=== PATIENT | female | born 1940 | race Caucasian/White ===

== ENCOUNTER 2020-12-05 13:23 | Emergency (ER) | payer MEDICARE, BC, SELFPAY ==
--- NOTE | ~2020-12-05 | XR_ITS ---
EXAMINATION: XR chest 1V portable EXAM DATE: 12/05/2020 14:33 INDICATION: covid +, cough, dyspnea on exertion. TECHNIQUE: Portable AP frontal chest x-ray was obtained. Comparison is made to prior examination from 08/12/2019. FINDINGS: The lungs are clear. There are no pleural effusions. The cardiomediastinal silhouette is within normal limits. There is no pneumothorax suspected. The bones and soft tissues are unremarkab le. There is small to moderate sliding gastroesophageal hiatal hernia. IMPRESSION: No acute cardiopulmonary findings. Reviewed, dictated and finalized at location A. CH TRIMMER
[2020-12-05 13:25] VITALS: BP 125/98; PULSE 88; RESP 18; TEMP 35.7; O2SAT 97
--- NOTE | 2020-12-05 14:15 | ED.URI ---
HPI - URI/Sore Throat General Chief Complaint: Upper Respiratory Infection Stated Complaint: covid positive, sob Time Seen by Provider: 12/05/20 13:33 Source: patient Mode of arrival: ambulatory Limitations: no limitations History of Present Illness HPI Narrative: This is a 80-year-old female that presents to the emergency department for abnormal pulse oximeter. Reports she was diagnosed with Covid 4 days ago. Reports she has been monitoring her oxygen saturation at home. Reports today that her meter was reading in the high 80s, she was told by her primary to come in to be seen. She does report some headaches and cough since her Covid diagnosis. Otherwise has no complaints currently. Denies fever, chest pain, or shortness of breath. Related Data Home Medications Medication Instructions Recorded Confirmed azithromycin 12/05/20 12/05/20 ezetimibe mg 12/05/20 losartan-hydrochlorothiazide tablet 12/05/20 primidone 12/05/20 Allergies Allergy/AdvReac Type Severity Reaction Status Date / Time Sulfa (Sulfonamide Allergy Unknown Unknown Verified 12/05/20 13:36 Antibiotics) Review of Systems Review of Systems: Narrative: CONSTITUTIONAL: Denies fever ENT: Denies rhinorrhea, congestion, sore throat CARDIOVASCULAR: Denies chest pain RESPIRATORY: Reports cough. Denies dyspnea. All systems reviewed & are unremarkable except as noted in HPI and below PMFSH Past Medical History Medical History (Updated 12/05/20 @ 15:04 by Carolyn Pham PA-C) History of hypertension Family History Family History (Updated 07/06/16 @ 08:39 by DOCTOR UNKNOWN) Father Diabetes mellitus Sibling Patient's sister is in good health Patient's brother is in good health Mother Family history of malignant neoplasm Social History Social History Smoking status: Former smoker Smoking end date: 10/16/14 Alcohol intake: never Exam Narrative: Exam Narrative: GENERAL: Elderly, well-nourished, and in no acute distress. HEAD: Normocephalic, atraumatic. EYES: EOMI. ENT: Nares clear, no rhinorrhea or epistaxis. Mucous membranes moist. Oropharynx without tonsillar hypertrophy exudate or other lesions. Bilateral TMs pearly lópez non-bulging NECK: Supple. No adenopathy or masses. CHEST: Clear to auscultation. No respiratory distress. No wheezes rales or rhonchi HEART: Regular rate and rhythm. No murmur heard. Normal peripheral pulses. EXTREMITIES: Normal range of motion. No edema. SKIN: Warm, dry, no rash. NEURO: No focal deficits. Alert and oriented x3. PSYCH: Normal mood and affect Course Vital Signs Vital signs: Vital Signs Temperature 96.3 F L 12/05/20 13:25 Pulse Rate 88 12/05/20 13:25 Respiratory Rate 18 12/05/20 13:25 Blood Pressure 125/98 H 12/05/20 13:25 Pulse Oximetry 97 12/05/20 13:25 Temperature 96.3 F L 12/05/20 13:25 Pulse Rate 88 12/05/20 13:25 Respiratory Rate 18 12/05/20 13:25 Blood Pressure 125/98 H 12/05/20 13:25 Pulse Oximetry 97 12/05/20 13:25 MDM - URI/Sore Throat MDM Narrative Medical decision making narrative: Patient presents the emergency department for a reading of the mid to upper 80s on a home pulse oximeter. Recently diagnosed with Covid. In the ED oxygen saturation has been 93 to 97% on room air. She denies any current shortness of breath or any other complaints. Does report a mild cough and headache. Chest x-ray today is clear. She is currently on a Z-Tuan prescribed by her primary doctor. She was instructed to continue her antibiotic as prescribed and follow-up with her primary doctor. Instructed to buy a new home pulse oximeter to continue to monitor her oxygen saturation. She was instructed to return for any worsening or concerning symptoms. Imaging Data Radiologist's impression: ITS Impressions Chest X-Ray 12/05/20 14:43 IMPRESSION: No acute cardiopulmonary findings. Critical Care Time Critical
[2020-12-05 15:11] VITALS: BP 142/88; PULSE 78; RESP 16; O2SAT 96
== END 2020-12-05 15:11 | disposition home or self-care (01) ==
PROVIDERS: Emergency Provider Emergency Medicine; PCP Internal Medicine
DX: U07.1 COVID-19 (principal); I10 Essential (primary) hypertension
CPT/HCPCS: 71045; 99283

== ENCOUNTER 2021-09-04 21:40 | Observation (INO) | payer MEDICARE, BC, SELFPAY ==
[2021-09-04] VITALS (15 sets, daily range): BP systolic 112–160; BP diastolic 62–85; PULSE 72–100; RESP 14–26; TEMP 36.2; O2SAT 88–100
--- NOTE | ~2021-09-04 | XR_ITS ---
EXAMINATION: XR chest 2V EXAM DATE: 09/04/2021 22:34 INDICATION: Shortness of breath, cough X 2 days. TECHNIQUE: Frontal and lateral projections of the chest obtained and reviewed. Comparison is made to prior examination from 12/05/2020. FINDINGS: There is small to moderate sliding gastroesophageal hiatal hernia. The lungs are hyperinfla tessa which can be seen with chronic obstructive pulmonary disease (a clinical diagnosis of functional impairment), but is not diagnostic of it. The lungs are clear. There are no pleural effusions. The cardiomediastinal silhouette is within normal limits. There is no pneumothorax suspected. The bones and soft tissues are unremarkable. IMPRESSION: 1. No acute cardiopulmonary findings. 2. Small to moderate hiatal hernia. 3. Hyperinflation. Reviewed, dictated and finalized at location A. ER LICENSE REVIEWING OFFICER
--- NOTE | 2021-09-04 21:43 | ECG_ITS ---
Measurements Intervals [place] Rate: 96 P: 76 TX: 206 QRS: 40 QRSD: 88 T: 59 QT: 308 QTc: 390 Interpretive Statements SINUS RHYTHM POSSIBLE LEFT ATRIAL ENLARGEMENT INCOMPLETE RIGHT BUNDLE BRANCH BLOCK BORDERLINE ST-T WAVE ABNORMALITY- ANT/INF LEADS BASELINE ARTIFACT- I, II, AVR, AVL, V1-V3 BORDERLINE ECG Electronically Signed On 09-05-2021 7:18:57 CLOTH SHEARER by Gordon Scott D.O.
--- NOTE | 2021-09-04 22:14 | PC.NURSE ---
Pt here from home in personal vehicle. reports increasing shortness of breath x 2-3 days. denies sick contacts. a/o x 4. shortness of breath worse with exertion. Denies hx of COPD but had been dx with exacerbation of same in past. 88% on RA. placed on 2L O2 per NC.
[2021-09-04 22:25] LABS: Basophils Absolute Auto 0.1 K/mm3 (0.0-0.1); Basophils Percent Auto 0.6 % (0.2-1.2); Eosinophils Absolute Auto 0.3 K/mm3 (0-0.3); Eosinophils Percent Auto 3.7 % (0-4.4); Hematocrit 45.2 % (37.0-47.0); Hemoglobin 15.6 g/dL (12.0-15.0); Immature Granulocyte Absolute 0.03 K/mm3 (0.00-0.031); Immature Granulocyte Percent A 0.4 % (0-0.5); Lymphocytes Percent Auto 25.6 % (18.3-44.2); Mean Corpuscular HGB Conc 34.5 g/dl (32-36); Mean Corpuscular Hemoglobin 34.6 pg (26-34); Mean Corpuscular Volume 100.2 fl (80-100); Mean Platelet Volume 9.9 fl (7.4-10.4); Monocytes Absolute Auto 0.9 K/mm3 (0.1-0.6); Monocytes Percent Auto 11.2 % (2.6-8.5); Neutrophils Absolute Auto 4.8 K/mm3 (1.3-6.7); Neutrophils Percent Auto 58.5 % (45.5-73.1); Platelet Count Result 176 k/mm3 (150-375); Red Blood Count 4.51 M/mm3 (4.2-5.4); Red Cell Distribution Width 12.1 % (11.5-14.5); White Blood Count 8.2 K/mm3 (4.5-10.0)
[2021-09-04 22:33] LABS: Lactic Acid Reflex 0.9 mmol/L (0.7-2.1)
[2021-09-04 22:33] LABS: Alanine Aminotransferase 16 U/L (4-35); Albumin Level 4.9 g/dL (3.5-5.1); Alkaline Phosphatase 162 U/L (38-126); Anion Gap 8 mmol/L (8-16); Aspartate Amino Transferase 28 U/L (14-36); Bilirubin,Total 0.3 mg/dL (0.2-1.3); Blood Urea Nitrogen 15 mg/dL (7-17); Calcium 9.7 mg/dL (8.4-10.2); Carbon Dioxide 32 mmol/L (22-30); Chloride 97 mmol/L (98-107); Estimated CRCL calculation 42 ml/min; Estimated Glomerular Filt Rate > 60; Glucose 134 mg/dL (65-110); Potassium 3.1 mmol/L (3.4-5.0); Sodium 137 mmol/L (137-145)
[2021-09-04] MEDS: methylPREDNISolone SOD SUCC 125 MG VIAL IV PUSH (23:03)
[2021-09-04] MEDS: ALBUTEROL SULFATE NEB 2.5 MG/0.5 ML INH 20 MG INHALATION (23:09)
[2021-09-04] MEDS: IPRATROPIUM BR 0.02% INH SOLN 0.5 MG/2.5 ML VIAL 1.5 MG INHALATION (23:09)
[2021-09-04 23:29] LABS: Base Excess ABG 4.6 mEq/l (+/-2.0); Device NASAL CANNULA; Fractional Inspired Oxygen 28 %; Modified Allen's Test Pass; Oxygen Content ABG 19.4 %vol (16.0-22.0); Oxygen Saturation ABG 96.3 % (95.0-100.0); Oxyhemoglobin 94.4 % THb (90.0-100.0); PCO2 ABG 53.3 mmHg (35.0-45.0); PO2 ABG 86.7 mmHg (80.0-100.0); Site Drawn RIGHT RADIAL; Total Hemoglobin 14.6 g/dL (12.0-18.0); pH ABG 7.383 (7.350-7.450)
[2021-09-05] VITALS (45 sets, daily range): BP systolic 103–155; BP diastolic 39–78; PULSE 60–93; RESP 9–24; TEMP 36.1–36.9; O2SAT 9–100; BMI 23.8
--- NOTE | 2021-09-05 01:10 | PC.NURSE ---
pt currently talking to family on her cell phone. On 2L 02 per NC.
--- NOTE | 2021-09-05 02:13 | ED.SOB ---
HPI - SOB/Dyspnea General Chief Complaint: Shortness of Breath/Dyspnea Stated Complaint: sob, cough Time Seen by Provider: 09/04/21 22:43 Source: patient History of Present Illness HPI Narrative: Patient presents with shortness of breath. She denies any prior lung disease. She reports she has felt short of breath for the past few days and been trying to treat it with rest however today she was short of breath just sitting there given worsening symptoms she came to the ER for evaluation. She reporting association with cough and congestion. She denies fevers or known exposures she reports she had Covid back in November and did get her booster series. Related Data Home Medications Medication Instructions Recorded Confirmed ezetimibe mg 12/05/20 losartan-hydrochlorothiazide tablet 12/05/20 Allergies Allergy/AdvReac Type Severity Reaction Status Date / Time Sulfa (Sulfonamide Allergy Unknown Unknown Verified 09/04/21 21:49 Antibiotics) Review of Systems Review of Systems: CONSTITUTIONAL: Denies fever, chills, or sweats. EYES: Denies visual changes, redness, or discharge. ENT: Reports congestion CARDIOVASCULAR: Denies chest pain, palpitations, or edema. RESPIRATORY: Shortness of breath and cough GASTROINTESTINAL: Denies abdominal pain, nausea, vomiting, or diarrhea. GENITOURINARY: Denies dysuria or hematuria. SKIN: Denies rash or itching. MUSCULOSKELETAL: Denies back pain, joint pain, or myalgia. NEUROLOGIC: Denies headache, numbness, dizziness, or weakness. PSYCHIATRIC: Denies anxiety or depression. All systems reviewed & are unremarkable except as noted in HPI and below PMFSH Past Medical History Medical History History of hypertension Family History Family History Father Diabetes mellitus Sibling Patient's sister is in good health Patient's brother is in good health Mother Family history of malignant neoplasm Social History Social History Smoking status: Former smoker Smoking end date: 10/16/14 Alcohol intake: never Exam Narrative: GENERAL: Well-appearing, well-nourished, and in no acute distress. HEAD: Normocephalic, atraumatic. EYES: PERRLA and EOMI. ENT: Nares clear, no rhinorrhea or epistaxis. Mucous membranes moist. NECK: Supple. No masses. No JVD CHEST: Diminished aeration all lung lee diffuse rhonchi EXTREMITIES: Normal range of motion. No edema. SKIN: Warm, dry, no rash. NEURO: No focal deficits. Alert and oriented x3. PSYCH: Normal mood and affect. Course Reevaluation(s) Reevaluation #1: Patient reports feeling improved but continues to have oxygen requirement D satting to 88% on room air given persistent hypoxia and new O2 requirement patient will be admitted for further management patient is comfortable inpatient plan Date: 09/05/21 Time: 02:16 Vital Signs Vital signs: Vital Signs Temperature 36.2 C L 09/04/21 21:45 Pulse Rate 100 09/04/21 21:45 Respiratory Rate 22 H 09/04/21 21:45 Blood Pressure 155/72 H 09/04/21 21:45 Pulse Oximetry 91 09/04/21 21:45 Temperature 36.2 C L 09/05/21 03:18 Pulse Rate 81 09/05/21 04:32 Respiratory Rate 22 H 09/05/21 04:32 Blood Pressure 112/56 L 09/05/21 04:31 Pulse Oximetry 99 09/05/21 05:12 MDM - SOB/Dyspnea MDM Narrative Medical decision making narrative: Patient with significant smoking history presents with progressively worsening shortness of breath and cough over the past few days. Vital signs notable for hypoxia on room air patient has no home O2 requirement. Exam with diffuse rhonchi. Labs and imaging obtained. Imaging is concerning for emphysematous changes. Patient was treated with DuoNeb therapies and steroids on reevaluation she reported improvement in symptoms however continue to be hypoxic. Due to
[2021-09-05] MEDS: POTASSIUM CHLORIDE 20 MEQ PACKET (FOR LIQUID) 40 MEQ PO (02:39)
--- NOTE | 2021-09-05 05:22 | PC.NURSE ---
Report to [facility] for room 306.
--- NOTE | 2021-09-05 05:45 | ADMGEN ---
This patient, Antonieta Hawkins, was admitted to [facility] Surg Room 306-01. Patient/family oriented to hospital policies and general routines including ID bracelet, bed and alarms, visiting hours, pain management, procedures, bathroom and other care routines, personal items, smoking policy, room service/diet, and visiting hours. Information on how to activate the Rapid Response Team has been discussed. Patient/Family are encouraged to report perceived risks to care and to ask questions if they do not understand what they are told or what they should do.
[2021-09-05] MEDS: SODIUM CHLORIDE 0.9% IV 1,000 ML 125 ML IV CONT (07:11)
[2021-09-05] MEDS: methylPREDNISolone SOD SUCC 125 MG VIAL 60 MG IV PUSH ×3 (07:26→19:57)
[2021-09-05] MEDS: ALBUTEROL SULFATE NEB 2.5 MG/0.5 ML INH 5 MG INHALATION ×3 (08:25→20:26)
[2021-09-05] MEDS: IPRATROPIUM BR 0.02% INH SOLN 0.5 MG/2.5 ML VIAL INHALATION ×3 (08:26→20:27)
[2021-09-05] MEDS: POTASSIUM CHLORIDE 20 MEQ TABLET 40 MEQ PO (09:39)
--- NOTE | 2021-09-05 15:42 | PM.IMHP ---
H&P: HPI History of Present Illness Date/Time: Date of Service 09/05/21 15:42 81F with a past medical history of essential tremor, hypertension, hyperlipidemia, COPD who presents with shortness of breath. Patient was last in her usual state of health approximately a month ago. Patient has been feeling more short of breath but has been using an old inhaler she had to help feel better. Last night she was home sitting having a coughing fit and felt extremely short of breath with an associated chest tightness. She denies fever, chills, sore throat, diarrhea, congestion. Endorses having rhinorrhea, which has resolved since coming to the hospital. She denies any recent travel and has had a 3rd dose of the COVID 19 vaccine. She lost her to COVID 19 early this year. Patient quit smoking 3 years ago and previously smoked 1/2 PPD since she was 19 until 3 years ago. In ED, given albuterol-atrovent back to back but was persistently saturating at 88% on room air, so she required admission. Methylprednisolone ordered but not given in ED as IV access was difficult. Chief Complaint: shortness of breath Review of Systems Constitutional: Constitutional: Denies fever(s), Denies malaise, Denies poor appetite and Denies weight loss Eyes: Eyes: Denies irritation and Denies itchy eyes ENT: Denies nasal congestion and Reports nasal discharge Cardiovascular: Cardiovascular: Denies chest pain, Denies chest pain with activity, Reports dyspnea and Reports dyspnea on exertion Respiratory: Respiratory: Denies chest congestion, Reports dyspnea, Reports dyspnea on exertion and Reports wheezing Gastrointestinal: Gastrointestinal: Denies abdominal pain, Denies diarrhea and Denies loose stools Musculoskeletal: Musculoskeletal: Denies arthralgias and Denies joint swelling Neurologic: Denies focal weakness Psychiatric: Psychiatric: Denies behavioral changes Endocrine: Endocrine: Denies fatigue Hematologic/Lymphatic: Hematologic/Lymphatic: Denies easy bleeding and Denies easy bruising Allergic/Immunologic: Allergic/Immunologic: Denies itchy eyes PMFSH Past Medical History Medical History (Updated 09/05/21 @ 19:47 by Raina Fuentes MD) Essential hypertension History of hypertension Hyperlipidemia Hypertension Surgical History Surgical History (Updated 09/05/21 @ 18:22 by Raina Fuentes MD) Hx of appendectomy Family History Family History (Updated 09/05/21 @ 18:24 by Raina Fuentes MD) Father Diabetes mellitus Heart disease Family history of malignant neoplasm Sibling Patient's sister is in good health, Onset Age: 92 Mother Family history of malignant neoplasm Sibling Hypertension Social History Social History (Updated 09/05/21 @ 19:39 by Raina Fuentes MD) Social History: - of COVID 19 Smoking packs per day: 0.5 Smoking cigarettes per day: 10.0 Smoking status: Former smoker Tobacco type: cigarettes Second hand tobacco smoke exposure: No Smoking end date: 09/02/18 Alcohol intake: former Substance use: never Living arrangements: alone Additional living arrangements comments: Has multiple family members on the same street. 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 Gender identity (if verbalized by the patient): Female Sexual Orientation (if Verbalized by the Patient): Straight or Heterosexual Spiritual care concerns: No Meds Home Medications and Allergies Home Medications Medication Instructions Recorded Confirmed Type ezetimibe 10 mg PO DAILY 12/05/20 09/05/21 History losartan-hydrochlorothiazide 1 tablet PO DAILY 12/05/20 09/05/21 History primidone 200 mg PO TID 09/05/21 09/05/21 History propranolol 20 mg PO TID 09/05/21 09/05/21 History Allergies Allergy/AdvReac Type Severity Reaction Status Date / Time Sulfa (Sulfonamide Allergy Unknown Unknown Verified
[2021-09-05] MEDS: PRIMIDONE 50 MG TABLET 200 MG PO (17:09)
[2021-09-05] MEDS: PROPRANOLOL HCL 20 MG TABLET PO (17:10)
[2021-09-05 20:49] LABS: Basophils Percent Auto 0.4 % (0.2-1.2); Eosinophils Absolute Auto 0.1 K/mm3 (0-0.3); Eosinophils Percent Auto 0.6 % (0-4.4); Hematocrit 36.5 % (37.0-47.0); Hemoglobin 12.2 g/dL (12.0-15.0); Immature Granulocyte Absolute 0.02 K/mm3 (0.00-0.031); Immature Granulocyte Percent A 0.2 % (0-0.5); Lymphocytes Percent Auto 20.8 % (18.3-44.2); Mean Corpuscular HGB Conc 33.4 g/dl (32-36); Mean Corpuscular Hemoglobin 34.5 pg (26-34); Mean Corpuscular Volume 103.1 fl (80-100); Mean Platelet Volume 10.2 fl (7.4-10.4); Monocytes Absolute Auto 0.9 K/mm3 (0.1-0.6); Monocytes Percent Auto 10.6 % (2.6-8.5); Neutrophils Absolute Auto 5.5 K/mm3 (1.3-6.7); Neutrophils Percent Auto 67.4 % (45.5-73.1); Platelet Count Result 173 k/mm3 (150-375); Red Blood Count 3.54 M/mm3 (4.2-5.4); Red Cell Distribution Width 12.2 % (11.5-14.5); White Blood Count 8.2 K/mm3 (4.5-10.0)
[2021-09-05 21:01] LABS: Anion Gap 4 mmol/L (8-16); Blood Urea Nitrogen 15 mg/dL (7-17); Calcium 8.7 mg/dL (8.4-10.2); Carbon Dioxide 28 mmol/L (22-30); Chloride 103 mmol/L (98-107); Estimated CRCL calculation 49 ml/min; Estimated Glomerular Filt Rate > 60; Glucose 117 mg/dL (65-110); Potassium 4.1 mmol/L (3.4-5.0); Sodium 135 mmol/L (137-145)
[2021-09-06] VITALS (7 sets, daily range): BP systolic 101–134; BP diastolic 69–81; PULSE 67–78; RESP 18–20; TEMP 35.8–36.4; O2SAT 95–99
[2021-09-06] MEDS: methylPREDNISolone SOD SUCC 125 MG VIAL 60 MG IV PUSH (01:05)
[2021-09-06] MEDS: IPRATROPIUM BR 0.02% INH SOLN 0.5 MG/2.5 ML VIAL INHALATION ×2 (02:10→09:56)
[2021-09-06] MEDS: ALBUTEROL SULFATE NEB 2.5 MG/0.5 ML INH 5 MG INHALATION ×2 (02:10→09:56)
[2021-09-06 06:08] LABS: Basophils Percent Auto 0.3 % (0.2-1.2); Eosinophils Percent Auto 0.1 % (0-4.4); Hematocrit 38.6 % (37.0-47.0); Hemoglobin 13.2 g/dL (12.0-15.0); Immature Granulocyte Absolute 0.04 K/mm3 (0.00-0.031); Immature Granulocyte Percent A 0.5 % (0-0.5); Lymphocytes Percent Auto 15.9 % (18.3-44.2); Mean Corpuscular HGB Conc 34.2 g/dl (32-36); Mean Corpuscular Hemoglobin 34.3 pg (26-34); Mean Corpuscular Volume 100.3 fl (80-100); Mean Platelet Volume 9.9 fl (7.4-10.4); Monocytes Absolute Auto 0.2 K/mm3 (0.1-0.6); Monocytes Percent Auto 2.8 % (2.6-8.5); Neutrophils Absolute Auto 6.1 K/mm3 (1.3-6.7); Neutrophils Percent Auto 80.4 % (45.5-73.1); Platelet Count Result 165 k/mm3 (150-375); Red Blood Count 3.85 M/mm3 (4.2-5.4); Red Cell Distribution Width 11.9 % (11.5-14.5); White Blood Count 7.6 K/mm3 (4.5-10.0)
[2021-09-06 06:20] LABS: Anion Gap -1 mmol/L (8-16); Blood Urea Nitrogen 13 mg/dL (7-17); Calcium 8.8 mg/dL (8.4-10.2); Carbon Dioxide 32 mmol/L (22-30); Chloride 102 mmol/L (98-107); Estimated CRCL calculation 49 ml/min; Estimated Glomerular Filt Rate > 60; Glucose 138 mg/dL (65-110); Potassium 4.9 mmol/L (3.4-5.0); Sodium 133 mmol/L (137-145)
[2021-09-06] MEDS: predniSONE 20 MG TABLET 40 MG PO (09:26)
[2021-09-06] MEDS: PRIMIDONE 50 MG TABLET 200 MG PO (09:27)
[2021-09-06] MEDS: LOSARTAN POTASSIUM 100 MG TABLET PO (09:27)
[2021-09-06] MEDS: PROPRANOLOL HCL 20 MG TABLET PO (09:27)
[2021-09-06] MEDS: hydroCHLOROthiazide 25 MG TABLET PO (09:27)
[2021-09-06] MEDS: EZETIMIBE 10 MG TABLET PO (09:27)
--- NOTE | 2021-09-06 10:57 | PM.DS ---
DS: Admitting Diagnosis Discharge Date 09/06/21 Admitting Diagnosis Shortness of breath DS: Discharge Diagnosis Discharge Diagnosis (1) Acute hypoxemic respiratory failure: Code(s): J96.01 - Acute respiratory failure with hypoxia Status: Acute Assessment and Plan: Due to COPD exacerbation. Patient was given albuterol-ipratropium back to back in ED with oxygen saturation persistently at 88% on room air but improved with 2L NC. She was improving and endorsed feeling much better. Treated with methylprednisolone x3 doses and then changed to Prednisone 40 mg daily. We continue albuterol-ipratropium q6h nebs. Able to wean off O2. She has been up walking to the bathroom without BRAVO. She feels back to baseline and feels ready for discharge. (2) COPD exacerbation: Code(s): J44.1 - Chronic obstructive pulmonary disease with (acute) exacerbation Status: Acute Assessment and Plan: No pneumonia on CXR. Blood cultures NGTD. COVID 19 PCR pending but felt less likely. Likely related to seasonal allergies. Has previous hospitalization for COPD in the past. She has Albuterol neb and inhaler at home that she was using regularly over the past week since becoming ill. Treatment as above. Add Incruse Ellipta at discharge. (3) Macrocytosis: Code(s): D75.89 - Other specified diseases of blood and blood-forming organs Status: Acute Assessment and Plan: MCV 100.3 without anemia. Has been noted in the past. Also patient notes poor nutrition as she stopped cooking as much as she did prior to her dying in October 2020. B12 level normal. (4) Hypertension: Code(s): I10 - Essential (primary) hypertension Status: Acute Assessment and Plan: BP elevated on admission but otherwise remained well controlled with resuming her home medications. (5) Hyperlipidemia: Code(s): E78.5 - Hyperlipidemia, unspecified Status: Acute Assessment and Plan: Stable. Patient takes ezetimibe 10 mg po at home which was resumed. (6) Benign familial tremor: Code(s): G25.0 - Essential tremor Status: Acute Assessment and Plan: Familial tremor controlled with primidone 4 tabs BID and propranolol 20 mg 2 tabs BID. We continue home propranolol and primidone. DS: Summary Hospital Course Reason for hospitalization: 81yo female with COPD here for shortness of breath. Please see H&P for details Hospital Course: Please see above for details of hospital course. Status at Discharge Cognitive/behavioral status at discharge: Stable Time Spent with Patient Time attestation: Total time spent providing and/or coordinating discharge services: 32 minutes Time spent: Greater than 30 minutes Exam Narrative: AF 97.5 134/81 72 18 95% ra Gen - NARD Chest - distant but clear breath sounds. No wheezing CV - RRR with distant S1/S2 Abd - Soft, NT/ND, Positive BS Ext - No pedal edema Psych - Nml mood and affect Skin - Warm and dry DS: Data Data Completed and Pending Labs on day of discharge: Labs from last 24 hours 09/06/21 09/06/21 09/06/21 05:59 05:59 05:59 WBC 7.6 RBC 3.85 L Hgb 13.2 Hct 38.6 MCV 100.3 H MCH 34.3 H MCHC 34.2 RDW 11.9 Plt Count 165 MPV 9.9 Immature Gran % (Auto) 0.5 Neut % (Auto) 80.4 H Lymph % (Auto) 15.9 L [place] % (Auto) 2.8 Eos % (Auto) 0.1 Baso % (Auto) 0.3 Lymph # (Auto) 1.20 [place] # (Auto) 0.2 Eos # (Auto) 0.0 Baso # (Auto) 0.0 Abs Immat Gran (auto) 0.04 H Absolute Neuts (auto) 6.1 Absolute Nucleated RBC 0.0 Nucleated RBC % 0.0 Sodium 133 L Potassium 4.9 Chloride 102 Carbon Dioxide 32 H Anion Gap -1 L BUN 13 Creatinine 0.60 L Estim Creat Clear Calc 49 Estimated GFR > 60 Glucose 138 H Calcium 8.8 Vitamin B12 RBC Folate Pending Hematocrit Pending 09/06/21 09/05/21 11
[2021-09-06 18:36] LABS: SARS-CoV-2 RNA PCR Negative
--- NOTE | 2021-09-07 13:38 | PC.NURSE ---
COVID test is negative. Results called to patient. Dr. Elyse stevenson.
[2021-09-08 11:58] LABS: Red Blood Cell Folate 865 ng/mL RBC (>280)
--- NOTE | 2021-09-15 13:03 | PC.NURSE ---
Blood cx are negative. [place] is WNL at 865. Dr[address] Elyse stevenson.
== END 2021-09-06 12:25 | disposition home or self-care (01) ==
LOC: ANHED 09-05 02:46 → ANH3MEDSUR 09-06 11:11
PROVIDERS: Family Medicine; Admitting Provider Internal Medicine; Emergency Provider Emergency Medicine; PCP Internal Medicine; Visit Provider Internal Medicine
DX: J96.01 Acute respiratory failure with hypoxia (principal); J44.1 Chronic obstructive pulmonary disease with (acute) exacerbation; D75.89 Other specified diseases of blood and blood-forming organs; I10 Essential (primary) hypertension; E78.5 Hyperlipidemia, unspecified; G25.0 Essential tremor; Z86.16 Personal history of COVID-19; Z87.891 Personal history of nicotine dependence; Z20.822 Contact with and (suspected) exposure to COVID-19
CPT/HCPCS: 36415; 36600; 71046; 80048; 80053; 82607; 82747; 82805; 83605; 85025; 87040; 93005; 94640; 96374; 96376; 99285; A9270; C9803; G0378; J2930; J7030; J7512; U0003; U0005

== ENCOUNTER 2022-02-04 12:58 | Inpatient (IN) | payer MEDICARE, BC, SELFPAY ==
[2022-02-04] VITALS (12 sets, daily range): BP systolic 118–141; BP diastolic 61–67; PULSE 61–93; RESP 14–24; TEMP 36.6–38.1; O2SAT 90–95; BMI 23.9
--- NOTE | ~2022-02-04 | XR_ITS ---
EXAMINATION: XR chest 2V DATE: 02/04/2022 14:04 INDICATION: Shortness of breath TECHNIQUE: PA and lateral views of the chest are obtained. COMPARISON: 09/04/2021 FINDINGS: The lungs are free of acute opacities. There is no pleural effusion or pneumothorax. The ca rdiomediastinal silhouette is normal. There is mild thoracic spondylosis. IMPRESSION: 1. No acute cardiopulmonary abnormality. Reviewed, dictated and finalized at location F.
--- NOTE | 2022-02-04 13:17 | ECG_ITS ---
Measurements Intervals [place] Rate: 89 P: 53 PA: 179 QRS: 47 QRSD: 82 T: 64 QT: 336 QTc: 409 Interpretive Statements SINUS RHYTHM POOR R-WAVE PROGRESSION COMPARED TO ECG 09/04/2021 21:52:49 NO SIGNIFICANT CHANGES Electronically Signed On 02-05-2022 11:20:06 CDT by Vivek Pereyra M.D.
[2022-02-04] MEDS: IPRATROPIUM BR 0.02% INH SOLN 0.5 MG/2.5 ML VIAL INHALATION ×3 (13:40→20:58)
[2022-02-04] MEDS: ALBUTEROL SULFATE NEB 2.5 MG/0.5 ML INH 5 MG INHALATION ×3 (13:40→20:58)
[2022-02-04 13:44] LABS: Basophils Absolute Auto 0.1 K/mm3 (0.0-0.1); Basophils Percent Auto 0.3 % (0.2-1.2); Eosinophils Absolute Auto 0.1 K/mm3 (0-0.3); Eosinophils Percent Auto 0.7 % (0-4.4); Hemoglobin 12.4 g/dL (12.0-15.0); Immature Granulocyte Absolute 0.05 K/mm3 (0.00-0.031); Immature Granulocyte Percent A 0.3 % (0-0.5); Lymphocytes Absolute Auto 1.14 K/mm3 (0.9-3.2); Lymphocytes Percent Auto 7.8 % (18.3-44.2); Mean Corpuscular HGB Conc 32.6 g/dl (32-36); Mean Corpuscular Hemoglobin 30.7 pg (26-34); Mean Corpuscular Volume 94.1 fl (80-100); Mean Platelet Volume 9.8 fl (7.4-10.4); Monocytes Absolute Auto 1.1 K/mm3 (0.1-0.6); Monocytes Percent Auto 7.7 % (2.6-8.5); Neutrophils Absolute Auto 12.1 K/mm3 (1.3-6.7); Neutrophils Percent Auto 83.2 % (45.5-73.1); Platelet Count Result 195 k/mm3 (150-375); Red Blood Count 4.04 M/mm3 (4.2-5.4); Red Cell Distribution Width 12.6 % (11.5-14.5); White Blood Count 14.6 K/mm3 (4.5-10.0)
--- NOTE | 2022-02-04 13:47 | ED.SOB ---
HPI - SOB/Dyspnea General Chief Complaint: Shortness of Breath/Dyspnea Stated Complaint: SOB, COPD Time Seen by Provider: 02/04/22 13:15 History of Present Illness HPI Narrative: Patient is an 81-year-old female who presents ER with shortness of breath. Worsening over the last week. Worsened to the point today where she cannot walk at all without being extremely weak. She reports has been having cough. Denies fevers or chills or sweats. No chest pain or chest pressure. Patient quit smoking 2 years ago and still chews gum. No known sick contacts. Patient reports worsens when she tries to walk upstairs she comes incredibly short of breath. Upon arrival here patient has an O2 sat of 90% on room air. Related Data Home Medications Medication Instructions Recorded Confirmed ezetimibe 10 mg PO DAILY 12/05/20 09/05/21 losartan-hydrochlorothiazide 1 tablet PO DAILY 12/05/20 09/05/21 primidone 200 mg PO TID 09/05/21 09/05/21 Allergies Allergy/AdvReac Type Severity Reaction Status Date / Time Sulfa (Sulfonamide Allergy Unknown Unknown Verified 02/04/22 13:25 Antibiotics) Review of Systems Review of Systems: All systems reviewed & are unremarkable except as noted in HPI and below Constitutional: Constitutional: Denies chills, Reports fatigue, Denies fever(s) and Reports weakness ENT: Denies nasal congestion and Denies sore throat Cardiovascular: Cardiovascular: Denies chest pain, Denies rapid heart rate and Denies radiating jaw, neck or arm pain Respiratory: Respiratory: Reports cough, Reports dyspnea and Reports wheezing Gastrointestinal: Gastrointestinal: Denies abdominal pain, Denies nausea and Denies vomiting Musculoskeletal: Musculoskeletal: Denies back pain and Denies muscle cramps [facility] Past Medical History Medical History (Updated 02/04/22 @ 16:47 by Chivo Yee MD) Essential hypertension History of hypertension Hyperlipidemia Hypertension Surgical History Surgical History (Updated 09/05/21 @ 18:22 by Raina Fuentes MD) Hx of appendectomy Family History Family History (Updated 09/05/21 @ 18:24 by Raina Fuentes MD) Father Diabetes mellitus Heart disease Family history of malignant neoplasm Sibling Patient's sister is in good health, Onset Age: 92 Mother Family history of malignant neoplasm Sibling Hypertension Social History Social History (Updated 09/05/21 @ 19:39 by Raina Fuentes MD) Social History: - of COVID 19 Smoking packs per day: 0.5 Smoking cigarettes per day: 10.0 Smoking status: Former smoker Tobacco type: cigarettes Second hand tobacco smoke exposure: Yes Additional smoking assessment comments: chews nicotine gum Alcohol intake: never Substance use: never Additional living arrangements comments: Has multiple family members on the same street. 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 HEAD: Normocephalic, atraumatic. NECK: Supple. CHEST: Coarse Rales and rhonchi bilaterally. No respiratory distress. HEART: Regular rate and rhythm. Normal peripheral pulses. ABDOMEN: Soft, nontender, nondistended. EXTREMITIES: Normal range of motion. No edema. SKIN: Warm, dry, no rash. NEURO: Alert and oriented x3. PSYCH: Normal mood and affect. Course Course Emergency Course: Patient has had 2 rounds of nebulizer treatments. When oxygen is turned off she immediately desats to 90% while sitting. Patient given IV Solu-Medrol. Will admit for scheduled steroids and nebulizer treatments. COVID and flu negative. Vital Signs Vital signs: Vital Signs Temperature 98.7 F 02/04/22 13:01 Pulse Rate 93 02/04/22 13:01 Res
[2022-02-04 13:53] LABS: Anion Gap 6 mmol/L (8-16); Blood Urea Nitrogen 13 mg/dL (7-17); Carbon Dioxide 31 mmol/L (22-30); Chloride 100 mmol/L (98-107); Estimated CRCL calculation 44 ml/min; Estimated Glomerular Filt Rate > 60; Glucose 140 mg/dL (65-110); Potassium 3.8 mmol/L (3.4-5.0); Sodium 137 mmol/L (137-145)
[2022-02-04 14:02] LABS: NT Pro B Type Natriuretic Pept 218 pg/mL (5-100)
[2022-02-04] MEDS: methylPREDNISolone SOD SUCC 125 MG VIAL IV PUSH (15:03)
[2022-02-04 16:32] LABS: Influenza A QL RT-PCR Negative (Negative); Influenza B QL RT-PCR Negative (Negative); SARS-CoV-2 RNA PCR Negative
--- NOTE | 2022-02-04 17:45 | PM.IMHP ---
H&P: HPI History of Present Illness Date/Time: 02/04/22 17:45 Chief Complaint: Shortness of breath. Narrative: This is a very pleasant 81-year-old female with COPD and hypertension who presented to the emergency department from home for evaluation of shortness of breath. She gets allergies this time of year and reports mild rhinorrhea and occasional wheezing. The past 2 weeks she has developed progressive dyspnea on lesser and lesser exertion and despite using nebulizers 2 times a day for the last several days, her shortness of breath and wheezing have gotten worse. Additionally she reports a cough productive of clear sputum which has been getting worse the past 2 days. Last evening she had chills and did not sleep well due to her wheezing and coughing and on arrival to the ER today she had a low-grade temperature. Chest x-ray showed no acute cardiopulmonary abnormalities. Due to her continued and significant wheezing despite nebs and Solu-Medrol, she is being admitted for further care. She has no current complaints and denies syncope, near syncope, chest pain, pleuritic pain, sore throat, sick contacts, nausea, vomiting, and diarrhea. Review of Systems Review of Systems: Twelve systems were reviewed and are negative except for as per HPI. [facility] Past Medical History Medical History (Updated 02/04/22 @ 23:09 by Mayi Montilla PA-C) Benign familial tremor Chronic obstructive pulmonary disease COVID-19 (2020) Essential hypertension Hyperlipidemia Hypertension Surgical History Surgical History (Updated 02/04/22 @ 23:06 by Mayi Montilla PA-C) History of appendectomy Family History Family History Father Diabetes mellitus Heart disease Family history of malignant neoplasm Sibling Patient's sister is in good health, Onset Age: 92 Mother Family history of malignant neoplasm Sibling Hypertension Social History Social History (Updated 02/04/22 @ 23:07 by Mayi Montilla PA-C) Social History: Surrogate decision maker: Delilah Arango, daughter. Code status: Full code. Smoking packs per day: 0.5 Smoking cigarettes per day: 10.0 Smoking status: Former smoker Tobacco type: cigarettes Second hand tobacco smoke exposure: Yes Additional smoking assessment comments: Continues to chew nicotine gum. Alcohol intake: never Substance use: never Additional living arrangements comments: . Lives in [place]. Multiple family members live nearby. 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 Spiritual care concerns: No Meds Home Medications and Allergies Home Medications Medication Instructions Recorded Confirmed Type ezetimibe 10 mg PO DAILY 12/05/20 09/05/21 History losartan-hydrochlorothiazide 1 tablet PO DAILY 12/05/20 09/05/21 History primidone 200 mg PO TID 09/05/21 09/05/21 History umeclidinium [Incruse Ellipta] 1 inh INHALATION DAILYRT #30 ea 09/06/21 Rx propranolol 20 mg tablet 40 mg PO TID #120 tablet 12/13/21 Rx Allergies Allergy/AdvReac Type Severity Reaction Status Date / Time Sulfa (Sulfonamide Allergy Unknown Unknown Verified 02/04/22 13:25 Antibiotics) Vital Signs Vital Signs - 24 hr 02/04/22 13:01 02/04/22 13:24 02/04/22 13:25 Temperature 98.7 F Pulse Rate 93 88 Respiratory Rate 18 Blood Pressure 141/65 H Pulse Oximetry 90 94 02/04/22 13:40 02/04/22 13:49 02/04/22 15:03 Temperature 100.6 F H Pulse Rate 87 86 88 Respiratory Rate 24 H 14 16 Blood Pressure 121/66 Pulse Oximetry 95 02/04/22 16:24 02/04/22 16:32 02/04/22 18:12 Temperature 97.8 F Pulse Rate 85 89 88 Respiratory Rate 23 H 14 23 H Blood Pressure 118/67 Pulse Oximetry 93 02/04/22 20:00 02/04/22 20:58 02/04/22 21:07 Temperature 97.9 F Pulse Rate 61 88 78 Respiratory Rate 16 16 16 Blood Pressure 123/61 Pulse Oximetry 95 93 Ex
--- NOTE | 2022-02-04 21:35 | PC.NURSE ---
This patient, Antonieta Hawkins, was admitted to [facility] Surg Room 307-01. Patient/family oriented to hospital policies and general routines including ID bracelet, bed and alarms, visiting hours, pain management, procedures, bathroom and other care routines, personal items, smoking policy, room service/diet, and visiting hours. Information on how to activate the Rapid Response Team has been discussed. Patient/Family are encouraged to report perceived risks to care and to ask questions if they do not understand what they are told or what they should do.
[2022-02-05] VITALS (20 sets, daily range): BP systolic 93–111; BP diastolic 53–56; PULSE 80–97; RESP 16–18; TEMP 36.1–37; O2SAT 86–97
[2022-02-05] MEDS: methylPREDNISolone SOD SUCC 125 MG VIAL 60 MG IV PUSH ×4 (02:09→17:28)
[2022-02-05] MEDS: IPRATROPIUM BR 0.02% INH SOLN 0.5 MG/2.5 ML VIAL INHALATION ×4 (02:35→20:15)
[2022-02-05] MEDS: ALBUTEROL SULFATE NEB 2.5 MG/0.5 ML INH 5 MG INHALATION ×4 (02:35→20:15)
[2022-02-05 06:43] LABS: Hematocrit 34.2 % (37.0-47.0); Hemoglobin 11.3 g/dL (12.0-15.0); Mean Corpuscular Hemoglobin 30.6 pg (26-34); Mean Corpuscular Volume 92.7 fl (80-100); Mean Platelet Volume 10.1 fl (7.4-10.4); Platelet Count Result 181 k/mm3 (150-375); Red Blood Count 3.69 M/mm3 (4.2-5.4); Red Cell Distribution Width 12.5 % (11.5-14.5); White Blood Count 13.1 K/mm3 (4.5-10.0)
[2022-02-05 07:05] LABS: Alanine Aminotransferase 10 U/L (4-35); Albumin Level 4.1 g/dL (3.5-5.1); Alkaline Phosphatase 112 U/L (38-126); Anion Gap 7 mmol/L (8-16); Aspartate Amino Transferase 20 U/L (14-36); Bilirubin,Total 0.4 mg/dL (0.2-1.3); Blood Urea Nitrogen 15 mg/dL (7-17); Calcium 8.6 mg/dL (8.4-10.2); Carbon Dioxide 29 mmol/L (22-30); Chloride 99 mmol/L (98-107); Estimated CRCL calculation 39 ml/min; Estimated Glomerular Filt Rate > 60; Glucose 140 mg/dL (65-110); Magnesium 1.7 mg/dL (1.6-2.3); Potassium 3.4 mmol/L (3.4-5.0); Sodium 135 mmol/L (137-145)
[2022-02-05 07:13] LABS: CRP 20.1 mg/dL (<1.0)
--- NOTE | 2022-02-05 11:09 | PM.IMPN ---
Progress Note: A&P Assessment and Plan (1) COPD with acute exacerbation: Code(s): J44.1 - Chronic obstructive pulmonary disease with (acute) exacerbation Status: Acute Assessment and Plan: Pt admitted for cOpd excerbation. Continue scheduled steroids and bronchodilators. Hopeful dc tomorrow . (2) Hypertension: Code(s): I10 - Essential (primary) hypertension Status: Acute Assessment and Plan: Bp is 111/53 chronic and stable (3) Hyperlipidemia: Code(s): E78.5 - Hyperlipidemia, unspecified Status: Acute Assessment and Plan: Continue ezetimibe. (4) Benign familial tremor: Code(s): G25.0 - Essential tremor Status: Acute Assessment and Plan: Continue primidone and propranolol. Subjective Date/time seen: 02/05/22 11:09 Interval history: 81-year-old female with COPD and hypertension who presented to the emergency department from home for evaluation of shortness of breath. Pt here with Copd exacerbation feels better since admission Review of Systems Review of Systems: All systems reviewed & are unremarkable except as noted in HPI and below Exam Const: General: cooperative and healthy appearing; No in distress Nutritional Appearance: overweight Orientation/consciousness: oriented to person HENMT: Head: normal to inspection Resp: Effort & Inspection: respiratory distress Auscultation: no rhonchi and wheezes Cardio: Rate: regular rate Rhythm: regular rhythm GI: Inspection: normal to inspection GI Palp: No abdominal tenderness, No Guarding due to palpation present (GI) and No Hepatomegaly present Auscultation: normal bowel sounds Neuro: General: oriented to person Objective Data Vital Signs Vital Signs: Vital Signs - 24 hr 02/04/22 13:01 02/04/22 13:24 02/04/22 13:25 Temperature 37.1 C Pulse Rate 93 88 Respiratory Rate 18 Blood Pressure 141/65 H Pulse Oximetry 90 94 02/04/22 13:40 02/04/22 13:49 02/04/22 15:03 Temperature 38.1 C H Pulse Rate 87 86 88 Respiratory Rate 24 H 14 16 Blood Pressure 121/66 Pulse Oximetry 95 02/04/22 16:24 02/04/22 16:32 02/04/22 18:12 Temperature 36.6 C Pulse Rate 85 89 88 Respiratory Rate 23 H 14 23 H Blood Pressure 118/67 Pulse Oximetry 93 02/04/22 20:00 02/04/22 20:58 02/04/22 21:07 Temperature 36.6 C Pulse Rate 61 88 78 Respiratory Rate 16 16 16 Blood Pressure 123/61 Pulse Oximetry 95 93 02/05/22 00:00 02/05/22 01:41 02/05/22 02:35 Temperature 36.3 C L Pulse Rate 96 88 Respiratory Rate 16 18 Blood Pressure 100/55 L Pulse Oximetry 95 95 86 L 02/05/22 02:42 02/05/22 02:59 02/05/22 04:00 Temperature 36.5 C Pulse Rate 90 92 Respiratory Rate 16 16 Blood Pressure 111/53 L Pulse Oximetry 92 92 02/05/22 08:00 02/05/22 08:30 02/05/22 08:34 Temperature Pulse Rate 95 97 Respiratory Rate 18 18 Blood Pressure Pulse Oximetry 94 94 02/05/22 08:40 Temperature Pulse Rate 95 Respiratory Rate 18 Blood Pressure Pulse Oximetry Intake/Output Intake/Output: Intake & Output 02/02/22 02/03/22 02/04/22 02/05/22 23:59 23:59 23:59 23:59 Intake Total 50 990 Balance 50 990 Meds/Results Medications: Active Medications Generic Name Dose Route Start Last Admin Trade Name Freq PRN Reason Stop Dose Admin Acetaminophen 650 mg 02/04/22 16:55 Acetaminophen 325 Mg Tablet PO Q4H PRN Mild Pain (1-3) or Fever Albuterol 5 mg 02/04/22 20:00 02/05/22 08:30 Albuterol Sulfate Neb 2.5 Mg/0.5 Ml Inh INHALATION 5 mg Q6HRT [facility] Administration Enoxaparin Sodium 40 mg 02/05/22 09:00 02/05/22 10:06 Enoxaparin 40 Mg/0.4 Ml Syringe SUB-Q Not Given DAILY [facility] Ceftriaxone Sodium/Dextrose 1 gm in 50 mls @ 100 mls/hr 02/05/22 18:00 Rocephin 1 Gm/D5w 50 Ml IVPB Q24H [facility] Azithromycin 500 mg in 250 mls @ 250 mls/hr 02/05/22 18:00 Zithromax IVPB Q24H [facility]
[2022-02-06] VITALS (10 sets, daily range): BP systolic 107–111; BP diastolic 51–58; PULSE 70–78; RESP 16; TEMP 36.1–36.4; O2SAT 87–94
[2022-02-06] MEDS: methylPREDNISolone SOD SUCC 125 MG VIAL 60 MG IV PUSH ×2 (00:47→05:14)
[2022-02-06] MEDS: ALBUTEROL SULFATE NEB 2.5 MG/0.5 ML INH 5 MG INHALATION ×2 (02:18→07:36)
[2022-02-06] MEDS: IPRATROPIUM BR 0.02% INH SOLN 0.5 MG/2.5 ML VIAL INHALATION ×2 (02:19→07:36)
[2022-02-06 09:07] LABS: Hematocrit 37.6 % (37.0-47.0); Hemoglobin 12.5 g/dL (12.0-15.0); Mean Corpuscular HGB Conc 33.2 g/dl (32-36); Mean Corpuscular Hemoglobin 31.3 pg (26-34); Mean Platelet Volume 10.3 fl (7.4-10.4); Platelet Count Result 271 k/mm3 (150-375); Red Cell Distribution Width 12.5 % (11.5-14.5); White Blood Count 16.5 K/mm3 (4.5-10.0)
[2022-02-06 09:24] LABS: Anion Gap 12 mmol/L (8-16); Blood Urea Nitrogen 27 mg/dL (7-17); Calcium 8.9 mg/dL (8.4-10.2); Carbon Dioxide 27 mmol/L (22-30); Chloride 96 mmol/L (98-107); Estimated CRCL calculation 29 ml/min; Estimated Glomerular Filt Rate 48; Glucose 200 mg/dL (65-110); Potassium 3.5 mmol/L (3.4-5.0); Sodium 135 mmol/L (137-145)
--- NOTE | 2022-02-06 09:51 | PM.DS ---
DS: Admitting Diagnosis Discharge Date February 06, 2022 Admitting Diagnosis COPD exacerbation, hypoxic respiratory failure present on admission DS: Discharge Diagnosis Discharge Diagnosis (1) COPD with acute exacerbation: Code(s): J44.1 - Chronic obstructive pulmonary disease with (acute) exacerbation Status: Acute Assessment and Plan: Pt admitted for cOpd excerbation. Did well on antibiotics and steroids. Will discharge on antibiotics and steroids as well. Follow up with primary care physician (2) Hypertension: Code(s): I10 - Essential (primary) hypertension Status: Acute Assessment and Plan: Bp is 111/53 chronic and stable (3) Hyperlipidemia: Code(s): E78.5 - Hyperlipidemia, unspecified Status: Acute Assessment and Plan: Continue ezetimibe. (4) Benign familial tremor: Code(s): G25.0 - Essential tremor Status: Acute Assessment and Plan: Continue primidone and propranolol. DS: Summary Hospital Course Hospital Course: C plan and diagnoses Time Spent with Patient Time attestation: Total time spent providing and/or coordinating discharge services: Exam Narrative: General: Well-developed elderly female sitting up in bed in no acute distress. Weight: 61.3 kg. BMI: 23.9. HEENT: Wearing glasses. PERRL, EOMI. Sclerae anicteric. Oral mucosa moist. Neck: Supple. No lymphadenopathy or JVD. Respiratory: Respirations are nonlabored and she is speaking in full sentences. Lung sounds are significantly diminished throughout with increased expiratory phase and diffuse wheezing. Cardiovascular: Regular rate and rhythm with S1-S2. Gastrointestinal: Abdomen is soft, nontender, and nondistended with positive bowel sounds. Skin: Warm and dry. No rash or lesions on limited exam. Extremities: No cyanosis, clubbing, or edema. Radial and pedal pulses intact. Neurological: Alert. Cranial nerves 2-12 are grossly intact. No gross focal deficits to casual conversation. Psychiatric: Pleasant and cooperative with normal mood and affect. Judgment and insight intact. DS: Data Data Completed and Pending Labs on day of discharge: Labs from last 24 hours 02/06/22 02/06/22 08:44 08:44 WBC 16.5 H RBC 4.00 L Hgb 12.5 Hct 37.6 MCV 94.0 MCH 31.3 MCHC 33.2 RDW 12.5 Plt Count 271 MPV 10.3 Sodium 135 L Potassium 3.5 Chloride 96 L Carbon Dioxide 27 Anion Gap 12 BUN 27 H D Creatinine 1.10 H Estim Creat Clear Calc 29 Estimated GFR 48 L Glucose 200 H Calcium 8.9 Discharge Plan Discharge Attending physician on discharge: Vivek Vega Discharging Clinician: Vivek Vega Patient Disposition: Home, Self-Care Activity: no preference Diet: as tolerated Patient Instructions: Antibiotic Form Stand Alone Forms: General Discharge Information Follow-up/Referrals: Chano,Magnus Bear MD [Primary Care Provider] - Discharge Medications: New cefdinir 300 mg capsule 300 mg PO Q12H Qty: 10 RF: 0 prednisone 10 mg tablets,dose pack 10 mg PO DAILY Qty: 21 RF: 0 Continued losartan-hydrochlorothiazide 100-25 mg tablet 1 tablet PO DAILY RF: 0 ezetimibe 10 mg tablet 10 mg PO DAILY RF: 0 primidone 50 mg tablet 200 mg PO TID RF: 0 Incruse Ellipta 62.5 mcg/actuation Blister With Device 1 inh inhalation DAILYRT Qty: 30 RF: 1 propranolol 20 mg tablet 40 mg PO TID Qty: 120 RF: 3 Date of admission: 02/05/22 15:09 Primary Care Provider: ChanoMagnus Admitting Provider: Gilbert Jon Attending physician on admission: Gilbert Jon Condition: Stable Quality VTE Prophylaxis VTE prophylaxis: pharmacologic ordered
== END 2022-02-06 11:20 | disposition home or self-care (01) | DRG 190 ==
LOC: ANHED 16:47 → ANH3MEDSUR 18:06
PROVIDERS: Family Medicine; Physician Assistant; Admitting Provider Internal Medicine; Emergency Provider Emergency Medicine; PCP Internal Medicine; Visit Provider Chiropractor
DX: J44.1 Chronic obstructive pulmonary disease with (acute) exacerbation (principal); J96.01 Acute respiratory failure with hypoxia; I10 Essential (primary) hypertension; E78.5 Hyperlipidemia, unspecified; G25.0 Essential tremor; Z20.822 Contact with and (suspected) exposure to COVID-19; Z79.899 Other long term (current) drug therapy; Z87.891 Personal history of nicotine dependence; Z79.51 Long term (current) use of inhaled steroids
CPT/HCPCS: 36415; 71046; 80048; 80053; 83735; 83880; 85025; 85027; 86140; 87502; 93005; 94618; 94640; 96365; 96375; 96376; 99285; C9803; G0378; J0456; J0696; J2930; U0003; U0005

== ENCOUNTER 2022-08-09 11:21 | Observation (INO) | payer MEDICARE, BC, SELFPAY ==
[2022-08-09] VITALS (38 sets, daily range): BP systolic 110–168; BP diastolic 64–91; PULSE 69–98; RESP 14–29; TEMP 35.7–37.1; O2SAT 82–100; BMI 23.8
--- NOTE | ~2022-08-09 | XR_ITS ---
EXAMINATION: XR chest 1V portable 08/09/2022 11:39 INDICATION: Shortness of breath. Hypertension. PROCEDURE: AP portable chest COMPARISON: Comparison to multiple prior studies sequentially, with oldest reviewed study dated 07/17. FINDINGS: The lungs are clear. The cardiomediastinal silhouette is within normal limits. There are no pleural effusions. There is no pneumothorax suspected. IMPRESSION: 1: NO ACUTE CARDIOPULMONARY DISEASE. Reviewed, dictated and finalized at location B.
--- NOTE | 2022-08-09 11:26 | ECG_ITS ---
Measurements Intervals [place] Rate: 73 P: 73 MO: 201 QRS: 38 QRSD: 89 T: 51 QT: 387 QTc: 429 Interpretive Statements SINUS RHYTHM COMPARED TO ECG 02/04/2022 13:17:03 NO SIGNIFICANT CHANGES Electronically Signed On 08-09-2022 16:21:11 CDT by Kira Upton M.D.
[2022-08-09 11:43] LABS: Basophils Percent Auto 0.4 % (0.2-1.2); Eosinophils Absolute Auto 0.1 K/mm3 (0-0.3); Eosinophils Percent Auto 1.4 % (0-4.4); Hemoglobin 12.3 g/dL (12.0-15.0); Immature Granulocyte Absolute 0.03 K/mm3 (0.00-0.031); Immature Granulocyte Percent A 0.4 % (0-0.5); Lymphocytes Absolute Auto 1.03 K/mm3 (0.9-3.2); Lymphocytes Percent Auto 12.4 % (18.3-44.2); Mean Corpuscular HGB Conc 32.4 g/dl (32-36); Mean Corpuscular Hemoglobin 30.9 pg (26-34); Mean Corpuscular Volume 95.5 fl (80-100); Mean Platelet Volume 9.6 fl (7.4-10.4); Monocytes Absolute Auto 0.9 K/mm3 (0.1-0.6); Monocytes Percent Auto 10.8 % (2.6-8.5); Neutrophils Absolute Auto 6.2 K/mm3 (1.3-6.7); Neutrophils Percent Auto 74.6 % (45.5-73.1); Platelet Count Result 236 k/mm3 (150-375); Red Blood Count 3.98 M/mm3 (4.2-5.4); Red Cell Distribution Width 14.5 % (11.5-14.5); White Blood Count 8.3 K/mm3 (4.5-10.0)
[2022-08-09 11:54] LABS: Alanine Aminotransferase 21 U/L (6-35); Albumin Level 4.5 g/dL (3.5-5.1); Alkaline Phosphatase 135 U/L (38-126); Anion Gap 13 mmol/L (8-16); Aspartate Amino Transferase 30 U/L (14-36); Bilirubin,Total 0.5 mg/dL (0.2-1.3); Blood Urea Nitrogen 20 mg/dL (7-17); Calcium 9.1 mg/dL (8.4-10.2); Carbon Dioxide 27 mmol/L (22-30); Chloride 98 mmol/L (98-107); Estimated CRCL calculation 35 ml/min; Estimated Glomerular Filt Rate 60; Glucose 147 mg/dL (65-110); Potassium 3.8 mmol/L (3.4-5.0); Sodium 138 mmol/L (137-145)
--- NOTE | 2022-08-09 12:04 | ED.GENADULT ---
HPI - General Adult General Chief complaint: Shortness of Breath/Dyspnea Stated complaint: SOB Time Seen by Provider: 08/09/22 11:26 History of Present Illness HPI narrative: 81-year-old female presenting the emergency department for evaluation of worsening shortness of breath. Patient states she had her flu shot last week and had her COVID shot just a few days ago. Patient states since getting her repeat COVID booster she had onset of worsening shortness of breath. Patient does have a history of COPD due to longtime smoking. Patient states she does have a rescue inhaler at home that she has been using without significant improvement. Patient is wheezing upon arrival to the emergency department. Related Data Home Medications Medication Instructions Recorded Confirmed ezetimibe 10 mg tablet 10 mg PO DAILY 12/05/20 08/09/22 losartan 100 1 tablet PO DAILY 12/05/20 08/09/22 mg-hydrochlorothiazide 25 mg tablet primidone 50 mg tablet 200 mg PO BID 08/09/22 08/09/22 Allergies Allergy/AdvReac Type Severity Reaction Status Date / Time Sulfa (Sulfonamide Allergy Unknown Unknown Verified 08/09/22 17:50 Antibiotics) Review of Systems Review of Systems: CONSTITUTIONAL: Denies fever, chills, or sweats. EYES: Denies visual changes, redness, or discharge. ENT: Denies rhinorrhea, congestion, sore throat, or otalgia. CARDIOVASCULAR: Denies chest pain, palpitations, or edema. RESPIRATORY: See HPI GASTROINTESTINAL: Denies abdominal pain, nausea, vomiting, or diarrhea. GENITOURINARY: Denies dysuria or hematuria. SKIN: Denies rash or itching. MUSCULOSKELETAL: Denies back pain, joint pain, or myalgia. NEUROLOGIC: Denies headache, numbness, or weakness. [facility] Past Medical History Medical History Benign familial tremor Chronic obstructive pulmonary disease COVID-19 (2020) Essential hypertension Hyperlipidemia Hypertension Surgical History Surgical History History of appendectomy Family History Family History Father Diabetes mellitus Heart disease Family history of malignant neoplasm Sibling Patient's sister is in good health, Onset Age: 92 Mother Family history of malignant neoplasm Sibling Hypertension Social History Social History Social History: Surrogate decision maker: Delilah Arango, daughter. Code status: Full code. Smoking packs per day: 0.5 Smoking cigarettes per day: 10.0 Smoking status: Former smoker Tobacco type: cigarettes Second hand tobacco smoke exposure: Yes Additional smoking assessment comments: Continues to chew nicotine gum. Alcohol intake: never Substance use: never Additional living arrangements comments: . Lives in [place]. Multiple family members live nearby. 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 Spiritual care concerns: No Has the Lack of Transportation Kept You From Medical Appointments or From Getting Medications?: No Within the Past 12 Months, Were You Worried Whether Your Food Would Run Out Before You Got Money to Buy More?: Never True What is Your Housing Situation Today?: I Have Housing Are You Worried That in the Next 2 Months, You May Not Have Your Own Housing to Live In?: No Do You Have Trouble Paying Your Heating Or Electricity Bill?: No Do You Have Trouble Paying For Medicines?: No Are You Currently Unemployed and Looking for Work?: No Highest Level of Education Completed: Master's Degree or Higher Do You Have Trouble With Childcare or the Care of a Family Member?: No Exam Narrative: APPEARANCE: Well appearing, no pain, no distress, well-nourished. HEAD: normocephalic, atraumatic. EYES: PERRLA/EOMI, conjunctivae clear. NOSE: Normal no drainage THROAT: Pharynx clear, no exudat
[2022-08-09] MEDS: ALBUTEROL SULFATE NEB 2.5 MG/3 ML INH 5 MG INHALATION (12:17)
[2022-08-09] MEDS: IPRATROPIUM BR 0.02% INH SOLN 0.5 MG/2.5 ML VIAL 1 MG INHALATION (12:18)
[2022-08-09 12:58] LABS: Influenza A QL RT-PCR Positive (Negative); Influenza B QL RT-PCR Negative (Negative); SARS-CoV-2 RNA PCR Negative
[2022-08-09] MEDS: methylPREDNISolone SOD SUCC 125 MG VIAL IV PUSH (14:20)
--- NOTE | 2022-08-09 18:14 | ADMGEN ---
This patient, Antonieta Hawkins, was admitted to [facility] Surg Room 326-01. Patient/family oriented to hospital policies and general routines including ID bracelet, bed and alarms, visiting hours, pain management, procedures, bathroom and other care routines, personal items, smoking policy, room service/diet, and visiting hours. Information on how to activate the Rapid Response Team has been discussed. Patient/Family are encouraged to report perceived risks to care and to ask questions if they do not understand what they are told or what they should do.
--- NOTE | 2022-08-09 18:15 | PM.IMHP ---
H&P: HPI History of Present Illness Date/Time: 08/09/22 18:15 Chief Complaint: Shortness of breath. Narrative: This is a very pleasant 81-year-old female with COPD and hypertension who presented to the emergency department from home for evaluation of shortness of breath. Last she had her 6 month wellness checkup and she is happy to report that she received a good bill of health. That afternoon she received her flu shot and on Monday afternoon she received her COVID booster. On Monday evening she was more fatigued than usual and developed sweats which she initially thought was a side effect of the COVID booster. On Monday however she went on to develop a headache, sinus congestion, sinus drainage, nonproductive cough, and decreased appetite. She has also felt increasingly short of breath on lesser and lesser exertion and she came in today for evaluation. She tested positive for influenza A and initial plans were for discharge home however her SpO2 drops below 90% with ambulation and she is being admitted in this setting. At the time my evaluation she is feeling better after receiving IV Solu-Medrol and a nebulizer. She has no current complaints since the specifically denies documented fever, neck ache, sore throat, chest pain, vomiting, diarrhea, and sick contacts. Review of Systems Review of Systems: Twelve systems were reviewed and are negative except for as per HPI. [facility] Past Medical History Medical History (Updated 08/09/22 @ 23:12 by Mayi Montilla PA-C) Benign familial tremor Chronic obstructive pulmonary disease COVID-19 (2020) Essential hypertension Hyperlipidemia Hypertension Surgical History Surgical History History of appendectomy Family History Family History Father Diabetes mellitus Heart disease Family history of malignant neoplasm Sibling Patient's sister is in good health, Onset Age: 92 Mother Family history of malignant neoplasm Sibling Hypertension Social History Social History Social History: Surrogate decision maker: Delilah Arango, daughter. Code status: Full code. Smoking packs per day: 0.5 Smoking cigarettes per day: 10.0 Years smoked: 65 Smoking pack-years: 32.50 Smoking status: Former smoker Tobacco type: cigarettes Second hand tobacco smoke exposure: Yes Additional smoking assessment comments: Continues to chew nicotine gum. Alcohol intake: never Substance use: never Additional living arrangements comments: . Lives in [place]. Multiple family members live nearby. 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 Spiritual care concerns: No ([facility]) Has the Lack of Transportation Kept You From Medical Appointments or From Getting Medications?: No Within the Past 12 Months, Were You Worried Whether Your Food Would Run Out Before You Got Money to Buy More?: Never True What is Your Housing Situation Today?: I Have Housing Are You Worried That in the Next 2 Months, You May Not Have Your Own Housing to Live In?: No Do You Have Trouble Paying Your Heating Or Electricity Bill?: No Do You Have Trouble Paying For Medicines?: No Are You Currently Unemployed and Looking for Work?: No Highest Level of Education Completed: High School Diploma/GED Do You Have Trouble With Childcare or the Care of a Family Member?: No Meds Home Medications and Allergies Home Medications Medication Instructions Recorded Confirmed Type ezetimibe 10 mg tablet 10 mg PO DAILY 12/05/20 08/09/22 History losartan 100 1 tablet PO DAILY 12/05/20 08/09/22 History mg-hydrochlorothiazide 25 mg tablet umeclidinium 62.5 mcg/actuation 1 inh inhalation DAILYRT #30 ea 09/06/21 08/09/22 Rx blister powder for inhalation (Incruse Ellip
[2022-08-09] MEDS: IPRATROPIUM BR 0.02% INH SOLN 0.5 MG/2.5 ML VIAL INHALATION (20:06)
[2022-08-09] MEDS: ALBUTEROL SULFATE NEB 2.5 MG/3 ML INH INHALATION (20:06)
[2022-08-09] MEDS: OSELTAMIVIR PHOSPHATE 30 MG CAPSULE PO (23:51)
[2022-08-10] VITALS (8 sets, daily range): BP systolic 118; BP diastolic 58; PULSE 82–88; RESP 18–20; TEMP 36.4; O2SAT 92–96
[2022-08-10] MEDS: IPRATROPIUM BR 0.02% INH SOLN 0.5 MG/2.5 ML VIAL INHALATION ×2 (02:02→11:27)
[2022-08-10] MEDS: ALBUTEROL SULFATE NEB 2.5 MG/3 ML INH INHALATION ×2 (02:02→11:27)
[2022-08-10 07:07] LABS: Hematocrit 34.4 % (37.0-47.0); Hemoglobin 11.2 g/dL (12.0-15.0); Mean Corpuscular HGB Conc 32.6 g/dl (32-36); Mean Corpuscular Hemoglobin 30.1 pg (26-34); Mean Corpuscular Volume 92.5 fl (80-100); Mean Platelet Volume 9.8 fl (7.4-10.4); Platelet Count Result 195 k/mm3 (150-375); Red Blood Count 3.72 M/mm3 (4.2-5.4); Red Cell Distribution Width 14.4 % (11.5-14.5)
[2022-08-10 07:11] LABS: Anion Gap 12 mmol/L (8-16); Blood Urea Nitrogen 23 mg/dL (7-17); Calcium 8.6 mg/dL (8.4-10.2); Carbon Dioxide 28 mmol/L (22-30); Chloride 97 mmol/L (98-107); Estimated CRCL calculation 32 ml/min; Estimated Glomerular Filt Rate 53; Glucose 124 mg/dL (65-110); Magnesium 1.8 mg/dL (1.6-2.3); Potassium 3.3 mmol/L (3.4-5.0); Sodium 137 mmol/L (137-145)
[2022-08-10] MEDS: PRIMIDONE 50 MG TABLET 200 MG PO (09:35)
[2022-08-10] MEDS: ENOXAPARIN 40 MG/0.4 ML SYRINGE SUB-Q (09:35)
[2022-08-10] MEDS: PROPRANOLOL HCL 20 MG TABLET 40 MG PO (09:35)
[2022-08-10] MEDS: POTASSIUM CHLORIDE 20 MEQ TABLET PO (09:35)
[2022-08-10] MEDS: EZETIMIBE 10 MG TABLET PO (09:35)
[2022-08-10] MEDS: hydroCHLOROthiazide 25 MG TABLET PO (09:36)
[2022-08-10] MEDS: LOSARTAN POTASSIUM 100 MG TABLET PO (09:36)
[2022-08-10] MEDS: OSELTAMIVIR PHOSPHATE 30 MG CAPSULE PO (09:36)
[2022-08-10] MEDS: predniSONE 20 MG TABLET 40 MG PO (09:36)
[2022-08-10] MEDS: UMECLIDINIUM BROMIDE 62.5 MCG ELLIPTA 1 PUFF INHALATION (11:27)
--- NOTE | 2022-08-10 11:53 | PC.NURSE ---
This nurse walked pt in room to determine O2 sats while ambulating on RA. When pt first stood up, the pulse ox read 89%. Pt was instructed to breathe through her nose and she maintained 96% on RA during ambulation throughout the room. The provider was called with these findings.
--- NOTE | 2022-08-10 11:59 | PM.DS ---
DS: Admitting Diagnosis Discharge Date 08/10/2022 Admitting Diagnosis influenza DS: Discharge Diagnosis Discharge Diagnosis (1) Influenza A: Code(s): J10.1 - Influenza due to other identified influenza virus with other respiratory manifestations Status: Acute Assessment and Plan: The patient started having symptoms approximately 72 hours prior to admission. Positive influenza A test on 08/09/22. She was started on tamiflu which she will continue to complete 5 days. Supportive care provided. (2) Hypoxia: Code(s): R09.02 - Hypoxemia Status: Resolved Assessment and Plan: Noted to be hypoxic with ambulation in the emergency department with O2 sats in 80s. She was placed on supplemental oxygen which was able to be promptly weaned to room air. Ambulatory oxygen evaluation completed prior to discharge inpatient was no longer hypoxic. (3) COPD with acute exacerbation: Code(s): J44.1 - Chronic obstructive pulmonary disease with (acute) exacerbation Status: Acute Assessment and Plan: Probably due to influenza. She received IV Solu-Medrol in the emergency department and was continued on oral prednisone 40 mg which she will continue for a total of 5 days. Breathing treatments provided with symptomatic improvement. There was no indication for antibiotics. (4) Benign familial tremor: Code(s): G25.0 - Essential tremor Status: Acute Assessment and Plan: Continue primidone. (5) Essential hypertension: Code(s): I10 - Essential (primary) hypertension Status: Acute Assessment and Plan: Blood pressures were reviewed and remained stable. Continue home losartan-hydrochlorothiazide (6) Hypokalemia: Code(s): E87.6 - Hypokalemia Status: Acute Assessment and Plan: Potassium was 3.3 and was supplemented. Encouraged adequate p.o. intake. DS: Summary Hospital Course Hospital Course: date of admission: 08/09/2022 date of discharge: 08/10/2022 Antonieta Hawkins is an 81-year-old female with a history benign familial tremor, COPD, hypertension, hyperlipidemia who presented to the emergency department on 08/09/2022 with complaints of increased shortness of breath. On presentation to the ED, she was found to be hypoxic at 84% and she tested positive for influenza A, laboratory workup was unremarkable and CXR showed no acute cardiopulmonary disease. She was admitted to the hospitalist service for further evaluation and management. Please see above for further details. She was treated with Tamiflu and supportive care. She briefly required supplemental oxygen given hypoxia with ambulation in the ED but was able to be promptly weaned to room air. Ambulatory oxygen evaluation completed on day of discharge and patient's O2 sats remained in the 90s. she received 1 dose of IV Solu-Medrol for exacerbation of COPD, likely secondary to influenza. She was then transition to p.o. prednisone which she will continue for total of 5 days of treatment. She will continue her inhalers and will follow-up with her PCP in 1 week for further monitoring. Patient was feeling well and requested discharge home. She does live independently but states that her daughter is next door and can provide any assistance that she might need. She felt comfortable with discharge plans. Discussed with the patient worrisome signs and symptoms for which to return and she was educated on her medications. She was discharged in hemodynamically stable condition on 08/10/2022. Status at Discharge Functional status at discharge: independent ambulation Overall status at discharge: patient is progressing back to baseline Time Spent with Patient Time attestation: Total time spent providing and/or coordinating discharge services: 37 minutes Time spent: Greater than 30 minutes Exam Narrative: General: well-nourished, well-appearing 81-year-old fem
== END 2022-08-10 12:50 | disposition home or self-care (01) ==
LOC: ANHED 11:39 → ANH3MEDSUR 18:09
PROVIDERS: Physician Assistant; Admitting Provider Chiropractor; Emergency Provider Emergency Medicine; PCP Internal Medicine; Visit Provider Physician Assistant
DX: J10.1 Influenza due to other identified influenza virus with other respiratory manifestations (principal); R09.02 Hypoxemia; J44.1 Chronic obstructive pulmonary disease with (acute) exacerbation; G25.0 Essential tremor; I10 Essential (primary) hypertension; E87.6 Hypokalemia; Z86.16 Personal history of COVID-19; E78.5 Hyperlipidemia, unspecified; Z20.822 Contact with and (suspected) exposure to COVID-19; Z87.891 Personal history of nicotine dependence; Z79.899 Other long term (current) drug therapy; Z82.49 Family history of ischemic heart disease and other diseases of the circulatory system
CPT/HCPCS: 36415; 71045; 80048; 80053; 83735; 85025; 85027; 87502; 93005; 94640; 96372; 96374; 99285; A9270; G0378; J1650; J2930; J7512; U0003; U0005

== ENCOUNTER 2023-01-15 14:37 | Emergency (ER) | payer MEDICARE, BC, SELFPAY ==
[2023-01-15] VITALS (7 sets, daily range): BP systolic 134–142; BP diastolic 76–79; PULSE 72–92; RESP 16–22; TEMP 36.5; O2SAT 92–100
--- NOTE | ~2023-01-15 | XR_ITS ---
EXAMINATION: XR chest 2V Exam Date/Time: 01/15/2023 15:40 CDT HISTORY: SOB, WHEEZING, COUGH, DIZZINESS FOR 1 WEEK. Comparison: 08/09/2022. RESULT: Lines, tubes, and devices: None. Lungs and pleura: Emphysematous and senescent change. Cardiomediastinal silhouette: Stable. Small hiatal hernia. Other: No acute osseous or upper abdominal finding. IMPRESSION: No acute cardiopulmonary process. Reviewed, dictated and finalized at location K.
--- NOTE | 2023-01-15 15:07 | ECG_ITS ---
Measurements Intervals [place] Rate: 79 P: 69 VA: 213 QRS: 38 QRSD: 85 T: 54 QT: 359 QTc: 412 Interpretive Statements SINUS RHYTHM WITH FIRST DEGREE AV BLOCK POSSIBLE RIGHT VENTRICULAR CONDUCTION DELAY [RSR (QR) IN V1/V2] COMPARED TO ECG 08/09/2022 11:30:27 FIRST DEGREE AV BLOCK NOW PRESENT Electronically Signed On 01-16-2023 11:51:38 CDT by Kira Upton M.D.
[2023-01-15 15:26] LABS: Basophils Absolute Auto 0.1 K/mm3 (0.0-0.1); Basophils Percent Auto 0.8 % (0.2-1.2); Eosinophils Absolute Auto 0.2 K/mm3 (0-0.3); Eosinophils Percent Auto 2.4 % (0-4.4); Hematocrit 35.1 % (37.0-47.0); Hemoglobin 10.7 g/dL (12.0-15.0); Immature Granulocyte Absolute 0.02 K/mm3 (0.00-0.031); Immature Granulocyte Percent A 0.3 % (0-0.5); Lymphocytes Absolute Auto 1.68 K/mm3 (0.9-3.2); Lymphocytes Percent Auto 23.6 % (18.3-44.2); Mean Corpuscular HGB Conc 30.5 g/dl (32-36); Mean Corpuscular Hemoglobin 26.9 pg (26-34); Mean Corpuscular Volume 88.2 fl (80-100); Mean Platelet Volume 9.4 fl (7.4-10.4); Monocytes Absolute Auto 0.7 K/mm3 (0.1-0.6); Monocytes Percent Auto 9.8 % (2.6-8.5); Neutrophils Absolute Auto 4.5 K/mm3 (1.3-6.7); Neutrophils Percent Auto 63.1 % (45.5-73.1); Platelet Count Result 247 k/mm3 (150-375); Red Blood Count 3.98 M/mm3 (4.2-5.4); Red Cell Distribution Width 15.2 % (11.5-14.5); White Blood Count 7.1 K/mm3 (4.5-10.0)
[2023-01-15 15:37] LABS: Alanine Aminotransferase 16 U/L (6-35); Albumin Level 4.4 g/dL (3.5-5.1); Alkaline Phosphatase 125 U/L (38-126); Anion Gap 4 mmol/L (8-16); Aspartate Amino Transferase 22 U/L (14-36); Bilirubin,Total 0.4 mg/dL (0.2-1.3); Blood Urea Nitrogen 18 mg/dL (7-17); Calcium 9.1 mg/dL (8.4-10.2); Carbon Dioxide 31 mmol/L (22-30); Chloride 103 mmol/L (98-107); Estimated CRCL calculation 43 ml/min; Estimated Glomerular Filt Rate > 60; Glucose 104 mg/dL (65-110); Sodium 138 mmol/L (137-145)
--- NOTE | 2023-01-15 18:18 | ED.SOB ---
HPI - SOB/Dyspnea General Chief Complaint: Shortness of Breath/Dyspnea Stated Complaint: SOB x 2-3 weeks Time Seen by Provider: 01/15/23 17:57 History of Present Illness HPI Narrative: Patient is an 82-year-old female with a history of smoking here for evaluation of acute on chronic shortness of breath for the past 2 weeks. States she hasn't bounced back from when she had the flu last July. Patient states that over the past several weeks she has felt short of breath with exertion but when she is at rest she becomes more comfortable. She has been using her nebulizer treatments with transient improvements. She has never been diagnosed with COPD but is a former smoker. She has had a productive cough of clear sputum. Denies any fevers or chills, chest pain, leg swelling. Related Data Home Medications Medication Instructions Recorded Confirmed ezetimibe 10 mg tablet 10 mg PO DAILY 12/05/20 08/09/22 losartan 100 1 tablet PO DAILY 12/05/20 08/09/22 mg-hydrochlorothiazide 25 mg tablet Allergies Allergy/AdvReac Type Severity Reaction Status Date / Time Sulfa (Sulfonamide Allergy Unknown Unknown Verified 01/15/23 18:30 Antibiotics) Review of Systems Review of Systems: Gen.: Denies fevers or chills Eyes: Denies eye pain or visual change ENT: Reports congestion Respiratory: Reports shortness of breath and cough CV: Denies chest pain or palpitations GI: Denies abdominal pain nausea, emesis or diarrhea denies burning, urgency, frequency or hematuria Musculoskeletal: Denies back pain or muscle pain Neuro: Denies numbness, tingling, weakness or focal weakness Skin: Denies rash Except as documented, all other systems reviewed and negative [facility] Past Medical History Medical History Benign familial tremor Chronic obstructive pulmonary disease COVID-19 (2020) Essential hypertension Hyperlipidemia Hypertension Surgical History Surgical History History of appendectomy Family History Family History Father Diabetes mellitus Heart disease Family history of malignant neoplasm Sibling Patient's sister is in good health, Onset Age: 92 Mother Family history of malignant neoplasm Sibling Hypertension Social History Social History Social History: Surrogate decision maker: Delilah Arango, daughter. Code status: Full code. Smoking packs per day: 0.5 Smoking cigarettes per day: 10.0 Years smoked: 65 Smoking pack-years: 32.50 Smoking status: Former smoker Tobacco type: cigarettes Second hand tobacco smoke exposure: Yes Additional smoking assessment comments: Continues to chew nicotine gum. Alcohol intake: never Substance use: never Lack of Transportation: No Lack of Food: Never True Current Housing: I Have Housing Concerned About Future Housing: No Difficulty Paying Gas/Electric Bills: No Difficulty Paying for Meds: No Currently Unemployed: No Education: High School Diploma/GED Difficulty w/ Childcare or Family Care: No Living arrangements: alone Additional living arrangements comments: . Lives in [place]. Multiple family members live nearby. 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 Spiritual care concerns: No ([facility]) Exam Narrative: APPEARANCE: Well appearing, no pain in distress, well-nourished. No respiratory distress. Head: Normocephalic and atraumatic. EYES: PERRLA/EOMI, conjunctivae clear NOSE: No nasal drainage EARS: External ear normal in appearance THROAT: Oropharynx is clear. Mucous membranes are moist. NECK: Supple. No adenopathy, no masses. RESPIRATORY: Airway patent, respirations nonlabored. Clear to auscultat
[2023-01-15] MEDS: LEVALBUTEROL NEB 1.25 MG/3 ML INHALATION (18:20)
[2023-01-15] MEDS: IPRATROPIUM BR 0.02% INH SOLN 0.5 MG/2.5 ML VIAL INHALATION (18:20)
[2023-01-15 18:48] LABS: NT Pro B Type Natriuretic Pept 103 pg/mL (19.9-100)
[2023-01-15] MEDS: predniSONE 20 MG TABLET 60 MG PO (18:48)
[2023-01-15 18:56] LABS: Influenza A QL RT-PCR Negative (Negative); Influenza B QL RT-PCR Negative (Negative); SARS-CoV-2 RNA PCR Negative
--- NOTE | 2023-01-15 19:49 | PC.NURSE ---
Ambulated pt around nurse's station. Pt tolerated very well. Oxygen saturation maintained between 91-93%. Pt denies worsening SOB or feeling weak or dizzy. Carolyn MCDONOUGH notified.
== END 2023-01-15 20:32 | disposition home or self-care (01) ==
PROVIDERS: Emergency Medicine; Emergency Provider Physician Assistant; PCP Internal Medicine
DX: J44.1 Chronic obstructive pulmonary disease with (acute) exacerbation (principal); I10 Essential (primary) hypertension; E78.5 Hyperlipidemia, unspecified; Z87.891 Personal history of nicotine dependence; Z20.822 Contact with and (suspected) exposure to COVID-19
CPT/HCPCS: 36415; 71046; 80053; 83880; 85025; 87636; 93005; 94640; 99283; J7512

== ENCOUNTER 2023-07-27 09:42 | Inpatient (IN) | payer MEDICARE, BC, SELFPAY ==
[2023-07-27] VITALS (20 sets, daily range): BP systolic 122–147; BP diastolic 54–70; PULSE 66–82; RESP 16–27; TEMP 36.2–36.8; O2SAT 92–100; BMI 23.8
--- NOTE | ~2023-07-27 | CT_ITS ---
EXAMINATION: CTA chest PE protocol DATE: 07/27/2023 14:09 INDICATION: Shortness of breath. TECHNIQUE: Computed tomography angiography (CTA) of the chest was performed with 100 mL Omnipaque-350 intravenous contrast timed to evaluate the pulmonary arteries. Coronal maximum intensity projection 3D-reconstructions were created by the technologist. Automated exposure control and iterative reconst ruction technique were employed. The dose-length product was 210.16 mGy-cm. COMPARISON: Chest CT 10/27/2018, CT abdomen and pelvis 09/07/2016 FINDINGS: There is mild scarring at the lung apices. There are tree-in-bud opacities in all lobes, wo rst in right upper lobe. Calcified right lung nodules and calcified right hilar and mediastinal lymph nodes are consistent with old granulomatous disease. There is mild bronchiectasis in right middle lo be. There is mild atelectasis bilaterally. No pleural effusion. The heart size is normal. There are c oronary artery calcifications. No pericardial effusion. There is no pulmonary embolus. There is a mod erate-sized sliding hiatal hernia. There is mild thoracic spondylosis. IMPRESSION: 1. No pulmonary embolus. 2. 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 3. Moderate-sized sliding hiatal hernia. Reviewed, dictated and finalized at location A. IMPRESSION: 1. No pulmonary embolus. 2. Mild diffuse lung disease, likely chronic infection such as Mycobacterium av ium intracellulare (MATTHEW). 3. Moderate-sized sliding hiatal hernia.
--- NOTE | ~2023-07-27 | CT_ITS ---
EXAMINATION: CT brain wo con DATE: 07/27/2023 14:09 INDICATION: New headache. TECHNIQUE: Computed tomography (CT) of the head was performed without intravenous contrast. The mA wa s adjusted according to patient size. Iterative reconstruction technique was employed. The dose-lengt h product was 605.33 mGy-cm. COMPARISON: None FINDINGS: There are scattered areas of low attenuation in the cerebral white matter, which is within normal limits for the patient's age. There is no intracranial hemorrhage, acute infarction, or abnorm al intracranial mass lesion. The ventricles are normal in size. There are likely changes of ocular le ns replacement surgeries. There is mild mucosal thickening in the ethmoid sinuses. The mastoid air ce lls are normal. IMPRESSION: 1. Normal aging brain. Reviewed, dictated and finalized at location A. IMPRESSION: 1. Normal aging brain.
--- NOTE | ~2023-07-27 | XR_ITS ---
EXAMINATION: XR chest 2V DATE: 07/27/2023 10:18 INDICATION: Shortness of breath TECHNIQUE: PA and lateral views of the chest are obtained. COMPARISON: 01/15/2023 FINDINGS: The lungs are free of acute opacities. No pleural effusion or pneumothorax. The cardiomedia stinal silhouette is normal. There is moderate thoracic spondylosis. There is a moderate-sized hiatal hernia. IMPRESSION: 1. No acute cardiopulmonary abnormality. Reviewed, dictated and finalized at location L.
--- NOTE | 2023-07-27 10:00 | ECG_ITS ---
Measurements Intervals [place] Rate: 65 P: 71 WA: 225 QRS: 28 QRSD: 93 T: 54 QT: 401 QTc: 419 Interpretive Statements SINUS RHYTHM WITH FIRST DEGREE AV BLOCK WITH OCCASIONAL VENTRICULAR PREMATURE COMPLEXES POSSIBLE RIGHT VENTRICULAR CONDUCTION DELAY [RSR (QR) IN V1/V2] ABNORMAL ECG COMPARED TO ECG 01/15/2023 15:09:02 NO SIGNIFICANT CHANGES Electronically Signed On 07-27-2023 13:32:38 CDT by Fam Bang M.D.
[2023-07-27 10:13] LABS: Basophils Percent Auto 0.5 % (0.2-1.2); Eosinophils Absolute Auto 0.2 K/mm3 (0-0.3); Eosinophils Percent Auto 2.6 % (0-4.4); Hematocrit 30.5 % (37.0-47.0); Immature Granulocyte Absolute 0.03 K/mm3 (0.00-0.031); Immature Granulocyte Percent A 0.4 % (0-0.5); Lymphocytes Absolute Auto 1.16 K/mm3 (0.9-3.2); Lymphocytes Percent Auto 14.6 % (18.3-44.2); Mean Corpuscular HGB Conc 29.5 g/dl (32-36); Mean Corpuscular Hemoglobin 24.6 pg (26-34); Mean Corpuscular Volume 83.3 fl (80-100); Mean Platelet Volume 9.7 fl (7.4-10.4); Monocytes Absolute Auto 0.7 K/mm3 (0.1-0.6); Monocytes Percent Auto 8.3 % (2.6-8.5); Neutrophils Absolute Auto 5.9 K/mm3 (1.3-6.7); Neutrophils Percent Auto 73.6 % (45.5-73.1); Platelet Count Result 260 k/mm3 (150-375); Red Blood Count 3.66 M/mm3 (4.2-5.4); Red Cell Distribution Width 16.4 % (11.5-14.5)
[2023-07-27 10:24] LABS: Alanine Aminotransferase 15 U/L (6-35); Alkaline Phosphatase 125 U/L (38-126); Anion Gap 8 mmol/L (8-16); Aspartate Amino Transferase 22 U/L (14-36); Bilirubin,Total 0.4 mg/dL (0.2-1.3); Blood Urea Nitrogen 21 mg/dL (7-17); Calcium 9.3 mg/dL (8.4-10.2); Carbon Dioxide 27 mmol/L (22-30); Chloride 103 mmol/L (98-107); Estimated CRCL calculation 34 ml/min; Estimated Glomerular Filt Rate 60; Glucose 112 mg/dL (65-110); Potassium 3.6 mmol/L (3.4-5.0); Sodium 138 mmol/L (137-145)
[2023-07-27 10:35] LABS: Platelet Estimate Adequate (Adequate)
[2023-07-27 10:36] LABS: Anisocytosis 1+ (NORMAL); Hypochromasia 1+ (NORMAL); Microcytosis 1+ (NORMAL); Ovalocytes 1+ (NORMAL); Poikilocytosis 1+ (NORMAL); Schistocytes None Seen (NORMAL)
--- NOTE | 2023-07-27 12:05 | PC.NURSE ---
Patient report received from JUANY Amado. All questions answered and care of patient assumed.
[2023-07-27 12:34] LABS: Alveolar/Arterial O2 Gradient 34.9 mmHg; Base Excess ABG -0.7 mEq/l (+/-2.0); Carboxyhemoglobin 0.8 % THb (0-2.0); Fractional Inspired Oxygen 21 %; HCO3 ABG 23.4 mEq/l (22.0-26.0); Methemoglobin ABG 0.3 %THb (0-1.5); Oxygen Content ABG 12.9 %vol (16.0-22.0); Oxygen Saturation ABG 94.9 % (95.0-100.0); Oxyhemoglobin 92.3 % THb (90.0-100.0); PO2 ABG 71.7 mmHg (80.0-100.0); PO2 FiO2 Ratio Arterial Blood 3.41 %; Reduced Hemoglobin 6.6 %THb (0-5.0); Total Hemoglobin 9.9 g/dL (12.0-18.0)
[2023-07-27 12:35] LABS: Device ROOM AIR; Modified Allen's Test Pass; Site Drawn LEFT RADIAL
[2023-07-27] MEDS: SODIUM CHLORIDE 0.9% IV 500 ML 999 ML IV CONT (12:47)
[2023-07-27 12:56] LABS: Prothrombin Time 13.7 Seconds (11.1-14.7)
[2023-07-27 12:57] LABS: Partial Thromboplastin Time 28.7 SECONDS (22.3-36.8)
[2023-07-27 13:07] LABS: Influenza A QL RT-PCR Negative (Negative); Influenza B QL RT-PCR Negative (Negative); SARS-CoV-2 RNA PCR Negative (Negative)
[2023-07-27 13:35] LABS: Lipase 130 U/L (23-300)
[2023-07-27 13:40] LABS: D Dimer 1.31 ug/mL (<0.48)
--- NOTE | 2023-07-27 13:47 | ED.SOB ---
HPI - SOB/Dyspnea General Chief Complaint: Shortness of Breath/Dyspnea Stated Complaint: SOB X WEEKS Time Seen by Provider: 07/27/23 12:05 Source: patient and RN notes reviewed Mode of arrival: ambulatory Limitations: no limitations History of Present Illness HPI Narrative: This is an 82 year old female with history of COPD who presents for evaluation of shortness of breath. Patient states she has been having worsening shortness of breath for 1 month. She reports dyspnea on exertion. She reports mild cough and constant runny nose. She denies fever, chills, leg swelling. She developed left lower rib pain that is intermittent a few days. She also reports new intermittent headache for 1 month. Her head is located frontal. She states she never had headaches in the past. Related Data Home Medications Medication Instructions Recorded Confirmed ezetimibe 10 mg tablet 10 mg PO DAILY 12/05/20 07/27/23 losartan 100 1 tablet PO DAILY 12/05/20 07/27/23 mg-hydrochlorothiazide 25 mg tablet Allergies Allergy/AdvReac Type Severity Reaction Status Date / Time Sulfa (Sulfonamide Allergy Unknown Rash Verified 07/27/23 17:16 Antibiotics) Review of Systems Constitutional: Constitutional: Denies weakness Cardiovascular: Cardiovascular: Reports chest pain, Denies syncope, Denies rapid heart rate, Denies irregular heart rhythm, Denies leg edema and Reports dyspnea Respiratory: Respiratory: Reports chest congestion, Reports cough, Denies hemoptysis, Denies excessive phlegm production and Reports dyspnea Gastrointestinal: Gastrointestinal: Denies abdominal pain, Denies hematochezia, Denies diarrhea and Denies vomiting Genitourinary: Genitourinary: Denies hematuria and Denies dysuria Musculoskeletal: Musculoskeletal: Denies joint swelling, Denies loss of height and Denies muscle weakness Neurologic: Denies syncope, Denies focal weakness and Denies weakness PMFSH Past Medical History Medical History Benign familial tremor Chronic obstructive pulmonary disease COVID-19 (2020) Essential hypertension Hyperlipidemia Hypertension Surgical History Surgical History History of appendectomy Family History Family History Father Family history of malignant neoplasm Heart disease Sibling Patient's sister is in good health, Onset Age: 92 Mother Family history of malignant neoplasm Diabetes mellitus Sibling Hypertension Social History Social History Social History: Currently lives at home alone. . Surrogate decision maker: Delilah Arango, daughter ([phone]) or Echo Becker, granddaughter who is the executor of her living will ([phone]). Code status: DNR. Smoking packs per day: 0.5 Smoking cigarettes per day: 10.0 Years smoked: 65 Smoking pack-years: 32.50 Smoking status: Former smoker Tobacco type: cigarettes Second hand tobacco smoke exposure: Yes Additional smoking assessment comments: Continues to chew nicotine gum. Alcohol intake: never Substance use: never Substance use type: does not use Lack of Transportation: No Lack of Food: Never True Current Housing: I Have Housing Concerned About Future Housing: No Difficulty Paying Gas/Electric Bills: No Difficulty Paying for Meds: No Currently Unemployed: No Education: Don't Know Difficulty w/ Childcare or Family Care: No Living arrangements: alone Additional living arrangements comments: . Lives in [place]. Multiple family members live nearby. 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 Spiritual care concerns: No Exam Const: General: alert Nutritional Appearance: thin Orientati
[2023-07-27 13:48] LABS: NT Pro B Type Natriuretic Pept 261 pg/mL (19.9-100); Troponin I < 0.012 ng/mL (0.000-0.034)
--- NOTE | 2023-07-27 14:03 | PC.NURSE ---
Patient off unit to CT.
--- NOTE | 2023-07-27 14:55 | PC.NURSE ---
Ambulatory pulse ox completed as ordered and patient's O2 decreased to 84% on RA. Patient's oxygen saturation returned to normal quickly upon rest.
--- NOTE | 2023-07-27 15:30 | PM.IMHP ---
H&P: HPI History of Present Illness Date/Time: 07/27/23 15:30 Chief Complaint: SOB w/Exertion Narrative: 82-year-old female presents here with 1 month of shortness of breath with exertion, ache in left chest, frontal headache with past medical history of COPD, benign familial tremor, HTN, and HLD. Patient reports shortness of breath with exertion for the past month. Patient has home pulse ox that monitors her oxygen saturation and heart rate. She has observed her oxygen saturation drop with walking to 83% and heart rate increasing, highest was 120's for past month. Reports that they will normalize if she rests. No catalyst for presenting to the ED today, just reports finally having enough of the shortness of breath with activity. Also experiencing chest discomfort to the left lower sternal border, pain is reproducible with palpation. She reports the pain is constant. She describes it as achy and will intermittently feel more sharp. Patient also reports chronic cough due to her COPD. No changes in the cough or increase in sputum production. Reports using her home inhalers and nebulizers with temporary relief, symptoms come back quickly. No fever, chills, nausea, vomiting, or diarrhea. Does report some rhinorrhea which is common for her in the fall and spring. Also experiencing an intermittent frontal headache for the past month, reports that she typically does not have headaches and that this is unusual for her. No dizziness or visual changes. No focal deficits identified by patient. Review of Systems Review of Systems: All systems reviewed & are unremarkable except as noted in HPI and below PMFSH Past Medical History Medical History Benign familial tremor Chronic obstructive pulmonary disease COVID-19 (2020) Essential hypertension Hyperlipidemia Hypertension Surgical History Surgical History History of appendectomy Family History Family History Father Family history of malignant neoplasm Heart disease Sibling Patient's sister is in good health, Onset Age: 92 Mother Family history of malignant neoplasm Diabetes mellitus Sibling Hypertension Social History Social History Social History: Currently lives at home alone. . Surrogate decision maker: Delilah Arango, daughter ([phone]) or Echo Becker, granddaughter who is the executor of her living will ([phone]). Code status: DNR. Smoking packs per day: 0.5 Smoking cigarettes per day: 10.0 Years smoked: 65 Smoking pack-years: 32.50 Smoking status: Former smoker Tobacco type: cigarettes Second hand tobacco smoke exposure: Yes Additional smoking assessment comments: Continues to chew nicotine gum. Alcohol intake: never Substance use: never Substance use type: does not use Lack of Transportation: No Lack of Food: Never True Current Housing: I Have Housing Concerned About Future Housing: No Difficulty Paying Gas/Electric Bills: No Difficulty Paying for Meds: No Currently Unemployed: No Education: Don't Know Difficulty w/ Childcare or Family Care: No Living arrangements: alone Additional living arrangements comments: . Lives in [place]. Multiple family members live nearby. 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
[2023-07-27] MEDS: AZITHROMYCIN 500 MG/NS 250 ML 500 MG/250 ML BAG 250 MG IVPB (16:00)
--- NOTE | 2023-07-27 17:04 | ADMGEN ---
This patient, Antonieta aHwkins, was admitted to 3 [facility] Surg Room 307-01. Patient/family oriented to hospital policies and general routines including ID bracelet, bed and alarms, visiting hours, pain management, procedures, bathroom and other care routines, personal items, smoking policy, room service/diet, and visiting hours. Information on how to activate the Rapid Response Team has been discussed. Patient/Family are encouraged to report perceived risks to care and to ask questions if they do not understand what they are told or what they should do. [facility]
[2023-07-27] MEDS: ACETAMINOPHEN 325 MG TABLET 650 MG PO (18:38)
[2023-07-28] VITALS (7 sets, daily range): BP systolic 127–140; BP diastolic 52–69; PULSE 66–86; RESP 16–18; TEMP 36.4–36.6; O2SAT 94–97
--- NOTE | 2023-07-28 | ECHO_ITS ---
Patient Info Name: Antonieta Hawkins Age: 82 years : 1940 Gender: Female Ht: 63 in Wt: 134 lbs BSA: 1.65 m2 HR: 78 bpm BP: 127 / 58 mmHg Heart Rhythm: Sinus Rhythm Technical Quality: Fair Exam Date: 07/28/2023 3:01 PM Exam Location: [facility] Pulmonary Exam Room: 307 Patient Status: Inpatient Admit Date: 07/28/2023 Staff Ordering Physician: Hair Pappas MD Cashier Host/Hostess: Cari Vicente RDCS Attending Provider: María Elena Brown MD Exam Type: CA echo doppler w bubble study Study Info Indications - hypoxia chest pain copd nicolas Complete two-dimensional, color flow and Doppler transthoracic echocardiogram is performed. Summary 1. Complete two-dimensional, color flow and Doppler transthoracic echocardiogram is performed. 2. Left ventricular chamber dimension is normal. 3. Left ventricular systolic function is normal, estimated at 55-60%. 4. There is mildly increased left ventricular wall thickness. 5. The left ventricular diastolic function is grade I diastolic dysfunction. 6. Left atrial chamber dimension is mildly enlarged. 7. There is mild mitral valve regurgitation. 8. The mitral valve annulus is mildly calcified. 9. There is mild tricuspid valve regurgitation. 10. Mild pulmonary hypertension, estimated pulmonary arterial systolic pressure is 39 mmHg. 11. Intact interatrial septum visualized by color flow and agitated saline imaging. Left Ventricle Left ventricular chamber dimension is normal. Left ventricular systolic function is normal, estimated at 55-60%. There is mildly increased left ventricular wall thickness. The left ventricular diastolic function is grade I diastolic dysfunction. Right Ventricle Right ventricular chamber dimension is normal. Right ventricular systolic function is normal. Left Atria Left atrial chamber dimension is mildly enlarged. Right Atria Right atrial chamber dimension is normal. Atrial Septum Intact interatrial septum visualized by color flow and agitated saline imaging. Aortic Valve The aortic valve is trileaflet. There is mild aortic valve sclerosis. There is no aortic valve stenosis. There is trace aortic valve regurgitation. Pulmonic Valve The pulmonic valve is normal. There is no pulmonic valve stenosis. There is trace pulmonic regurgitation. Mitral Valve There is no mitral valve stenosis. There is mild mitral valve regurgitation. The mitral valve annulus is mildly calcified. Tricuspid Valve The tricuspid valve leaflets are normal. There is no significant tricuspid valve stenosis. There is mild tricuspid valve regurgitation. Mild pulmonary hypertension, estimated pulmonary arterial systolic pressure is 39 mmHg. Pericardium/Pleural The pericardium appears normal. There is no pericardial effusion. Inferior Vena Cava Dilated inferior vena cava with >50% collapse upon inspiration consistent with elevated right atrial pressure, 10 mmHg. Aorta The aortic root size at the sinus of Valsalva is normal. Left Ventricular Outflow Tract Name Value Normal LVOT 2D LVOT Diameter 2.0 cm LVOT Doppler LVOT Peak Gradient 4 mmHg LVOT Mean Gradient 2 mmHg LVOT VTI
[2023-07-28 01:51] LABS: Iron 23 ug/dL (37-170)
[2023-07-28 02:00] LABS: Percent Iron Saturation 8 % (20-50)
[2023-07-28 02:27] LABS: Ferritin 5.28 ng/mL (11.1-264)
[2023-07-28] MEDS: PROPRANOLOL HCL 20 MG TABLET 40 MG PO ×3 (08:35→16:20)
[2023-07-28] MEDS: LOSARTAN POTASSIUM 100 MG TABLET PO (08:40)
[2023-07-28] MEDS: EZETIMIBE 10 MG TABLET PO (08:40)
[2023-07-28] MEDS: rifAMPin 300 MG CAPSULE PO (08:42)
[2023-07-28] MEDS: PRIMIDONE 50 MG TABLET 200 MG PO ×2 (09:10→16:20)
--- NOTE | 2023-07-28 09:48 | PM.CNPUL ---
Assessment and Plan Assessment and plan (1) SOB (shortness of breath) on exertion: Code(s): R06.02 - Shortness of breath Status: Acute Assessment and Plan: This patient has had shortness of breath on exertion with a oxyhemoglobin desaturation for several weeks. On physical exam she has distant breath sounds related to possible COPD. She never had pulmonary function testing. Regarding the CT abnormality, on my review the CT shows mild tree-in-bud pattern without any bronchiectasis. Patient has no symptoms like cough, sputum production or night sweats to suggest atypical mycobacterial infection. Tree-in-bud pattern could be related to many causes, mostly infections but also related to aspiration. Patient has not been able to cough any sputum to send for AFBs. Plan: At this patient the patient will start treatment with Laba Lama inhaler, like Anoro 1 puff daily, for possible COPD. She will continue with short-acting bronchodilators, albuterol p.r.n. for shortness of breath wheezing and also nebulized albuterol for p.r.n. use. The patient will return to Pulmonary Clinic to have a further assessment for COPD with pulmonary function testing 6 minute walk test. Down the road she will need repeat chest CT regarding the tree-in-bud pattern. I have discontinued rifampin and other antibiotics. Patient will need assessment for home oxygen. Asked the patient to call the Pulmonary clinic to make an appointment. Will sign off please call with any questions. (2) Acute hypoxemic respiratory failure: Code(s): J96.01 - Acute respiratory failure with hypoxia Status: Acute (3) Chronic obstructive pulmonary disease: Code(s): J44.9 - Chronic obstructive pulmonary disease, unspecified Status: Acute History of Present Illness History of Present Illness Consult date: 07/28/23 Chief complaint: Diffuse Lung Disease, Hypoxia Narrative: This 82-year-old female presented with a shortness of breath several weeks duration and mild midsternal chest pain. The patient has been diagnosed with possible COPD and had been on short-acting bronchodilators via nebulizer at home. She has had some shortness of breath especially on exertion with also oxyhemoglobin desaturation measured at home. The patient never had a pulmonary function testing. She used to smoke 1 pack per day for 40 years. Currently she chews tobacco. Patient denies having cough sputum production fever chills hemoptysis or night sweats. Chest CT showed mild COPD changes and mild tree-in-bud pattern changes without any bronchiectasis. Patient was found to have hiatal hernia but upon questioning he denied having had symptoms suggestive of aspiration. Reportedly she had wheezing when seen last night. Past medical history is significant for hypertension hyper lipidemia and hand tremors which are not related to Parkinson disease per patient. She also had some mild midsternal pain which was not associated with diaphoresis. The patient has been started on rifampin and Zithromax for possible non tuberculous mycobacterial infection. Review of Systems Review of Systems: Patient reports no weight changes. She has no history of nasal allergies. She has had intermittent clear nasal discharge. She has no orthopnea. She has had some vertigo in the supine position. She has intermittent acid reflux symptoms for which she was on medications in the past. She has no nausea vomiting diarrhea constipation. She has no urinary complaints. She has no history of joint pain or swelling. She has no history of lower extremity edema. The remainder of the 12 point system review is negative. [facility] Past Medical History Medical History (Updated 07/28/23 @ 09:55 by Leland Dwyer MD) Benign familial tremor Chronic obstructive pulmonary disease COVID-19 (2020) Essential hypertension Hyperlipidemia Hypertension Surgical History Surgical History (Reviewed 07/27/23 @ 21:23 by Viji
--- NOTE | 2023-07-28 11:06 | PM.IMPN ---
Progress Note: A&P Assessment and Plan (1) Diffuse lung disease: Code(s): J98.4 - Other disorders of lung Status: Acute Assessment and Plan: Patient presents with complaints of dyspnea on exertion with hypoxia. ABG essentially normal on room air. Chest x-ray was clear. CTA of the chest showed no PE but did show mild diffuse lung disease likely chronic infection such as mycobacterium. She did have mild bronchiectasis in the right middle lobe. Sputum culture ordered. Pulmonary was consulted. Antibiotics were stopped since the likelihood of infection is low. Will perform a home O2 evaluation. Speech therapy to evaluate. Check echocardiogram. (2) SOB (shortness of breath) on exertion: Code(s): R06.02 - Shortness of breath Status: Acute Assessment and Plan: As above. Patient presents with dyspnea on exertion and hypoxia. No O2 requirement with rest but does have hypoxia with exertion. Most likely will need oxygen at home. Suspect this is related to COPD. Chest CTA is negative for PE. BNP was 261. Viral PCR negative for COVID, flu and RSV. EKG reviewed and showing no significant changes. Or mycobacterium felt to be less likely. Follow-up on sputum culture results. Check echocardiogram. (3) Headache: Code(s): R51.9 - Headache, unspecified Status: Acute Assessment and Plan: Patient with morning headaches recently. Most likely this is related to hypoxia at night given the above history. I did recommend that she check her carbon monoxide detector to make sure it is working properly. She voices understanding of this. (4) Chronic obstructive pulmonary disease: Code(s): J44.9 - Chronic obstructive pulmonary disease, unspecified Status: Acute Assessment and Plan: As above. Patient's medications will be adjusted. (5) Essential hypertension: Code(s): I10 - Essential (primary) hypertension Status: Acute Assessment and Plan: Patient's blood pressure was reviewed on 07/28 Blood pressure remains well controlled. Will continue to monitor (6) Iron deficiency anemia: Code(s): D50.9 - Iron deficiency anemia, unspecified Status: Acute Assessment and Plan: Hemoglobin normal last year. Hemoglobin was 10.7 in January. Hemoglobin 9.0 on admission. Could be contributing to her BRAVO. Iron deficiency noted. Patient states she had a colonoscopy about 3 years ago which was negative. Add Protonix. Trend HH. IV iron. Stool guaiac. Plan GI Prophylaxis: Not currently indicated DVT Prophylaxis: SCDs, enoxaparin 30 Code Status: DNR Subjective Date/time seen: 07/28/23 11:06 Interval history: 82yo female with COPD and HTN here for BRAVO. BRAVO x 5 weeks. She has nebulizer at home but her doctor called in an inhaled steroid recently. Quit tobacco 1 year ago after smoking 1ppd x 40yrs. No melana or hematochezia. Does not get the yearly CT chest for screening. Colonoscopy about 3 years ago was clear. She has gas heat and has a carbon monoxide detector at home. Has been having chest pain that she notices in the morning. lower sternal area that she describes as 'achy' but no radiation, SOB, nausea. Pain improves with activity. Not ever has stres test. No orthopnea or PND. Has morning DAVIS new over the past few weeks. Takes Aleve frequently. Nml diet. Exam Narrative: AF 97.8 127/58 78 16 95% ra Gen - NARD Chest - scattered inspiratory rhonchi, nml RR CV - RRR S1/S2. Palpable chest wall pain lower sternal region. Abd - Soft, NT/ND, Positive BS Ext - No pedal edema. Negative Homans Psych - Nml mood and affect Skin - Warm and dry Objective Data Vital Signs Vital Signs: Vital Signs - 24 hr 07/27/23 12:38 07/27/23 12:28 07/27/23 12:30 Temperature Pulse Rate 80 75 Respiratory Rate 27 H 17 Blood Pressure Pulse Oximetry 99 98 Oxygen Delivery Room Air 07/27/23 12:31 07/27/23 12:32 10
[2023-07-28] MEDS: PANTOPRAZOLE SODIUM IV 40 MG VIAL IV PUSH (12:13)
[2023-07-28] MEDS: IRON SUCROSE COMPLEX 100 MG in SODIUM CHLORIDE 0.9% IV 50 ML 220 MG IVPB (12:16)
[2023-07-28 12:19] LABS: Hematocrit 29.8 % (37.0-47.0); Hemoglobin 8.7 g/dL (12.0-15.0)
[2023-07-28 12:38] LABS: Troponin I < 0.012 ng/mL (0.000-0.034)
--- NOTE | 2023-07-28 12:47 | PCSTNOTE ---
Please refer to the Bedside Swallow Evaluation in the EMR. Please note, silent aspiration cannot be ruled out at bedside.
[2023-07-28 17:51] LABS: Hematocrit 33.1 % (37.0-47.0); Hemoglobin 9.6 g/dL (12.0-15.0)
[2023-07-28] MEDS: ACETAMINOPHEN 325 MG TABLET 650 MG PO (23:50)
[2023-07-29] VITALS (7 sets, daily range): BP systolic 95–140; BP diastolic 52–55; PULSE 66–77; RESP 16; TEMP 36.3–36.5; O2SAT 94–97
[2023-07-29 00:08] LABS: Hematocrit 27.5 % (37.0-47.0); Hemoglobin 8.1 g/dL (12.0-15.0)
[2023-07-29 07:03] LABS: Basophils Percent Auto 0.6 % (0.2-1.2); Eosinophils Absolute Auto 0.2 K/mm3 (0-0.3); Eosinophils Percent Auto 3.5 % (0-4.4); Hematocrit 28.9 % (37.0-47.0); Hemoglobin 8.3 g/dL (12.0-15.0); Immature Granulocyte Absolute 0.03 K/mm3 (0.00-0.031); Immature Granulocyte Percent A 0.6 % (0-0.5); Lymphocytes Absolute Auto 1.39 K/mm3 (0.9-3.2); Lymphocytes Percent Auto 28.4 % (18.3-44.2); Mean Corpuscular HGB Conc 28.7 g/dl (32-36); Mean Corpuscular Hemoglobin 24.7 pg (26-34); Mean Platelet Volume 10.1 fl (7.4-10.4); Monocytes Absolute Auto 0.5 K/mm3 (0.1-0.6); Monocytes Percent Auto 10.4 % (2.6-8.5); Neutrophils Absolute Auto 2.8 K/mm3 (1.3-6.7); Neutrophils Percent Auto 56.5 % (45.5-73.1); Platelet Count Result 253 k/mm3 (150-375); Red Blood Count 3.36 M/mm3 (4.2-5.4); Red Cell Distribution Width 16.2 % (11.5-14.5); White Blood Count 4.9 K/mm3 (4.5-10.0)
[2023-07-29 07:25] LABS: Anion Gap 7 mmol/L (8-16); Blood Urea Nitrogen 12 mg/dL (7-17); Calcium 8.4 mg/dL (8.4-10.2); Carbon Dioxide 27 mmol/L (22-30); Chloride 103 mmol/L (98-107); Estimated CRCL calculation 38 ml/min; Estimated Glomerular Filt Rate > 60; Glucose 94 mg/dL (65-110); Magnesium 1.9 mg/dL (1.6-2.3); Potassium 3.7 mmol/L (3.4-5.0); Sodium 137 mmol/L (137-145)
[2023-07-29 08:21] LABS: Anisocytosis 1+ (NORMAL); Hypochromasia 1+ (NORMAL); Ovalocytes 1+ (NORMAL); Platelet Estimate Adequate (Adequate); Schistocytes None Seen (NORMAL)
[2023-07-29] MEDS: PROPRANOLOL HCL 20 MG TABLET 40 MG PO ×2 (08:40→12:51)
[2023-07-29] MEDS: PANTOPRAZOLE SODIUM IV 40 MG VIAL IV PUSH (08:40)
[2023-07-29] MEDS: PRIMIDONE 50 MG TABLET 200 MG PO (08:41)
[2023-07-29] MEDS: LOSARTAN POTASSIUM 100 MG TABLET PO (08:41)
[2023-07-29] MEDS: hydroCHLOROthiazide 25 MG TABLET PO (08:41)
[2023-07-29] MEDS: EZETIMIBE 10 MG TABLET PO (08:41)
[2023-07-29] MEDS: IRON SUCROSE COMPLEX 100 MG in SODIUM CHLORIDE 0.9% IV 50 ML 220 MG IVPB (08:52)
[2023-07-29] MEDS: UMECLIDINIUM/VILANTEROL 62.5-25 MCG ELLIPTA 1 PUFF INHALATION (09:00)
--- NOTE | 2023-07-29 15:22 | HOMEO2EVAL ---
Evaluation was performed at [facility] Home Oxygen Evaluation RC: Home Oxygen (O2) Evaluation Start: 07/29/23 15:05 Freq: ONCE Status: Active Protocol: RPE Activity Type Activity Date Activity User E-sign Co-sign Detail Recorded Client Recorded Date Recorded By Document 07/29/23 15:15 KAG [email or web address] 07/29/23 15:21 KAG Document 07/29/23 15:16 KAG [email or web address] 07/29/23 15:22 KAG Document 07/29/23 15:20 KAG [email or web address] 07/29/23 15:22 KAG 07/29/23 07/29/23 07/29/23 15:15 15:16 15:20 Home O2 Evaluation [Oxygen] -Test Phase Resting Exercise Resting -Oxygen Delivery Room Air Room Air Room Air [Pulse Oximetry] -Pulse Oximetry (90-100 %) 96 97 96 [Pulse Rate] -Pulse Rate (60-100 beats/min) 66 77 75 [Evaluation] -Activity Tolerance Excellent [Exercise] -Ambulation Distance (feet) 50 -Ambulation Distance (meters) 15.23 [Comments] -Home Oxygen Evaluation Comments Pt tolerated walking very well, SpO2 stayed above 95 %. [Charges] -Treatment Charges O2 Evaluation - Inpatient
--- NOTE | 2023-07-29 15:23 | PCRCNOTE ---
Patient evaluated for home O2 set-up. Patient settings are room air resting and with activity. SpO2 stayed above 95%. RN notified.
--- NOTE | 2023-07-29 15:27 | PM.DS ---
DS: Admitting Diagnosis Discharge Date 07/29/23 Admitting Diagnosis Shortness of breath DS: Discharge Diagnosis Discharge Diagnosis (1) Diffuse lung disease: Code(s): J98.4 - Other disorders of lung Status: Acute (2) SOB (shortness of breath) on exertion: Code(s): R06.02 - Shortness of breath Status: Acute (3) Headache: Code(s): R51.9 - Headache, unspecified Status: Acute Assessment and Plan: Patient with morning headaches recently. Most likely this is related to hypoxia at night given the above history. I did recommend that she check her carbon monoxide detector to make sure it is working properly. She voices understanding of this. (4) Chronic obstructive pulmonary disease: Code(s): J44.9 - Chronic obstructive pulmonary disease, unspecified Status: Acute (5) Essential hypertension: Code(s): I10 - Essential (primary) hypertension Status: Acute (6) Iron deficiency anemia: Code(s): D50.9 - Iron deficiency anemia, unspecified Status: Acute DS: Summary Hospital Course Reason for hospitalization: 82yo female with COPD and HTN here for BRAVO. Please see H&P for details. Hospital Course: Patient presents with complaints of dyspnea on exertion with hypoxia.? ABG essentially normal on room air.? Chest x-ray was clear.? CTA of the chest showed no PE but did show mild diffuse lung disease possibly chronic infection such as mycobacterium.? She did have mild bronchiectasis in the right middle lobe.? Sputum culture ordered.? Pulmonary was consulted.? Antibiotics were started on admission but stopped by Pulmonary since the likelihood of infection was low.? Home O2 evaluation showed she did not need O2 at discharge. Speech therapy evaluated the patient and found no concerns. Echo showing EF 55-60% with mild increased LV wall thickness and Grade I diastolic dysfunction. Septum intact. Suspect her SOB is related to COPD.?Viral PCR negative for COVID, flu and RSV.? EKG reviewed and showing no significant changes.?Patient with morning headaches recently at home.? Most likely this is related to hypoxia at night given the above history.? I did recommend that she check her carbon monoxide detector to make sure it is working properly.? She voices understanding of this. Hemoglobin normal last year.? Hemoglobin was 10.7 in January.? Hemoglobin 9.0 on admission. Could be contributing to her BRAVO. Iron deficiency noted. Patient states she had a colonoscopy about 3 years ago which was negative. We added Protonix. She was given IV iron. Stool guaiac ordered but not collected. Will have her follow up with the GI doctor. She overall did well and was able to be discharged home on 07/29/23. Status at Discharge Cognitive/behavioral status at discharge: stable Time Spent with Patient Time attestation: Total time spent providing and/or coordinating discharge services: 38 minutes Time spent: Greater than 30 minutes Exam Narrative: AF 97.7 95/52 75 16 96% ra Gen - NARD Chest - bibasilar inspiratory rhonchi, nml RR CV - RRR S1/S2 Abd - Soft, NT/ND, Positive BS Ext - No pedal edema Psych - Nml mood and affect Skin - Warm and dry DS: Data Data Completed and Pending Labs on day of discharge: Labs from last 24 hours 07/29/23 07/28/23 07/28/23 06:08 23:45 17:41 WBC 4.9 RBC 3.36 L Hgb 8.3 L 8.1 L 9.6 L Hct 28.9 L 27.5 L 33.1 L MCV 86.0 MCH 24.7 L MCHC 28.7 L RDW 16.2 H Plt Count 253 MPV 10.1 Immature Gran % (Auto) 0.6 H Neut % (Auto) 56.5 Lymph % (Auto) 28.4 [place] % (Auto) 10.4 H Eos % (Auto) 3.5 Baso % (Auto) 0.6 Lymph # (Auto) 1.39 [place] # (Auto) 0.5 Eos # (Auto) 0.2 Baso # (Auto) 0.0 Abs Immat Gran (auto) 0.03 Absolute Neuts (auto) 2.8 Absolute Nucleated RBC 0.0 Nucleated RBC % 0.0 Platelet Estimate Adequate Hypochromasia 1+ Anisocytosis 1+ Ovalocytes
--- NOTE | 2023-08-02 07:09 | PC.NURSE ---
Called Levaquin 750 mg by mouth every other day #4 tabs, into [facility]. Called pt with orders and patient is agreeable. This is for tx of her sputum cultures which grew pseudomonas aeurginosa and luteola. Order was from Dr. Pappas.
--- NOTE | 2023-08-02 09:59 | PC.NURSE ---
Spoke with patient regarding positive sputum cultures and the need for antibiotics per Dr. Pappas order. Called into [facility]. PT repeats instructions correctly. Levaquin 750 mg by mouth every other day, #4 tabs/capsules.
== END 2023-07-29 16:10 | disposition home or self-care (01) | DRG 192 ==
LOC: ANHED 12:25 → ANH3MEDSUR 16:32
PROVIDERS: Emergency Medicine; Student in an Organized Health Care Education/Training Program; Admitting Provider General Practice; Emergency Provider General Practice; PCP Internal Medicine; Visit Provider Internal Medicine
DX: J44.9 Chronic obstructive pulmonary disease, unspecified (principal); R09.02 Hypoxemia; J47.9 Bronchiectasis, uncomplicated; I10 Essential (primary) hypertension; J98.4 Other disorders of lung; Z20.822 Contact with and (suspected) exposure to COVID-19; E78.5 Hyperlipidemia, unspecified; K44.9 Diaphragmatic hernia without obstruction or gangrene; R51.9 Headache, unspecified; G25.0 Essential tremor; D50.9 Iron deficiency anemia, unspecified; F17.220 Nicotine dependence, chewing tobacco, uncomplicated; Z66 Do not resuscitate; Z86.16 Personal history of COVID-19; Z90.49 Acquired absence of other specified parts of digestive tract
CPT/HCPCS: 36415; 36600; 70450; 71046; 71275; 80048; 80053; 82375; 82728; 82805; 83050; 83540; 83550; 83690; 83735; 83880; 84484; 85014; 85018; 85025; 85380; 85610; 85730; 87070; 87077; 87186; 87205; 87636; 92610; 93005; 93306; 94618; 94640; 96361; 96365; 96367; 96375; 99291; A9270; C9113; G0378; J0456; J0696; J1756; J7030; J7040; Q9967

== ENCOUNTER 2023-08-03 09:21 | Outpatient (CLI) | payer MEDICARE, BC, SELFPAY ==
[2023-08-03 10:00] LABS: Hematocrit 32.6 % (37.0-47.0); Hemoglobin 9.5 g/dL (12.0-15.0); Mean Corpuscular HGB Conc 29.1 g/dl (32-36); Mean Corpuscular Hemoglobin 25.7 pg (26-34); Mean Corpuscular Volume 88.1 fl (80-100); Mean Platelet Volume 9.6 fl (7.4-10.4); Platelet Count Result 261 k/mm3 (150-375); Red Cell Distribution Width 18.9 % (11.5-14.5); White Blood Count 6.5 K/mm3 (4.5-10.0)
== END 2023-08-03 09:22 | disposition home or self-care (01) ==
PROVIDERS: PCP Internal Medicine; Visit Provider Internal Medicine
DX: D50.9 Iron deficiency anemia, unspecified (principal)
CPT/HCPCS: 36415; 85027

== ENCOUNTER 2023-08-22 13:35 | Outpatient (CLI) | payer MEDICARE, BC, SELFPAY ==
[2023-08-24 14:18] LABS: NIL 0.02 IU/mL; Quantiferon TB Plus, 1T NEGATIVE (NEGATIVE)
== END 2023-08-22 13:36 | disposition home or self-care (01) ==
PROVIDERS: PCP Internal Medicine; Visit Provider Internal Medicine Pulmonary Disease
DX: J98.4 Other disorders of lung (principal)
CPT/HCPCS: 36415; 86480

== ENCOUNTER 2023-09-14 12:25 | Outpatient (CLI) | payer MEDICARE, BC, SELFPAY ==
--- NOTE | ~2023-09-14 | CT_ITS ---
EXAMINATION: CT chest high resolution wo wi DATE: 09/14/2023 14:01 INDICATION: Diffuse lung disease TECHNIQUE: Computed tomography (CT) of the chest was performed without intravenous contrast. The dose -length product was 192.05 mGy-cm. Automated exposure control and iterative reconstruction technique were employed. COMPARISON: CT dated 07/27/2023 FINDINGS: Heart size normal. Large hiatal hernia. No significant pleural or pericardial effusion. Sma ll calcified mediastinal lymph nodes, likely chronic granulomatous disease. Improved interstitial inf iltrates compared with prior examination with residual reticulonodular densities in the right upper a nd middle lobes, likely resolving pneumonia. There are a few scattered additional nodules measuring 3 mm or less. No endobronchial lesions. No pneumothorax. Moderate thoracic spondylosis. IMPRESSION: 1. Improving scattered interstitial infiltrates compared with 07/27/2023, likely resolving pneumonia. 2: Large hiatal hernia. Reviewed, dictated and finalized at location B. ICER ELEMENT WINDER IMPRESSION: 1. Improving scattered interstitial infiltrates compared with 07/27/2023, likel y resolving pneumonia. 2: Large hiatal hernia.
--- NOTE | 2023-09-14 16:25 | WPDSIXMINUTE ---
Six Minute Walk Procedure Procedure Performed Pulmonary Stress Test (6 min walk) Six Minute Walk Six Minute Walk: This is a 6 minute walk test. The test was performed and interpreted in accordance with the 2014 ERS/ATS task force guidelines. Findings: The patient's resting room air oxygen saturation measured by pulse oximetry was 94% and heart rate was 64 bpm. Patient ambulated for 396 meters and oxygen saturation remained 92 to 97%. Heart rate at the end of the study was 83 bpm. The patient did not qualify for supplemental oxygen at rest or with ambulation. There are no prior studies for comparison.
--- NOTE | 2023-09-14 16:26 | P.PCNPFT_ITS ---
PFT Procedure Performed PFT Procedure Performed Spirometry with Pre/Post Bronchodilator Plethysmography (Lung Vol) Diffusing Cap (DLCO) Flow Vol Loop PFT Interpretation This is a pulmonary function test with pre and post-bronchodilator spirometry, plethysmography and diffusing capacity. The test was performed and results interpreted in accordance with the 2019 and 2005 ATS/ERS Task Force guidelines respectively using the Global Lung Function Initiative-2012 reference equations. Patient demonstrated good effort and cooperation. Reproducibility criteria were met. The quality of the pre bronchodilator spirometry maneuver was Grade A and post bronchodilator spirometry maneuver was Grade A. Findings: Spirometry: There is decreased maximal expiratory airflow at all lung volumes with concave expiratory flow tracing. The contour the inspiratory flow tracing is normal. The pre bronchodilator FVC is 2.38 L, 101% predicted. The pre bronchodilator FEV1 is 1.32 L, 74% predicted. The pre bronchodilator FEV1: FVC ratio is 55%. The post bronchodilator FVC is 2.41 L, representing 1% increase. The post bronchodilator FEV1 is 1.40 L, representing a 6% increase. The post bronchodilator FEV1: FVC ratio is 58%. Plethysmography: The total lung capacity is 4.55 L, 93% predicted. The functional residual capacity is 2.82 L, 99% predicted. The residual volume is 2.13 L, 88% predicted. Diffusing capacity: The diffusing capacity unadjusted for hemoglobin and carboxyhemoglobin is 10.9, 59% predicted. The diffusing capacity adjusted for alveolar volume is 3.70, 90% predicted. Impression: There is a mild obstructive abnormality with a normal FEV1 and without significant improvement after inhaling a single dose of albuterol. The lung volumes are normal. The diffusing capacity unadjusted for hemoglobin and carboxyhemoglobin is moderately decreased and normalizes when adjusted for alve olar volume. There are no prior studies for comparison
== END 2023-09-14 12:26 | disposition home or self-care (01) ==
LOC: ANHPFT 12:26
PROVIDERS: PCP Internal Medicine; Visit Provider Internal Medicine Pulmonary Disease
DX: J98.4 Other disorders of lung (principal); K44.9 Diaphragmatic hernia without obstruction or gangrene; R94.2 Abnormal results of pulmonary function studies
CPT/HCPCS: 71250; 94060; 94618; 94726; 94729

== ENCOUNTER 2024-08-05 08:43 | Emergency (ER) | payer MEDICARE, BC, SELFPAY ==
[2024-08-05] VITALS (9 sets, daily range): BP systolic 120–146; BP diastolic 55–113; PULSE 63–73; RESP 12–21; TEMP 36.6–37.1; O2SAT 96–100
--- NOTE | ~2024-08-05 | XR_ITS ---
XR chest 2V Ordering provider: Deny Milan MD History: 83 years Female with . SOB . Comparison: None. FINDINGS: MEDIASTINUM: The cardiac silhouette is not enlarged. Sliding hiatus hernia. LUNGS: No infiltrates, effusions or pneumothorax. Prominent markings bilaterally. OTHER: No free air under the diaphragm. Degenerative changes of the spine. IMPRESSION: No acute cardiopulmonary pathology. Reviewed, dictated and finalized at location A.
--- NOTE | ~2024-08-05 | CT_ITS ---
Clinical Indication: Increased shortness of breath CT Scan of the Chest with Contrast: Technique: Contiguous sections were acquired throughout the chest after intravenous administration of 75 cc of Omnipaque 350. Dose reduction technique was used on this scan by utilizing automated exposu re control and iterative reconstruction technique. The dose-length product (DLP) was 146.29 mGy-cm. COMPARISON: 09/14/2023 Findings: There is no evidence of any significant mediastinal, hilar or axillary lymphadenopathy. There is no f illing defect in the pulmonary arterial tree to suggest pulmonary embolus. There is no evidence of ao rtic dissection or aneurysm. There is no evidence of pleural or pericardial effusion. Probable minimal tree-in-bud opacities in the right middle lobe and right lower lobe, possibly the li ngula. Images through the upper abdomen reveal small to moderate hiatal hernia. Impression: Probable minimal scattered tree-in-bud opacities, as above, suggestive of small airways infectious pr ocess. Some areas are probably minimally worsened from prior exam. Reviewed, dictated and finalized at location . Impression: Probable minimal scattered tree-in-bud opacities, as above, suggestive of small airways infectious process. Some areas are probably minimally worsened from pr ior exam.
--- NOTE | 2024-08-05 08:47 | ECG_ITS ---
Test Date: 2024-08-05 08:54:47 Measurements Intervals [place] Rate: 65 P: 55 OR: 243 QRS: 19 QRSD: 93 T: 35 QT: 396 QTc: 415 Interpretive Statements SINUS RHYTHM WITH SINUS ARRHYTHMIA WITH FIRST DEGREE AV BLOCK MODERATE T-WAVE ABNORMALITY, CONSIDER ANTERIOR ISCHEMIA [-0.1+ mV T-WAVE IN V3/V4] ABNORMAL ECG No previous ECG available for comparison Electronically Signed On 08-05-2024 10:46:06 CDT by Fam Bang M.D.
[2024-08-05 09:15] LABS: Basophils Percent Auto 0.6 % (0.2-1.2); Eosinophils Absolute Auto 0.2 K/mm3 (0-0.3); Eosinophils Percent Auto 2.6 % (0-4.4); Hematocrit 30.4 % (37.0-47.0); Hemoglobin 9.4 g/dL (12.0-15.0); Immature Granulocyte Absolute 0.02 K/mm3 (0.00-0.031); Immature Granulocyte Percent A 0.3 % (0-0.5); Lymphocytes Absolute Auto 0.98 K/mm3 (0.9-3.2); Lymphocytes Percent Auto 14.7 % (18.3-44.2); Mean Corpuscular HGB Conc 30.9 g/dl (32-36); Mean Corpuscular Hemoglobin 26.9 pg (26-34); Mean Corpuscular Volume 87.1 fl (80-100); Mean Platelet Volume 9.2 fl (7.4-10.4); Monocytes Absolute Auto 0.7 K/mm3 (0.1-0.6); Monocytes Percent Auto 10.5 % (2.6-8.5); Neutrophils Absolute Auto 4.7 K/mm3 (1.3-6.7); Neutrophils Percent Auto 71.3 % (45.5-73.1); Platelet Count Result 237 k/mm3 (150-375); Red Blood Count 3.49 M/mm3 (4.2-5.4); Red Cell Distribution Width 15.1 % (11.5-14.5); White Blood Count 6.7 K/mm3 (4.5-10.0)
[2024-08-05 09:28] LABS: Alanine Aminotransferase 14 U/L (6-35); Albumin Level 4.2 g/dL (3.5-5.1); Alkaline Phosphatase 122 U/L (38-126); Anion Gap 8 mmol/L (4-12); Aspartate Amino Transferase 24 U/L (14-36); Bilirubin,Total 0.3 mg/dL (0.2-1.3); Blood Urea Nitrogen 17 mg/dL (7-17); Calcium 9.5 mg/dL (8.4-10.2); Carbon Dioxide 27 mmol/L (22-30); Chloride 104 mmol/L (98-107); Estimated CRCL calculation 43 ml/min; Estimated Glomerular Filt Rate > 60; Glucose 114 mg/dL (65-110); Potassium 3.4 mmol/L (3.4-5.0); Sodium 139 mmol/L (137-145)
--- NOTE | 2024-08-05 09:57 | ED.SOB ---
HPI - SOB/Dyspnea General Chief Complaint: Shortness of Breath/Dyspnea Stated Complaint: shortness of breath Time Seen by Provider: 08/05/24 09:03 History of Present Illness HPI Narrative: Patient is an 83-year-old female presents to the ER with increased shortness of breath. She reports she has history of COPD and tends to get exacerbations this time of year. patient reports she has been using her nebulizer and inhaler home without much relief. She reports she has decreased energy, headache, increased shortness of over the past 2 weeks. Patient has a history blood pressure, hyperlipidemia, COPD and tremors. Related Data Home Medications Medication Instructions Recorded Confirmed ezetimibe 10 mg tablet 10 mg PO DAILY 12/05/20 08/22/23 losartan 100 1 tablet PO DAILY 12/05/20 08/22/23 mg-hydrochlorothiazide 25 mg tablet Allergies Allergy/AdvReac Type Severity Reaction Status Date / Time Sulfa (Sulfonamide Allergy Unknown Rash Verified 08/05/24 08:44 Antibiotics) Review of Systems Review of Systems: All systems reviewed & are unremarkable except as noted in HPI and below PMFSH Past Medical History Medical History Benign familial tremor Chronic obstructive pulmonary disease COVID-19 (2020) Essential hypertension Hyperlipidemia Hypertension Surgical History Surgical History History of appendectomy Family History Family History Father Family history of malignant neoplasm Heart disease Sibling Patient's sister is in good health, Onset Age: 92 Mother Family history of malignant neoplasm Diabetes mellitus Sibling Hypertension Social History Social History Social History: Currently lives at home alone. . Surrogate decision maker: Delilah Arango, daughter ([phone]) or Echo Becker, granddaughter who is the executor of her living will ([phone]). Code status: DNR. Smoking packs per day: 0.5 Smoking cigarettes per day: 10.0 Years smoked: 65 Smoking pack-years: 32.50 Smoking status: Former smoker Tobacco type: cigarettes Second hand tobacco smoke exposure: Yes Additional smoking assessment comments: Continues to chew nicotine gum. Alcohol intake: never Substance use: never Substance use type: does not use Lack of Transportation: No Lack of Food: Never True Current Housing: I Have Housing Concerned About Future Housing: No Difficulty Paying Gas/Electric Bills: No Difficulty Paying for Meds: No Currently Unemployed: No Education: Don't Know Difficulty w/ Childcare or Family Care: No Living arrangements: alone Additional living arrangements comments: . Lives in [place]. Multiple family members live nearby. 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 Spiritual care concerns: No Exam Narrative: GENERAL: Well appearing, well-nourished, non-toxic, in no acute distress. HEAD: Normocephalic, atraumatic. NECK: Supple. No adenopathy, no masses. RESPIRATORY: Airway patent, respirations nonlabored. Clear to auscultation bilaterally, no rales, rhonchi, wheezing. CARDIOVASCULAR: Regular rate and rhythm without murmurs, rubs, or gallops. Peripheral pulses 2+ and equal bilaterally. ABDOMINAL: Soft, nontender, nondistended, no hepatosplenomegaly. Normoactive BS. MUSCULOSKELETAL: Moves all extremities. Strength/ROM intact without gross deformities. SKIN: Warm, dry, normal color. No rashes. NEURO: A&O X3. Speech clear. Cranial nerves II-XII grossly intact. Steady gait. No ataxic movements. PSYCHIATRIC: Appropriate mood and affect. Normal interaction. Course Vital Signs Vital signs: Vital Signs Tem
[2024-08-05] MEDS: methylPREDNISolone SOD SUCC 125 MG VIAL IV PUSH (10:09)
[2024-08-05 10:36] LABS: INR 1.1
[2024-08-05 10:37] LABS: Partial Thromboplastin Time 22.7 Seconds (22.3-36.8)
[2024-08-05 10:39] LABS: Lactic Acid Reflex 1.6 mmol/L (0.7-2.0)
[2024-08-05 10:49] LABS: D Dimer 0.71 ug/mL (<0.48)
[2024-08-05 10:51] LABS: NT Pro B Type Natriuretic Pept 124 pg/mL (19.9-100); Troponin I < 0.012 ng/mL (0.000-0.034)
[2024-08-05 10:54] LABS: Magnesium 1.6 mg/dL (1.6-2.3)
[2024-08-05] MEDS: AMOXICILLIN/CLAVULANATE K 875-125 MG TAB 1 TABLET PO (12:40)
== END 2024-08-05 12:55 | disposition home or self-care (01) ==
PROVIDERS: Emergency Medicine; Emergency Provider Registered Nurse; PCP Internal Medicine
DX: J18.9 Pneumonia, unspecified organism (principal); J44.9 Chronic obstructive pulmonary disease, unspecified; I10 Essential (primary) hypertension; E78.5 Hyperlipidemia, unspecified; R94.31 Abnormal electrocardiogram [ECG] [EKG]
CPT/HCPCS: 36415; 71046; 71260; 80053; 83605; 83735; 83880; 84484; 85025; 85380; 85610; 85730; 93005; 96374; 99284; A9270; J2919; Q9967

== ENCOUNTER 2024-11-05 16:58 | Inpatient (IN) | payer MEDICARE, BC, SELFPAY ==
[2024-11-05] VITALS (7 sets, daily range): BP systolic 105–150; BP diastolic 45–62; PULSE 82–111; RESP 18–27; TEMP 36.7–38.4; O2SAT 95–97
--- NOTE | ~2024-11-05 | CT_ITS ---
Clinical indication:Shortness of breath, cough and fever COMPARISON:08/05/2024 TECHNIQUE: Multiple contiguous axial images of the chest were performed without the administration of intravenous contrast. DLP: 173 mGy-cm FINDINGS: LUNG:Biapical scarring. The remainder of the lungs are clear, stable in appearance dating back to 08/05/2024. MEDIASTINUM:The main pulmonary artery is enlarged. No morphologically suspicious or pathologically en larged lymph nodes within the mediastinum or anna. Large hiatal hernia, consistent with recent chest x-ray. HEART:The heart is of normal size, without pericardial effusion. SOFT TISSUES OF THE CHEST: Unremarkable BONES OF CHEST: No acute fracture. Degenerative disease, with osteophyte formation and disc space princess rowing. VISUALIZED PORTION OF THE UPPER ABDOMEN: Densely calcified atherosclerotic disease IMPRESSION: Large hiatal hernia. The lungs are clear. Reviewed, dictated and finalized at location A. HANDISE CARRIER
--- NOTE | ~2024-11-05 | XR_ITS ---
Portable chest x-ray Comparison: 11/05/2024 Clinical History: Hypoxia Findings: Lungs are clear, without focal consolidation or pleural effusion. Cardiomediastinal silho uette is stable. Osseous structures intact. Moderate hiatal hernia noted. Impression: Clear lungs. Moderate hiatal hernia. Reviewed, dictated and finalized at location . RGY AND IMMUNOLOGY CHIEF Impression: Clear lungs. Moderate hiatal hernia.
--- NOTE | ~2024-11-05 | XR_ITS ---
CHEST RADIOGRAPH, PA AND LATERAL CLINICAL HISTORY: shortness of breath, FEVER, CHILLS . COMPARISON: 08/19/2024 TECHNIQUE: PA and lateral views of the chest. FINDINGS Large hiatal hernia. The remainder of the cardiomediastinal silhouette is otherwise unremarkable. The lungs are clear. IMPRESSION: No focal infiltrate or effusion. Reviewed, dictated and finalized at location A. OPHONE OPERATOR
--- NOTE | 2024-11-05 17:09 | ECG_ITS ---
Test Date: 2024-11-05 17:15:25 Measurements Intervals [place] Rate: 102 P: 32 SC: 154 QRS: 12 QRSD: 90 T: 50 QT: 316 QTc: 413 Interpretive Statements SINUS TACHYCARDIA LOW QRS VOLTAGE IN PRECORDIAL LEADS [QRS DEFLECTION < 1.0 mV IN CHEST LEADS] POSSIBLE RIGHT VENTRICULAR CONDUCTION DELAY [RSR (QR) IN V1/V2] MINIMAL ST DEPRESSION [0.025+ mV ST DEPRESSION] ABNORMAL RHYTHM ECG Compared to ECG 08/19/2024 11:57:35 Low QRS voltage now present ST (T wave) deviation now present Sinus rhythm no longer present First degree AV block no longer present Incomplete right bundle-branch block no longer present Electronically Signed On 11-07-2024 13:37:14 ARMATURE CONNECTOR by Nava Lopez
[2024-11-05 17:22] LABS: Basophils Absolute Auto 0.1 K/mm3 (0.0-0.1); Basophils Percent Auto 0.4 % (0.2-1.2); Eosinophils Absolute Auto 0.1 K/mm3 (0-0.3); Eosinophils Percent Auto 0.4 % (0-4.4); Hemoglobin 7.5 g/dL (12.0-15.0); Immature Granulocyte Absolute 0.08 K/mm3 (0.00-0.031); Immature Granulocyte Percent A 0.6 % (0-0.5); Lymphocytes Absolute Auto 0.62 K/mm3 (0.9-3.2); Lymphocytes Percent Auto 4.4 % (18.3-44.2); Mean Corpuscular HGB Conc 28.8 g/dl (32-36); Mean Corpuscular Hemoglobin 22.1 pg (26-34); Mean Corpuscular Volume 76.5 fl (80-100); Mean Platelet Volume 9.6 fl (7.4-10.4); Monocytes Absolute Auto 1.3 K/mm3 (0.1-0.6); Monocytes Percent Auto 8.8 % (2.6-8.5); Neutrophils Absolute Auto 12.2 K/mm3 (1.3-6.7); Neutrophils Percent Auto 85.4 % (45.5-73.1); Platelet Count Result 188 k/mm3 (150-375); Red Cell Distribution Width 18.8 % (11.5-14.5); White Blood Count 14.3 K/mm3 (4.5-10.0)
[2024-11-05 17:34] LABS: Alanine Aminotransferase 17 U/L (6-35); Albumin Level 3.6 g/dL (3.5-5.1); Alkaline Phosphatase 139 U/L (38-126); Anion Gap 14 mmol/L (4-12); Aspartate Amino Transferase 23 U/L (14-36); Bilirubin,Total 0.8 mg/dL (0.2-1.3); Blood Urea Nitrogen 23 mg/dL (7-17); Carbon Dioxide 18 mmol/L (22-30); Chloride 103 mmol/L (98-107); Estimated CRCL calculation 29 ml/min; Estimated Glomerular Filt Rate 48; Glucose 155 mg/dL (65-110); Hypochromasia 1+; Ovalocytes 1+; Platelet Estimate Adequate (Adequate); Potassium 3.7 mmol/L (3.4-5.0); Schistocytes None Seen; Sodium 135 mmol/L (137-145)
[2024-11-05] MEDS: IBUPROFEN 600 MG TABLET PO (17:49)
[2024-11-05] MEDS: SODIUM CHLORIDE 0.9% IV 500 ML 999 ML IV CONT ×2 (17:50→20:26)
[2024-11-05 17:52] LABS: INR 1.2; Prothrombin Time 15.7 Seconds (11.1-14.7)
[2024-11-05 17:53] LABS: Partial Thromboplastin Time 31.6 Seconds (22.3-36.8)
[2024-11-05 17:54] LABS: Add Urine Microscopic? YES; Appearance Urine Cloudy (Clear); Bacteria Urine 4+ /hpf; Bilirubin Urine Negative (Negative); Blood Urine 1+ (Negative); Color Urine Yellow (Yellow); Glucose Urine UA Negative (Negative); Ketones Urine Negative (Negative); Leukocyte Esterase Ur 2+ LEU/UL (Negative); Nitrate Urine Positive (Negative); Protein Urine 2+ mg/dL (Negative); RBC Urine 0-2 /hpf (0-2); Specific Grav Ur 1.013 (1.001-1.035); Squamous Epithelial Cell Urine None Seen /hpf (Few); Urobilinogen Urine 0.2 mg/dL (<2.0); WBC Urine >100 /hpf (0-3); pH Urine 5.5 (5.0-9.0)
--- NOTE | 2024-11-05 17:57 | ED_ITS ---
HPI - Fever General Chief Complaint: Fever <Carolyn Pham PA-C - Last Filed: 11/05/24 23:53> Stated Complaint: shortness of breath <JUDY Chu Last Filed: 11/05/24 23:53> Time Seen by Provider: 11/05/24 17:16 <Carolyn Pham PA-C - Last Filed: 11/05/24 23:53> Source: patient <JUDY Chu Last Filed: 11/05/24 23:53> Mode of arrival: ambulatory <JUDY Chu Last Filed: 11/05/24 23:53> Limitations: no limitations <JUDY Chu Last Filed: 11/05/24 23:53> History of Present Illness HPI Narrative: This is an 84-year-old female that presents to the emergency department for fevers. Ongoing over the last 2 days. Reports chills, headache, shortness of breath. Reports her family member recently recovered from pneumonia. Denies cough, congestion, abdominal pain, vomiting, dysuria. <Carolyn Pham PA-C - Last Filed: 11/05/24 23:53> Related Data Home Medications: Home Medications ?Medication ?Instructions ?Recorded ?Confirmed ?Last Taken ?Type ezetimibe 10 mg tablet 10 mg PO DAILY 12/05/20 11/06/24 08/08/22 09:00 History losartan 100 1 tablet PO DAILY 12/05/20 11/06/24 08/09/22 09:00 History mg-hydrochlorothiazide 25 mg tablet albuterol sulfate 90 mcg/actuation 1 puff inhalation Q4H PRN 09/30/24 11/06/24 Unknown History aerosol inhaler shortness of breath or wheezing fluticasone fur. 100 mcg-umeclid 1 inh inhalation Q24H 11/06/24 11/06/24 Unknown History 62.5 mcg-vilant 25 mcg inhalat.powder (Trelegy Ellipta) propranolol 20 mg tablet 20 mg PO DAILY 11/06/24 11/06/24 Unknown History <JUDY Chu Last Filed: 11/05/24 23:53> Allergies/Adverse Reactions: Allergies Allergy/AdvReac Type Severity Reaction Status Date / Time Sulfa (Sulfonamide Allergy Unknown Rash Verified 11/05/24 16:58 Antibiotics) <Carolyn Pham PA-C - Last Filed: 11/05/24 23:53> Review of Systems 2 Review of Systems: CONSTITUTIONAL: Reports fever, chills ENT: Denies rhinorrhea, congestion, sore throat CARDIOVASCULAR: Denies chest pain, or edema. RESPIRATORY: Reports dyspnea. Denies cough GASTROINTESTINAL: Denies abdominal pain, nausea, vomiting GENITOURINARY: Denies dysuria <JUDY Chu Last Filed: 11/05/24 23:53> All systems reviewed & are unremarkable except as noted in HPI and below < Carolyn Pham PA-C - Last Filed: 11/05/24 23:53> [facility] Past Medical History Medical History: Medical History Chronic obstructive pulmonary disease COVID-19 (2020) Essential hypertension Benign familial tremor Hyperlipidemia Hypertension <Carolyn Pham PA-C - Last Filed: 11/05/24 23:53> Surgical History Surgical History: Surgical History History of appendectomy <JUDY Chu Last Filed: 11/05/24 23:53> Family History Family History: Family History Father Family history of malignant neoplasm Heart disease Sibling Patient's sister is in good health, Onset Age: 92 Mother Family history of malignant neoplasm Diabetes mellitus Sibling Hypertension <Carolyn Pham PA-C - Last Filed: 11/05/24 23:53> Social History Social History: Social History Social History: Currently lives at home alone. . Surrogate decision maker: Delilah Arango, daughter ([phone]) or Echo Becker, granddaughter who is the executor of her living will ([phone]). Code status: DNR. Smoking packs per day: 0.5 Smoking cigarettes per day: 10.0 Years smoked: 65 Smoking pack-years: 32.50 Smoking status: Never smoker Tobacco type: cigarettes Second hand tobacco smoke exposure: Yes Additional smoking assessment comments: Continues to chew nicotine gum. Alcohol intake: never Substance use: never Substance use type: does not use Do You Feel Safe in your Home?: Yes Lack of Transportation: No Lack of Food: Never True Current Housing: I Have Housing Concerned About Future Housing: No Difficulty Paying Gas/Electric Bills: No Difficulty Paying for Meds: No Currently Unemployed: No Education: Master's Degree or Higher Difficulty w/ Childcare or Family Care: No Living arrangements: alone Additional living arrangements comments: . Lives in [place]. Multiple family members live nearby. 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 Spiritual care concerns: No <Carolyn Pham PA-C - Last Filed: 11/05/24 23:53> Exam 2 Narrative: GENERAL: Elderly, well-nourished, and in no acute distress. HEAD: Normocephalic, atraumatic. EYES: EOMI. ENT: Nares clear, no rhinorrhea or epistaxis. Mucous membranes moist. Oropharynx without tonsillar hypertrophy exudate or other lesions. Bilateral TMs pearly lópez non-bulging NECK: Supple. No adenopathy or masses. CHEST: Clear to auscultation. No respiratory distress. No wheezes, rales or rhonchi HEART: Regular rate and rhythm. No murmur heard. Normal peripheral pulses. ABDOMEN: Soft, nontender, nondistended, normal active bowel sounds. EXTREMITIES: Normal range of motion. No edema. SKIN: Warm, dry, no rash. NEURO: No focal deficits. Alert and oriented x3. PSYCH: Normal mood and affect <Carolyn Pham PA-C - Last Filed: 11/05/24 23:53> Course MEAT BONER/PA Physician Supervision Patient updated on her workup and recommendation for admission <Carolyn Pham PA-C - Last Filed: 11/05/24 23:53> For this patient encounter, I reviewed the MEAT BONER or PA documentation, treatment plan, and medical decision making and had [id number] time with this patient. I performed all aspects of the MDM as documented. <Renetta Oliva MD - Last Filed: 11/06/24 02:18> Consultations Consultation #1: Spoke with hospitalist about patient and workup who accepts admission < Carolyn Pham PA-C - Last Filed: 11/05/24 23:53> Date: 11/05/24 <Carolyn Pham PA-C - Last Filed: 11/05/24 23:53> Vital Signs Vital signs: Vital Signs Temperature 101.1 F H 11/05/24 17:00 Pulse Rate 111 H 11/05/24 17:00 Respiratory Rate 20 11/05/24 17:00 Blood Pressure 150/54 H 11/05/24 17:00 Pulse Oximetry 95 11/05/24 17:00 Oxygen Delivery Room Air 11/05/24 17:00 Temperature 98.8 F 11/06/24 00:31 Pulse Rate 99 11/06/24 00:31 Respiratory Rate 22 H 11/06/24 00:31 Blood Pressure 120/55 L 11/06/24 00:31 Pulse Oximetry 96 11/06/24 00:31 Oxygen Delivery Room Air 11/05/24 17:00 <Carolyn Pham PA-C - Last Filed: 11/05/24 23:53> Vital Signs Temperature 101.1 F H 11/05/24 17:00 Pulse Rate 111 H 11/05/24 17:00 Respiratory Rate 20 11/05/24 17:00 Blood Pressure 150/54 H 11/05/24 17:00 Pulse Oximetry 95 11/05/24 17:00 Oxygen Delivery Room Air 11/05/24 17:00 Temperature 98.8 F 11/06/24 00:31 Pulse Rate 99 11/06/24 00:31 Respiratory Rate 22 H 11/06/24 00:31 Blood Pressure 120/55 L 11/06/24 00:31 Pulse Oximetry 96 11/06/24 00:31 Oxygen Delivery Room Air 11/05/24 17:00 <Renetta Oliva MD - Last Filed: 11/06/24 02:18> MDM - Fever MDM Narrative Medical decision making narrative: Patient presents to the ER for fever ongoing over the last 2 days. Febrile and tachycardic upon arrival. Given IV fluids and antipyretic with relief. CBC with leukocytosis to 14.3. Also shows microcytic anemia hemoglobin of 7.5. Patient reports she was told before that she was anemic and was started on, but is no longer taking this medication. Is unsure the cause of her anemia. No active bleeding at this time. Metabolic panel with evidence of dehydration. Urine with evidence of infection. Patient started on IV antibiotics. Influenza, RSV COVID screens are negative. CT chest showing clear lungs. Patient with nonspecific ST changes on her EKG, appears largely unchanged from previous EKG. Baseline troponin is negative. Patient updated on her workup and recommendation for admission. Spoke with hospitalist about patient and workup who accepts admission <Carolyn Pham PA-C - Last Filed: 11/05/24 23:53> Patient presents to the ER for fever ongoing over the last 2 days. Febrile and tachycardic upon arrival. Given IV fluids and antipyretic with relief. CBC with leukocytosis to 14.3. Also shows microcytic anemia hemoglobin of 7.5. Patient reports she was told before that she was anemic and was started on, but is no longer taking this medication. Is unsure the cause of her anemia. No active bleeding at this time. Metabolic panel with evidence of dehydration. Urine with evidence of infection. Patient started on IV antibiotics. Influenza, RSV COVID screens are negative. CT chest showing clear lungs. Patient with nonspecific ST changes on her EKG, appears largely unchanged from previous EKG. Baseline troponin is negative. Patient updated on her workup and recommendation for admission. Spoke with hospitalist about patient and workup who accepts admission. <Renetta Oliva MD - Last Filed: 11/06/24 02:18> Differential Diagnosis Differential diagnosis: Likely cellulitis, fever of unknown origin, gastroenteritis, community acquired pneumonia, pyelonephritis, viral infection, sepsis, influenza and other (UTI, electrolyte derangement, dehydration) <Carolyn Pham PA-C - Last Filed: 11/05/24 23:53> Lab Data Attestation: I reviewed the patient's lab results. <Carolyn Pham PA-C - Last Filed: 11/05/24 23:53> Result diagrams: 11/05/24 17:17 11/05/24 17:17 <Carolyn Pham PA-C - Last Filed: 11/05/24 23:53> Labs: Lab Results 11/05/24 11/05/24 11/05/24 Range/Units 17:17 17:40 19:33 WBC 14.3 H (4.5-10.0) K/mm3 RBC 3.40 L (4.2-5.4) M/mm3 Hgb 7.5 L (12.0-15.0) g/dL Hct 26.0 L (37.0-47.0) % MCV 76.5 L (80-100) fl MCH 22.1 L (26-34) pg MCHC 28.8 L (32-36) g/dl RDW 18.8 H (11.5-14.5) % Plt Count 188 (150-375) k/mm3 MPV 9.6 (7.4-10.4) fl Immature Gran % (Auto) 0.6 H (0-0.5) % Neut % (Auto) 85.4 H (45.5-73.1) % Lymph % (Auto) 4.4 L (18.3-44.2) % [place] % (Auto) 8.8 H (2.6-8.5) % Eos % (Auto) 0.4 (0-4.4) % Baso % (Auto) 0.4 (0.2-1.2) % Lymph # (Auto) 0.62 L (0.9-3.2) K/mm3 [place] # (Auto) 1.3 H (0.1-0.6) K/mm3 Eos # (Auto) 0.1 (0-0.3) K/mm3 Baso # (Auto) 0.1 (0.0-0.1) K/mm3 Abs Immat Gran (auto) 0.08 H (0.00-0.031) K/mm3 Absolute Neuts (auto) 12.2 H (1.3-6.7) K/mm3 Absolute Nucleated RBC 0.000 (0.0-0.012) K/mm3 Nucleated RBC % 0.0 (0.0-0.2) % Platelet Estimate Adequate (Adequate) Hypochromasia 1+ Ovalocytes 1+ Schistocytes None seen PT 15.7 H (11.1-14.7) Seconds INR 1.2 APTT 31.6 (22.3-36.8) Seconds Sodium 135 L (137-145) mmol/L Potassium 3.7 (3.4-5.0) mmol/L Chloride 103 (98-107) mmol/L Carbon Dioxide 18 L (22-30) mmol/L Anion Gap 14 H (4-12) mmol/L BUN 23 H (7-17) mg/dL Creatinine 1.08 H (0.7-1.0) mg/dL Estim Creat Clear Calc 29 ml/min Estimated GFR 48 L (59 - ) Glucose 155 H (65-110) mg/dL Lactic Acid 1.2 (0.7-2.0) mmol/L Calcium 9.0 (8.4-10.2) mg/dL Total Bilirubin 0.8 (0.2-1.3) mg/dL AST 23 (14-36) U/L ALT 17 (6-35) U/L Alkaline Phosphatase 139 H (38-126) U/L Troponin I < 0.012 (0.000-0.034) ng/mL NT-Pro-B Natriuret Pep 2440 H (19.9-100) pg/mL Total Protein 7.0 (6.3-8.2) g/dL Albumin 3.6 (3.5-5.1) g/dL Urine Color Yellow (Yellow) Urine Appearance Cloudy H (Clear) Urine pH 5.5 (5.0-9.0) Ur Specific [place] 1.013 (1.001-1.035) Urine Protein 2+ H (Negative) mg/dL Urine Glucose (UA) Negative (Negative) mg/dL Urine Ketones Negative (Negative) mg/dL Ur Blood (Man) 1+ H (Negative) Urine Nitrate Positive H (Negative) Urine Bilirubin Negative (Negative) Urine Urobilinogen 0.2 (<2.0) mg/dL Leukocyte Esterase Rfl 2+ H (Negative) RUFUS/UL Urine RBC 0-2 (0-2) /hpf Urine WBC >100 H (0-3) /hpf Ur Squamous Epith Cells None seen (Few) /hpf Urine Bacteria 4+ H /hpf Urine Casts 3-5 Influenza A (RT-PCR) Negative (Negative) Influenza B (RT-PCR) Negative (Negative) RSV (RT-PCR) Negative (Negative) SARS-CoV-2 RNA (RT-PCR) Negative (Negative) <Carolyn L. Pham, PA-C - Last Filed: 11/05/24 23:53> Lab Results 11/05/24 11/05/24 11/05/24 Range/Units 17:17 17:40 19:33 WBC 14.3 H (4.5-10.0) K/mm3 RBC 3.40 L (4.2-5.4) M/mm3 Hgb 7.5 L (12.0-15.0) g/dL Hct 26.0 L (37.0-47.0) % MCV 76.5 L (80-100) fl MCH 22.1 L (26-34) pg MCHC 28.8 L (32-36) g/dl RDW 18.8 H (11.5-14.5) % Plt Count 188 (150-375) k/mm3 MPV 9.6 (7.4-10.4) fl Immature Gran % (Auto) 0.6 H (0-0.5) % Neut % (Auto) 85.4 H (45.5-73.1) % Lymph % (Auto) 4.4 L (18.3-44.2) % [place] % (Auto) 8.8 H (2.6-8.5) % Eos % (Auto) 0.4 (0-4.4) % Baso % (Auto) 0.4 (0.2-1.2) % Lymph # (Auto) 0.62 L (0.9-3.2) K/mm3 [place] # (Auto) 1.3 H (0.1-0.6) K/mm3 Eos # (Auto) 0.1 (0-0.3) K/mm3 Baso # (Auto) 0.1 (0.0-0.1) K/mm3 Abs Immat Gran (auto) 0.08 H (0.00-0.031) K/mm3 Absolute Neuts (auto) 12.2 H (1.3-6.7) K/mm3 Absolute Nucleated RBC 0.000 (0.0-0.012) K/mm3 Nucleated RBC % 0.0 (0.0-0.2) % Platelet Estimate Adequate (Adequate) Hypochromasia 1+ Ovalocytes 1+ Schistocytes None seen PT 15.7 H (11.1-14.7) Seconds INR 1.2 APTT 31.6 (22.3-36.8) Seconds Sodium 135 L (137-145) mmol/L Potassium 3.7 (3.4-5.0) mmol/L Chloride 103 (98-107) mmol/L Carbon Dioxide 18 L (22-30) mmol/L Anion Gap 14 H (4-12) mmol/L BUN 23 H (7-17) mg/dL Creatinine 1.08 H (0.7-1.0) mg/dL Estim Creat Clear Calc 29 ml/min Estimated GFR 48 L (59 - ) Glucose 155 H (65-110) mg/dL Lactic Acid 1.2 (0.7-2.0) mmol/L Calcium 9.0 (8.4-10.2) mg/dL Total Bilirubin 0.8 (0.2-1.3) mg/dL AST 23 (14-36) U/L ALT 17 (6-35) U/L Alkaline Phosphatase 139 H (38-126) U/L Troponin I < 0.012 (0.000-0.034) ng/mL NT-Pro-B Natriuret Pep 2440 H (19.9-100) pg/mL Total Protein 7.0 (6.3-8.2) g/dL Albumin 3.6 (3.5-5.1) g/dL Urine Color Yellow (Yellow) Urine Appearance Cloudy H (Clear) Urine pH 5.5 (5.0-9.0) Ur Specific [place] 1.013 (1.001-1.035) Urine Protein 2+ H (Negative) mg/dL Urine Glucose (UA) Negative (Negative) mg/dL Urine Ketones Negative (Negative) mg/dL Ur Blood (Man) 1+ H (Negative) Urine Nitrate Positive H (Negative) Urine Bilirubin Negative (Negative) Urine Urobilinogen 0.2 (<2.0) mg/dL Leukocyte Esterase Rfl 2+ H (Negative) RUFUS/UL Urine RBC 0-2 (0-2) /hpf Urine WBC >100 H (0-3) /hpf Ur Squamous Epith Cells None seen (Few) /hpf Urine Bacteria 4+ H /hpf Urine Casts 3-5 Influenza A (RT-PCR) Negative (Negative) Influenza B (RT-PCR) Negative (Negative) RSV (RT-PCR) Negative (Negative) SARS-CoV-2 RNA (RT-PCR) Negative (Negative) <Renetta Oliva MD - Last Filed: 11/06/24 02:18> Imaging Data Radiologist's impression: ITS Impressions Chest X-Ray 11/05/24 18:27 IMPRESSION: No focal infiltrate or effusion. Chest CT 11/05/24 20:27 IMPRESSION: Large hiatal hernia. The lungs are clear. <Carolyn Pham PA-C - Last Filed: 11/05/24 23:53> ECG Data EKG #1: ECG completion date: 11/05/24 <Carolyn Phma PA-C - Last Filed: 11/05/24 23:53> EKG Interpretation: tachycardia, sinus rhythm, non-specific ST changes (some T wave inversions noted), normal QT and no acute changes (compared to EKG 09/08) <Carolyn Pham PA-C - Last Filed: 11/05/24 23:53> Critical Care Time Critical Care Time Critical Care Time: No <Carolyn Pham PA-C - Last Filed: 11/05/24 23:53> Discharge Plan Discharge Clinical Impression: Acute dehydration, Acute UTI <JUDY Chu Last Filed: 11/05/24 23:53> Patient Disposition: Still a Patient <Carolyn Pham PA-C - Last Filed: 11/05/24 23:53> Condition: Improved <JUDY Chu Last Filed: 11/05/24 23:53>
[2024-11-05 17:58] LABS: Influenza A QL RT-PCR Negative (Negative); Influenza B QL RT-PCR Negative (Negative); RSV RNA, RT-PCR Negative (Negative); SARS-CoV-2 RNA PCR Negative (Negative)
[2024-11-05 18:16] LABS: NT Pro B Type Natriuretic Pept 2440 pg/mL (19.9-100)
[2024-11-05 19:50] LABS: Lactic Acid Reflex 1.2 mmol/L (0.7-2.0)
[2024-11-05] MEDS: levoFLOXacin 750 MG/D5W 150 ML 750 MG/150 ML BAG 100 MG IVPB (20:27)
[2024-11-05] MEDS: SODIUM CHLORIDE 0.9% IV 1,000 ML 999 ML IV CONT (21:46)
[2024-11-05 22:46] LABS: Troponin I < 0.012 ng/mL (0.000-0.034)
[2024-11-06] VITALS (26 sets, daily range): BP systolic 80–120; BP diastolic 30–62; PULSE 71–104; RESP 12–24; TEMP 36.2–37.8; O2SAT 93–100; BMI 24.6
--- NOTE | 2024-11-06 | ECHO_ITS ---
Patient Info Name: Antonieta Hawkins Age: 84 years : 1940 Gender: Female Ht: 63 in Wt: 139 lbs BSA: 1.68 m2 HR: 83 bpm BP: 90 / 56 mmHg Heart Rhythm: Sinus Rhythm Technical Quality: Fair Exam Date: 11/06/2024 11:39 AM Exam Location: Echo Lab Patient Status: Inpatient Admit Date: 11/06/2024 Staff Ordering Physician: Niya Hummel APRN Aviation Safety Equipment Technician: Eri Warner RDCS Attending Provider: Niya Hummel APRN Referring Physician: Shaheed DE LA TORRE; Exam Type: CA echo doppler color flow Study Info Indications - ELEVATED BNP - HYPOTENSION - ELEVATE TROPONIN Complete two-dimensional, color flow and Doppler transthoracic echocardiogram is performed. Summary 1. Complete two-dimensional, color flow and Doppler transthoracic echocardiogram is performed. 2. Normal left ventricular size thickness and systolic function. 3. Grade 1 diastolic noncompliance. 4. Mildly sclerotic aortic valve with well maintained leaflet excursion. 5. Compared with echocardiogram in this laboratory September of 2023 nothing has changed. Left Ventricle Left ventricular chamber dimension is normal. Left ventricular systolic function is normal, estimated at 60-65%. The left ventricular diastolic function is grade I diastolic dysfunction. Right Ventricle Right ventricular chamber dimension is normal. Left Atria Left atrial chamber dimension is mildly enlarged. Right Atria Right atrial chamber dimension is normal. Aortic Valve The aortic valve is trileaflet. There is mild aortic valve sclerosis. Pulmonic Valve The pulmonic valve is normal. Mitral Valve The mitral valve has normal leaflets. Tricuspid Valve The tricuspid valve leaflets are normal. Pericardium/Pleural The pericardium appears normal. Aorta The aortic root size at the sinus of Valsalva is normal. Left Ventricular Outflow Tract Name Value Normal LVOT 2D LVOT Diameter 1.9 cm LVOT Doppler LVOT Peak Gradient 3 mmHg LVOT Mean Gradient 2 mmHg LVOT VTI 22 cm LVOT VTI/AV VTI Ratio 0.7 LVOT Stroke Volume 64 ml LVOT CO 4.3 l/min LVOT CI 2.6 l/min/m2 Pulmonic Valve Name Value Normal RVOT Doppler RVOT Peak Gradient 1 mmHg PV Doppler PV Peak Gradient 1 mmHg Mitral Valve Name Value Normal MV Doppler MV Decel [place] 505 cm/s2 MV PHT 36 ms MV Area (PHT) 6.1 cm2 4.0-5.0 MV Diastolic Function MV E Peak Velocity 62 cm/s MV A Peak Velocity 111 cm/s MV E/A 0.6 MV Decel Time 123 ms MV Annular TDI MV E/e' (Septal) 7.2 <=8.0 MV E/e' (Lateral) 6.0 <=8.0 MV E/e' (Average) 6.6 Tricuspid Valve Name Value Normal Estimated PAP/RSVP RA Pressure 10 mmHg <=5 Aorta Name Value Normal Ascending Aorta Ao Root Diameter (MM) 3.4 cm Ao Root Diam Index (MM) 2.0 cm/m2 Aortic Valve Name Value Normal AV Doppler AV Peak Velocity 155 cm/s AV Peak Gradient 7 mmHg AV Mean Gradient 4 mmHg AV VTI 31 cm AV Area (Cont Eq VTI) 2.0 cm2 >=3.0 AV Area (Cont Eq Siddhartha) 1.9 cm2 AV Regurgitation 2D LVOT Area 3.0 cm2 Ventricles Name Value Normal LV Dimensions 2D/MM IVS Diastolic Thickness (2D) 1.4 cm 0.6-1.0 LVID Diastole (2D) 3.9 cm 3.8-5.2 LVIW Diastolic Thickness (2D) 1.3 cm 0.6-0.9 LVID Systole (2D) 2.7 cm 2.2-3.5 LVOT Diameter 1.9 cm LV Mass (2D Cubed) 192.74 g 67.00-162.00 LV Mass Index (2D Cubed) 114 g/m2 43-95 Relative Wall Thickness (2D) 0.67 LV Fractional Shortening/Ejection Fraction 2D/MM LV Fractional Shortening (2D) 31 % 27-45 LV EF (2D Teicholz) 59 % 54-74 LV Diastolic Volume (4C MOD) 96 ml LV EF (4C MOD) 69 % LV Diastolic Volume (2C MOD) 64 ml LV EF (2C MOD) 51 % LV Diastolic Volume (BP MOD) 80 ml 46-106 LV Diastolic Volume Index (BP MOD) 47 ml/m2 29-61 LV Systolic Volume (BP MOD) 31 ml 14-42 LV Systolic Volume Index (BP MOD) 18 ml/m2 8-24 LV EF (BP MOD) 61 % 54-74 LV Diastolic Length (4C) 7.1 cm LV Systolic Length (4C) 5.7 cm LV Stroke Volume (4C MOD) 66 ml Atria Name Value Normal LA Dimensions LA Dimension (MM) 5.0 cm 2.7-3.8 LA Volume (4C A-L) 74 ml LA Volume (BP A-L) 75 ml RA Dimensions RA Area (4C) 17.9 cm2 <=18.0 Report Signatures
--- NOTE | 2024-11-06 00:39 | ADMGEN ---
This patient, Antonieta Hawkins, was admitted to [facility] Surg Room 300-01. Patient/family oriented to hospital policies and general routines including ID bracelet, bed and alarms, visiting hours, pain management, procedures, bathroom and other care routines, personal items, smoking policy, room service/diet, and visiting hours. Information on how to activate the Rapid Response Team has been discussed. Patient/Family are encouraged to report perceived risks to care and to ask questions if they do not understand what they are told or what they should do.
--- NOTE | 2024-11-06 02:40 | ECG_ITS ---
Test Date: 2024-11-06 02:53:07 Measurements Intervals [place] Rate: 109 P: 64 [place]: 174 QRS: 30 QRSD: 93 T: 37 QT: 321 QTc: 433 Interpretive Statements SINUS TACHYCARDIA WITH OCCASIONAL SUPRAVENTRICULAR PREMATURE COMPLEXES INCOMPLETE RIGHT BUNDLE BRANCH BLOCK [90+ ms QRS DURATION, TERMINAL R IN V1/V2, 40+ ms S IN I/aVL/V4/V5/V6] MINIMAL ST DEPRESSION [0.025+ mV ST DEPRESSION] ABNORMAL RHYTHM ECG Compared to ECG 11/05/2024 17:15:25 Incomplete right bundle-branch block now present ST (T wave) deviation still present Electronically Signed On 11-07-2024 13:50:43 BENCH REPAIR TECHNICIAN by Nava Lopez
[2024-11-06 02:57] LABS: Glucose Point of Care 141 mg/dl (65-105)
[2024-11-06] MEDS: ONDANSETRON INJ 4 MG/2 ML VIAL IV PUSH ×3 (03:02→21:23)
[2024-11-06 03:17] LABS: Basophils Percent Auto 0.2 % (0.2-1.2); Immature Granulocyte Absolute 0.03 K/mm3 (0.00-0.031); Immature Granulocyte Percent A 0.4 % (0-0.5); Lymphocytes Absolute Auto 0.13 K/mm3 (0.9-3.2); Lymphocytes Percent Auto 1.6 % (18.3-44.2); Mean Corpuscular HGB Conc 28.3 g/dl (32-36); Mean Corpuscular Hemoglobin 22.2 pg (26-34); Mean Corpuscular Volume 78.4 fl (80-100); Mean Platelet Volume 9.6 fl (7.4-10.4); Monocytes Absolute Auto 0.3 K/mm3 (0.1-0.6); Monocytes Percent Auto 3.1 % (2.6-8.5); Neutrophils Absolute Auto 7.6 K/mm3 (1.3-6.7); Neutrophils Percent Auto 94.7 % (45.5-73.1); Platelet Count Result 137 k/mm3 (150-375); Red Blood Count 3.06 M/mm3 (4.2-5.4); White Blood Count 8.1 K/mm3 (4.5-10.0)
[2024-11-06] MEDS: ACETAMINOPHEN 325 MG TABLET 650 MG PO ×3 (03:20→21:22)
[2024-11-06 03:21] LABS: Hemoglobin 6.8 g/dL (12.0-15.0)
[2024-11-06 03:31] LABS: Lactic Acid Reflex 3.5 mmol/L (0.7-2.0)
[2024-11-06 03:31] LABS: Alanine Aminotransferase 16 U/L (6-35); Albumin Level 3.4 g/dL (3.5-5.1); Alkaline Phosphatase 128 U/L (38-126); Anion Gap 14 mmol/L (4-12); Aspartate Amino Transferase 26 U/L (14-36); Bilirubin,Total 0.6 mg/dL (0.2-1.3); Blood Urea Nitrogen 22 mg/dL (7-17); Calcium 8.2 mg/dL (8.4-10.2); Carbon Dioxide 16 mmol/L (22-30); Chloride 105 mmol/L (98-107); Estimated CRCL calculation 29 ml/min; Estimated Glomerular Filt Rate 50; Glucose 153 mg/dL (65-110); Potassium 3.4 mmol/L (3.4-5.0); Sodium 135 mmol/L (137-145)
[2024-11-06 03:38] LABS: Ovalocytes 1+; Platelet Estimate Decreased (Adequate); Schistocytes None Seen
[2024-11-06 03:49] LABS: Troponin I 0.093 ng/mL (0.000-0.034)
[2024-11-06 04:02] LABS: Procalcitonin 6.6 ng/mL
[2024-11-06] MEDS: SODIUM CHLORIDE 0.9% IV 250 ML 30 ML IV CONT (05:50)
[2024-11-06 06:15] LABS: Reflex Lactic Acid Yes or No Add Lactic
[2024-11-06] MEDS: SODIUM CHLORIDE 0.9% IV 500 ML IV CONT (06:20)
--- NOTE | 2024-11-06 06:47 | PC.NURSE ---
[address] Lopez r/t patient BP 80/42 manually. New orders received for NS 500 ml Bolus.
[2024-11-06 06:49] LABS: Lactic Acid 1.5 mmol/L (0.7-2.0)
[2024-11-06 07:01] LABS: Troponin I 0.793 ng/mL (0.000-0.034)
[2024-11-06] MEDS: FLUTICASONE/UMECLIDIN/VILANTER 100-62.5-25 MCG ELLIPTA 1 PUFF INHALATION (07:14)
[2024-11-06] MEDS: PANTOPRAZOLE SODIUM IV 40 MG VIAL IV PUSH ×2 (08:11→21:22)
[2024-11-06] MEDS: PRIMIDONE 250 MG TABLET PO ×2 (08:11→21:22)
[2024-11-06 08:18] LABS: Alanine Aminotransferase 12 U/L (6-35); Albumin Level 2.9 g/dL (3.5-5.1); Alkaline Phosphatase 98 U/L (38-126); Anion Gap 10 mmol/L (4-12); Aspartate Amino Transferase 23 U/L (14-36); Bilirubin,Total 0.5 mg/dL (0.2-1.3); Blood Urea Nitrogen 24 mg/dL (7-17); Calcium 7.8 mg/dL (8.4-10.2); Carbon Dioxide 19 mmol/L (22-30); Chloride 106 mmol/L (98-107); Estimated CRCL calculation 27 ml/min; Estimated Glomerular Filt Rate 46; Glucose 141 mg/dL (65-110); Potassium 3.4 mmol/L (3.4-5.0); Sodium 135 mmol/L (137-145)
--- NOTE | 2024-11-06 08:26 | P.HP_ITS ---
H&P: HPI History of Present Illness Date/Time: 11/06/24 03:00 Chief Complaint: Fevers, chills and headache Narrative: 84-year-old female with past medical history of essential tremor, essential hypertension, COPD who presented to the ER with fever chills and headache. She reports that the a couple weeks ago she was supposed to have an evaluation for a dry cough. The dry cough free much resolved itself and she did not have the evaluation due to the bad winter weather. She does report some shortness of breath the shortness of breath is more so when she is having chills. She reports that no matter how many blankets she puts on when she has these chills she still contends used to shake. She had a family member who recently recovered from pneumonia. She has had decreased appetite and increasing fatigue. She reported to nursing staff that she had had 3 loose stools in 24 hours. She denies any PMFSH Past Medical History Medical History (Updated 11/06/24 @ 10:27 by Felicia Lopez, ) Chronic obstructive pulmonary disease COVID-19 (2020) Essential hypertension Benign familial tremor Hyperlipidemia Hypertension Surgical History Surgical History History of appendectomy Family History Family History Father Family history of malignant neoplasm Heart disease Sibling Patient's sister is in good health, Onset Age: 92 Mother Family history of malignant neoplasm Diabetes mellitus Sibling Hypertension Social History Social History Social History: Currently lives at home alone. . Surrogate decision maker: Delilah Arango, daughter ([phone]) or Echo Becker, granddaughter who is the executor of her living will ([phone]). Code status: DNR. Smoking packs per day: 0.5 Smoking cigarettes per day: 10.0 Years smoked: 65 Smoking pack-years: 32.50 Smoking status: Never smoker Tobacco type: cigarettes Second hand tobacco smoke exposure: Yes Additional smoking assessment comments: Continues to chew nicotine gum. Alcohol intake: never Substance use: never Substance use type: does not use Do You Feel Safe in your Home?: Yes Lack of Transportation: No Lack of Food: Never True Current Housing: I Have Housing Concerned About Future Housing: No Difficulty Paying Gas/Electric Bills: No Difficulty Paying for Meds: No Currently Unemployed: No Education: Master's Degree or Higher Difficulty w/ Childcare or Family Care: No Living arrangements: alone Additional living arrangements comments: . Lives in [place]. Multiple family members live nearby. 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 Spiritual care concerns: No Meds Home Medications and Allergies Home Medications ?Medication ?Instructions ?Recorded ?Confirmed ?Type ezetimibe 10 mg tablet 10 mg PO DAILY 12/05/20 11/06/24 History losartan 100 1 tablet PO DAILY 12/05/20 11/06/24 History mg-hydrochlorothiazide 25 mg tablet albuterol sulfate 90 mcg/actuation 1 puff inhalation Q4H PRN 09/30/24 11/06/24 History aerosol inhaler shortness of breath or wheezing primidone 250 mg tablet 250 mg PO BID #60 tabs 09/30/24 11/06/24 Rx fluticasone fur. 100 mcg-umeclid 1 inh inhalation Q24H 11/06/24 11/06/24 History 62.5 mcg-vilant 25 mcg inhalat.powder (Trelegy Ellipta) propranolol 20 mg tablet 20 mg PO DAILY 11/06/24 11/06/24 History Allergies Allergy/AdvReac Type Severity Reaction Status Date / Time Sulfa (Sulfonamide Allergy Unknown Rash Verified 11/05/24 16:58 Antibiotics) Vital Signs Vital Signs - 24 hr 11/05/24 17:00 11/05/24 19:15 11/05/24 20:00 Temperature 101.1 F H 98.4 F 98.4 F Pulse Rate 111 H 88 Respiratory Rate 20 27 H Blood Pressure 150/54 H 106/52 L Pulse Oximetry 95 95 Oxygen Delivery Room Air Oxygen Flow Rate 11/05/24 20:00 11/05/24 20:30 11/05/24 21:48 Temperature 98.0 F Pulse Rate 83 83 84 Respiratory Rate 22 H 24 H 19 Blood Pressure 113/45 L 107/47 L 105/49 L Pulse Oximetry 96 97 97 Oxygen Delivery Oxygen Flow Rate 11/05/24 22:56 11/05/24 23:08 11/06/24 00:30 Temperature 98.3 F Pulse Rate 82 Respiratory Rate 18 Blood Pressure 106/62 Pulse Oximetry 97 Oxygen Delivery Room Air Oxygen Flow Rate 11/06/24 00:31 11/06/24 03:20 11/06/24 04:00 Temperature 98.8 F 100.0 F H 99.2 F Pulse Rate 99 99 Respiratory Rate 22 H 22 H Blood Pressure 120/55 L 80/42 L Pulse Oximetry 96 94 Oxygen Delivery Oxygen Flow Rate 11/06/24 04:02 11/06/24 04:20 11/06/24 05:50 Temperature 99.9 F H 97.3 F L Pulse Rate 104 H 95 Respiratory Rate 24 H Blood Pressure 92/40 L Pulse Oximetry 99 Oxygen Delivery Oxygen Flow Rate 11/06/24 06:09 11/06/24 07:09 11/06/24 07:15 Temperature 97.4 F L 97.8 F Pulse Rate 92 93 71 Respiratory Rate 20 22 H 18 Blood Pressure 82/42 L 82/42 L Pulse Oximetry 99 99 99 Oxygen Delivery Nasal Cannula Oxygen Flow Rate 2 11/06/24 07:15 11/06/24 07:45 11/06/24 08:00 Temperature 98.2 F Pulse Rate 71 91 Respiratory Rate 18 16 Blood Pressure 80/42 L 82/43 L Pulse Oximetry 99 Oxygen Delivery Oxygen Flow Rate H&P: Results Labs Labs: Short CBC 11/05/24 11/06/24 Range/Units 17:17 03:11 WBC 14.3 H 8.1 (4.5-10.0) K/mm3 Hgb 7.5 L 6.8 L* (12.0-15.0) g/dL Hct 26.0 L 24.0 L (37.0-47.0) % Plt Count 188 137 L (150-375) k/mm3 BMP 11/05/24 11/06/24 11/06/24 17:17 03:12 06:25 Sodium 135 L 135 L 135 L Potassium 3.7 3.4 3.4 Chloride 103 105 106 Carbon Dioxide 18 L 16 L 19 L BUN 23 H 22 H 24 H Creatinine 1.08 H 1.04 H 1.13 H Glucose 155 H 153 H 141 H Calcium 9.0 8.2 L 7.8 L Cardiac Enzymes 11/05/24 11/06/24 11/06/24 Range/Units 17:17 03:12 05:53 Troponin I < 0.012 0.093 H* 0.793 H* D (0.000-0.034) ng/mL Liver Function 11/05/24 11/06/24 11/06/24 Range/Units 17:17 03:12 06:25 Total Bilirubin 0.8 0.6 0.5 (0.2-1.3) mg/dL AST 23 26 23 (14-36) U/L ALT 17 16 12 (6-35) U/L Alkaline Phosphatase 139 H 128 H 98 (38-126) U/L Albumin 3.6 3.4 L 2.9 L (3.5-5.1) g/dL Urine 11/05/24 Range/Units 17:40 Urine Color Yellow (Yellow) Urine Appearance Cloudy H (Clear) Urine pH 5.5 (5.0-9.0) Ur Specific [place] 1.013 (1.001-1.035) Urine Protein 2+ H (Negative) mg/dL Urine Glucose (UA) Negative (Negative) mg/dL Laboratory Tests 11/06/24 08:34 11/06/24 06:25 11/05/24 11/05/24 11/05/24 17:17 17:40 19:33 WBC 14.3 H RBC 3.40 L Hgb 7.5 L Hct 26.0 L MCV 76.5 L MCH 22.1 L MCHC 28.8 L RDW 18.8 H Plt Count 188 MPV 9.6 Immature Gran % (Auto) 0.6 H Neut % (Auto) 85.4 H Lymph % (Auto) 4.4 L [place] % (Auto) 8.8 H Eos % (Auto) 0.4 Baso % (Auto) 0.4 Lymph # (Auto) 0.62 L [place] # (Auto) 1.3 H Eos # (Auto) 0.1 Baso # (Auto) 0.1 Abs Immat Gran (auto) 0.08 H Absolute Neuts (auto) 12.2 H Absolute Nucleated RBC 0.000 Nucleated RBC % 0.0 Platelet Estimate Adequate Hypochromasia 1+ Ovalocytes 1+ Schistocytes None seen PT 15.7 H INR 1.2 APTT 31.6 Sodium 135 L Potassium 3.7 Chloride 103 Carbon Dioxide 18 L Anion Gap 14 H BUN 23 H Creatinine 1.08 H Estim Creat Clear Calc 29 Estimated GFR 48 L Glucose 155 H POC Capillary Glucose Lactic Acid 1.2 Calcium 9.0 Iron TIBC % Saturation Total Bilirubin 0.8 AST 23 ALT 17 Alkaline Phosphatase 139 H Troponin I < 0.012 NT-Pro-B Natriuret Pep 2440 H Total Protein 7.0 Albumin 3.6 Procalcitonin Urine Color Yellow Urine Appearance Cloudy H Urine pH 5.5 Ur Specific [place] 1.013 Urine Protein 2+ H Urine Glucose (UA) Negative Urine Ketones Negative Ur Blood (Man) 1+ H Urine Nitrate Positive H Urine Bilirubin Negative Urine Urobilinogen 0.2 Leukocyte Esterase Rfl 2+ H Urine RBC 0-2 Urine WBC >100 H Ur Squamous Epith Cells None seen Urine Bacteria 4+ H Urine Casts 3-5 Influenza A (RT-PCR) Negative Influenza B (RT-PCR) Negative RSV (RT-PCR) Negative SARS-CoV-2 RNA (RT-PCR) Negative Blood Type Antibody Screen Crossmatch 11/06/24 11/06/24 11/06/24 02:39 03:11 03:12 WBC 8.1 RBC 3.06 L Hgb 6.8 L* Hct 24.0 L MCV 78.4 L MCH 22.2 L MCHC 28.3 L RDW 19.0 H Plt Count 137 L MPV 9.6 Immature Gran % (Auto) 0.4 Neut % (Auto) 94.7 H Lymph % (Auto) 1.6 L [place] % (Auto) 3.1 Eos % (Auto) 0.0 Baso % (Auto) 0.2 Lymph # (Auto) 0.13 L [place] # (Auto) 0.3 Eos # (Auto) 0.0 Baso # (Auto) 0.0 Abs Immat Gran (auto) 0.03 Absolute Neuts (auto) 7.6 H Absolute Nucleated RBC 0.000 Nucleated RBC % 0.0 Platelet Estimate Decreased Hypochromasia Ovalocytes 1+ Schistocytes None seen PT INR APTT Sodium 135 L Potassium 3.4 Chloride 105 Carbon Dioxide 16 L Anion Gap 14 H BUN 22 H Creatinine 1.04 H Estim Creat Clear Calc 29 Estimated GFR 50 L Glucose 153 H POC Capillary Glucose 141 H Lactic Acid 3.5 H Calcium 8.2 L Iron TIBC % Saturation Total Bilirubin 0.6 AST 26 ALT 16 Alkaline Phosphatase 128 H Troponin I 0.093 H* NT-Pro-B Natriuret Pep Total Protein 6.0 L Albumin 3.4 L Procalcitonin 6.6 Urine Color Urine Appearance Urine pH Ur Specific [place] Urine Protein Urine Glucose (UA) Urine Ketones Ur Blood (Man) Urine Nitrate Urine Bilirubin Urine Urobilinogen Leukocyte Esterase Rfl Urine RBC Urine WBC Ur Squamous Epith Cells Urine Bacteria Urine Casts Influenza A (RT-PCR) Influenza B (RT-PCR) RSV (RT-PCR) SARS-CoV-2 RNA (RT-PCR) Blood Type Antibody Screen Crossmatch 11/06/24 11/06/24 11/06/24 03:38 05:53 06:25 WBC RBC Hgb Hct MCV MCH MCHC RDW Plt Count MPV Immature Gran % (Auto) Neut % (Auto) Lymph % (Auto) [place] % (Auto) Eos % (Auto) Baso % (Auto) Lymph # (Auto) [place] # (Auto) Eos # (Auto) Baso # (Auto) Abs Immat Gran (auto) Absolute Neuts (auto) Absolute Nucleated RBC Nucleated RBC % Platelet Estimate Hypochromasia Ovalocytes Schistocytes PT INR APTT Sodium 135 L Potassium 3.4 Chloride 106 Carbon Dioxide 19 L Anion Gap 10 BUN 24 H Creatinine 1.13 H Estim Creat Clear Calc 27 Estimated GFR 46 L Glucose 141 H POC Capillary Glucose Lactic Acid 1.5 Calcium 7.8 L Iron 16 L TIBC 262 % Saturation 6 L Total Bilirubin 0.5 AST 23 ALT 12 Alkaline Phosphatase 98 Troponin I 0.793 H* D NT-Pro-B Natriuret Pep Total Protein 5.0 L Albumin 2.9 L Procalcitonin Urine Color Urine Appearance Urine pH Ur Specific [place] Urine Protein Urine Glucose (UA) Urine Ketones Ur Blood (Man) Urine Nitrate Urine Bilirubin Urine Urobilinogen Leukocyte Esterase Rfl Urine RBC Urine WBC Ur Squamous Epith Cells Urine Bacteria Urine Casts Influenza A (RT-PCR) Influenza B (RT-PCR) RSV (RT-PCR) SARS-CoV-2 RNA (RT-PCR) Blood Type O Positive Antibody Screen Negative Crossmatch See Detail 11/06/24 08:34 WBC 12.0 H RBC 2.87 L Hgb 6.6 L* Hct 22.6 L MCV 78.7 L MCH 23.0 L MCHC 29.2 L RDW 18.4 H Plt Count 140 L MPV 10.1 Immature Gran % (Auto) Neut % (Auto) Lymph % (Auto) [place] % (Auto) Eos % (Auto) Baso % (Auto) Lymph # (Auto) [place] # (Auto) Eos # (Auto) Baso # (Auto) Abs Immat Gran (auto) Absolute Neuts (auto) Absolute Nucleated RBC Nucleated RBC % Platelet Estimate Hypochromasia Ovalocytes Schistocytes PT INR APTT Sodium Potassium Chloride Carbon Dioxide Anion Gap BUN Creatinine Estim Creat Clear Calc Estimated GFR Glucose POC Capillary Glucose Lactic Acid Calcium Iron TIBC % Saturation Total Bilirubin AST ALT Alkaline Phosphatase Troponin I 0.769 H* NT-Pro-B Natriuret Pep Total Protein Albumin Procalcitonin Urine Color Urine Appearance Urine pH Ur Specific [place] Urine Protein Urine Glucose (UA) Urine Ketones Ur Blood (Man) Urine Nitrate Urine Bilirubin Urine Urobilinogen Leukocyte Esterase Rfl Urine RBC Urine WBC Ur Squamous Epith Cells Urine Bacteria Urine Casts Influenza A (RT-PCR) Influenza B (RT-PCR) RSV (RT-PCR) SARS-CoV-2 RNA (RT-PCR) Blood Type Antibody Screen Crossmatch Impressions Chest X-Ray 11/05/24 18:27 IMPRESSION: No focal infiltrate or effusion. Chest CT 11/05/24 20:27 IMPRESSION: Large hiatal hernia. The lungs are clear. Chest X-Ray 11/06/24 05:34 Impression: Clear lungs. Moderate hiatal hernia. Multiple EKGs reviewed 1st EKG demonstrated sinus tachycardia rate 102 low- voltage QRS right interventricular conduction delay with moderate ST depression in V3 V1 repeat EKG ordered at the time of my evaluation demonstrated similar findings. Cardiology interpretation is been All imaging and EKGs personally reviewed and interpreted. And unless stated otherwise agree with radiologic and cardiology interpretation. Assessment and Plan Assessment and plan (1) Sepsis: Qualifiers: Sepsis type: sepsis due to unspecified organism Sepsis acute organ dysfunction status: with acute organ dysfunction Severe sepsis acute organ dysfunction type: acute renal failure Acute renal failure type: with acute tubular necrosis Severe sepsis shock status: without septic shock Qualified Code(s): A41.9 - Sepsis, unspecified organism; R65.20 - Severe sepsis without septic shock; N17.0 - Acute kidney failure with tubular necrosis Code(s): A41.9 - Sepsis, unspecified organism Status: Acute (2) Acute UTI: Code(s): N39.0 - Urinary tract infection, site not specified Status: Acute (3) Acute on chronic anemia: Code(s): D64.9 - Anemia, unspecified Status: Acute (4) Elevated troponin: Code(s): R79.89 - Other specified abnormal findings of blood chemistry Status: Acute (5) Acute kidney injury: Code(s): N17.9 - Acute kidney failure, unspecified Status: Acute (6) Hypoalbuminemia: Code(s): E88.09 - Other disorders of plasma-protein metabolism, not elsewhere classified Status: Acute (7) Essential hypertension: Code(s): I10 - Essential (primary) hypertension Status: Acute (8) SOB (shortness of breath) on exertion: Code(s): R06.02 - Shortness of breath Status: Acute (9) Acute dehydration: Code(s): E86.0 - Dehydration Status: Acute Plan Patient meets sepsis criteria with fever, tachycardia, tachypnea and leukocytosis due to UTI. Blood cultures and urine cultures are pending. The patient received 1.5 L of IV fluid hydration in the ER. After admission to the floor the patient acutely became distressed with rigors, tachypnea and transient hypoxia. The patient did spike fever following my evaluation. When I arrived to the room patient was covered in multiple layers of blankets. She has marked essential tremor and was violently tremoring even more making it difficult to obtain accurate pulse oximetry readings. After the patient's rigors had settled the patient's oxygen was weaned down from 5 L to 2 L in the patient was still satting 100% on the 2 L. patient reported subjective improvement in her shortness of breath. Stat labs were obtained which demonstrated a more dramatic drop in her hemoglobin. Her hemoglobin at baseline appears to be around 9 but on arrival to the ER hemoglobin was down to 7.5. At the time my evaluation patient's hemoglobin was again 6.8. Stat 2 units of blood were ordered stat. Will check iron labs including ferritin. Will check stool for occult blood. Will place patient on IV Protonix. Will give the patient an additional 500 mL fluid bolus. If stool occult blood positive will consult Gastroenterology. Stat troponin EKG ordered during my evaluation due the patient's unstable clinical condition. EKG demonstrated persistent sinus tachycardia with ST depression that appears chronic on review from other EKGs. However the patient's initial troponin ER was negative and repeat troponin was 0.093. The patient denied any chest pain. This elevation troponin likely due to demand ischemia in the setting of sepsis. Following my evaluation the patient did drop her blood pressures. This is about the time the patient's hemoglobin came back at critical level and 2 units of packed red blood cells were ordered. Patient's shortness of breath with exertion was assumed to be due to symptomatic acute on chronic anemia but given elevated troponin she could have some component of underlying myocardial ischemia. Cardiology will be consulted. Patient does have significant drop in her he albumin compared to last fall. She does have 2+ protein in her urine. 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 Will monitor urine output closely. Will repeat CBC and electrolyte panel in a.m.. Otherwise patient's home medications have been reviewed and resumed. 80 minutes spent in critical care activities. Quality VTE Prophylaxis VTE prophylaxis: mechanical ordered (SCDs) Hospitalist MIPS Advance Care Plan I have confirmed that the patient's Advanced Care Plan is present, code status is documented, or surrogate decision maker is listed in patient medical record.: Yes Medication Reconciliation I have utilized all available resources to obtain, update and review the patients current medications (includes all prescriptions, OTC, herbals, cannabis, and nutritional supplements).: Yes
[2024-11-06 08:27] LABS: Iron 16 ug/dL (37-170)
[2024-11-06 08:36] LABS: Percent Iron Saturation 6 % (20-50)
[2024-11-06 08:40] LABS: Hematocrit 22.6 % (37.0-47.0); Mean Corpuscular HGB Conc 29.2 g/dl (32-36); Mean Corpuscular Volume 78.7 fl (80-100); Mean Platelet Volume 10.1 fl (7.4-10.4); Platelet Count Result 140 k/mm3 (150-375); Red Blood Count 2.87 M/mm3 (4.2-5.4); Red Cell Distribution Width 18.4 % (11.5-14.5)
[2024-11-06 08:45] LABS: Hemoglobin 6.6 g/dL (12.0-15.0)
--- NOTE | 2024-11-06 08:45 | PM.EVENT ---
Event Note Event Note Event Note: Patient seen and assessed by previous provider same day. Follow-up assessment after call from nursing with concerns of patient blood pressure being soft at 82/43 . Upon assessment patient was alert and oriented x 4 answering all questions appropriately. Patient denied CP, N/V, dizziness. She did report SOB and and recent episodes of diarrhea at home. HGb dropped to 6.8 and she was transfused 1 unit of PRBC with follow-up Hgb 6.6. Another unit of PRBC ordered and GI consulted. Patient denies any blood in stool prior to arrival. Will continue with slow IV hydration and give IVP lasix when BP can tolerate, BNP elevated 2440 but CXR with clear lung lee and no edema to BLE however mild crackles to LLL will need to monitor closely for fluid overload. Cardiology consulted for elevated troponin and CHF evaluation, elevated troponins are likely secondary to ischemic demand will continue to trend patient denying any CP at time of assessment or during admission. Patient on 2L supplemental oxygen and reporting SOB likely secondary to anemia and HX COPD. Patient with sepsis on admission secondary to UTI receiving Ceftriaxone IV pending cultures. Follow-up BP after blood transfusion 92/30. Placed patient NPO for GI consult and will continue to trend H&H Q6hr and transfuse as needed.
[2024-11-06 09:06] LABS: Troponin I 0.769 ng/mL (0.000-0.034)
[2024-11-06] MEDS: SODIUM CHLORIDE 0.9% IV 250 ML 30 ML (09:25)
[2024-11-06] MEDS: TUBING, BLOOD PLUM PUMP TUBING 1 EACH XX (09:25)
--- NOTE | 2024-11-06 10:09 | P.CONCA_ITS ---
Assessment and Plan Assessment and plan (1) SOB (shortness of breath) on exertion: Code(s): R06.02 - Shortness of breath Status: Acute (2) Hyperlipidemia: Code(s): E78.5 - Hyperlipidemia, unspecified Status: Acute (3) Elevated troponin: Code(s): R79.89 - Other specified abnormal findings of blood chemistry Status: Acute (4) Hypertension: Code(s): I10 - Essential (primary) hypertension Status: Acute (5) Acute on chronic anemia: Code(s): D64.9 - Anemia, unspecified Status: Acute (6) Sepsis: Qualifiers: Sepsis type: sepsis due to unspecified organism Sepsis acute organ dysfunction status: with acute organ dysfunction Severe sepsis acute organ dysfunction type: acute renal failure Acute renal failure type: with acute tubular necrosis Severe sepsis shock status: without septic shock Qualified Code(s): A41.9 - Sepsis, unspecified organism; R65.20 - Severe sepsis without septic shock; N17.0 - Acute kidney failure with tubular necrosis Code(s): A41.9 - Sepsis, unspecified organism Status: Acute Plan -Elevated troponin without chest pain but with shortness of breath; shortness of breath could be anginal equivalent; troponin has peaked; no chest pain at this time; electrically stable -Worsening shortness of breath- secondary to COPD, could be anginal equivalent -EKG shows sinus tachycardia most likely stress response to ongoing viral symptoms -Sepsis- fever, chills, headache, loose stools, increased fatigue, recent cough, elevated white counts -Hypokalemia- K 3.4 -Severe anemia- Hg 6.6; etiology unknown -Thrombocytopenia- Plt of 140K -Hypertension -Hyperlipidemia -COPD Plan: -Patient has chronic SOB secondary to COPD which is worse over the past few days. This acute worsening could be related to ongoing infection vs severe anemia vs could be an anginal equivalent -Given that the troponin is downtrending, no active chest pain, SOB could be secondary to other etiologies, recommend medical management from cardiac standpoint -Holding off on starting asa due to acute anemia with Hg of 6.6 -Start statin -Continue propranolol, losartan, hydrochlorothiazide (home medications) -EKG p.r.n. for chest pain -When she recovers from acute illness, recommend cardiac catheterization to evaluate coronary anatomy -Check and replace electrolytes as needed to keep K>4 and Mg>2 -Work up for anemia per primary team. Transfuse for Hg <7 -Management of other medical problems per primary team History of Present Illness History of Present Illness Consult date/time: 11/06/24 10:09 Reason For Visit: Dehydration/UTI Narrative: 84-year-old female with history of hyperlipidemia, hypertension, benign familial tremor, chronic obstructive pulmonary disease presented to the ER with chief complaint of fever, chills, headache, decreased appetite, 3 loose stools over past 24 hours, and fatigue. She reports increasing shortness of breath over the past few days. She has chronic shortness of breath due to COPD. She has contact with a family member who had pneumonia recently. No anginal chest pain, lightheadedness, dizziness, leg swelling, recent weight gain, presyncope, syncope, or palpitations. Troponin was elevated and Cardiology was consulted. Of note labs show severe anemia with a hemoglobin of 6.6. Workup: Hemoglobin 6.6, hematocrit 22.6, platelets 140 1000, WBC 12, sodium 135, potassium 3.4, creatinine 1.13 Troponin 0.093, 0.793, 0.769 EKG: Sinus tachycardia with rate of 109, PACs, incomplete right bundle branch block, nonspecific ST T wave changes TTE 07/2023: LVEF 55-60%, grade 1 diastolic function, mild MR, mild TR, mild pulmonary hypertension Chest x-ray: Clear lungs, hiatal hernia CT chest: Lungs are clear, large hiatal hernia Review of Systems 2 Review of Systems: Complete review of systems was performed and negative other than those mentioned in HPI [facility] Past Medical History Medical History (Updated 11/06/24 @ 10:27 by Felicia Lopez, DO) Chronic obstructive pulmonary disease COVID-19 (2020) Essential hypertension Benign familial tremor Hyperlipidemia Hypertension Surgical History Surgical History History of appendectomy Family History Family History Father Family history of malignant neoplasm Heart disease Sibling Patient's sister is in good health, Onset Age: 92 Mother Family history of malignant neoplasm Diabetes mellitus Sibling Hypertension Social History Social History Social History: Currently lives at home alone. . Surrogate decision maker: Delilah Arango, daughter ([phone]) or Echo Becker, granddaughter who is the executor of her living will ([phone]). Code status: DNR. Smoking packs per day: 0.5 Smoking cigarettes per day: 10.0 Years smoked: 65 Smoking pack-years: 32.50 Smoking status: Never smoker Tobacco type: cigarettes Second hand tobacco smoke exposure: Yes Additional smoking assessment comments: Continues to chew nicotine gum. Alcohol intake: never Substance use: never Substance use type: does not use Do You Feel Safe in your Home?: Yes Lack of Transportation: No Lack of Food: Never True Current Housing: I Have Housing Concerned About Future Housing: No Difficulty Paying Gas/Electric Bills: No Difficulty Paying for Meds: No Currently Unemployed: No Education: Master's Degree or Higher Difficulty w/ Childcare or Family Care: No Living arrangements: alone Additional living arrangements comments: . Lives in [place]. Multiple family members live nearby. 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 Spiritual care concerns: No Meds Home Medications and Allergies Home Medications ?Medication ?Instructions ?Recorded ?Confirmed ?Type ezetimibe 10 mg tablet 10 mg PO DAILY 12/05/20 11/06/24 History losartan 100 1 tablet PO DAILY 12/05/20 11/06/24 History mg-hydrochlorothiazide 25 mg tablet albuterol sulfate 90 mcg/actuation 1 puff inhalation Q4H PRN 09/30/24 11/06/24 History aerosol inhaler shortness of breath or wheezing primidone 250 mg tablet 250 mg PO BID #60 tabs 09/30/24 11/06/24 Rx fluticasone fur. 100 mcg-umeclid 1 inh inhalation Q24H 11/06/24 11/06/24 History 62.5 mcg-vilant 25 mcg inhalat.powder (Trelegy Ellipta) propranolol 20 mg tablet 20 mg PO DAILY 11/06/24 11/06/24 History Allergies Allergy/AdvReac Type Severity Reaction Status Date / Time Sulfa (Sulfonamide Allergy Unknown Rash Verified 11/05/24 16:58 Antibiotics) Vital Signs Vital Signs - 24 hr 11/05/24 17:00 11/05/24 19:15 11/05/24 20:00 Temperature 38.4 C H 36.9 C 36.9 C Pulse Rate 111 H 88 Respiratory Rate 20 27 H Blood Pressure 150/54 H 106/52 L Pulse Oximetry 95 95 Oxygen Delivery Room Air Oxygen Flow Rate 11/05/24 20:00 11/05/24 20:30 11/05/24 21:48 Temperature 36.7 C Pulse Rate 83 83 84 Respiratory Rate 22 H 24 H 19 Blood Pressure 113/45 L 107/47 L 105/49 L Pulse Oximetry 96 97 97 Oxygen Delivery Oxygen Flow Rate 11/05/24 22:56 11/05/24 23:08 11/06/24 00:30 Temperature 36.8 C Pulse Rate 82 Respiratory Rate 18 Blood Pressure 106/62 Pulse Oximetry 97 Oxygen Delivery Room Air Oxygen Flow Rate 11/06/24 00:31 11/06/24 03:20 11/06/24 04:00 Temperature 37.1 C 37.8 C H 37.3 C Pulse Rate 99 99 Respiratory Rate 22 H 22 H Blood Pressure 120/55 L 80/42 L Pulse Oximetry 96 94 Oxygen Delivery Oxygen Flow Rate 11/06/24 04:02 11/06/24 04:20 11/06/24 05:50 Temperature 37.7 C H 36.3 C L Pulse Rate 104 H 95 Respiratory Rate 24 H Blood Pressure 92/40 L Pulse Oximetry 99 Oxygen Delivery Oxygen Flow Rate 11/06/24 06:09 11/06/24 07:09 11/06/24 07:15 Temperature 36.3 C L 36.6 C Pulse Rate 92 93 71 Respiratory Rate 20 22 H 18 Blood Pressure 82/42 L 82/42 L Pulse Oximetry 99 99 99 Oxygen Delivery Nasal Cannula Oxygen Flow Rate 2 11/06/24 07:15 11/06/24 07:45 11/06/24 08:00 Temperature 36.8 C Pulse Rate 71 91 Respiratory Rate 18 16 Blood Pressure 80/42 L 82/43 L Pulse Oximetry 99 Oxygen Delivery Oxygen Flow Rate 11/06/24 08:00 11/06/24 08:53 11/06/24 09:20 Temperature 36.8 C Pulse Rate 83 Respiratory Rate 18 Blood Pressure 92/30 L 88/46 L Pulse Oximetry 99 100 Oxygen Delivery Nasal Cannula Oxygen Flow Rate 2 11/06/24 09:36 01/22/25 09:51 Temperature 36.7 C Pulse Rate 82 Respiratory Rate 17 Blood Pressure 90/50 L Pulse Oximetry 99 95 Oxygen Delivery Room Air Oxygen Flow Rate Exam 2 Narrative: General: Alert oriented x3, no acute distress Neck: Supple, JVD + Chest: Bilaterally clear to auscultation, no rales or rhonchi Cardiac: S1, S2 +, regular rate, regular rhythm, no murmurs or rubs Extremities: No pedal edema, no skin rash Neurologic: Alert and oriented x3, no focal neurological deficits Results Labs and Meds 11/06/24 08:34 11/06/24 06:25 Lab results: Cardiac Enzymes 11/05/24 11/06/24 11/06/24 Range/Units 17:17 03:12 05:53 AST 23 26 (14-36) U/L Troponin I < 0.012 0.093 H* 0.793 H* D (0.000-0.034) ng/mL 11/06/24 11/06/24 Range/Units 06:25 08:34 AST 23 (14-36) U/L Troponin I 0.769 H* (0.000-0.034) ng/mL Coagulation 11/05/24 Range/Units 17:17 PT 15.7 H (11.1-14.7) Seconds APTT 31.6 (22.3-36.8) Seconds CBC 11/05/24 11/06/24 11/06/24 Range/Units 17:17 03:11 08:34 WBC 14.3 H 8.1 12.0 H (4.5-10.0) K/mm3 RBC 3.40 L 3.06 L 2.87 L (4.2-5.4) M/mm3 Hgb 7.5 L 6.8 L* 6.6 L* (12.0-15.0) g/dL Hct 26.0 L 24.0 L 22.6 L (37.0-47.0) % Plt Count 188 137 L 140 L (150-375) k/mm3 Lymph # (Auto) 0.62 L 0.13 L (0.9-3.2) K/mm3 [place] # (Auto) 1.3 H 0.3 (0.1-0.6) K/mm3 Eos # (Auto) 0.1 0.0 (0-0.3) K/mm3 Baso # (Auto) 0.1 0.0 (0.0-0.1) K/mm3 Comprehensive Metabolic Panel 11/05/24 11/06/24 11/06/24 Range/Units 17:17 03:12 06:25 Sodium 135 L 135 L 135 L (137-145) mmol/L Potassium 3.7 3.4 3.4 (3.4-5.0) mmol/L Chloride 103 105 106 (98-107) mmol/L Carbon Dioxide 18 L 16 L 19 L (22-30) mmol/L BUN 23 H 22 H 24 H (7-17) mg/dL Creatinine 1.08 H 1.04 H 1.13 H (0.7-1.0) mg/dL Glucose 155 H 153 H 141 H (65-110) mg/dL Calcium 9.0 8.2 L 7.8 L (8.4-10.2) mg/dL AST 23 26 23 (14-36) U/L ALT 17 16 12 (6-35) U/L Alkaline Phosphatase 139 H 128 H 98 (38-126) U/L Total Protein 7.0 6.0 L 5.0 L (6.3-8.2) g/dL Albumin 3.6 3.4 L 2.9 L (3.5-5.1) g/dL Intake and Output 11/05/24 11/06/24 11/06/24 23:59 07:59 15:59 Intake Total 2150 500 0 Balance 2150 500 0 Intake: IV 2150 50 Sodium Chloride 0.9% IV 1,000 1000 ml @ 999 mls/hr IV CONT .Q1H1M STA Rx#:[id number] Sodium Chloride 0.9% IV 500 ml 1000 @ 999 mls/hr IV CONT .Q31M STA Rx#:[id number] cefTRIAXone 1 GM/NS 50 ML 1 gm 50 In 50 ml @ 100 mls/hr IVPB Q24H NAVEED Rx#:[id number] levoFLOXacin 750 MG/D5W 150 ML 150 750 mg In 150 ml @ 100 mls/hr IVPB ONCE STA Rx#:[id number] Intake (Blood Product) Amt 350 0 Leuko Reduced Rbc Bag 1 Unit 350 [id number] Leuko Reduced Rbc Bag 1 Unit 0 [id number] Oral 100 Other: # Unmeasured Voids 1 Patient Weight 11/06/24 23:59 Weight 63.1 kg
[2024-11-06] MEDS: SODIUM CHLORIDE 0.9% IV 1,000 ML 75 ML IV CONT (12:21)
[2024-11-06] MEDS: FUROSEMIDE INJ 40 MG/4 ML VIAL IV PUSH (12:21)
[2024-11-06 14:27] LABS: IFOB Positive Control Positive; Immunochemical Fecal Occult Bl Negative (N)
[2024-11-06 14:53] LABS: Toxigenic C. Diff NEGATIVE (NEGATIVE)
[2024-11-06 15:30] LABS: Hematocrit 28.7 % (37.0-47.0); Hemoglobin 8.8 g/dL (12.0-15.0)
--- NOTE | 2024-11-06 15:42 | P.CONGI_ITS ---
Assessment and Plan Assessment and plan (1) Iron deficiency anemia: Code(s): D50.9 - Iron deficiency anemia, unspecified Status: Acute Assessment and Plan: The patient presents with urosepsis complicated by myocardial injury, further exacerbated by anemia. While the current gram-negative bacteremia likely contributes to anemia through inflammation-mediated suppression of bone marrow production and increased splenic sequestration, and possible hemolysis , a pre- existing, chronic iron deficiency anemia is also evident, as shown by an iron saturation of 6%. Although colonoscopy and endoscopy are indicated to address the underlying iron deficiency, these investigations should be deferred until the patient's sepsis and myocardial injury have completely resolved. In the interim, blood transfusions need to be administered to maintain a hemoglobin level above 8 g/dL to support hemodynamic stability. Will order hemolysis workup to address other mechanisms of acute anemia in this patient. Will continue to follow. GI Consult Note Consult date/time: 11/06/24 15:42 HPI: Antonieta Hawkins is an 84-year-old female with a past medical history of hypertension and COPD who presented to the emergency department on November 05 with fever, chills, and headache. For the past two weeks, she experienced a dry cough, fever up to 102?F, chills, and progressively worsening shortness of breath. Chest CT and X-ray, which incidentally revealed a large hiatal hernia, did not demonstrate pulmonary infiltrates. Leukocyturia was present, and blood cultures grew Gram-negative bacteria. Cardiology consultation was obtained for shortness of breath, which was deemed unrelated to pneumonia and considered an anginal equivalent. Elevated troponin levels were observed, attributed to myocardial injury secondary to sepsis and anemia. Incidentally, iron deficiency anemia was diagnosed with an iron saturation of 6%. Despite receiving a blood transfusion, her hemoglobin level did not rise as expected. The patient does not have melena, hematochezia or hematemesis. She does not report a history of GI bleeding or gastrointestinal problems. Review of Systems 2 Review of Systems: All systems reviewed & are unremarkable except as noted in HPI and below PMFSH Past Medical History Medical History (Updated 11/06/24 @ 15:54 by Eugenio Oliva MD) Iron deficiency anemia Chronic obstructive pulmonary disease COVID-19 (2020) Essential hypertension Benign familial tremor Hyperlipidemia Hypertension Surgical History Surgical History History of appendectomy Family History Family History Father Family history of malignant neoplasm Heart disease Sibling Patient's sister is in good health, Onset Age: 92 Mother Family history of malignant neoplasm Diabetes mellitus Sibling Hypertension Social History Social History Social History: Currently lives at home alone. . Surrogate decision maker: Delilah Arango, daughter ([phone]) or Echo Becker, granddaughter who is the executor of her living will ([phone]). Code status: DNR. Smoking packs per day: 0.5 Smoking cigarettes per day: 10.0 Years smoked: 65 Smoking pack-years: 32.50 Smoking status: Never smoker Tobacco type: cigarettes Second hand tobacco smoke exposure: Yes Additional smoking assessment comments: Continues to chew nicotine gum. Alcohol intake: never Substance use: never Substance use type: does not use Do You Feel Safe in your Home?: Yes Lack of Transportation: No Lack of Food: Never True Current Housing: I Have Housing Concerned About Future Housing: No Difficulty Paying Gas/Electric Bills: No Difficulty Paying for Meds: No Currently Unemployed: No Education: Master's Degree or Higher Difficulty w/ Childcare or Family Care: No Living arrangements: alone Additional living arrangements comments: . Lives in [place]. Multiple family members live nearby. 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 Spiritual care concerns: No Meds Home Medications and Allergies Home Medications ?Medication ?Instructions ?Recorded ?Confirmed ?Type ezetimibe 10 mg tablet 10 mg PO DAILY 12/05/20 11/06/24 History losartan 100 1 tablet PO DAILY 12/05/20 11/06/24 History mg-hydrochlorothiazide 25 mg tablet albuterol sulfate 90 mcg/actuation 1 puff inhalation Q4H PRN 09/30/24 11/06/24 History aerosol inhaler shortness of breath or wheezing primidone 250 mg tablet 250 mg PO BID #60 tabs 09/30/24 11/06/24 Rx fluticasone fur. 100 mcg-umeclid 1 inh inhalation Q24H 11/06/24 11/06/24 History 62.5 mcg-vilant 25 mcg inhalat.powder (Trelegy Ellipta) propranolol 20 mg tablet 20 mg PO DAILY 11/06/24 11/06/24 History Allergies Allergy/AdvReac Type Severity Reaction Status Date / Time Sulfa (Sulfonamide Allergy Unknown Rash Verified 11/05/24 16:58 Antibiotics) Vital Signs Vital Signs - 24 hr 11/05/24 17:00 11/05/24 19:15 11/05/24 20:00 Temperature 101.1 F H 98.4 F 98.4 F Pulse Rate 111 H 88 Respiratory Rate 20 27 H Blood Pressure 150/54 H 106/52 L Pulse Oximetry 95 95 Oxygen Delivery Room Air Oxygen Flow Rate 11/05/24 20:00 11/05/24 20:30 11/05/24 21:48 Temperature 98.0 F Pulse Rate 83 83 84 Respiratory Rate 22 H 24 H 19 Blood Pressure 113/45 L 107/47 L 105/49 L Pulse Oximetry 96 97 97 Oxygen Delivery Oxygen Flow Rate 11/05/24 22:56 11/05/24 23:08 11/06/24 00:30 Temperature 98.3 F Pulse Rate 82 Respiratory Rate 18 Blood Pressure 106/62 Pulse Oximetry 97 Oxygen Delivery Room Air Oxygen Flow Rate 11/06/24 00:31 11/06/24 03:20 11/06/24 04:00 Temperature 98.8 F 100.0 F H 99.2 F Pulse Rate 99 99 Respiratory Rate 22 H 22 H Blood Pressure 120/55 L 80/42 L Pulse Oximetry 96 94 Oxygen Delivery Oxygen Flow Rate 11/06/24 04:02 11/06/24 04:20 11/06/24 05:50 Temperature 99.9 F H 97.3 F L Pulse Rate 104 H 95 Respiratory Rate 24 H Blood Pressure 92/40 L Pulse Oximetry 99 Oxygen Delivery Oxygen Flow Rate 11/06/24 06:09 11/06/24 07:09 11/06/24 07:15 Temperature 97.4 F L 97.8 F Pulse Rate 92 93 71 Respiratory Rate 20 22 H 18 Blood Pressure 82/42 L 82/42 L Pulse Oximetry 99 99 99 Oxygen Delivery Nasal Cannula Oxygen Flow Rate 2 11/06/24 07:15 11/06/24 07:45 11/06/24 08:00 Temperature 98.2 F Pulse Rate 71 91 Respiratory Rate 18 16 Blood Pressure 80/42 L 82/43 L Pulse Oximetry 99 Oxygen Delivery Oxygen Flow Rate 11/06/24 08:00 11/06/24 08:53 11/06/24 09:20 Temperature 98.2 F Pulse Rate 83 Respiratory Rate 18 Blood Pressure 92/30 L 88/46 L Pulse Oximetry 99 100 Oxygen Delivery Nasal Cannula Oxygen Flow Rate 2 11/06/24 09:36 11/06/24 09:51 11/06/24 10:36 Temperature 98.1 F 98.4 F Pulse Rate 82 83 Respiratory Rate 17 18 Blood Pressure 90/50 L 90/56 L Pulse Oximetry 99 95 96 Oxygen Delivery Room Air Oxygen Flow Rate 11/06/24 11:36 11/06/24 12:15 11/06/24 12:15 Temperature 98.0 F 97.8 F 97.8 F Pulse Rate 83 84 84 Respiratory Rate 18 20 20 Blood Pressure 104/62 107/52 L 107/52 L Pulse Oximetry 98 93 93 Oxygen Delivery Oxygen Flow Rate 11/06/24 12:24 Temperature Pulse Rate Respiratory Rate Blood Pressure 102/56 L Pulse Oximetry Oxygen Delivery Oxygen Flow Rate Exam 2 Narrative: General: Alert oriented x3, no acute distress Neck: Supple, JVD + Chest: Bilaterally clear to auscultation, no rales or rhonchi Cardiac: S1, S2 +, regular rate, regular rhythm, no murmurs or rubs Extremities: No pedal edema, no skin rash Neurologic: Alert and oriented x3, no focal neurological deficits Results Labs 11/06/24 15:25 11/06/24 06:25 Labs: Short CBC 11/05/24 11/06/24 11/06/24 Range/Units 17:17 03:11 08:34 WBC 14.3 H 8.1 12.0 H (4.5-10.0) K/mm3 Hgb 7.5 L 6.8 L* 6.6 L* (12.0-15.0) g/dL Hct 26.0 L 24.0 L 22.6 L (37.0-47.0) % Plt Count 188 137 L 140 L (150-375) k/mm3 11/06/24 Range/Units 15:25 WBC (4.5-10.0) K/mm3 Hgb 8.8 L (12.0-15.0) g/dL Hct 28.7 L (37.0-47.0) % Plt Count (150-375) k/mm3 BMP 11/05/24 11/06/24 11/06/24 17:17 03:12 06:25 Sodium 135 L 135 L 135 L Potassium 3.7 3.4 3.4 Chloride 103 105 106 Carbon Dioxide 18 L 16 L 19 L BUN 23 H 22 H 24 H Creatinine 1.08 H 1.04 H 1.13 H Glucose 155 H 153 H 141 H Calcium 9.0 8.2 L 7.8 L Cardiac Enzymes 11/05/24 11/06/24 11/06/24 Range/Units 17:17 03:12 05:53 Troponin I < 0.012 0.093 H* 0.793 H* D (0.000-0.034) ng/mL 11/06/24 Range/Units 08:34 Troponin I 0.769 H* (0.000-0.034) ng/mL Liver Function 11/05/24 11/06/24 11/06/24 Range/Units 17:17 03:12 06:25 Total Bilirubin 0.8 0.6 0.5 (0.2-1.3) mg/dL AST 23 26 23 (14-36) U/L ALT 17 16 12 (6-35) U/L Alkaline Phosphatase 139 H 128 H 98 (38-126) U/L Albumin 3.6 3.4 L 2.9 L (3.5-5.1) g/dL Urine 11/05/24 Range/Units 17:40 Urine Color Yellow (Yellow) Urine Appearance Cloudy H (Clear) Urine pH 5.5 (5.0-9.0) Ur Specific [place] 1.013 (1.001-1.035) Urine Protein 2+ H (Negative) mg/dL Urine Glucose (UA) Negative (Negative) mg/dL
[2024-11-06] MEDS: cefTRIAXone 2 GM/NS 100 ML 2 GM/100 ML BAG IVPB (15:48)
[2024-11-07] VITALS (9 sets, daily range): BP systolic 108–118; BP diastolic 54–69; PULSE 50–96; RESP 12–18; TEMP 36.7–37.4; O2SAT 93–96
[2024-11-07] MEDS: SODIUM CHLORIDE 0.9% IV 1,000 ML 75 ML IV CONT ×2 (02:30→20:41)
[2024-11-07 06:47] LABS: Hematocrit 28.5 % (37.0-47.0); Hemoglobin 8.7 g/dL (12.0-15.0); Mean Corpuscular HGB Conc 30.5 g/dl (32-36); Mean Corpuscular Hemoglobin 23.8 pg (26-34); Mean Corpuscular Volume 77.9 fl (80-100); Mean Platelet Volume 10.5 fl (7.4-10.4); Platelet Count Result 148 k/mm3 (150-375); Red Blood Count 3.66 M/mm3 (4.2-5.4); Red Cell Distribution Width 18.1 % (11.5-14.5); White Blood Count 7.2 K/mm3 (4.5-10.0)
[2024-11-07 06:48] LABS: Immature Reticulocyte Fraction 19.7 % (3.0-15.9); Reticulocyte Hemoglobin Conten 20.4 pg (28.2-36.6); Reticulocyte Percent 0.99 % (0.7-4.3); Reticulocytes Absolute 0.04 10^6/uL (0.02-0.10)
[2024-11-07 06:57] LABS: Alanine Aminotransferase 11 U/L (6-35); Albumin Level 2.9 g/dL (3.5-5.1); Alkaline Phosphatase 91 U/L (38-126); Anion Gap 9 mmol/L (4-12); Aspartate Amino Transferase 22 U/L (14-36); Bilirubin,Total 0.3 mg/dL (0.2-1.3); Blood Urea Nitrogen 23 mg/dL (7-17); Calcium 7.9 mg/dL (8.4-10.2); Carbon Dioxide 22 mmol/L (22-30); Chloride 106 mmol/L (98-107); Estimated CRCL calculation 27 ml/min; Estimated Glomerular Filt Rate 45; Glucose 114 mg/dL (65-110); Potassium 3.1 mmol/L (3.4-5.0); Sodium 137 mmol/L (137-145)
[2024-11-07 06:58] LABS: Lactate Dehydrogenase 163 U/L (120-246)
[2024-11-07] MEDS: FLUTICASONE/UMECLIDIN/VILANTER 100-62.5-25 MCG ELLIPTA 1 PUFF INHALATION (08:00)
--- NOTE | 2024-11-07 08:24 | PM.IMPN ---
Progress Note: A&P Assessment and Plan (1) Sepsis: Qualifiers: Acute renal failure type: with acute tubular necrosis Sepsis acute organ dysfunction status: with acute organ dysfunction Sepsis type: sepsis due to unspecified organism Severe sepsis acute organ dysfunction type: acute renal failure Severe sepsis shock status: without septic shock Qualified Code(s): A41.9 - Sepsis, unspecified organism; R65.20 - Severe sepsis without septic shock; N17.0 - Acute kidney failure with tubular necrosis Code(s): A41.9 - Sepsis, unspecified organism Status: Acute Assessment and Plan: Patient meets sepsis criteria with fever, tachycardia, tachypnea and leukocytosis due to UTI. Blood cultures and urine cultures are pending. The patient received 1.5 L of IV fluid hydration in the ER. Blood cultures collected- prelim gram negative bacilli- pt is on 2gm ceftriaxone q24h Urine is growing E coli- will continue Cefriaxone for now-waiting for sensitivities - will order repeat blood culture for 1/24 am (2) Acute UTI: Code(s): N39.0 - Urinary tract infection, site not specified Status: Acute (3) Acute on chronic anemia: Code(s): D64.9 - Anemia, unspecified Status: Acute Assessment and Plan: GI was consulted, notes reviewed: The patient presents with urosepsis complicated by myocardial injury, further exacerbated by anemia. While the current gram-negative bacteremia likely contributes to anemia through inflammation-mediated suppression of bone marrow production and increased splenic sequestration, and possible hemolysis , a pre-existing, chronic iron deficiency anemia is also evident, as shown by an iron saturation of 6%. Although colonoscopy and endoscopy are indicated to address the underlying iron deficiency, these investigations should be deferred until the patient's sepsis and myocardial injury have completely resolved. In the interim, blood transfusions need to be administered to maintain a hemoglobin level above 8 g/dL to support hemodynamic stability. Will order hemolysis workup to address other mechanisms of acute anemia in this patient. Will continue to follow. -continue IV Protonix, iron studies done (4) Elevated troponin: Code(s): R79.89 - Other specified abnormal findings of blood chemistry Status: Acute Assessment and Plan: cardiology consulted, notes reviewed: Patient has chronic SOB secondary to COPD which is worse over the past few days. This acute worsening could be related to ongoing infection vs severe anemia vs could be an anginal equivalent -Given that the troponin is downtrending, no active chest pain, SOB could be secondary to other etiologies, recommend medical management from cardiac standpoint -Holding off on starting asa due to acute anemia with Hg of 6.6 -Start statin -Continue propranolol, losartan, hydrochlorothiazide (home medications) -EKG p.r.n. for chest pain -When she recovers from acute illness, recommend cardiac catheterization to evaluate coronary anatomy -Check and replace electrolytes as needed to keep K>4 and Mg>2 (5) Acute kidney injury: Code(s): N17.9 - Acute kidney failure, unspecified Status: Acute (6) Hypoalbuminemia: Code(s): E88.09 - Other disorders of plasma-protein metabolism, not elsewhere classified Status: Acute Assessment and Plan: noted significant drop in her he albumin compared to previous labs She does have 2+ protein in her urine. 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 Time Spent With Patient Time with patient: 25 - 35 minutes Subjective Date/time seen: 11/07/24 08:24 Interval history: 84-year-old female with past medical history of essential tremor, essential hypertension, COPD who presented to the ER with fever chills and headache. She had dry cough that resolved now. She report some shortness of breath the shortness of breath is more so when she is having chills. Her family member recently recovered from pneumonia. She has had decreased appetite and increasing fatigue. She had had 3 loose stools in 24 hours. She was transfused 1 unit of PRBC for hg of 6.8, follow-up Hgb 6.6. Another unit of PRBC ordered and GI consulted. Patient denies any blood in stool prior to arrival. Slow IV hydration and give IVP lasix when BP can tolerate, BNP elevated 2440 but CXR with clear lung lee and no edema to BLE however mild crackles to LLL will need to monitor closely for fluid overload. Cardiology consulted for elevated troponin and CHF evaluation, elevated troponins are likely secondary to ischemic demand will continue to trend. Patient on 2L supplemental oxygen and reporting SOB likely secondary to anemia and HX COPD. Patient with sepsis secondary to UTI receiving Ceftriaxone IV pending cultures. Follow-up BP after blood transfusion /30. 11/07 pt is seen and examined. She is comfortable, voices no acute complains. Gats sob with any activity, but reports no dizziness or lightheadedness. Review of Systems Constitutional: Constitutional: Denies chills Eyes: Eyes: Denies blurry vision Cardiovascular: Cardiovascular: Denies chest pain Respiratory: Respiratory: Reports dyspnea on exertion Gastrointestinal: Gastrointestinal: Denies abdominal pain Musculoskeletal: Musculoskeletal: Denies back pain Exam Const: General: comfortable Resp: Effort & Inspection: normal respiratory effort Auscultation: clear to auscultation bilaterally Cardio: Rate: regular rate Rhythm: regular rhythm GI: GI Palp: Yes Soft to palpation Auscultation: normal bowel sounds Skin: General skin exam: normal color Neuro: Sensory Exam: normal sensation Extrem: General: normal to inspection Psych: Affect: normal affect Objective Data Vital Signs Vital Signs: Vital Signs - 24 hr 11/06/24 08:53 11/06/24 09:20 11/06/24 09:36 Temperature 98.2 F 98.1 F Pulse Rate 83 82 Respiratory Rate 18 17 Blood Pressure 92/30 L 88/46 L 90/50 L Pulse Oximetry 100 99 Oxygen Delivery 11/06/24 09:51 11/06/24 10:36 11/06/24 11:36 Temperature 98.4 F 98.0 F Pulse Rate 83 83 Respiratory Rate 18 18 Blood Pressure 90/56 L 104/62 Pulse Oximetry 95 96 98 Oxygen Delivery Room Air 11/06/24 12:00 11/06/24 12:15 11/06/24 12:15 Temperature 97.8 F 97.8 F Pulse Rate 88 84 84 Respiratory Rate 20 20 Blood Pressure 107/52 L 107/52 L Pulse Oximetry 93 93 Oxygen Delivery 11/06/24 12:24 11/06/24 16:00 11/06/24 16:00 Temperature 100.1 F H Pulse Rate 96 97 Respiratory Rate 18 Blood Pressure 102/56 L 100/54 L Pulse Oximetry 93 Oxygen Delivery 11/06/24 17:44 11/06/24 18:00 11/06/24 18:19 Temperature 99.9 F H 99.9 F H Pulse Rate Respiratory Rate Blood Pressure 82/48 L 99/57 L Pulse Oximetry Oxygen Delivery 11/06/24 20:00 11/06/24 20:00 11/06/24 20:00 Temperature 98.0 F Pulse Rate 81 83 Respiratory Rate 13 Blood Pressure 97/55 L Pulse Oximetry 96 Oxygen Delivery Room Air 11/06/24 23:13 11/07/24 00:00 11/07/24 04:00 Temperature 97.1 F L Pulse Rate 84 81 86 Respiratory Rate 12 Blood Pressure 97/47 L Pulse Oximetry 95 Oxygen Delivery 11/07/24 04:00 11/07/24 08:00 11/07/24 08:01 Temperature 98.1 F 98.3 F Pulse Rate 88 50 L 92 Respiratory Rate 12 18 18 Blood Pressure 108/54 L 114/57 L Pulse Oximetry 96 94 Oxygen Delivery Intake/Output Intake/Output: Intake & Output 11/04/24 11/05/24 11/06/24 11/07/24 23:59 23:59 23:59 23:59 Intake Total 2150 1190 1350 Output Total 1100 800 Balance 2150 90 550 Meds/Results Medications: Active Medications Generic Name Dose Route Start Last Admin Trade Name Freq PRN Reason Stop Dose Admin Acetaminophen 650 mg 11/06/24 03:06 11/06/24 21:22 Acetaminophen 325 Mg Tablet PO 650 mg Q4H PRN Administration Headache Fluticasone/Umeclidinium/Vilanterol 1 puff 11/06/24 08:00 11/07/24 08:00 Fluticasone/Umeclidin/Vilanter 100-62.5-25 Mcg Ellipta INHALATION 1 puff DAILYRT NAVEED Administration Sodium Chloride 1,000 mls @ 75 mls/hr 11/06/24 08:35 11/07/24 02:30 Normal Saline Iv IV CONT 75 mls/hr .[id number] NAVEED Administration Ceftriaxone Sodium 2 gm in 100 mls @ 200 mls/hr 11/06/24 16:00 11/06/24 16:18 Rocephin 2 Gm/Ns 100 Ml IVPB Infused Q24H NAVEED Infusion Ondansetron HCl 4 mg 11/06/24 02:59 11/06/24 21:23 Ondansetron Inj 4 Mg/2 Ml Vial IV PUSH 4 mg Q4H PRN Administration Nausea And Vomiting Pantoprazole Sodium 40 mg 11/06/24 09:00 11/06/24 21:22 Pantoprazole Sodium Iv 40 Mg Vial IV PUSH 40 mg Q12HR NAVEED Administration Perflutren Lipid Microsphere 0 ml 11/06/24 08:05 Perflutren Lipid Microspheres 1.5 Ml Vial Diluted To 10 Ml Total Volume IV PUSH 11/09/24 08:05 ONCE PRN adequate visualization Protocol Primidone 250 mg 11/06/24 09:00 11/06/24 21:22 Primidone 250 Mg Tablet PO 250 mg Q12HR NAVEED Administration Radiology Results: ITS Impressions Chest CT 11/05/24 20:27 IMPRESSION: Large hiatal hernia. The lungs are clear. Chest X-Ray 11/06/24 05:34 Impression: Clear lungs. Moderate hiatal hernia. Labs Labs: Laboratory Results - last 24 hr 11/06/24 11/06/24 11/06/24 03:38 06:25 08:34 WBC 12.0 H RBC 2.87 L Hgb 6.6 L* Hct 22.6 L MCV 78.7 L MCH 23.0 L MCHC 29.2 L RDW 18.4 H Plt Count 140 L MPV 10.1 Absolute Retic Percent Retic Immature Retic Fraction Retic Hgb Content Sodium Potassium Chloride Carbon Dioxide Anion Gap BUN Creatinine Estim Creat Clear Calc Estimated GFR Glucose Calcium Iron 16 L TIBC 262 % Saturation 6 L Ferritin 24.30 Total Bilirubin AST ALT Alkaline Phosphatase Lactate Dehydrogenase Troponin I 0.769 H* Total Protein Albumin Stl Occult Blood (IFOB) C. difficile (PCR) Blood Type O Positive Antibody Screen Negative Crossmatch See Detail 11/06/24 11/06/24 11/07/24 13:42 15:25 05:49 WBC 7.2 RBC 3.66 L Hgb 8.8 L 8.7 L Hct 28.7 L 28.5 L MCV 77.9 L MCH 23.8 L MCHC 30.5 L RDW 18.1 H Plt Count 148 L MPV 10.5 H Absolute Retic 0.04 Percent Retic 0.99 Immature Retic Fraction 19.7 H Retic Hgb Content 20.4 L Sodium 137 Potassium 3.1 L Chloride 106 Carbon Dioxide 22 Anion Gap 9 BUN 23 H Creatinine 1.14 H Estim Creat Clear Calc 27 Estimated GFR 45 L Glucose 114 H Calcium 7.9 L Iron TIBC % Saturation Ferritin Total Bilirubin 0.3 AST 22 ALT 11 Alkaline Phosphatase 91 Lactate Dehydrogenase 163 Troponin I Total Protein 6.0 L Albumin 2.9 L Stl Occult Blood (IFOB) Negative C. difficile (PCR) Negative Blood Type Antibody Screen Crossmatch Quality VTE Prophylaxis VTE prophylaxis: mechanical ordered (SCDs)
[2024-11-07] MEDS: ONDANSETRON INJ 4 MG/2 ML VIAL IV PUSH (08:26)
[2024-11-07] MEDS: PANTOPRAZOLE SODIUM IV 40 MG VIAL IV PUSH ×2 (08:26→20:42)
[2024-11-07] MEDS: PRIMIDONE 250 MG TABLET PO (08:26)
--- NOTE | 2024-11-07 13:00 | PM.PNCARD ---
Progress Note: A&P Assessment and Plan (1) SOB (shortness of breath) on exertion: Code(s): R06.02 - Shortness of breath Status: Acute (2) Elevated troponin: Code(s): R79.89 - Other specified abnormal findings of blood chemistry Status: Acute (3) Essential hypertension: Code(s): I10 - Essential (primary) hypertension Status: Acute (4) Hyperlipidemia: Code(s): E78.5 - Hyperlipidemia, unspecified Status: Acute (5) Acute kidney injury: Code(s): N17.9 - Acute kidney failure, unspecified Status: Acute (6) Acute UTI: Code(s): N39.0 - Urinary tract infection, site not specified Status: Acute (7) Iron deficiency anemia: Code(s): D50.9 - Iron deficiency anemia, unspecified Status: Acute (8) Sepsis: Qualifiers: Sepsis type: sepsis due to unspecified organism Sepsis acute organ dysfunction status: with acute organ dysfunction Severe sepsis acute organ dysfunction type: acute renal failure Acute renal failure type: with acute tubular necrosis Severe sepsis shock status: without septic shock Qualified Code(s): A41.9 - Sepsis, unspecified organism; R65.20 - Severe sepsis without septic shock; N17.0 - Acute kidney failure with tubular necrosis Code(s): A41.9 - Sepsis, unspecified organism Status: Acute (9) Bacteremia: Code(s): R78.81 - Bacteremia Status: Acute Plan Assessment: -Elevated troponin without chest pain; shortness of breath could be anginal equivalent; troponin has peaked; electrically stable -Worsening shortness of breath- secondary to COPD, could be anginal equivalent -EKG shows sinus tachycardia most likely stress response to ongoing sepsis -Sepsis-blood cultures growing Gram-negative bacilli -E coli UTI -Hypokalemia -Severe iron deficiency anemia- Hg 6.6 -Thrombocytopenia- Plt of 140K -Hypertension -Hyperlipidemia -COPD Plan: -Patient has chronic SOB secondary to COPD which is worse over the past few days. This acute worsening could be related to ongoing infection vs severe anemia vs could be an anginal equivalent -Given that the troponin is downtrending, no active chest pain, SOB could be secondary to other etiologies, recommend medical management from cardiac standpoint -start aspirin 81 mg daily when hemoglobin is stable -Start statin -EKG p.r.n. for chest pain -When she recovers from acute illness, recommend outpatient stress test to evaluate coronary anatomy -Check and replace electrolytes as needed to keep K>4 and Mg>2 -Management of other medical problems per primary team Thank you for allowing us to participate in the care of this patient. Cardiology will sign off. Please call us with any questions Subjective Date/time seen: 11/07/24 13:00 Interval history: Reason For encounter: Elevated troponins HPI: 84-year-old female with history of hyperlipidemia, hypertension, benign familial tremor, chronic obstructive pulmonary disease presented to the ER with chief complaint of fever, chills, headache, decreased appetite, loose stools, and fatigue. She reports increasing shortness of breath over the past few days. She has chronic shortness of breath due to COPD. She has contact with a family member who had pneumonia recently. No anginal chest pain, lightheadedness, dizziness, leg swelling, recent weight gain, presyncope, syncope, or palpitations. Troponin was elevated and Cardiology was consulted. Of note labs show severe anemia with a hemoglobin of 6.6 for which workup is underway.. Workup: Hemoglobin 6.6, hematocrit 22.6, platelets 140 1000, WBC 12, sodium 135, potassium 3.4, creatinine 1.13 Troponin 0.093, 0.793, 0.769 EKG: Sinus tachycardia with rate of 109, PACs, incomplete right bundle branch block, nonspecific ST T wave changes TTE 07/2023: LVEF 55-60%, grade 1 diastolic function, mild MR, mild TR, mild pulmonary hypertension Chest x-ray: Clear lungs, hiatal hernia CT chest: Lungs are clear, large hiatal hernia Interval history: No chest pain, shortness of breath, nausea, abdominal pain. Review of Systems Review of Systems: A complete review of systems was performed and negative other than those mentioned in the HPI Exam Narrative: General: Alert oriented x3, no acute distress Neck: Supple, JVD + Chest: Bilaterally clear to auscultation, no rales or rhonchi Cardiac: S1, S2 +, regular rate, regular rhythm, no murmurs or rubs Extremities: No pedal edema, no skin rash Neurologic: Alert and oriented x3, no focal neurological deficits Objective Data Vital Signs Vital Signs: Vital Signs - 24 hr 11/06/24 16:00 11/06/24 16:00 11/06/24 17:44 Temperature 37.8 C H 37.7 C H Pulse Rate 96 97 Respiratory Rate 18 Blood Pressure 100/54 L Pulse Oximetry 93 Oxygen Delivery 11/06/24 18:00 11/06/24 18:19 11/06/24 20:00 Temperature 37.7 C H 36.7 C Pulse Rate 81 Respiratory Rate 13 Blood Pressure 82/48 L 99/57 L 97/55 L Pulse Oximetry 96 Oxygen Delivery 11/06/24 20:00 11/06/24 20:00 11/06/24 23:13 Temperature 36.2 C L Pulse Rate 83 84 Respiratory Rate 12 Blood Pressure 97/47 L Pulse Oximetry 95 Oxygen Delivery Room Air 11/07/24 00:00 11/07/24 04:00 11/07/24 04:00 Temperature 36.7 C Pulse Rate 81 86 88 Respiratory Rate 12 Blood Pressure 108/54 L Pulse Oximetry 96 Oxygen Delivery 11/07/24 08:00 11/07/24 08:00 11/07/24 08:01 Temperature 36.8 C Pulse Rate 50 L 92 Respiratory Rate 18 18 Blood Pressure 114/57 L Pulse Oximetry 94 Oxygen Delivery Room Air 11/07/24 11:50 Temperature 37.1 C Pulse Rate 96 Respiratory Rate 18 Blood Pressure 115/66 Pulse Oximetry 93 Oxygen Delivery Intake/Output Intake/Output: Intake & Output 11/04/24 11/05/24 11/06/24 11/07/24 23:59 23:59 23:59 23:59 Intake Total 2150 1190 1590 Output Total 1100 800 Balance 2150 90 790 Meds/Results Medications: Active Medications Generic Name Dose Route Start Last Admin Trade Name Freq PRN Reason Stop Dose Admin Acetaminophen 650 mg 11/06/24 03:06 11/06/24 21:22 Acetaminophen 325 Mg Tablet PO 650 mg Q4H PRN Administration Headache Fluticasone/Umeclidinium/Vilanterol 1 puff 11/06/24 08:00 11/07/24 08:00 Fluticasone/Umeclidin/Vilanter 100-62.5-25 Mcg Ellipta INHALATION 1 puff DAILYRT NAVEED Administration Sodium Chloride 1,000 mls @ 75 mls/hr 11/06/24 08:35 11/07/24 02:30 Normal Saline Iv IV CONT 75 mls/hr .[id number] NAVEED Administration Ceftriaxone Sodium 2 gm in 100 mls @ 200 mls/hr 11/06/24 16:00 11/06/24 16:18 Rocephin 2 Gm/Ns 100 Ml IVPB Infused Q24H NAVEED Infusion Potassium Chloride 40 meq/ 520 mls @ 130 mls/hr 11/07/24 12:30 Sodium Chloride IVPB 11/07/24 16:29 ONCE ONE Ondansetron HCl 4 mg 11/06/24 02:59 11/07/24 08:26 Ondansetron Inj 4 Mg/2 Ml Vial IV PUSH 4 mg Q4H PRN Administration Nausea And Vomiting Pantoprazole Sodium 40 mg 11/06/24 09:00 11/07/24 08:26 Pantoprazole Sodium Iv 40 Mg Vial IV PUSH 40 mg Q12HR NAVEED Administration Perflutren Lipid Microsphere 0 ml 11/06/24 08:05 Perflutren Lipid Microspheres 1.5 Ml Vial Diluted To 10 Ml Total Volume IV PUSH 11/09/24 08:05 ONCE PRN adequate visualization Protocol Primidone 250 mg 11/06/24 09:00 11/07/24 08:26 Primidone 250 Mg Tablet PO 250 mg Q12HR NAVEED Administration Radiology Results: ITS Impressions Chest CT 11/05/24 20:27 IMPRESSION: Large hiatal hernia. The lungs are clear. Chest X-Ray 11/06/24 05:34 Impression: Clear lungs. Moderate hiatal hernia. Labs Labs: Laboratory Results - last 24 hr 11/06/24 11/06/24 11/07/24 13:42 15:25 05:49 WBC 7.2 RBC 3.66 L Hgb 8.8 L 8.7 L Hct 28.7 L 28.5 L MCV 77.9 L MCH 23.8 L MCHC 30.5 L RDW 18.1 H Plt Count 148 L MPV 10.5 H Absolute Retic 0.04 Percent Retic 0.99 Immature Retic Fraction 19.7 H Retic Hgb Content 20.4 L Sodium 137 Potassium 3.1 L Chloride 106 Carbon Dioxide 22 Anion Gap 9 BUN 23 H Creatinine 1.14 H Estim Creat Clear Calc 27 Estimated GFR 45 L Glucose 114 H Calcium 7.9 L Total Bilirubin 0.3 AST 22 ALT 11 Alkaline Phosphatase 91 Lactate Dehydrogenase 163 Total Protein 6.0 L Albumin 2.9 L Stl Occult Blood (IFOB) Negative C. difficile (PCR) Negative
[2024-11-07] MEDS: POTASSIUM CHLORIDE INJ 40 MEQ in SODIUM CHLORIDE 0.9% IV 500 ML 130 MEQ IVPB (13:01)
--- NOTE | 2024-11-07 14:25 | WPDGIPROGNO ---
Progress Note: A&P Assessment and Plan (1) Iron deficiency anemia: Code(s): D50.9 - Iron deficiency anemia, unspecified Status: Acute Assessment and Plan: The patient presents with [id number] anemia with a multifactorial etiology. Documented iron deficiency, exacerbated by her current septic state, contributes significantly. A high reticulocyte count on today's lab suggests hemolysis, potentially explaining the suboptimal hematocrit response to recent transfusions, a phenomenon frequently observed in critically ill patients. While acute gastrointestinal bleeding is not evident, necessitating emergent intervention, further investigation is warranted. Currently, she has myocardial injury secondary to sepsis and anemia. Cardiology plans to proceed with cardiac catheterization upon sepsis resolution. As previously noted, elective EGD and colonoscopy will be scheduled to investigate iron deficiency anemia once her cardiac status is stabilized and sepsis is resolved. (2) Acute on chronic anemia: Code(s): D64.9 - Anemia, unspecified Status: Acute Subjective Date/time seen: 11/07/24 14:25 Interval history: Patient is still somewhat short of breath. Microbiology results checked, bacteria ID still pending, but Gram negative bacilli growing in blood. Objective Data Vital Signs Vital Signs: Vital Signs - 24 hr 11/06/24 16:00 11/06/24 16:00 11/06/24 17:44 Temperature 100.1 F H 99.9 F H Pulse Rate 96 97 Respiratory Rate 18 Blood Pressure 100/54 L Pulse Oximetry 93 Oxygen Delivery 11/06/24 18:00 11/06/24 18:19 11/06/24 20:00 Temperature 99.9 F H 98.0 F Pulse Rate 81 Respiratory Rate 13 Blood Pressure 82/48 L 99/57 L 97/55 L Pulse Oximetry 96 Oxygen Delivery 11/06/24 20:00 11/06/24 20:00 11/06/24 23:13 Temperature 97.1 F L Pulse Rate 83 84 Respiratory Rate 12 Blood Pressure 97/47 L Pulse Oximetry 95 Oxygen Delivery Room Air 11/07/24 00:00 11/07/24 04:00 11/07/24 04:00 Temperature 98.1 F Pulse Rate 81 86 88 Respiratory Rate 12 Blood Pressure 108/54 L Pulse Oximetry 96 Oxygen Delivery 11/07/24 08:00 11/07/24 08:00 11/07/24 08:01 Temperature 98.3 F Pulse Rate 50 L 92 Respiratory Rate 18 18 Blood Pressure 114/57 L Pulse Oximetry 94 Oxygen Delivery Room Air 11/07/24 11:50 Temperature 98.8 F Pulse Rate 96 Respiratory Rate 18 Blood Pressure 115/66 Pulse Oximetry 93 Oxygen Delivery Intake/Output Intake/Output: Intake & Output 11/04/24 11/05/24 11/06/24 11/07/24 23:59 23:59 23:59 23:59 Intake Total 2150 1190 1830 Output Total 1100 800 Balance 2150 90 1030 Meds/Results Medications: Active Medications Generic Name Dose Route Start Last Admin Trade Name Freq PRN Reason Stop Dose Admin Acetaminophen 650 mg 11/06/24 03:06 11/06/24 21:22 Acetaminophen 325 Mg Tablet PO 650 mg Q4H PRN Administration Headache Fluticasone/Umeclidinium/Vilanterol 1 puff 11/06/24 08:00 11/07/24 08:00 Fluticasone/Umeclidin/Vilanter 100-62.5-25 Mcg Ellipta INHALATION 1 puff DAILYRT NAVEED Administration Sodium Chloride 1,000 mls @ 75 mls/hr 11/06/24 08:35 11/07/24 02:30 Normal Saline Iv IV CONT 75 mls/hr .[id number] NAVEED Administration Ceftriaxone Sodium 2 gm in 100 mls @ 200 mls/hr 11/06/24 16:00 11/06/24 16:18 Rocephin 2 Gm/Ns 100 Ml IVPB Infused Q24H NAVEED Infusion Potassium Chloride 40 meq/ 520 mls @ 130 mls/hr 11/07/24 12:30 11/07/24 13:01 Sodium Chloride IVPB 11/07/24 16:29 130 mls/hr ONCE ONE Administration Ondansetron HCl 4 mg 11/06/24 02:59 11/07/24 08:26 Ondansetron Inj 4 Mg/2 Ml Vial IV PUSH 4 mg Q4H PRN Administration Nausea And Vomiting Pantoprazole Sodium 40 mg 11/06/24 09:00 11/07/24 08:26 Pantoprazole Sodium Iv 40 Mg Vial IV PUSH 40 mg Q12HR NAVEED Administration Perflutren Lipid Microsphere 0 ml 11/06/24 08:05 Perflutren Lipid Microspheres 1.5 Ml Vial Diluted To 10 Ml Total Volume IV PUSH 11/09/24 08:05 ONCE PRN adequate visualization Protocol Primidone 250 mg 11/06/24 09:00 11/07/24 08:26 Primidone 250 Mg Tablet PO 250 mg Q12HR NAVEED Administration Radiology Results: ITS Impressions Chest CT 11/05/24 20:27 IMPRESSION: Large hiatal hernia. The lungs are clear. Chest X-Ray 11/06/24 05:34 Impression: Clear lungs. Moderate hiatal hernia. Labs Labs: Laboratory Results - last 24 hr 11/06/24 11/06/24 11/07/24 13:42 15:25 05:49 WBC 7.2 RBC 3.66 L Hgb 8.8 L 8.7 L Hct 28.7 L 28.5 L MCV 77.9 L MCH 23.8 L MCHC 30.5 L RDW 18.1 H Plt Count 148 L MPV 10.5 H Absolute Retic 0.04 Percent Retic 0.99 Immature Retic Fraction 19.7 H Retic Hgb Content 20.4 L Sodium 137 Potassium 3.1 L Chloride 106 Carbon Dioxide 22 Anion Gap 9 BUN 23 H Creatinine 1.14 H Estim Creat Clear Calc 27 Estimated GFR 45 L Glucose 114 H Calcium 7.9 L Total Bilirubin 0.3 AST 22 ALT 11 Alkaline Phosphatase 91 Lactate Dehydrogenase 163 Total Protein 6.0 L Albumin 2.9 L Stl Occult Blood (IFOB) Negative C. difficile (PCR) Negative
[2024-11-07] MEDS: ACETAMINOPHEN 325 MG TABLET 650 MG PO (15:42)
[2024-11-07] MEDS: cefTRIAXone 2 GM/NS 100 ML 2 GM/100 ML BAG IVPB (16:46)
--- OUTSIDE RECORDS SUMMARY | 2024-11-07 20:06 | XMS_ITS | Encounter Summary ---
Author Organization [facility] Healthcare Address [address] [place] [address] Care Team Providers Care Oncology Rep Name Role Phone Magnus Madden MD Primary Care Provider [phone] Reason for Visit * Reason Onset Date Comments Symptom Based Call 11/05/2024 Encounter Details Date Type Department Care Team (Late st Contact Info) Description 11/05/2024 Telephone [facility] [address] [place] [phone] Magnus Madden MD [address] [facility] [address] [place] [address] Symptom Based Call Social History Tobacco Use Types Packs/Day Years Used Date Smoking Tobacco: Former Cigarettes Q uit: 2021 Smokeless Tobacco: Never Comments:Smoking History Pac ks/day: 0.5 Packs Alcohol Use Standard Drinks/Week Comments No 0 (1 standard drink = 0.6 oz pur e alcohol) AUDIT-C Answer Date Recorded Q1: How often do you have a drink containing alcohol? Never 11/16/2022 Q2: How many drinks containi ng alcohol do you have on a typical day when you are drinking? Patient does not drink Q3: How often do you have si x or more drinks on one occasion? 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 Non-Emergent. Is this a new or reoccurring symptom(s)? new What have you tried to help your symptom(s)? Ibuprofen and tylenol Why was appointment not scheduled? Patient refusing appointment regardless of availability. Additional Comments: Patient states that the last 3 days she has been having fever and severe chills. She states that the chills are so bad that her teeth chatter. She states that she is not having any other symptoms. CS offered appointment and patient declined and is asking if there is a medication that can be called in for her. [facility] [id number] and would like a call back to confirm Does message need to be routed? Yes-Action Needed EX GRINDER documented in this encounter Plan of Treatment Not on file documented as of this encounter Visit Diagnoses Not on filedocumented in this encounter Care Teams Oncology Rep Relationship Specialty Start Date End Date Magnus Madden MD [address] [address] PCP - General 05/30/12 documented as of this encounter
--- OUTSIDE RECORDS SUMMARY | 2024-11-07 20:06 | XMS_ITS | Clinical Summary ---
Author Organization [facility] Address [address], [address] [address] Phone Care Team Providers Care Broadcast Producer Name Role Phone Praveen De MD Primary Care Provider [phone] Keyon Pappas MD Unavailable [phone] Camron Carrasquillo DO Unavailable [phone] Allergies Active Allergy Reactions Criticality Noted Date Comments Sulfa Antibiotics Rash 12/08/2016 Medications metroNIDAZOLE (FLAGYL) 500 MG Tablet Take 1 Tab by mouth 3 times daily. 30 Tab 0 6 Active Additional Information Patient not taking.Reported on 12/08/2016 propranolol (INDERAL) 20 MG Tablet 6 Active valsartan-hydro CHLOROthiazide (DIOVAN-HCT) 160-25 MG Tablet Take 1 Tab by mouth daily. Active FIBER COMPLETE PO Take by mouth. Activ e Lactobacillus Rhamnosus, GG, (PROBIOTIC COLIC PO) Take by mouth. 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 Gender Identity Not on file Sexual Orientation Not on file 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 Not on file Not on file Not on file Last Filed Vital Signs Vital Sign Reading Time Taken Comments Blood Pressure 122/80 12/08/2016 1:03 PM SECURITY SYSTEM INSTALLER Pulse 72 12/08/2016 1:03 PM SECURITY SYSTEM INSTALLER Temperature 36.8 ??C (98.2 ??F) 12/08/2016 1:03 PM CS T Respiratory Rate 14 12/08/2016 1:03 PM SECURITY SYSTEM INSTALLER Oxygen Saturation 92% 12/08/2016 1:03 PM SECURITY SYSTEM INSTALLER Inhaled Oxygen Concentration - - Weight 67.4 kg (148 lb 9.6 oz) 12/08/2016 1:03 P M [employer] SYSTEM INSTALLER Height 160 cm (5' 3 ) 12/08/2016 1:03 PM SECURITY SYSTEM INSTALLER Body Mass Index 26.32 12/08/2016 1:03 PM SECURITY SYSTEM INSTALLER Plan of Treatment Health Maintenance Due Date Last Done Comments DEXA Bone Density 1940 Hepatitis C Virus (HCV) Screening 1940 Pneumococcal Immunization (50+ years) (1 of 1 - PCV) 1989 Zoster Immunization (1 of 2) 1989 Respiratory Syncytial Virus (RSV) Immunization (Adult) (1 - 1-dose 75+ series) 2014 Influenza Immunization (#1) 06/16/202404/2020, 06/27/2016, 08/09/2013 SARS-COV-2 Immunization ( season) 2024 08/07/2021, 12/17/2020, 11/19/2020 DTaP/Tdap/Td Immunization Discontinued 08/09/2013 TdaP Immunization Completed 08/09/2013 Hepatitis B Immunization Aged Out No longer eligible based on patient's age to complete this topic Meningococcal Immunization (ACWY) Aged Out No longer eligible based on patient's age to complete this topic Rotavirus Immunization Aged Out No lo nger eligible based on patient's age to complete this topic Insurance MEDICARE [facility] Care Teams Broadcast Producer Relationship Specialty Start Date End Date Praveen De MD [address] [address] PCP - General Internal Medicine 09/12/16 Keyon Pappas MD [address] [place] [id number] Internal Medicine 09/12/16 Camron Carrasquillo DO [address] [place] [id number] Gastroenterology 09/12/16
--- OUTSIDE RECORDS SUMMARY | 2024-11-07 20:06 | XMS_ITS | Referral Summary ---
Author Organization [facility] al Address [address] [place] [address] Care Team Providers Care Internal Revenue Service Agent Name Role Phone Magnus Madden MD Primary Care Provider [phone] Encounters Date Type Department Care Team Description 11/07/2024 Orders Only [facility] [address] [facility] [address] [place] [phone] Magnus Madden MD Chronic obstructive pulmonary disease, unspecified COPD type (HCC) (Primary Dx); Abnormal chest CT 11/05/2024 Telephone [facility] [address] [place] [phone] Magnus Madden MD Symptom Based Call 10/28/2024 Orders Only [facility] [address] [facility] [address] [place] [phone] Magnus Madden MD Iron deficiency anemia, unspecified iron deficiency anemia type (Primary Dx) 10/28/2024 9:51 AM LAND AGENT - 10/28/2024 11:59 PM LAND AGENT Hospital Encounter [facility] [address] [address] Chronic bronchitis, unspecified chronic bronchitis type (HCC); Shortness of breath Discharge Disposition: Discharge to home or self care 10/04/2024 2:00 PM LAND AGENT Lab [facility] [address] [place] [phone] Iron deficiency anemia, unspecified iron deficiency anemia type; Therapeutic drug monitoring; Hyperlipidemia, unspecified hyperlipidemia type 10/04/2024 1:30 PM LAND AGENT Office Visit [address] [phone] Magnus Madden MD Primary hypertension (Primary Dx); Tremor; Hyperlipidemia, unspecified hyperlipidemia type; Chronic bronchitis, unspecified chronic bronchitis type (HCC); Iron deficiency anemia, unspecified iron deficiency anemia type; Shortness of breath; Encounter for screening; Therapeutic drug monitoring 08/19/2024 11:00 AM LAND AGENT Office Visit [facility] [address] [phone] Erica Gavin NP BRAVO (dyspnea on exertion) (Primary Dx) 08/19/2024 Nurse Triage [address] [phone] Magnus Madden MD from Last 3 Months Allergies Active Allergy Reactions Criticality Noted Date Comments Atorvastatin Muscle pain Medium Reaction: myalgia, Sulfa (Sulfonamide Antibiotics) Rash,Nausea only Medium Reaction: Rash, , Reaction: Nausea, Rash, Medications propranoloL (INDERAL) 20 mg tablet TAKE 2 TABLETS BY MOUTH 3 TIMES DAILY 540 tablet 3 01/24/20 24 Active estradioL (ESTRACE) 0.01 % (0.1 mg/gram) vaginal creamIndications: Vaginal atrophy Insert one gram vaginally twice per week such as Monday / . 42.5 g 1 02/29/20 24 Active albuterol HFA (ProAir HFA) 90 mcg/actuation inhaler Inhale 2 puffs every 4 (four) hours as needed for shortness of breath 1 each 03/22/20 24 025 Active losartan-hydrochl orothiazide (HYZAAR) 100-25 mg per tablet Take 1 tablet by mouth daily 100 tablet 3 07/02/20 24 Active primidone (MYSOLINE) 50 mg tablet TAKE 4 TABLETS IN THE MORNING, 1 TABLET IN THE AFTERNOON, AND 4 TABLETS AT BEDTIME 06/24/20 24 Active fluticasone-umecl idin-vilanter (TRELEGY ELLIPTA) 100-62.5-25 mcg inhalerIndication s:Bronchospasm Prevention with COPD Inhale 1 puff daily 30 each 11 10/04/20 24 Active ezetimibe (ZETIA) 10 mg tabletIndications :Hyperlipidemia, unspecified hyperlipidemia type TAKE 1 TABLET BY MOUTH EVERY DAY 90 tablet 2 10/17/19 25 Active ezetimibe (ZETIA) 10 mg tabletIndications :Hyperlipidemia, unspecified hyperlipidemia type TAKE 1 TABLET BY MOUTH EVERY DAY 100 tablet 1 04/13/20 24 025 Discontinued Active Problems Problem Noted Date Diagnosed Date Shortness of breath 10/04/2024 Assessment & Plan (10/04/2024 1:34 PM LAND AGENT): Optimize COPD. Await labs. Order echocardiogram. Recent normal CXR. Order Chest CT. Anemia 03/22/2024 Assessment & Plan (10/04/2024 8:21 AM LAND AGENT): Her last hemoglobin was improved. Order labs. Assessment & Plan (03/22/2024 1:29 PM CDT): Order CBC. Chronic obstructive pulmonary disease 02/06/2024 Assessment & Plan (10/04/2024 1:28 PM LAND AGENT): Symptoms are not controlled. Change Wixela to Trelegy. Advised annual Flu vaccine. Advised RSV vaccine in the fall. Refer to Pulmonary. Assessment & Plan (03/22/2024 6:42 AM CDT): Controlled.Continue bronchodilators. Advised annual Flu vaccine. Advised RSV vaccine in the fall. Urge urinary incontinence 11/27/2023 Assessment & Plan (11/27/2023 11:45 AM LAND AGENT): Counseled patient on etiologies of urinary incontinence and bladder physiology as the bladder ages. We discussed the quality of life struggles with urinary incontinence. Offered further evaluation with urodynamics. Management options for urgency urinary incontinence were discussed including expectant management, conservative management (pelvic floor physical therapy and behavioral modification), medical management, PTNS, and surgical management (Interstim sacral neuromodulation, intravesicular botulinum toxin injection). -I reviewed the behavior modification recommendations for urgency, frequency and urge incontinence inclusive of: volume restriction to 50-60 ounces per day , avoidance of bladder irritants specifically caffeine and artificial sweeteners, and scheduled voids q 2-3 hours as tolerated -A urine culture is being sent today to rule out a UTI as a possible cause of her symptoms. -She is not interested in additional intervention at this time but may consider PFPT. COPD exacerbation 06/26/2023 Assessment & Plan (06/26/2023 11:27 AM CDT): Treat with prednisone. Continue albuterol. Start Advair . Chronic bronchitis 01/27/2022 Assessment & Plan (01/27/2023 6:10 AM CDT): Continue albuterol as needed.Advise tobacco cessation. Assessment & Plan (08/04/2022 10:55 AM CDT): Continue albuterol as needed.Advise tobacco cessation. Assessment & Plan (01/27/2022 11:03 AM CDT): Start Advair. Continue albuterol as needed. Sensorineural hearing loss (SNHL) of both ears 1 11/27/2020 Dizziness and giddiness 09/26/2021 Trigger ring finger of left hand 07/29/2021 Assessment & Plan (07/29/2021 11:38 AM CDT): Rfeer to Ortho. Acute bronchitis 06/10/2021 Assessment & Plan (06/10/2021 10:03 AM CDT): Schedule albuterol three times a day. Start ZPAK. She will go to Urgent Care for CXR and Covid testing if symptoms do not improve. Clinical diagnosis of COVID-19 12/04/2020 Incomplete uterovaginal prolapse 06/08/2018 Assessment & Plan (07/22/2024 9:25 AM CDT): - managed with #2 Ring pessary; patient is happy with support and desires to continue with conservative management - she has had several normal pessary checks, she will return in 3-4 months for pessary check Assessment & Plan (02/29/2024 12:11 PM CDT): - managed with #2 Ring pessary; patient is happy with support and desires to continue with conservative management - she has had several normal pessary checks, she will return in 4 months for pessary check Assessment & Plan (11/27/2023 11:43 AM LAND AGENT): - managed with #2 Ring pessary; patient is happy with support and desires to continue with conservative management - she will return in 3 months for pessary check Assessment & Plan (08/28/2023 12:03 PM LAND AGENT): - managed with #2 Ring pessary; patient is happy with support and desires to continue with conservative management - she will return in 3 months for pessary check Assessment & Plan (06/12/2023 11:42 AM CDT): - managed with #2 Ring pessary; patient is happy with support and desires to continue with conservative management - she will return in 4 months for pessary check Assessment & Plan (02/23/2023 1:20 PM CDT): - managed with #2 Ring pessary; patient is happy with support and desires to continue with conservative management - she will return in 4 months for pessary check Assessment & Plan (05/19/2022 10:46 AM CDT): - managed with #2 Ring pessary; patient is happy with support and desires to continue with conservative management - metrogel sent to treat vaginal infection - she will return in 3 months for pessary check Assessment & Plan (12/15/2021 10:30 AM LAND AGENT): - managed with #2 Ring pessary; patient is happy with support and desires to continue with conservative management - she will return in 3 months for pessary check, she is not interested in self management of pessary Assessment & Plan (08/11/2021 12:23 PM CDT): - well managed with a #2 Ring pessary, patient is happy with support and would like to continue with conservative management - follow up in 3 months Vaginal atrophy 06/08/2018 Assessment & Plan (07/22/2024 9:25 AM CDT): - continue twice weekly low dose vaginal estrogen Assessment & Plan (02/29/2024 12:12 PM CDT): - continue twice weekly low dose vaginal estrogen; Rx renewed Assessment & Plan (11/27/2023 11:44 AM LAND AGENT): - continue twice weekly low dose vaginal estrogen Assessment & Plan (08/28/2023 12:02 PM LAND AGENT): - continue twice weekly low dose vaginal estrogen; encouraged consistent use -Rx renewed Assessment & Plan (06/12/2023 11:42 AM CDT): - continue twice weekly low dose vaginal estrogen Assessment & Plan (02/23/2023 1:20 PM CDT): - continue twice weekly low dose vaginal estrogen Assessment & Plan (05/19/2022 10:45 AM CDT): - continue twice weekly low dose vaginal estrogen Assessment & Plan (12/15/2021 10:36 AM LAND AGENT): - continue twice weekly low dose vaginal estrogen Assessment & Plan (08/11/2021 12:23 PM CDT): - continue twice weekly low dose vaginal estrogen History of tobacco use 05/02/2018 Assessment & Plan (02/15/2021 6:58 AM CDT): Confirmed tobacco abstinence. Assessment & Plan (05/02/2018 6:58 AM CDT): Continue tobacco cessation. Hypertension 07/10/2015 Assessment & Plan (10/04/2024 8:20 AM LAND AGENT): Hypertension is controlled. Continue current regimen. Assessment & Plan (03/22/2024 6:42 AM CDT): Hypertension is controlled. Continue current regimen. Assessment & Plan (06/26/2023 9:47 AM CDT): Hypertension is controlled. Continue current regimen. Assessment & Plan (01/27/2023 6:10 AM CDT): Hypertension is controlled. Reviewed creatinine was 0.8.Continue current regimen. Assessment & Plan (08/04/2022 6:55 AM CDT): Hypertension is controlled. Reviewed creatinine was 0.8 on 01/27/22.Continue current regimen. Assessment & Plan (01/26/2022 8:40 AM CDT): Hypertension is controlled. Reviewed creatinine was 0.8 on 06/08/21.Continue current regimen. Assessment & Plan (07/29/2021 6:41 AM CDT): Hypertension is controlled. Reviewed creatinine was 0.79 on 02/15/21.Continue current regimen. Assessment & Plan (02/15/2021 6:57 AM CDT): Hypertension is controlled. Continue current regimen. Assessment & Plan (12/02/2019 12:22 PM LAND AGENT): Hypertension is controlled. Continue current regimen. Assessment & Plan (05/27/2019 8:25 AM CDT): Hypertension is controlled. Continue current regimen. Assessment & Plan (05/02/2018 11:02 AM CDT): Hypertension is controlled. Change to losartan/HCTZ due to safety concerns. Assessment & Plan (11/01/2017 12:51 PM LAND AGENT): Hypertension is controlled. Continue current regimen. Assessment & Plan (03/31/2017 1:01 PM CDT): Hypertension is controlled. Continue current regimen. Removed low sodium diet. Hypercholesterolemia 07/10/2015 Assessment & Plan (03/22/2024 1:30 PM CDT): She has a statin allergy. Reviewed dietary goals. Continue Zetia for hyperlipidemia. Assessment & Plan (01/27/2023 11:14 AM CDT): She has a statin allergy. Reviewed dietary goals. Resume Zetia for hyperlipidemia. Assessment & Plan (12/02/2019 12:22 PM LAND AGENT): Continue zetia. Reviewed LDL 142 on 05/27/19. Assessment & Plan (05/27/2019 8:26 AM CDT): Continue zetia and proper diet. Gastroesophageal reflux disease 03/01/2014 Overview (01/19/2017): ESOPHAGEAL REFLUX Hyperlipidemia 03/01/2014 Overview (01/19/2017): HYPERLIPIDEMIA NEC/NOS Assessment & Plan (10/04/2024 8:20 AM LAND AGENT): She has a statin allergy. Reviewed dietary goals. Continue Zetia for hyperlipidemia. Assessment & Plan (01/27/2023 11:17 AM CDT): She has a statin allergy. Reviewed dietary goals. Resume Zetia for hyperlipidemia. Assessment & Plan (01/27/2022 11:02 AM CDT): She has a statin allergy. Reviewed dietary goals. Resume Zetia for hyperlipidemia. Assessment & Plan (07/29/2021 6:39 AM CDT): She has a statin allergy. Reviewed dietary goals. Assessment & Plan (02/15/2021 6:57 AM CDT): Statin allergy. Continue zetia. Assessment & Plan (05/02/2018 6:58 AM CDT): She has a stain allergy. Last LDL was 154. Reviewed proper diet. Assessment & Plan (11/01/2017 12:52 PM LAND AGENT): She is intolerant of statins. Reviewed proper diet. Assessment & Plan (03/31/2017 1:02 PM CDT): She is intolerant of statins. Reviewed dietary goals. 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 Continue and inderal. Assessment & Plan (03/22/2024 1:27 PM CDT): She has been evaluated by Neurology. Continue and inderal. Attempt to get her in for Botox sooner than one year. Assessment & Plan (01/27/2023 6:10 AM CDT): She has been evaluated by Neurology. Continue mysoline and inderal. Assessment & Plan (08/04/2022 6:55 AM CDT): She has been evaluated by Neurology. Continue mysoline and inderal. Assessment & Plan (01/26/2022 8:44 AM CDT): She has been evaluated by Neurology. Continue mysoline and inderal. Assessment & Plan (07/29/2021 11:37 AM CDT): She has been evaluated by Neurology. Continue mysoline and inderal. Refer to Neurology for second opinion. Assessment & Plan (02/15/2021 6:58 AM CDT): She has been evaluated by Neurology. Continue mysoline and inderal. Assessment & Plan (12/02/2019 12:23 PM LAND AGENT): Continue primidone. Assessment & Plan (05/27/2019 8:26 AM CDT): Continue propranolol. Assessment & Plan (11/01/2017 1:18 PM LAND AGENT): Continue inderal. Refer to neurology for worsening tremor and change in gait. Assessment & Plan (03/31/2017 1:02 PM CDT): Continue Inderal. Advised tobacco cessation. Resolved Problems Problem Noted Date Diagnosed Date Resolved Date Cough in adult 03/31/2017 11/01/2017 Assessment & Plan (03/31/2017 3:50 PM CDT): Start prednisone and doxycycline. Immunizations Name Administration Dates Next Due Influenza, Quad, Adjuvantate d, Intramuscular 08/26/2023 Influenza, Quadrivalent, Hig h Dose, Preservative Free, Intrr 08/04/2022,07/29/2021,07/22/2020 Influenza, Quadrivalent, Spl it, Preservative Free, Intramuscular 06/27/2016 Influenza, Trivalent, High D ose, Split, Preservative Free, Intramuscular 07/26/2019,11/01/2017,07/20/2015,08/09 Influenza, Trivalent, IM (MDV) 10/27/2012 Influenza, Unspecified 07/22/2020 Moderna SARS-CoV-2 Monovalen t Vaccination (12+ YRS) 12/17/2020,12/17/2020,11/19/2020,11/19 Moderna Sars-cov-2 Monovalen t Booster Vaccination .25 Ml dose (12+ YRS) 11/19/2020 Pfizer Sars-Cov-2 Bivalent V accination (12+ YRS) 08/06/2024 Pneumococcal Conjugate PCV 13 10/16/2016, 015 Pneumococcal Polysaccharide PPV23 10/17/2017, RSV Vaccine, Pref, Recombina nt, Subunit, Adjuvanted, PF, IM (Arexvy) 08/26/2023 Tdap 08/24/2013,08/09/2013 Social History Tobacco Use Types Packs/Day Years Used Date Smoking Tobacco: Former Cigarettes Q uit: 2021 Smokeless Tobacco: Never Tobacco Cessation:Counseling Given: Not Answered Comments:Smoking History Packs/day: 0.5 Packs Alcohol Use Standard Drinks/Week Comments [...] on file Legal Sex Female 11:32 PM LAND AGENT Gender Identity Not on file Sexual Orientation Not on file Last Filed Vital Signs Vital Sign Reading Time Taken Comments Blood Pressure 124/72 10/04/2024 12:58 PM LAND AGENT Pulse 79 10/04/2024 12:58 PM LAND AGENT Temperature 36.7 ??C (98 ??F) 10/04/2024 12:58 PM LAND AGENT Respiratory Rate 18 10/04/2024 12:58 PM LAND AGENT Oxygen Saturation 98% 10/04/2024 12:58 PM LAND AGENT Inhaled Oxygen Concentration - - Weight 63 kg (139 lb) 10/04/2024 12:58 PM LAND AGENT Height 160 cm (5' 3 ) 10/04/2024 12:58 PM LAND AGENT Body Mass Index 24.62 10/04/2024 12:58 PM LAND AGENT Plan of Treatment Not on file Procedures Procedure Name Priority Date/Time Associated Diagnosis Comments CT CHEST WO CONTRAST Schedule Routine, Read Routine (OP Routine) 10/28/2024 10:20 AM LAND AGENT Chronic bronchitis, unspecified chronic bronchitis type (HCC) Shortness of breath EGFR Routine 10/04/2024 1:55 PM LAND AGENT Therapeutic drug monitoring LIPID PANEL Routine 10/04/2024 1:55 PM LAND AGENT Hyperlipidemia, unspecified hyperlipidemia type COMPREHENSIVE METABOLIC PANEL Routine 10/04/2024 1:55 PM LAND AGENT Therapeutic drug monitoring CBC WITHOUT DIFFERENTIAL Routine 10/04/2024 1:55 PM LAND AGENT Therapeutic drug monitoring IRON PROFILE W/ IBC Routine 10/04/2024 1 :55 PM LAND AGENT Iron deficiency anemia, unspecified iron deficiency anemia type from Last 3 Months Results * CT Chest WO Contrast (10/28/2024 10:20 AM LAND AGENT) Anatomical Region Laterality Modality Body N/A Computed Tomogra phy 10/30/2024 9:10 AM LAND AGENT Narrative 10/30/2024 9:24 AM LAND AGENT EXAM DESCRIPTION: ?? CT CHEST WO CONTRAST REASON FOR STUDY: ?? Cough, Dyspnea, chronic, unclear etiology ?? Sob for 2 months. ? TECHNIQUE: CT scan of the chest performed without intravenous contrast using helical scanning technique. Reconstructed coronal and sagittal MPR images reviewed. ??All images stored on PACS. ??Automated exposure control was used as a dose optimization technique for this examination. COMPARISON: ?? 09/16/2019 FINDINGS: The sensitivity for detection of solid visceral lesions is diminished without the use of intravenous contrast. LUNGS: Emphysema is seen. ?? Several small areas of tree-in-bud opacity, almost all in the right lung, are perhaps slightly worse than on the previous study. ?? Bronchial wall thickening is again identified. PLEURA: ?? No effusion. No pneumothorax. MEDIASTINUM/MIKAYLA: ?? No identified masses or abnormal nodes. HEART: ?? Heart size is normal with no pericardial effusion. CORONARY ARTERY CALCIFICATION: ??Present VASCULATURE: ?? No thoracic aortic aneurysm. AXILLA: ?? No adenopathy. CHEST WALL: ?? No masses. ??No subcutaneous air. HARDWARE/LINES/TUBES: ?? None. UPPER ABDOMEN: ?? No significant abnormality. MUSCULOSKELETAL: ?? No significant abnormality. OTHER: ?? No other significant abnormality. IMPRESSION: Coronary artery calcification. Emphysema. Several small areas of tree-in-bud opacity, almost all in the right lung, perhaps slightly worse than on the previous study. Considerations include atypical pneumonia and perhaps bronchiolitis. THIS IS AN ELECTRONICALLY VERIFIED FINAL REPORT 10/30/2024 9:24 AM - Electronically signed by ??Wood MCDUFFIE: RETA D: ??10/30/2024 9:24 AM T: ??10/30/2024 9:24 AM Report ID: [id number] Reading Location: ??[id number] Procedure Note Berhane Chaudhari MD - 10/30/2024 EXAM DESCRIPTION: CT CHEST WO CONTRAST REASON FOR STUDY: Cough, Dyspnea, chronic, unclear etiology Sob for 2 months. TECHNIQUE: CT scan of the chest performed without intravenous contrastusing helical scanning technique. Reconstructed coronal and sagittal MPR images reviewed. All images stored on PACS. Automated exposure control was usedas a dose optimization technique for this examination. COMPARISON: 09/16/2019 FINDINGS: The sensitivity for detection of solid visceral lesions is diminished without the use of intravenous contrast. LUNGS: Emphysema is seen. Several small areas of tree-in-bud opacity,almost all in the right lung, are perhaps slightly worse than on the previousstudy. Bronchial wall thickening is again identified. PLEURA: No effusion. No pneumothorax. MEDIASTINUM/MIKAYLA: No identified masses or abnormal nodes. HEART: Heart size is normal with no pericardial effusion. CORONARY ARTERY CALCIFICATION: Present VASCULATURE: No thoracic aortic aneurysm. AXILLA: No adenopathy. CHEST WALL: No masses. No subcutaneous air. HARDWARE/LINES/TUBES: None. UPPER ABDOMEN: No significant abnormality. MUSCULOSKELETAL: No significant abnormality. OTHER: No other significant abnormality. IMPRESSION: Coronary artery calcification. Emphysema. Several small areas of tree-in-bud opacity, almost all in the right lung, perhaps slightly worse than on the previous study. Considerations include atypical pneumonia and perhaps bronchiolitis. THIS IS AN ELECTRONICALLY VERIFIED FINAL REPORT 10/30/2024 9:24 AM - Electronically signed by Wood MCDUFFIE: RETA Report ID: [id number] Reading Location: [id number] us Magnus Madden MD IMG CT PROCEDURES Final Resul t * eGFR (10/04/2024 1:55 PM LAND AGENT) eGFR 71 >=60 mL/min/1. 73 m2 Comment: Interpretive Data Reference Interval Normal ?>/= 90 mL/min/1.73m2 Mildly decreased* ? 60 - 89 mL/min/1.73m2 Mildly to moderately decreased ?45 - 59 mL/min/1.73m2 Moderately to severely decreased ??30 - 44 mL/min/1.73m2 Severely decreased ?15 - 29 mL/min/1.73m2 Kidney Failure ?< 15 ??mL/min/1.73m2 *Relative to young adult level Estimated glomerular filtration rate is determined by the 2020 CKD-EPI equation recommended by the National Kidney Foundation (A Unifying Approach to GFR Estimation: Recommendations of the NKF-ASK Task Force on Reassessing the Inclusion of Race in Diagnosing Kidney Disease, JASN 2020). The CKD-EPI equation should not be used for patients with unstable renal function and has not been validated in children and those over 70. Current interpretive data was last reviewed 2021. Blood 10/04/2024 1:55 PM LAND AGENT 10/04/2024 2:10 PM LAND AGENT us Magnus Madden MD LAB BLOOD ORDERABLES Final Re sult [facility] Department [place] [address] * (ABNORMAL) Iron profile w/ IBC (10/04/2024 1:55 PM LAND AGENT) Iron 21(L) 35 - 145 mcg/dL TIBC 242(L) 250 - 400 mcg/dL [facility] Transferrin saturation 9(L) 20 - 50 % [facility] Blood 10/04/2024 1:55 PM LAND AGENT 10/04/2024 2:05 PM LAND AGENT Magnus Madden MD LAB BLOOD ORDERABLES Final Re sult Performing Organization Address [facility]/ZIP Co de Phone Number [facility] [place] [address] * (ABNORMAL) CBC without differential (10/04/2024 1:55 PM LAND AGENT) [facility] WBC 9.9 3.8 - 9.9 K/cumm Hgb 8.5(L) 11.9 - 15.5 g/dL [facility] Hct 28.5(L) 35.6 - 45.5 % [facility] Plt 340 150 - 400 K/cumm [facility] MPV 9.6 9.1 - 12.3 fL [facility] RBC 3.60(L) 3.90 - 5.20 M/cumm [facility] MCV 79.2(L) 81.3 - 96.4 fL [facility] MCH 23.6(L) 27.1 - 33.3 pg [facility] MCHC 29.8(L) 32.3 - 35.7 g/dL [facility] RDW CV 16.3(H) 11.1 - 14.9 % [facility] RDW SD 46.6 35.7 - 48.1 fL [facility] NRBC abs 0.00 0.00 - 0.01 K/cumm [facility] Blood 10/04/2024 1:55 PM LAND AGENT 10/04/2024 2:05 PM LAND AGENT Magnus Madden MD LAB BLOOD ORDERABLES Final Re sult Performing Organization Address City/[facility]/ZIP Co de Phone Number [facility] [place] [address] * (ABNORMAL) Lipid panel (10/04/2024 1:55 PM LAND AGENT) Cholesterol 283(H) 30 - 199 mg/dL Comment: Interpretive Data Ages < or = 19 years ??Acceptable: ? <170 mg/dL ??Borderline high: ??170-199 mg/dL ??High: ? >or= 200 mg/dL Ages > or = 20 years ??Desirable: ?<200 mg/dL ??Borderline high: ??200-239 mg/dL ??High: ? >or= 240 mg/dL Literature References: 1. Expert Panel on Integrated Guidelines for Cardiovascular Health and Risk Reduction in Children and Adolescents. Pediatrics 2011;128:S213 2. NCEP Expert Panel. Circulation 2004;110:227 Current Interpretive Data was last revised on 2018. Triglycerides 212(H) <=149 mg/dL [facility] Comment: Interpretive Data Ages < or = 9 years ??Acceptable: ? <75 mg/dL ??Borderline high: ??75-99 mg/dL ??High: ? >or= 100 mg/dL Ages 10 to 20 years ??Acceptable: ? <90 mg/dL ??Borderline high: ??90-129 mg/dL ??High: ? >or= 130 mg/dL Ages > or = 20 years ??Desirable: ?<150 mg/dL ??Borderline high: ??150-199 mg/dL ??High: ? 200-499 mg/dL ?Very high: ?? >or= 499 mg/dL Literature References: 1. Expert Panel on Integrated Guidelines for Cardiovascular Health and Risk Reduction in Children and Adolescents. Pediatrics 2011;128:S213 2. NCEP Expert Panel. Circulation 2004;110:227 Current Interpretive Data was last revised on 2018. HDL 67 >=40 mg/dL [facility] Comment: Interpretive Data Ages < or = 19 years ??Acceptable: ? >45 mg/dL ??Borderline low: ?? 40-45 mg/dL ??Low: ? <40 mg/dL Ages > or = 20 years ??Desirable: ?>or= 60 mg/dL ??Low: ? <40 mg/dL Literature References: 1. Expert Panel on Integrated Guidelines for Cardiovascular Health and Risk Reduction in Children and Adolescents. Pediatrics 2011;128:S213 2. NCEP Expert Panel. Circulation 2004;110:227 Current Interpretive Data was last revised on 2018. LDL, calculated 177(H) <=129 mg/dL [facility] Comment: Interpretive Data Ages < or = 19 years ??Acceptable: ? <110 mg/dL ??Borderline high: ??110-129 mg/dL ??High: ?>or= 130 mg/dL Ages > or = 20 years ??Optimal: ? <100 mg/dL ??Near optimal: ?100-129 mg/dL ??Borderline high: ?? 130-159 mg/dL ??High: ?>160 mg/dL Calculated using the Rogelio LDL-C estimating equation. This equation was implemented on 2024. Prior to this date LDL-C was estimated using the Friedewald equation. Literature References: 1. Expert Panel on Integrated Guidelines for Cardiovascular Health and Risk Reduction in Children and Adolescents. Pediatrics 2011;128:S213 2. NCEP Expert Panel. Circulation 2004;110:227 3. Rogelio Gonzalez et al. CAMELIA Cardiol. 2020 February 13;5(5):540-548. doi: 10.1001/jamacardio.2020.0013 Current Interpretive Data was last revised on 2024. Non-HDL Cholesterol 216 mg/dL [facility] Comment: Interpretive Data Ages < or = 19 years ??Acceptable: ?<120 mg/dL ??Borderline high: ??120-144 mg/dL ??High: ?>145 mg/dL Ages > or = 20 years ??When triglycerides are >200 mg/dL, Non-HDL cholesterol is a secondary target of ? therapy with treatment goals that are 30 mg/dL greater than the LDL cholesterol target. ? Literature References: 1. Expert Panel on Integrated Guidelines for Cardiovascular Health and Risk Reduction in Children and Adolescents. Pediatrics 2011;128:S213 2. NCEP Expert Panel. Circulation 2004;110:227 Current Interpretive Data was last revised on 2018. Chol/HDL ratio 4 [facility] Blood 10/04/2024 1:55 PM LAND AGENT 10/04/2024 2:05 PM LAND AGENT us Magnus Madden MD LAB BLOOD ORDERABLES Final Re sult [facility] Department [place] [address] * (ABNORMAL) Comprehensive metabolic panel (10/04/2024 1:55 PM LAND AGENT) Sodium 142 135 - 145 mmol/L Potassium, pl 3.9 3.3 - 4.9 mmol/L [facility] Chloride 102 97 - 110 mmol/L [facility] CO2 30 22 - 32 mmol/L [facility] Anion gap 10 2 - 15 mmol/L [facility] BUN 14 6 - 25 mg/dL [facility] Creatinine 0.81 0.60 - 1.10 mg/dL [facility] Glucose 120 70 - 199 mg/dL [facility] Comment: Interpretive Data Fasting glucose >/= 126 mg/dl is diagnostic for diabetes. ?? Fasting is defined as no caloric intake for at least 8 hours. Fasting glucose between 100 mg/dl to 125 mg/dl is diagnostic of prediabetes. In a patient with classic symptoms of hyperglycemia or hyperglycemic crisis, a random glucose >/= 200 mg/dl is diagnostic for diabetes. In the absence of unequivocal hyperglycemia, results should be confirmed by repeat testing. The classification and Diagnosis of Diabetes Diabetes Care 2021; 46: S19-S40. Current interpretive data was last revised 2022. Calcium 10.1 8.5 - 10.3 mg/dL [facility] Bilirubin, total 0.2 0.1 - 1.2 mg/dL [facility] Protein, pl 7.5 6.5 - 8.5 g/dL [facility] Albumin 4.3 3.5 - 5.0 g/dL [facility] Alk phos 148(H) 40 - 130 Units/L [facility] ALT 12 7 - 45 Units/L [facility] AST 19 10 - 45 Units/L [facility] Blood 10/04/2024 1:55 PM LAND AGENT 10/04/2024 2:05 PM LAND AGENT Magnus Madden MD LAB BLOOD ORDERABLES Final Re sult Performing Organization Address City/State/[facility] Co de Phone Number [facility] Department [place] [address] from Last 3 Months Insurance MEDICARE [place] O[place] [employer] MEDICARE Care Teams Internal Revenue Service Agent Relationship Specialty Start Date End Date Magnus Madden MD [address] [address] PCP - General 05/30/12
--- OUTSIDE RECORDS SUMMARY | 2024-11-07 20:06 | XMS_ITS | Patient Health Summary ---
Author Organization [facility] Address [address] [place] [address] Care Team Providers Care Director Of Student Aid Name Role Phone Unavailable Primary Care Provider Unavailabl e Note from [facility],non-owned Affiliates and Associated Physician Practices is amultiple site organization consisting of ambulatory clinics and hospital sitesin [place], [place], [place] and [place]. This disclosure is being madepursuant to the Care Everywhere program and may not contain all information available regarding this patient. Last updated 18.[facility] Allergies No known active allergies Immunizations * INFLUENZA VACCINE, HIGH-DOSE, QUADR. (FLUZONE HIGH-DOSE QUADRIVALENT; 65Y+), 0.7 ML (HD-IIV4)(Given 07/22/2020) Social History Tobacco Use Types Packs/Day Years Used Date Smoking Tobacco: Never Assessed Sex and Gender Information Value Date Recorded Sex Assigned at Not on file Gender Identity Not on file Sexual Orientation Not on file
--- OUTSIDE RECORDS SUMMARY | 2024-11-07 20:06 | XMS_ITS | Clinical Summary ---
Author Organization [facility] Address [address] [place] [address] Care Team Providers Care Appliance Sales Associate Name Role Phone Unavailable Primary Care Provider Unavailabl e Source Comments [facility],non-owned Affiliates and Associated Physician Practices is amultiple site organization consisting of ambulatory clinics and hospital sitesin [place], [place], [place] and [place]. This disclosure is being madepursuant to the Care Everywhere program and may not contain all information available regarding this patient. Last updated 18.[facility] Allergies No known active allergies Immunizations Name Administration Dates Next Due INFLUENZA VACCINE, HIGH-DOSE , QUADR. (FLUZONE HIGH-DOSE QUADRIVALENT; 65Y+), 0.7 ML (HD-IIV4) 07/22/2020 Social History Tobacco Use Types Packs/Day Years Used Date Smoking Tobacco: Never Assessed Sex and Gender Information Value Date Recorded Sex Assigned at Not on file Gender Identity Not on file Sexual Orientation Not on file Plan of Treatment Health Maintenance Due Date Last Done Comments BONE DENSITY TESTING 1940 MEDICARE AWV ? 12 MONTHS 1940 DTAP/TDAP/TD VACCINES (1 - Tdap) 1958 PNEUMOCOCCAL VACCINE 50+ (1 of 1 - PCV) 1989 ZOSTER VACCINE (1 of 2) 1989 Respiratory Syncytial Virus (RSV) Vaccine Pt: or over 60 yrs (1 - 1-dose 75+ series) 2014 COVID-19 VACCINE (1 - 2023- season) 2024 INFLUENZA VACCINE (#1) 2024 0, 07/26/2019, 11/01/2017, Additional history exists DEPRESSION SCREENING 10/16/2024 HEPATITIS B VACCINE Aged Out No longe r eligible based on patient's age to complete this topic HIB VACCINE Aged Out No longer eligi ble based on patient's age to complete this topic HPV VACCINE Aged Out No longer eligi ble based on patient's age to complete this topic MENINGOCOCCAL (Group B) VACCINE Aged Out No longer eligible based on patient's age to complete this topic MENINGOCOCCAL VACCINE Aged Out No ross sukumar eligible based on patient's age to complete this topic
--- OUTSIDE RECORDS SUMMARY | 2024-11-07 20:06 | XMS_ITS | Referral Summary ---
Author Organization [facility] Address [address] [place] [address] Care Team Providers Care Credit Risk Analytics Manager Name Role Phone Unavailable Primary Care Provider Unavailabl e Source Comments [facility],non-owned Affiliates and Associated Physician Practices is amultiple site organization consisting of ambulatory clinics and hospital sitesin [place], [place], [place] and [place]. This disclosure is being madepursuant to the Care Everywhere program and may not contain all information available regarding this patient. Last updated 18.[facility] Allergies No known active allergies Immunizations Name Administration Dates Next Due INFLUENZA VACCINE, HIGH-DOSE , QUADR. (FLUZONE HIGH-DOSE QUADRIVALENT; 65Y+), 0.7 ML (HD-IIV4) 07/22/2020 Social History Tobacco Use Types Packs/Day Years Used Date Smoking Tobacco: Never Assessed Sex and Gender Information Value Date Recorded Sex Assigned at Not on file Gender Identity Not on file Sexual Orientation Not on file Plan of Treatment Not on file
--- OUTSIDE RECORDS SUMMARY | 2024-11-07 20:06 | XMS_ITS | Clinical Summary ---
Author Organization [facility] Address [address] [place] [address] Care Team Providers Care Life Enrichment Director Name Role Phone Magnus Madden MD Primary Care Provider [phone] Allergies Active Allergy Reactions Criticality Noted Date [...] 10/04/2024 Assessment & Plan (10/04/2024 1:34 PM BIKE MECHANIC): Optimize COPD. Await labs. Order echocardiogram. Recent normal CXR. Order Chest CT. Anemia 03/22/2024 Assessment & Plan (10/04/2024 8:21 AM BIKE MECHANIC): Her last hemoglobin was improved. Order labs. Assessment & Plan (03/22/2024 1:29 PM CDT): Order CBC. Chronic obstructive pulmonary disease 02/06/2024 Assessment & Plan (10/04/2024 1:28 PM BIKE MECHANIC): Symptoms are not controlled. Change Wixela to Trelegy. Advised annual Flu vaccine. Advised RSV vaccine in the fall. Refer to Pulmonary. Assessment & Plan (03/22/2024 6:42 AM CDT): Controlled.Continue bronchodilators. Advised annual Flu vaccine. Advised RSV vaccine in the fall. Urge urinary incontinence 11/27/2023 Assessment & Plan (11/27/2023 11:45 AM BIKE MECHANIC): Counseled patient on etiologies of urinary incontinence [...] check Assessment & Plan (11/27/2023 11:43 AM BIKE MECHANIC): - managed with #2 Ring pessary; patient is happy with support and desires to continue with conservative management - she will return in 3 months for pessary check Assessment & Plan (08/28/2023 12:03 PM BIKE MECHANIC): - managed with #2 Ring pessary; patient [...] check Assessment & Plan (12/15/2021 10:30 AM BIKE MECHANIC): - managed with #2 Ring pessary; patient [...] renewed Assessment & Plan (11/27/2023 11:44 AM BIKE MECHANIC): - continue twice weekly low dose vaginal estrogen Assessment & Plan (08/28/2023 12:02 PM BIKE MECHANIC): - continue twice weekly low dose vaginal [...] estrogen Assessment & Plan (12/15/2021 10:36 AM BIKE MECHANIC): - continue twice weekly low dose vaginal estrogen Assessment & Plan (08/11/2021 12:23 PM CDT): - continue twice weekly low dose vaginal estrogen History of tobacco use 05/02/2018 Assessment & Plan (02/15/2021 6:58 AM CDT): Confirmed tobacco abstinence. Assessment & Plan (05/02/2018 6:58 AM CDT): Continue tobacco cessation. Hypertension 07/10/2015 Assessment & Plan (10/04/2024 8:20 AM BIKE MECHANIC): Hypertension is controlled. Continue current regimen. Assessment [...] regimen. Assessment & Plan (12/02/2019 12:22 PM BIKE MECHANIC): Hypertension is controlled. Continue current regimen. Assessment & Plan (05/27/2019 8:25 AM CDT): Hypertension is controlled. Continue current regimen. Assessment & Plan (05/02/2018 11:02 AM CDT): Hypertension is controlled. Change to losartan/HCTZ due to safety concerns. Assessment & Plan (11/01/2017 12:51 PM BIKE MECHANIC): Hypertension is controlled. Continue current regimen. Assessment [...] hyperlipidemia. Assessment & Plan (12/02/2019 12:22 PM BIKE MECHANIC): Continue zetia. Reviewed LDL 142 on 05/27/19. Assessment & Plan (05/27/2019 8:26 AM CDT): Continue zetia and proper diet. Gastroesophageal reflux disease 03/01/2014 Overview (01/19/2017): ESOPHAGEAL REFLUX Hyperlipidemia 03/01/2014 Overview (01/19/2017): HYPERLIPIDEMIA NEC/NOS Assessment & Plan (10/04/2024 8:20 AM BIKE MECHANIC): She has a statin allergy. Reviewed dietary [...] diet. Assessment & Plan (11/01/2017 12:52 PM BIKE MECHANIC): She is intolerant of statins. Reviewed proper diet. Assessment & Plan (03/31/2017 1:02 PM CDT): She is intolerant of statins. Reviewed dietary goals. 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 Continue [...] inderal. Assessment & Plan (12/02/2019 12:23 PM BIKE MECHANIC): Continue primidone. Assessment & Plan (05/27/2019 8:26 AM CDT): Continue propranolol. Assessment & Plan (11/01/2017 1:18 PM BIKE MECHANIC): Continue inderal. Refer to neurology for worsening tremor and change in gait. Assessment & Plan (03/31/2017 1:02 PM CDT): Continue Inderal. Advised tobacco cessation. Resolved Problems Problem Noted Date Diagnosed Date Resolved Date Cough in adult 03/31/2017 11/01/2017 Assessment & Plan (03/31/2017 3:50 PM CDT): Start prednisone and doxycycline. Encounters Date Type Department Care Team Description 11/07/2024 Orders Only [facility] [address], [place] [address] Magnus Madden MD Chronic obstructive pulmonary disease, unspecified COPD type (HCC) (Primary Dx); Abnormal chest CT 11/05/2024 Telephone [facility] [address] [place] [phone] Magnus Madden MD Symptom Based Call 10/28/2024 9:51 AM BIKE MECHANIC - 10/28/2024 11:59 PM BIKE MECHANIC Hospital Encounter [facility] [address] [place] [address] Chronic bronchitis, unspecified chronic bronchitis type (HCC); Shortness of breath Discharge Disposition: Discharge to home or self care 10/28/2024 Orders Only [facility] [address], [place] [address] Magnus Madden MD Iron deficiency anemia, unspecified iron deficiency anemia type (Primary Dx) 10/04/2024 2:00 PM BIKE MECHANIC Lab [facility] [address] [place] [phone] Iron deficiency anemia, unspecified iron deficiency anemia type; Therapeutic drug monitoring; Hyperlipidemia, unspecified hyperlipidemia type 10/04/2024 1:30 PM BIKE MECHANIC Office Visit [address] [phone] Magnus Madden MD Primary hypertension (Primary Dx); Tremor; Hyperlipidemia, unspecified hyperlipidemia type; Chronic bronchitis, unspecified chronic bronchitis type (HCC); Iron deficiency anemia, unspecified iron deficiency anemia type; Shortness of breath; Encounter for screening; Therapeutic drug monitoring 08/19/2024 11:00 AM BIKE MECHANIC Office Visit [facility] [address] [phone] Erica Gavin NP BRAVO (dyspnea on exertion) (Primary Dx) 08/19/2024 Nurse Triage [address] [phone] Magnus Madden MD from Last 3 Months Immunizations Name Administration Dates Next Due Influenza, [...] Adjuvanted, PF, IM (Arexvy) 08/26/2023 Tdap 08/24/2013,08/09/2013 Surgical History Surgery Date Site/Laterality Comments APPENDECTOMY Appendectomy Medical History Medical History Date Comments Hx Other Medical hematuria with neg. eval Hx Other Medical hiatus hernia Personal history of other sp ecified conditions History of dysuria - (Added by ABI Conv) COPD (chronic obstructive pu lmonary disease) (HCC) Hypertension HL (hearing loss) Dizziness Family History Medical History Relation Name Comments Stroke Brother 1 Family history of cerebrovascular accident (CVA) - (Added by TW Conv) Lung cancer Brother 2 Family history of lung cancer - (Added by Conv) Cancer Father No Known Problems Mother Gout Other 2 Hypertension Other 2 Hypertension; Relation Name Status Comments Brother 1 Brother 2 Father Mother Other 1 Alive Other 2 Social History Tobacco Use Types Packs/Day Years [...] on file Legal Sex Female 11:32 PM BIKE MECHANIC Gender Identity Not on file Sexual Orientation Not on file Obstetrics History Para Term AB IAB SAB Ectopic Multiple Livin g Live Births 2 2 2 2 2 Date Outcome GA Total Labor Labor/2nd/3rd Weight Sex Type Anes PTL Rosana A1 A5 Name Clin Term Vag-S pont Living Term Vag-S pont Living Last Filed Vital Signs Vital Sign Reading Time Taken Comments Blood Pressure 124/72 10/04/2024 12:58 PM BIKE MECHANIC Pulse 79 10/04/2024 12:58 PM BIKE MECHANIC Temperature 36.7 ??C (98 ??F) 10/04/2024 12:58 PM BIKE MECHANIC Respiratory Rate 18 10/04/2024 12:58 PM BIKE MECHANIC Oxygen Saturation 98% 10/04/2024 12:58 PM BIKE MECHANIC Inhaled Oxygen Concentration - - Weight 63 kg (139 lb) 10/04/2024 12:58 PM BIKE MECHANIC Height 160 cm (5' 3 ) 10/04/2024 12:58 PM BIKE MECHANIC Body Mass Index 24.62 10/04/2024 12:58 PM BIKE MECHANIC Plan of Treatment Health Maintenance Due Date Last Done Comments Osteoporosis Screening-Bone Density Scan 1940 Hepatitis B Screening 1957 Lung Cancer Screening 1989 Zoster Vaccine (1 of 2) 1989 Well Visit 65+ 07/26/2020 07/26/2019 DTaP/Tdap/Td Vaccine (3 - Td or Tdap) 08/24/2023 08/24/2013, 08/09/2013 Covid-19 Vaccine (2023-2 5 season) 2024 08/06/2024, 08/06/2022, 08/07/2021, Additional history exists Depression Screening 10/04/2025 10/04/2024, 03/22/2024, 06/26/2023, Additional history exists Fall Risk Assessment 10/04/2025 10/04/2024, 03/22/2024, 02/14/2022, Additional history exists Pneumococcal vaccine 65+ Completed 018, 10/16/2016, 05/12/2015, Additional history exists Influenza Vaccine Completed 07/03/2024, , 08/04/2022, Additional history exists Procedures Procedure Name Priority Date/Time Associated Diagnosis Comments CT CHEST WO CONTRAST Schedule Routine, Read Routine (OP Routine) 10/28/2024 10:20 AM BIKE MECHANIC Chronic bronchitis, unspecified chronic bronchitis type (HCC) Shortness of breath EGFR Routine 10/04/2024 1:55 PM BIKE MECHANIC Therapeutic drug monitoring LIPID PANEL Routine 10/04/2024 1:55 PM BIKE MECHANIC Hyperlipidemia, unspecified hyperlipidemia type COMPREHENSIVE METABOLIC PANEL Routine 10/04/2024 1:55 PM BIKE MECHANIC Therapeutic drug monitoring CBC WITHOUT DIFFERENTIAL Routine 10/04/2024 1:55 PM BIKE MECHANIC Therapeutic drug monitoring IRON PROFILE W/ IBC Routine 10/04/2024 1 :55 PM BIKE MECHANIC Iron deficiency anemia, unspecified iron deficiency anemia type from Last 3 Months Results * CT Chest WO Contrast (10/28/2024 10:20 AM BIKE MECHANIC) Anatomical Region Laterality Modality Body N/A Computed Tomogra phy 10/30/2024 9:10 AM BIKE MECHANIC Narrative 10/30/2024 9:24 AM BIKE MECHANIC EXAM DESCRIPTION: ?? CT CHEST WO CONTRAST [...] AM T: ??10/30/2024 9:24 AM Report ID: [id number] Reading Location: ??[id number] Procedure Note Berhane Chaudhari MD - 10/30/2024 [...] signed by Wood MCDUFFIE: RETA Report ID: [id number] Reading Location: [id number] Magnus Madden MD IMG CT PROCEDURES Final Resul t * eGFR (10/04/2024 1:55 PM BIKE MECHANIC) eGFR 71 >=60 mL/min/1. 73 m2 Comment: [...] last reviewed 2021. Blood 10/04/2024 1:55 PM BIKE MECHANIC 10/04/2024 2:10 PM BIKE MECHANIC us Magnus Madden MD LAB BLOOD ORDERABLES Final Re sult [facility] [address] [facility] [place] [address] * (ABNORMAL) Iron profile w/ IBC (10/04/2024 1:55 PM BIKE MECHANIC) Iron 21(L) 35 - 145 mcg/dL TIBC 242(L) 250 - 400 mcg/dL [facility] Transferrin saturation 9(L) 20 - 50 % [facility] Blood 10/04/2024 1:55 PM BIKE MECHANIC 10/04/2024 2:05 PM BIKE MECHANIC Magnus Madden MD LAB BLOOD ORDERABLES Final Re sult Performing Organization Address [facility] Co de Phone Number [facility] Department [place] [address] * (ABNORMAL) CBC without differential (10/04/2024 1:55 PM BIKE MECHANIC) WBC 9.9 3.8 - 9.9 K/cumm Hgb 8.5(L) 11.9 - 15.5 g/dL [facility] Hct 28.5(L) 35.6 - 45.5 % [facility] Plt 340 150 - 400 K/cumm [facility] MPV 9.6 9.1 - 12.3 fL [facility] RBC 3.60(L) 3.90 - 5.20 M/cumm [facility] MCV 79.2(L) 81.3 - 96.4 fL [facility] MCH 23.6(L) 27.1 - 33.3 pg [facility] MCHC 29.8(L) 32.3 - 35.7 g/dL [facility] RDW CV 16.3(H) 11.1 - 14.9 % [facility] RDW SD 46.6 35.7 - 48.1 fL [facility] NRBC abs 0.00 0.00 - 0.01 K/cumm [facility] Blood 10/04/2024 1:55 PM BIKE MECHANIC 10/04/2024 2:05 PM BIKE MECHANIC Magnus Madden MD LAB BLOOD ORDERABLES Final Re sult Performing Organization Address City/[facility]/ZIP Co de Phone Number [facility] Department [place] [address] * (ABNORMAL) Lipid panel (10/04/2024 1:55 PM BIKE MECHANIC) Pathologist [facility] Cholesterol 283(H) 30 - 199 mg/dL Comment: [...] on 2018. LDL, calculated 177(H) <=129 mg/dL [facility] Comment: Interpretive Data Ages < or = [...] last revised on 2018. Chol/HDL ratio 4 [facility] Blood 10/04/2024 1:55 PM BIKE MECHANIC 10/04/2024 2:05 PM BIKE MECHANIC us Magnus Madden MD LAB BLOOD ORDERABLES Final Re sult [facility] Department [place] [address] * (ABNORMAL) Comprehensive metabolic panel (10/04/2024 1:55 PM BIKE MECHANIC) Sodium 142 135 - 145 mmol/L Potassium, pl 3.9 3.3 - 4.9 mmol/L [facility] Chloride 102 97 - 110 mmol/L [facility] CO2 30 22 - 32 mmol/L [facility] Anion gap 10 2 - 15 mmol/L [facility] BUN 14 6 - 25 mg/dL [facility] Creatinine 0.81 0.60 - 1.10 mg/dL [facility] Glucose 120 70 - 199 mg/dL [facility] Comment: Interpretive Data Fasting glucose >/= 126 [...] classification and Diagnosis of Diabetes Diabetes Care 202; 46: S19-S40. Current interpretive data was last revised 2022. Calcium 10.1 8.5 - 10.3 mg/dL [facility] Bilirubin, total 0.2 0.1 - 1.2 mg/dL [facility] Protein, pl 7.5 6.5 - 8.5 g/dL [facility] Albumin 4.3 3.5 - 5.0 g/dL [facility] Alk phos 148(H) 40 - 130 Units/L [facility] ALT 12 7 - 45 Units/L [facility] AST 19 10 - 45 Units/L [facility] Blood 10/04/2024 1:55 PM BIKE MECHANIC 10/04/2024 2:05 PM BIKE MECHANIC us Magnus Madden MD LAB BLOOD ORDERABLES Final Re sult [facility] Department [place] [address] from Last 3 Months Insurance MEDICARE [place] [employer] [facility] Relevant e-solution OOS MEDICARE Care Teams Life Enrichment Director Relationship Specialty Start Date End Date Magnus Madden MD [address] [facility] [address] [place] [address] PCP - General 05/30/12
--- NOTE | 2024-11-07 20:42 | PC.NURSE ---
patient refusing this dose of primidone. patient states she takes it for her tremors, and that she has never had a seizure
[2024-11-08] VITALS (11 sets, daily range): BP systolic 95–152; BP diastolic 60–74; PULSE 73–118; RESP 18–20; TEMP 36.3–38.5; O2SAT 79–96
[2024-11-08] MEDS: ACETAMINOPHEN 325 MG TABLET 650 MG PO ×2 (01:37→21:12)
[2024-11-08 06:59] LABS: Haptoglobin 273 mg/dL (43-212)
[2024-11-08 07:29] LABS: Hemoglobin 8.4 g/dL (12.0-15.0); Mean Corpuscular HGB Conc 31.1 g/dl (32-36); Mean Corpuscular Hemoglobin 24.1 pg (26-34); Mean Corpuscular Volume 77.6 fl (80-100); Mean Platelet Volume 10.4 fl (7.4-10.4); Platelet Count Result 130 k/mm3 (150-375); Red Blood Count 3.48 M/mm3 (4.2-5.4); Red Cell Distribution Width 18.6 % (11.5-14.5); White Blood Count 6.4 K/mm3 (4.5-10.0)
[2024-11-08 07:39] LABS: Alanine Aminotransferase 12 U/L (6-35); Albumin Level 2.7 g/dL (3.5-5.1); Alkaline Phosphatase 82 U/L (38-126); Anion Gap 7 mmol/L (4-12); Aspartate Amino Transferase 25 U/L (14-36); Bilirubin,Total 0.3 mg/dL (0.2-1.3); Blood Urea Nitrogen 16 mg/dL (7-17); Calcium 7.7 mg/dL (8.4-10.2); Carbon Dioxide 20 mmol/L (22-30); Chloride 110 mmol/L (98-107); Estimated CRCL calculation 37 ml/min; Estimated Glomerular Filt Rate > 60; Glucose 106 mg/dL (65-110); Potassium 3.5 mmol/L (3.4-5.0); Sodium 137 mmol/L (137-145)
[2024-11-08] MEDS: SODIUM CHLORIDE 0.9% IV 1,000 ML 75 ML IV CONT (08:57)
[2024-11-08] MEDS: PANTOPRAZOLE SODIUM IV 40 MG VIAL IV PUSH (08:57)
--- NOTE | 2024-11-08 09:08 | P.PNGI_ITS ---
Progress Note: A&P Assessment and Plan (1) Iron deficiency anemia: Code(s): D50.9 - Iron deficiency anemia, unspecified Status: Acute Assessment and Plan: As previously discussed, current priorities include management of Gram- negative sepsis and myocardial injury, likely secondary to sepsis and anemia. The development of new-onset fever while receiving ongoing antibiotic therapy for sepsis is concerning and requires further investigation. Close monitoring will continue until the patient is stable and clinically suitable for endoscopic evaluation to investigate anemia. (2) Acute on chronic anemia: Code(s): D64.9 - Anemia, unspecified Status: Acute Time Spent With Patient Time with patient: less than 15 minutes Subjective Date/time seen: 11/08/24 09:08 Interval history: The patient spiked a fever above 101 F last night. She is not complaining of pain or shortness Of breath at this time. Objective Data Vital Signs Vital Signs: Vital Signs - 24 hr 11/07/24 11:50 11/07/24 12:00 11/07/24 15:51 Temperature 98.8 F 98.9 F Pulse Rate 96 91 94 Respiratory Rate 18 18 Blood Pressure 115/66 110/62 Pulse Oximetry 93 94 Oxygen Delivery 11/07/24 16:00 11/07/24 20:00 11/07/24 20:00 Temperature 99.4 F Pulse Rate 96 84 83 Respiratory Rate 18 Blood Pressure 118/69 Pulse Oximetry 94 Oxygen Delivery 11/07/24 20:00 11/08/24 00:00 11/08/24 01:00 Temperature 101.3 F H Pulse Rate 83 89 Respiratory Rate 20 Blood Pressure 126/68 Pulse Oximetry 93 Oxygen Delivery Room Air 11/08/24 04:00 11/08/24 04:55 11/08/24 07:59 Temperature 99.4 F 97.4 F L Pulse Rate 77 73 96 Respiratory Rate 18 20 Blood Pressure 95/60 L 117/67 Pulse Oximetry 96 96 Oxygen Delivery Intake/Output Intake/Output: Intake & Output 11/05/24 11/06/24 11/07/24 11/08/24 23:59 23:59 23:59 23:59 Intake Total 2150 1190 3620 1670 Output Total 1100 1550 700 Balance 2150 90 2070 970 Meds/Results Medications: Active Medications Generic Name Dose Route Start Last Admin Trade Name Freq PRN Reason Stop Dose Admin Acetaminophen 650 mg 11/06/24 03:06 11/08/24 01:37 Acetaminophen 325 Mg Tablet PO 650 mg Q4H PRN Administration Headache Fluticasone/Umeclidinium/Vilanterol 1 puff 11/06/24 08:00 11/07/24 08:00 Fluticasone/Umeclidin/Vilanter 100-62.5-25 Mcg Ellipta INHALATION 1 puff DAILYRT NAVEED Administration Sodium Chloride 1,000 mls @ 75 mls/hr 11/06/24 08:35 11/08/24 08:57 Normal Saline Iv IV CONT 75 mls/hr .[id number] NAVEED Administration Ceftriaxone Sodium 2 gm in 100 mls @ 200 mls/hr 11/06/24 16:00 11/07/24 16:46 Rocephin 2 Gm/Ns 100 Ml IVPB 200 mls/hr Q24H NAVEED Administration Ondansetron HCl 4 mg 11/06/24 02:59 11/07/24 08:26 Ondansetron Inj 4 Mg/2 Ml Vial IV PUSH 4 mg Q4H PRN Administration Nausea And Vomiting Pantoprazole Sodium 40 mg 11/06/24 09:00 11/08/24 08:57 Pantoprazole Sodium Iv 40 Mg Vial IV PUSH 40 mg Q12HR NAVEED Administration Perflutren Lipid Microsphere 0 ml 11/06/24 08:05 Perflutren Lipid Microspheres 1.5 Ml Vial Diluted To 10 Ml Total Volume IV PUSH 11/09/24 08:05 ONCE PRN adequate visualization Protocol Primidone 250 mg 11/06/24 09:00 11/08/24 09:03 Primidone 250 Mg Tablet PO Not Given Q12HR [facility] Radiology Results: ITS Impressions Chest CT 11/05/24 20:27 IMPRESSION: Large hiatal hernia. The lungs are clear. Chest X-Ray 11/06/24 05:34 Impression: Clear lungs. Moderate hiatal hernia. Labs Labs: Laboratory Results - last 24 hr 11/07/24 11/08/24 05:49 06:28 WBC 6.4 RBC 3.48 L Hgb 8.4 L Hct 27.0 L MCV 77.6 L MCH 24.1 L MCHC 31.1 L RDW 18.6 H Plt Count 130 L MPV 10.4 Haptoglobin 273 H Sodium 137 Potassium 3.5 Chloride 110 H Carbon Dioxide 20 L Anion Gap 7 BUN 16 Creatinine 0.81 Estim Creat Clear Calc 37 Estimated GFR > 60 Glucose 106 Calcium 7.7 L Total Bilirubin 0.3 AST 25 ALT 12 Alkaline Phosphatase 82 Total Protein 5.0 L Albumin 2.7 L
[2024-11-08] MEDS: FLUTICASONE/UMECLIDIN/VILANTER 100-62.5-25 MCG ELLIPTA 1 PUFF INHALATION (09:41)
--- NOTE | 2024-11-08 11:33 | P.PNIM_ITS ---
Progress Note: A&P Assessment and Plan (1) Sepsis: Qualifiers: Sepsis type: sepsis due to unspecified organism Sepsis acute organ dysfunction status: with acute organ dysfunction Severe sepsis acute organ dysfunction type: acute renal failure Acute renal failure type: with acute tubular necrosis Severe sepsis shock status: without septic shock Qualified Code(s): A41.9 - Sepsis, unspecified organism; R65.20 - Severe sepsis without septic shock; N17.0 - Acute kidney failure with tubular necrosis Code(s): A41.9 - Sepsis, unspecified organism Status: Acute Assessment and Plan: Patient meets sepsis criteria with fever, tachycardia, tachypnea and leukocytosis due to UTI. Blood cultures and urine cultures are pending. The patient received 1.5 L of IV fluid hydration in the ER. Blood cultures collected- prelim gram negative bacilli- pt is on 2gm ceftriaxone q24h UC is positive for EColi Continue iv rocephin follow [facility] Dc fluids (2) Acute UTI: Code(s): N39.0 - Urinary tract infection, site not specified Status: Acute Assessment and Plan: See above likely cause of sepsis on admission (3) Acute on chronic anemia: Code(s): D64.9 - Anemia, unspecified Status: Acute Assessment and Plan: GI was consulted, notes reviewed: The patient presents with urosepsis complicated by myocardial injury, further exacerbated by anemia. While the current gram-negative bacteremia likely contributes to anemia through inflammation-mediated suppression of bone marrow production and increased splenic sequestration, and possible hemolysis , a pre- existing, chronic iron deficiency anemia is also evident, as shown by an iron saturation of 6%. Although colonoscopy and endoscopy are indicated to address the underlying iron deficiency, these investigations should be deferred until the patient's sepsis and myocardial injury have completely resolved. In the interim, blood transfusions need to be administered to maintain a hemoglobin level above 8 g/dL to support hemodynamic stability. Will order hemolysis workup to address other mechanisms of acute anemia in this patient. Will continue to follow. - Hb staying stable at 8 transition to oral Protonix and add iron sulfate - Pt will benefit from GI scopes later, can [facility] GI follow up (4) Elevated troponin: Code(s): R79.89 - Other specified abnormal findings of blood chemistry Status: Acute Assessment and Plan: cardiology consulted, notes reviewed: Patient has chronic SOB secondary to COPD which is worse over the past few days. This acute worsening could be related to ongoing infection vs severe anemia vs could be an anginal equivalent -Given that the troponin is downtrending, no active chest pain, SOB could be secondary to other etiologies, recommend medical management from cardiac standpoint -Holding off on starting asa due to acute anemia with Hg of 6.6 -Start statin -Continue propranolol, losartan, hydrochlorothiazide (home medications) -EKG p.r.n. for chest pain -When she recovers from acute illness, recommend cardiac catheterization to evaluate coronary anatomy (5) Acute kidney injury: Code(s): N17.9 - Acute kidney failure, unspecified Status: Acute Assessment and Plan: resolved with fluids creat is stable now (6) Hypoalbuminemia: Code(s): E88.09 - Other disorders of plasma-protein metabolism, not elsewhere classified Status: Acute Assessment and Plan: noted significant drop in her he albumin compared to previous labs She does have 2+ protein in her urine. 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 She had dry cough that resolved now. She report some shortness of breath the shortness of breath is more so when she is having chills. Her family member recently recovered from pneumonia. She has had decreased appetite and increasing fatigue. She had had 3 loose stools in 24 hours. She was transfused 1 unit of PRBC for hg of 6.8, follow-up Hgb 6.6. Another unit of PRBC ordered and GI consulted. Patient denies any blood in stool prior to arrival. Slow IV hydration and give IVP lasix when BP can tolerate, BNP elevated 2440 but CXR with clear lung lee and no edema to BLE however mild crackles to LLL will need to monitor closely for fluid overload. Cardiology consulted for elevated troponin and CHF evaluation, elevated troponins are likely secondary to ischemic demand will continue to trend. Patient on 2L supplemental oxygen and reporting SOB likely secondary to anemia and HX COPD. Patient with sepsis secondary to UTI receiving Ceftriaxone IV pending cultures. Follow-up BP after blood transfusion . 11/07 pt is seen and examined. She is comfortable, voices no acute complains. Gats sob with any activity, but reports no dizziness or lightheadedness. 11/08: pt cultures are positive for ECOLI in Blood and culture pt states she has a pessary to insitu which she has changed every 4 months. Bacteremia secondary to UTI. Wcc is nl can dc fluids and continue with IV rocephin which is sensitive. start PT/ OT today Review of Systems Review of Systems: Pt feeling better no fever or chills reported Pt feels more hungry Exam Const: General: comfortable Resp: Effort & Inspection: normal respiratory effort Auscultation: clear to auscultation bilaterally Cardio: Rate: regular rate Rhythm: regular rhythm GI: Auscultation: normal bowel sounds Skin: General skin exam: normal color Neuro: Sensory Exam: normal sensation Extrem: General: normal to inspection Psych: Affect: normal affect Objective Data Vital Signs Vital Signs: Vital Signs - 24 hr 11/07/24 11:50 11/07/24 12:00 11/07/24 15:51 Temperature 37.1 C 37.2 C Pulse Rate 96 91 94 Respiratory Rate 18 18 Blood Pressure 115/66 110/62 Pulse Oximetry 93 94 Oxygen Delivery 11/07/24 16:00 11/07/24 20:00 11/07/24 20:00 Temperature 37.4 C Pulse Rate 96 84 83 Respiratory Rate 18 Blood Pressure 118/69 Pulse Oximetry 94 Oxygen Delivery 11/07/24 20:00 11/08/24 00:00 11/08/24 01:00 Temperature 38.5 C H Pulse Rate 83 89 Respiratory Rate 20 Blood Pressure 126/68 Pulse Oximetry 93 Oxygen Delivery Room Air 11/08/24 04:00 11/08/24 04:55 11/08/24 07:59 Temperature 37.4 C 36.3 C L Pulse Rate 77 73 96 Respiratory Rate 18 20 Blood Pressure 95/60 L 117/67 Pulse Oximetry 96 96 Oxygen Delivery 11/08/24 08:45 Temperature Pulse Rate Respiratory Rate Blood Pressure Pulse Oximetry Oxygen Delivery Room Air Intake/Output Intake/Output: Intake & Output 11/05/24 11/06/24 11/07/24 11/08/24 23:59 23:59 23:59 23:59 Intake Total 2150 1190 3620 1670 Output Total 1100 1550 700 Balance 2150 90 2070 970 Meds/Results Medications: Active Medications Generic Name Dose Route Start Last Admin Trade Name Freq PRN Reason Stop Dose Admin Acetaminophen 650 mg 11/06/24 03:06 11/08/24 01:37 Acetaminophen 325 Mg Tablet PO 650 mg Q4H PRN Administration Headache Fluticasone/Umeclidinium/Vilanterol 1 puff 11/06/24 08:00 11/08/24 09:41 Fluticasone/Umeclidin/Vilanter 100-62.5-25 Mcg Ellipta INHALATION 1 puff DAILYRT NAVEED Administration Sodium Chloride 1,000 mls @ 75 mls/hr 11/06/24 08:35 11/08/24 08:57 Normal Saline Iv IV CONT 75 mls/hr .[id number] NAVEED Administration Ceftriaxone Sodium 2 gm in 100 mls @ 200 mls/hr 11/06/24 16:00 11/07/24 16:46 Rocephin 2 Gm/Ns 100 Ml IVPB 200 mls/hr Q24H ANVEED Administration Ondansetron HCl 4 mg 11/06/24 02:59 11/07/24 08:26 Ondansetron Inj 4 Mg/2 Ml Vial IV PUSH 4 mg Q4H PRN Administration Nausea And Vomiting Pantoprazole Sodium 40 mg 11/06/24 09:00 11/08/24 08:57 Pantoprazole Sodium Iv 40 Mg Vial IV PUSH 40 mg Q12HR NAVEED Administration Perflutren Lipid Microsphere 0 ml 11/06/24 08:05 Perflutren Lipid Microspheres 1.5 Ml Vial Diluted To 10 Ml Total Volume IV PUSH 11/09/24 08:05 ONCE PRN adequate visualization Protocol Primidone 250 mg 11/06/24 09:00 11/08/24 09:03 Primidone 250 Mg Tablet PO Not Given Q12HR NAVEED Radiology Results: ITS Impressions Chest CT 11/05/24 20:27 IMPRESSION: Large hiatal hernia. The lungs are clear. Chest X-Ray 11/06/24 05:34 Impression: Clear lungs. Moderate hiatal hernia. Labs Labs: Laboratory Results - last 24 hr 11/07/24 11/08/24 05:49 06:28 WBC 6.4 RBC 3.48 L Hgb 8.4 L Hct 27.0 L MCV 77.6 L MCH 24.1 L MCHC 31.1 L RDW 18.6 H Plt Count 130 L MPV 10.4 Haptoglobin 273 H Sodium 137 Potassium 3.5 Chloride 110 H Carbon Dioxide 20 L Anion Gap 7 BUN 16 Creatinine 0.81 Estim Creat Clear Calc 37 Estimated GFR > 60 Glucose 106 Calcium 7.7 L Total Bilirubin 0.3 AST 25 ALT 12 Alkaline Phosphatase 82 Total Protein 5.0 L Albumin 2.7 L
--- NOTE | 2024-11-08 14:29 | P.CONUR_ITS ---
Assessment and Plan Assessment and plan (1) Vaginal prolapse: Code(s): N81.10 - Cystocele, unspecified Status: Acute Assessment and Plan: * Vaginal prolapse managed with an indwelling pessary. * We and I probably a clip to change her pessary in the hospital and there is no urgency to it. It would not be contributing to her urinary tract infection. * Above discussed and explained to patient at bedside. She will follow-up with her outside urologist following discharge. Urology Consult Note HPI Date Seen: 11/08/24 Requesting Physician: Niya Hummel APRN Primary Care Provider: Magnus Madden, Consult Narrative Narrative: Antonieta Hawkins is a 84 year old female Who is unknown to our practice but has a chronic pessary as management for vaginal prolapse. She is due to have the pessary changed soon we were asked to consult. She is admitted with a febrile urinary tract infection. Review of Systems 2 Review of Systems: All systems reviewed & are unremarkable except as noted in HPI and below PMFSH Past Medical History Medical History (Updated 11/08/24 @ 14:32 by Berhane Garcia MD) Iron deficiency anemia Chronic obstructive pulmonary disease COVID-19 (2020) Essential hypertension Benign familial tremor Hyperlipidemia Hypertension Surgical History Surgical History History of appendectomy Family History Family History Father Family history of malignant neoplasm Heart disease Sibling Patient's sister is in good health, Onset Age: 92 Mother Family history of malignant neoplasm Diabetes mellitus Sibling Hypertension Social History Social History Social History: Currently lives at home alone. . Surrogate decision maker: Delilah Arango, daughter ([phone]) or Echo Becker, granddaughter who is the executor of her living will ([phone]). Code status: DNR. Smoking packs per day: 0.5 Smoking cigarettes per day: 10.0 Years smoked: 65 Smoking pack-years: 32.50 Smoking status: Never smoker Tobacco type: cigarettes Second hand tobacco smoke exposure: Yes Additional smoking assessment comments: Continues to chew nicotine gum. Alcohol intake: never Substance use: never Substance use type: does not use Do You Feel Safe in your Home?: Yes Lack of Transportation: No Lack of Food: Never True Current Housing: I Have Housing Concerned About Future Housing: No Difficulty Paying Gas/Electric Bills: No Difficulty Paying for Meds: No Currently Unemployed: No Education: Master's Degree or Higher Difficulty w/ Childcare or Family Care: No Living arrangements: alone Additional living arrangements comments: . Lives in [place]. Multiple family members live nearby. 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 Spiritual care concerns: No Meds Home Medications and Allergies Home Medications ?Medication ?Instructions ?Recorded ?Confirmed ?Type ezetimibe 10 mg tablet 10 mg PO DAILY 12/05/20 11/06/24 History losartan 100 1 tablet PO DAILY 12/05/20 11/06/24 History mg-hydrochlorothiazide 25 mg tablet albuterol sulfate 90 mcg/actuation 1 puff inhalation Q4H PRN 09/30/24 11/06/24 History aerosol inhaler shortness of breath or wheezing primidone 250 mg tablet 250 mg PO BID #60 tabs 09/30/24 11/06/24 Rx fluticasone fur. 100 mcg-umeclid 1 inh inhalation Q24H 11/06/24 11/06/24 History 62.5 mcg-vilant 25 mcg inhalat.powder (Trelegy Ellipta) propranolol 20 mg tablet 20 mg PO DAILY 11/06/24 11/06/24 History Allergies Allergy/AdvReac Type Severity Reaction Status Date / Time Sulfa (Sulfonamide Allergy Unknown Rash Verified 11/05/24 16:58 Antibiotics) Vital Signs Vital Signs - 24 hr 11/07/24 15:51 11/07/24 16:00 11/07/24 20:00 Temperature 98.9 F 99.4 F Pulse Rate 94 96 84 Respiratory Rate 18 18 Blood Pressure 110/62 118/69 Pulse Oximetry 94 94 Oxygen Delivery 11/07/24 20:00 11/07/24 20:00 11/08/24 00:00 Temperature Pulse Rate 83 83 Respiratory Rate Blood Pressure Pulse Oximetry Oxygen Delivery Room Air 11/08/24 01:00 11/08/24 04:00 11/08/24 04:55 Temperature 101.3 F H 99.4 F Pulse Rate 89 77 73 Respiratory Rate 20 18 Blood Pressure 126/68 95/60 L Pulse Oximetry 93 96 Oxygen Delivery 11/08/24 07:59 11/08/24 08:45 11/08/24 12:00 Temperature 97.4 F L 98.3 F Pulse Rate 96 93 Respiratory Rate 20 20 Blood Pressure 117/67 142/68 H Pulse Oximetry 96 79 L Oxygen Delivery Room Air Exam 2 Const: General: no acute distress Resp: Effort & Inspection: normal respiratory effort GI: Inspection: non-distended GI Palp: No abdominal tenderness and No Guarding due to palpation present (GI) Auscultation: normal bowel sounds : General: Yes deferred Results Labs 11/08/24 06:28 11/08/24 06:28 Labs: Short CBC 11/08/24 Range/Units 06:28 WBC 6.4 (4.5-10.0) K/mm3 Hgb 8.4 L (12.0-15.0) g/dL Hct 27.0 L (37.0-47.0) % Plt Count 130 L (150-375) k/mm3 BMP 11/08/24 06:28 Sodium 137 Potassium 3.5 Chloride 110 H Carbon Dioxide 20 L BUN 16 Creatinine 0.81 Glucose 106 Calcium 7.7 L Liver Function 11/08/24 Range/Units 06:28 Total Bilirubin 0.3 (0.2-1.3) mg/dL AST 25 (14-36) U/L ALT 12 (6-35) U/L Alkaline Phosphatase 82 (38-126) U/L Albumin 2.7 L (3.5-5.1) g/dL
[2024-11-08] MEDS: cefTRIAXone 2 GM/NS 100 ML 2 GM/100 ML BAG IVPB (16:21)
[2024-11-09] VITALS (11 sets, daily range): BP systolic 122–149; BP diastolic 73–85; PULSE 70–99; RESP 18; TEMP 36.5–37.1; O2SAT 92–97
[2024-11-09 06:55] LABS: Hematocrit 28.9 % (37.0-47.0); Hemoglobin 8.6 g/dL (12.0-15.0); Mean Corpuscular HGB Conc 29.8 g/dl (32-36); Mean Corpuscular Hemoglobin 23.4 pg (26-34); Mean Corpuscular Volume 78.7 fl (80-100); Mean Platelet Volume 10.6 fl (7.4-10.4); Platelet Count Result 144 k/mm3 (150-375); Red Blood Count 3.67 M/mm3 (4.2-5.4); Red Cell Distribution Width 18.4 % (11.5-14.5); White Blood Count 7.4 K/mm3 (4.5-10.0)
[2024-11-09] MEDS: FLUTICASONE/UMECLIDIN/VILANTER 100-62.5-25 MCG ELLIPTA 1 PUFF INHALATION (06:55)
--- NOTE | 2024-11-09 07:09 | PM.IMPN ---
Progress Note: A&P Assessment and Plan (1) Bacteremia: Code(s): R78.81 - Bacteremia Status: Acute Assessment and Plan: 11/09/24: E. coli on presenting blood cx 11/17 with surveillance cx drawn on 11/08/24 negative at this time. Temperature of 101.3 yesterday. - Plan for minimum 7 days therapy abx, continue with IV abx ceftriaxone continuing at 2gm q24 today. Indeterminate sensitivity to quinolones, not a perfect step down option with great bioavailablity present unfortunately. added augmentin yesterday, if defervesces ceftriaxone set to stop on 11/10/24. (2) Sepsis: Qualifiers: Acute renal failure type: with acute tubular necrosis Sepsis acute organ dysfunction status: with acute organ dysfunction Sepsis type: sepsis due to unspecified organism Severe sepsis acute organ dysfunction type: acute renal failure Severe sepsis shock status: without septic shock Qualified Code(s): A41.9 - Sepsis, unspecified organism; R65.20 - Severe sepsis without septic shock; N17.0 - Acute kidney failure with tubular necrosis Code(s): A41.9 - Sepsis, unspecified organism Status: Acute Assessment and Plan: Patient meets sepsis criteria with fever, tachycardia, tachypnea and leukocytosis due to UTI. Blood cultures and urine cultures are pending. The patient received 1.5 L of IV fluid hydration in the ER. Blood cultures collected- prelim gram negative bacilli- pt is on 2gm ceftriaxone q24h UC is positive for EColi Continue iv rocephin follow [facility] Dc fluids (3) Acute UTI: Code(s): N39.0 - Urinary tract infection, site not specified Status: Acute Assessment and Plan: 11/09/24 - E. coli on cx, sensitive to ceftriaxone which will continue as also covering BSI. See above likely cause of sepsis on admission (4) Acute on chronic anemia: Code(s): D64.9 - Anemia, unspecified Status: Acute Assessment and Plan: 11/09/24 No acute active signs of bleeding. Denies blood in stool. - Hgb stable at 8.6. GI consulted and hemolysis workup undertaken. Plan to transfuse to keep >=8g/dl. GI was consulted, notes reviewed: The patient presents with urosepsis complicated by myocardial injury, further exacerbated by anemia. While the current gram-negative bacteremia likely contributes to anemia through inflammation-mediated suppression of bone marrow production and increased splenic sequestration, and possible hemolysis , a pre-existing, chronic iron deficiency anemia is also evident, as shown by an iron saturation of 6%. Although colonoscopy and endoscopy are indicated to address the underlying iron deficiency, these investigations should be deferred until the patient's sepsis and myocardial injury have completely resolved. In the interim, blood transfusions need to be administered to maintain a hemoglobin level above 8 g/dL to support hemodynamic stability. Will order hemolysis workup to address other mechanisms of acute anemia in this patient. Will continue to follow. - Hb staying stable at 8 transition to oral Protonix and add iron sulfate - Pt will benefit from GI scopes later, can [facility] GI follow up (5) Elevated troponin: Code(s): R79.89 - Other specified abnormal findings of blood chemistry Status: Acute Assessment and Plan: 11/09/24 No chest pain. - Rec to hold asa until anemia improved. Plan for o/p cardiac cath once recovered. cardiology consulted, notes reviewed: Patient has chronic SOB secondary to COPD which is worse over the past few days. This acute worsening could be related to ongoing infection vs severe anemia vs could be an anginal equivalent -Given that the troponin is downtrending, no active chest pain, SOB could be secondary to other etiologies, recommend medical management from cardiac standpoint -Holding off on starting asa due to acute anemia with Hg of 6.6 -Start statin -Continue propranolol, losartan, hydrochlorothiazide (home medications) -EKG p.r.n. for chest pain -When she recovers from acute illness, recommend cardiac catheterization to evaluate coronary anatomy (6) Acute kidney injury: Code(s): N17.9 - Acute kidney failure, unspecified Status: Acute Assessment and Plan: 11/09/24 Resolved, continue off IVF. resolved with fluids creat is stable now (7) Hypoalbuminemia: Code(s): E88.09 - Other disorders of plasma-protein metabolism, not elsewhere classified Status: Acute Assessment and Plan: noted significant drop in her he albumin compared to previous labs She does have 2+ protein in her urine. 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 Pt having nl to low BPs Continue to watch in hospital (9) Acute dehydration: Code(s): E86.0 - Dehydration Status: Acute Assessment and Plan: 11/09/24 Resolved. 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 Mild tachycardia intermittently, likely reflex from discontinuation propranolol d/t prior soft bp. As BP improved, resume today. Plan Antonieta Hawkins is an 84 year old female presenting with UTI and 2/2 positive blood cultures for e. coli currently on ceftriaxone and augmentin started today. With low grade fevers yesterday, will need to continue IV coverage at this time. Disposition: Expect 48-72 hours of further therapy. Likely to return to home as tolerating activity fairly well. Time Spent With Patient Time with patient: 25 - 35 minutes Subjective Date/time seen: 11/09/24 07:09 Interval history: Antonieta states she is feeling more energetic today, is up to the chair. She notes some concern over her uptrended temperatures over the last 24 hours. Review of Systems Review of Systems: All systems reviewed & are unremarkable except as noted in HPI and below Exam Narrative: GENERAL APPEARANCE: Appears to be in no acute distress. HEAD: normocephalic atraumatic EYES: PERRL, EOMI. Vision grossly intact. ENT: Hearing grossly intact, no nasal discharge NECK: Neck supple, trachea midline. CARDIAC: Normal S1/S2. Rhythm is regular. No murmurs, rubs, or gallops. No cyanosis or pallor. Extremities are warm and well perfused. HR is 96 on manual check by myself. LUNGS: Clear to auscultation without rales, rhonchi, wheezing or diminished breath sounds. Respirations even and unlabored. ABDOMEN: BS positive x 4 quadrants. Soft, nondistended, nontender. No guarding or rebound. MSK: No joint tenderness/swelling, fair strength in all extremities. PERIPHERAL VASCULAR: Peripheral pulses palpable. Normal perfusion, cap refill <2 seconds. No edema. NEURO: Follows commands. No focal deficits. Tremor. SKIN: [place] without lesions or eruptions. PSYCH: Stable, no paranoia or delusional thinking. Objective Data Vital Signs Vital Signs: Vital Signs - 24 hr 11/08/24 07:59 11/08/24 08:00 11/08/24 08:45 Temperature 97.4 F L Pulse Rate 96 76 Respiratory Rate 20 Blood Pressure 117/67 Pulse Oximetry 96 Oxygen Delivery Room Air 11/08/24 12:00 11/08/24 12:00 11/08/24 14:42 Temperature 98.3 F Pulse Rate 93 91 Respiratory Rate 20 Blood Pressure 142/68 H Pulse Oximetry 79 L Oxygen Delivery Room Air 11/08/24 16:00 11/08/24 16:00 11/08/24 16:02 Temperature 99.9 F H Pulse Rate 103 H 118 H Respiratory Rate 20 Blood Pressure 152/68 H Pulse Oximetry 93 Oxygen Delivery Room Air 11/08/24 20:00 11/08/24 20:00 11/08/24 20:00 Temperature 100.2 F H Pulse Rate 101 H 99 Respiratory Rate 20 Blood Pressure 129/74 Pulse Oximetry 95 Oxygen Delivery Room Air 11/08/24 22:26 11/08/24 23:15 11/09/24 00:00 Temperature 99.8 F H 99.3 F Pulse Rate 90 78 Respiratory Rate 18 Blood Pressure 123/66 Pulse Oximetry 93 Oxygen Delivery 11/09/24 03:45 11/09/24 04:00 Temperature 98.1 F Pulse Rate 78 70 Respiratory Rate 18 Blood Pressure 122/73 Pulse Oximetry 95 Oxygen Delivery Intake/Output Intake/Output: Intake & Output 11/06/24 11/07/24 11/08/24 11/09/24 23:59 23:59 23:59 23:59 Intake Total 1190 3720 2610 300 Output Total 1100 1550 1500 850 Balance 90 2170 1110 -550 Meds/Results Medications: Active Medications Generic Name Dose Route Start Last Admin Trade Name Freq PRN Reason Stop Dose Admin Acetaminophen 650 mg 11/06/24 03:06 11/08/24 21:12 Acetaminophen 325 Mg Tablet PO 650 mg Q4H PRN Administration Headache Amoxicillin/Clavulanate Potassium 1 tablet 11/11/24 14:00 Amoxicillin/Clavulanate K 875-125 Mg Tab PO 11/16/24 06:01 Q8HR NAVEED Ferrous Sulfate 325 mg 11/09/24 09:00 Ferrous Sulfate [address] PO DAILY NAVEED Fluticasone/Umeclidinium/Vilanterol 1 puff 11/06/24 08:00 11/09/24 06:55 Fluticasone/Umeclidin/Vilanter 100-62.5-25 Mcg Ellipta INHALATION 1 puff DAILYRT NAVEED Administration Ceftriaxone Sodium 2 gm in 100 mls @ 200 mls/hr 11/06/24 16:00 11/08/24 16:51 Rocephin 2 Gm/Ns 100 Ml IVPB 11/10/24 16:29 Infused Q24H [facility] Infusion Ondansetron HCl 4 mg 11/06/24 02:59 11/07/24 08:26 Ondansetron Inj 4 Mg/2 Ml Vial IV PUSH 4 mg Q4H PRN Administration Nausea And Vomiting Pantoprazole Sodium 40 mg 11/09/24 09:00 Pantoprazole 40 Mg Tablet PO QAM [facility] Perflutren Lipid Microsphere 0 ml 11/06/24 08:05 Perflutren Lipid Microspheres 1.5 Ml Vial Diluted To 10 Ml Total Volume IV PUSH 11/09/24 08:05 ONCE PRN adequate visualization Protocol Primidone 250 mg 11/06/24 09:00 11/08/24 21:12 Primidone 250 Mg Tablet PO Not Given Q12HR [facility] Radiology Results: ITS Impressions Chest CT 11/05/24 20:27 IMPRESSION: Large hiatal hernia. The lungs are clear. Chest X-Ray 11/06/24 05:34 Impression: Clear lungs. Moderate hiatal hernia. Labs Labs: Laboratory Results - last 24 hr 11/08/24 11/09/24 06:28 05:19 WBC 6.4 7.4 RBC 3.48 L 3.67 L Hgb 8.4 L 8.6 L Hct 27.0 L 28.9 L MCV 77.6 L 78.7 L MCH 24.1 L 23.4 L MCHC 31.1 L 29.8 L RDW 18.6 H 18.4 H Plt Count 130 L 144 L MPV 10.4 10.6 H Sodium 137 Potassium 3.5 Chloride 110 H Carbon Dioxide 20 L Anion Gap 7 BUN 16 Creatinine 0.81 Estim Creat Clear Calc 37 Estimated GFR > 60 Glucose 106 Calcium 7.7 L Total Bilirubin 0.3 AST 25 ALT 12 Alkaline Phosphatase 82 Total Protein 5.0 L Albumin 2.7 L Quality VTE Prophylaxis VTE prophylaxis: mechanical ordered If No VTE Prophylaxis Answer both mechanical and pharmacologic: Reason no pharmacologic proph: medical contraindication Hospitalist MIPS Advance Care Plan I have confirmed that the patient's Advanced Care Plan is present, code status is documented, or surrogate decision maker is listed in patient medical record.: Yes Medication Reconciliation I have utilized all available resources to obtain, update and review the patients current medications (includes all prescriptions, OTC, herbals, cannabis, and nutritional supplements).: Yes
[2024-11-09 07:16] LABS: Alanine Aminotransferase 15 U/L (6-35); Albumin Level 2.6 g/dL (3.5-5.1); Alkaline Phosphatase 75 U/L (38-126); Anion Gap 8 mmol/L (4-12); Aspartate Amino Transferase 27 U/L (14-36); Bilirubin,Total 0.3 mg/dL (0.2-1.3); Blood Urea Nitrogen 12 mg/dL (7-17); Calcium 8.1 mg/dL (8.4-10.2); Carbon Dioxide 22 mmol/L (22-30); Chloride 108 mmol/L (98-107); Estimated CRCL calculation 44 ml/min; Estimated Glomerular Filt Rate > 60; Glucose 109 mg/dL (65-110); Potassium 3.5 mmol/L (3.4-5.0); Sodium 138 mmol/L (137-145)
[2024-11-09] MEDS: PANTOPRAZOLE 40 MG TABLET PO (08:55)
[2024-11-09] MEDS: FERROUS SULFATE 325 MG TABLET DR PO (08:55)
--- NOTE | 2024-11-09 09:29 | WPDGIPROGNO ---
Progress Note: A&P Assessment and Plan (1) E coli bacteremia: Code(s): R78.81 - Bacteremia; B96.20 - Unspecified Escherichia coli [E. coli] as the cause of diseases classified elsewhere Status: Acute Assessment and Plan: on abx, overall better (2) Sepsis: Qualifiers: Sepsis type: sepsis due to unspecified organism Sepsis acute organ dysfunction status: with acute organ dysfunction Severe sepsis acute organ dysfunction type: acute renal failure Acute renal failure type: with acute tubular necrosis Severe sepsis shock status: without septic shock Qualified Code(s): A41.9 - Sepsis, unspecified organism; R65.20 - Severe sepsis without septic shock; N17.0 - Acute kidney failure with tubular necrosis Code(s): A41.9 - Sepsis, unspecified organism Status: Acute Assessment and Plan: treated and improved (3) Acute on chronic anemia: Code(s): D64.9 - Anemia, unspecified Status: Acute Assessment and Plan: no overt gib last colonoscopy per patient about 7 years ago, noted CT chest large hiatal hernia consider egd and colonoscopy as outpatient if she leaves hospital (4) Elevated troponin: Code(s): R79.89 - Other specified abnormal findings of blood chemistry Status: Acute (5) Acute UTI: Code(s): N39.0 - Urinary tract infection, site not specified Status: Acute Subjective Date/time seen: 11/09/24 09:29 Interval history: no acute issues, no overt gib Review of Systems Review of Systems: All systems reviewed & are unremarkable except as noted in HPI and below Exam Const: General: comfortable HENMT: Face/Nose/Sinus: Normal nares present Eyes: Sclera: sclerae normal Neck: Neck: supple Resp: Effort & Inspection: normal respiratory effort Auscultation: clear to auscultation bilaterally Cardio: Rate: regular rate Rhythm: regular rhythm GI: GI Palp: Yes Soft to palpation and No Tenderness to palpation present (GI) Auscultation: normal bowel sounds Skin: General skin exam: normal color Neuro: Speech: normal speech Sensory Exam: normal sensation Extrem: General: normal to inspection Psych: Affect: normal affect Objective Data Vital Signs Vital Signs: Vital Signs - 24 hr 11/08/24 12:00 11/08/24 12:00 11/08/24 14:42 Temperature 98.3 F Pulse Rate 93 91 Respiratory Rate 20 Blood Pressure 142/68 H Pulse Oximetry 79 L Oxygen Delivery Room Air 11/08/24 16:00 11/08/24 16:00 11/08/24 16:02 Temperature 99.9 F H Pulse Rate 103 H 118 H Respiratory Rate 20 Blood Pressure 152/68 H Pulse Oximetry 93 Oxygen Delivery Room Air 11/08/24 20:00 11/08/24 20:00 11/08/24 20:00 Temperature 100.2 F H Pulse Rate 101 H 99 Respiratory Rate 20 Blood Pressure 129/74 Pulse Oximetry 95 Oxygen Delivery Room Air 11/08/24 22:26 11/08/24 23:15 11/09/24 00:00 Temperature 99.8 F H 99.3 F Pulse Rate 90 78 Respiratory Rate 18 Blood Pressure 123/66 Pulse Oximetry 93 Oxygen Delivery 11/09/24 03:45 11/09/24 04:00 11/09/24 06:55 Temperature 98.1 F Pulse Rate 78 70 83 Respiratory Rate 18 18 Blood Pressure 122/73 Pulse Oximetry 95 92 Oxygen Delivery Room Air 11/09/24 06:55 Temperature Pulse Rate 83 Respiratory Rate 18 Blood Pressure Pulse Oximetry Oxygen Delivery Intake/Output Intake/Output: Intake & Output 11/06/24 11/07/24 11/08/24 11/09/24 23:59 23:59 23:59 23:59 Intake Total 1190 3720 2610 300 Output Total 1100 1550 1500 850 Balance 90 2170 1110 -550 Meds/Results Medications: Active Medications Generic Name Dose Route Start Last Admin Trade Name Freq PRN Reason Stop Dose Admin Acetaminophen 650 mg 11/06/24 03:06 11/08/24 21:12 Acetaminophen 325 Mg Tablet PO 650 mg Q4H PRN Administration Headache Amoxicillin/Clavulanate Potassium 1 tablet 11/11/24 14:00 Amoxicillin/Clavulanate K 875-125 Mg Tab PO 11/16/24 06:01 Q8HR NAVEED Ferrous Sulfate 325 mg 11/09/24 09:00 11/09/24 08:55 Ferrous Sulfate [address] PO 325 mg DAILY NAVEED Administration Fluticasone/Umeclidinium/Vilanterol 1 puff 11/06/24 08:00 11/09/24 06:55 Fluticasone/Umeclidin/Vilanter 100-62.5-25 Mcg Ellipta INHALATION 1 puff DAILYRT NAVEED Administration Ceftriaxone Sodium 2 gm in 100 mls @ 200 mls/hr 11/06/24 16:00 11/08/24 16:51 Rocephin 2 Gm/Ns 100 Ml IVPB 11/10/24 16:29 Infused Q24H [facility] Infusion Ondansetron HCl 4 mg 11/06/24 02:59 11/07/24 08:26 Ondansetron Inj 4 Mg/2 Ml Vial IV PUSH 4 mg Q4H PRN Administration Nausea And Vomiting Pantoprazole Sodium 40 mg 11/09/24 09:00 11/09/24 08:55 Pantoprazole 40 Mg Tablet PO 40 mg QAM NAVEED Administration Primidone 250 mg 11/06/24 09:00 11/09/24 08:55 Primidone 250 Mg Tablet PO Not Given Q12HR [facility] Radiology Results: ITS Impressions Chest CT 11/05/24 20:27 IMPRESSION: Large hiatal hernia. The lungs are clear. Chest X-Ray 11/06/24 05:34 Impression: Clear lungs. Moderate hiatal hernia. Labs Labs: Laboratory Results - last 24 hr 11/09/24 05:19 WBC 7.4 RBC 3.67 L Hgb 8.6 L Hct 28.9 L MCV 78.7 L MCH 23.4 L MCHC 29.8 L RDW 18.4 H Plt Count 144 L MPV 10.6 H Sodium 138 Potassium 3.5 Chloride 108 H Carbon Dioxide 22 Anion Gap 8 BUN 12 Creatinine 0.67 L Estim Creat Clear Calc 44 Estimated GFR > 60 Glucose 109 Calcium 8.1 L Total Bilirubin 0.3 AST 27 ALT 15 Alkaline Phosphatase 75 Total Protein 5.0 L Albumin 2.6 L
[2024-11-09] MEDS: PROPRANOLOL HCL 20 MG TABLET PO (11:36)
[2024-11-09] MEDS: cefTRIAXone 2 GM/NS 100 ML 2 GM/100 ML BAG IVPB (16:11)
[2024-11-09] MEDS: PRIMIDONE 250 MG TABLET PO (21:17)
[2024-11-10] VITALS (12 sets, daily range): BP systolic 129–154; BP diastolic 60–82; PULSE 66–93; RESP 18–20; TEMP 36.3–37.4; O2SAT 91–96
[2024-11-10 07:10] LABS: Hematocrit 27.6 % (37.0-47.0); Hemoglobin 8.7 g/dL (12.0-15.0); Mean Corpuscular HGB Conc 31.5 g/dl (32-36); Mean Corpuscular Hemoglobin 24.3 pg (26-34); Mean Corpuscular Volume 77.1 fl (80-100); Mean Platelet Volume 10.3 fl (7.4-10.4); Platelet Count Result 176 k/mm3 (150-375); Red Blood Count 3.58 M/mm3 (4.2-5.4); Red Cell Distribution Width 18.3 % (11.5-14.5); White Blood Count 8.8 K/mm3 (4.5-10.0)
[2024-11-10 08:04] LABS: Procalcitonin 1.6 ng/mL
[2024-11-10] MEDS: PRIMIDONE 250 MG TABLET PO ×2 (08:21→20:22)
[2024-11-10] MEDS: PROPRANOLOL HCL 20 MG TABLET PO (08:21)
[2024-11-10] MEDS: PANTOPRAZOLE 40 MG TABLET PO (08:21)
[2024-11-10] MEDS: FERROUS SULFATE 325 MG TABLET DR PO (08:21)
[2024-11-10] MEDS: FLUTICASONE/UMECLIDIN/VILANTER 100-62.5-25 MCG ELLIPTA 1 PUFF INHALATION (08:55)
--- NOTE | 2024-11-10 09:20 | PM.IMPN ---
Progress Note: A&P Assessment and Plan (1) Sepsis: Qualifiers: Acute renal failure type: with acute tubular necrosis Sepsis acute organ dysfunction status: with acute organ dysfunction Sepsis type: sepsis due to unspecified organism Severe sepsis acute organ dysfunction type: acute renal failure Severe sepsis shock status: without septic shock Qualified Code(s): A41.9 - Sepsis, unspecified organism; R65.20 - Severe sepsis without septic shock; N17.0 - Acute kidney failure with tubular necrosis Code(s): A41.9 - Sepsis, unspecified organism Status: Acute Assessment and Plan: Meets SIRS criteria: fever, tachycardia, tachypnea and leukocytosis - lactic acid: 3.5 , peaked and downtrended - sepsis bolus received in the ED - suspected source: UTI - Antibiotics: started on rocephin on 11/06 - blood cultures drawn on 11/05: Ecoli with resistance to Bactrim and intermediate response to fluoroquinolones - repeat blood cultures drawn on 11/08: NGTD - Urine culture collected on 11/05: Ecoli with resistance to Bactrim and intermediate response to fluoroquinolones - CXR: No focal infiltrate or effusion. - Repeat CXR: clear lungs - Chest CT: large hiatal hernia, clear lungs (2) Bacteremia: Code(s): R78.81 - Bacteremia Status: Acute Assessment and Plan: 11/09/24: E. coli on presenting blood cx 11/17 with surveillance cx drawn on 11/08/24 negative at this time. Temperature of 101.3 yesterday. - Plan for minimum 7 days therapy abx, continue with IV abx ceftriaxone continuing at 2gm q24 today. Indeterminate sensitivity to quinolones, not a perfect step down option with great bioavailablity present unfortunately. added augmentin yesterday, if defervesces ceftriaxone set to stop on 11/10/24. 11/10/2024: Repeat BCx still NGTD. (3) Acute UTI: Code(s): N39.0 - Urinary tract infection, site not specified Status: Acute Assessment and Plan: - Urine culture collected on 11/05: Ecoli with resistance to Bactrim and intermediate response to fluoroquinolones - started on Rocephin on 11/06, will transition to augmentin on 11/11 (4) Acute on chronic anemia: Code(s): D64.9 - Anemia, unspecified Status: Acute Assessment and Plan: No acute active signs of bleeding. Denies blood in stool. - Hgb stable at 8.7. - Iron panel: iron 16, TIBC 262, % sat 6, ferritin 24.3. Started on iron supplementation. - B12 and folate WNL - GI consulted and hemolysis workup undertaken. Plan to transfuse to keep >=8g/dl. The patient presents with urosepsis complicated by myocardial injury, further exacerbated by anemia. While the current gram-negative bacteremia likely contributes to anemia through inflammation-mediated suppression of bone marrow production and increased splenic sequestration, and possible hemolysis , a pre-existing, chronic iron deficiency anemia is also evident, as shown by an iron saturation of 6%. Although colonoscopy and endoscopy are indicated to address the underlying iron deficiency, these investigations should be deferred until the patient's sepsis and myocardial injury have completely resolved. In the interim, blood transfusions need to be administered to maintain a hemoglobin level above 8 g/dL to support hemodynamic stability. Will order hemolysis workup to address other mechanisms of acute anemia in this patient. Will continue to follow. - Hb staying stable at 8 transition to oral Protonix and add iron sulfate - Pt will benefit from GI scopes in 4-5 weeks, can [facility] GI follow up (5) Elevated troponin: Code(s): R79.89 - Other specified abnormal findings of blood chemistry Status: Acute Assessment and Plan: Troponin 0.093 on admission, peaked and downtrended EKG without sign of acute ischemia Patient continues to deny chest pain or palpitations. Cardiology consulted, notes reviewed: Patient has chronic SOB secondary to COPD which is worse over the past few days. This acute worsening could be related to ongoing infection vs severe anemia vs could be an anginal equivalent -Given that the troponin is downtrending, no active chest pain, SOB could be secondary to other etiologies, recommend medical management from cardiac standpoint -Holding off on starting asa due to acute anemia -Start statin -Continue propranolol, losartan, hydrochlorothiazide (home medications) -EKG p.r.n. for chest pain -When she recovers from acute illness, recommend cardiac catheterization to evaluate coronary anatomy (6) Acute kidney injury: Code(s): N17.9 - Acute kidney failure, unspecified Status: Acute Assessment and Plan: BUN/Cr elevated on admission. - Avoid nephrotoxic mediations - Renally dose medications - Monitor I/O Resolved. (7) Hypoalbuminemia: Code(s): E88.09 - Other disorders of plasma-protein metabolism, not elsewhere classified Status: Acute Assessment and Plan: noted significant drop in her he albumin compared to previous labs She does have 2+ protein in her urine. 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 Started on lower dose of losartan. - Continue propranolol 20 mg daily and started on losartan 25 mg daily - Monitor (9) Acute dehydration: Code(s): E86.0 - Dehydration Status: Acute Assessment and Plan: Previously requiring IV hydration. Discontinued. REsolved. (10) Familial tremor: Code(s): G25.0 - Essential tremor Status: Acute Assessment and Plan: - Continue propranolol 20 mg daily. - Blood pressures remain stable Time Spent With Patient Time with patient: 25 - 35 minutes Subjective Date/time seen: 11/10/24 09:20 Interval history: 84-year-old female with past medical history of essential tremor, essential hypertension, COPD who presented to the ER with fever chills and headache. Patient is pleasant sitting up comfortably in her bed. She has no complaints at this time denies chest pain, shortness a breath, palpitations, nausea / vomiting, abdominal pain, and dysuria. Review of Systems Review of Systems: All systems reviewed & are unremarkable except as noted in HPI and below Exam Narrative: AF HR 69 RR 18 SPO2 95 BP 154/82 General: female in no acute respiratory distress who is nontoxic appearing, sitting up in bed. HEENT: Normocephalic. Atraumatic. Extraocular movement intact. Sclera clear and anicteric. No facial asymmetry. Chest: Lungs are clear to auscultation bilaterally. No wheezes or crackles. CV: Heart was regular rate and rhythm. S1-S2. No murmurs, gallops, or rubs. Abd: Abdomen was soft. Nontender. Nondistended. Positive bowel sounds. No organomegaly or masses. Ext: No clubbing, cyanosis, or edema. 2+ DP pulses bilaterally. Neuro: Patient is alert. Speech is clear. Objective Data Vital Signs Vital Signs: Vital Signs - 24 hr 11/09/24 10:17 11/09/24 11:36 11/09/24 12:00 Temperature 97.7 F Pulse Rate 99 96 76 Respiratory Rate 18 Blood Pressure 149/85 H Pulse Oximetry 97 Oxygen Delivery Fraction of Inspired Oxygen 11/09/24 15:12 11/09/24 16:00 11/09/24 20:00 Temperature 98.8 F Pulse Rate 82 86 Respiratory Rate 18 Blood Pressure 147/75 H Pulse Oximetry 97 95 Oxygen Delivery Room Air Fraction of Inspired Oxygen 11/09/24 20:00 11/09/24 20:00 11/10/24 00:00 Temperature 98.3 F Pulse Rate 80 78 75 Respiratory Rate 18 Blood Pressure 144/73 H Pulse Oximetry 95 Oxygen Delivery Fraction of Inspired Oxygen 11/10/24 00:15 11/10/24 04:00 11/10/24 04:30 Temperature 99.3 F 97.3 F L Pulse Rate 80 73 84 Respiratory Rate 18 18 Blood Pressure 129/66 151/72 H Pulse Oximetry 94 95 Oxygen Delivery Fraction of Inspired Oxygen 11/10/24 08:00 11/10/24 08:21 11/10/24 08:55 Temperature Pulse Rate 82 Respiratory Rate Blood Pressure Pulse Oximetry 91 Oxygen Delivery Room Air Room Air Fraction of Inspired Oxygen 11/10/24 08:55 Temperature Pulse Rate 80 Respiratory Rate 20 Blood Pressure Pulse Oximetry Oxygen Delivery Fraction of Inspired Oxygen Intake/Output Intake/Output: Intake & Output 11/07/24 11/08/24 11/09/24 11/10/24 23:59 23:59 23:59 23:59 Intake Total 3720 2610 1710 250 Output Total 1550 1500 1200 Balance 2170 1110 510 250 Meds/Results Medications: Active Medications Generic Name Dose Route Start Last Admin Trade Name Freq PRN Reason Stop Dose Admin Acetaminophen 650 mg 11/06/24 03:06 11/08/24 21:12 Acetaminophen 325 Mg Tablet PO 650 mg Q4H PRN Administration Headache Amoxicillin/Clavulanate Potassium 1 tablet 11/11/24 14:00 Amoxicillin/Clavulanate K 875-125 Mg Tab PO 11/16/24 06:01 Q8HR NAVEED Ferrous Sulfate 325 mg 11/09/24 09:00 11/10/24 08:21 Ferrous Sulfate [address] PO 325 mg DAILY NAVEED Administration Fluticasone/Umeclidinium/Vilanterol 1 puff 11/06/24 08:00 11/10/24 08:55 Fluticasone/Umeclidin/Vilanter 100-62.5-25 Mcg Ellipta INHALATION 1 puff DAILYRT NAVEED Administration Ceftriaxone Sodium 2 gm in 100 mls @ 200 mls/hr 11/06/24 16:00 11/09/24 16:41 Rocephin 2 Gm/Ns 100 Ml IVPB 11/10/24 16:29 Infused Q24H NAVEED Infusion Ondansetron HCl 4 mg 11/06/24 02:59 11/07/24 08:26 Ondansetron Inj 4 Mg/2 Ml Vial IV PUSH 4 mg Q4H PRN Administration Nausea And Vomiting Pantoprazole Sodium 40 mg 11/09/24 09:00 11/10/24 08:21 Pantoprazole 40 Mg Tablet PO 40 mg QAM NAVEED Administration Primidone 250 mg 11/06/24 09:00 11/10/24 08:21 Primidone 250 Mg Tablet PO 250 mg Q12HR NAVEED Administration Propranolol HCl 20 mg 11/09/24 11:05 11/10/24 08:21 Propranolol Hcl 20 Mg Tablet PO 20 mg DAILY NAVEED Administration Radiology Results: ITS Impressions Chest CT 11/05/24 20:27 IMPRESSION: Large hiatal hernia. The lungs are clear. Chest X-Ray 11/06/24 05:34 Impression: Clear lungs. Moderate hiatal hernia. Labs Labs: Laboratory Results - last 24 hr 11/10/24 06:15 WBC 8.8 RBC 3.58 L Hgb 8.7 L Hct 27.6 L MCV 77.1 L MCH 24.3 L MCHC 31.5 L RDW 18.3 H Plt Count 176 MPV 10.3 Procalcitonin 1.6 Quality VTE Prophylaxis VTE prophylaxis: mechanical ordered
[2024-11-10] MEDS: LOSARTAN POTASSIUM 25 MG TABLET PO (09:49)
--- NOTE | 2024-11-10 11:13 | WPDGIPROGNO ---
Progress Note: A&P Assessment and Plan (1) E coli bacteremia: Code(s): R78.81 - Bacteremia; B96.20 - Unspecified Escherichia coli [E. coli] as the cause of diseases classified elsewhere Status: Acute Assessment and Plan: on abx, overall better and home probably tomorrow (2) Sepsis: Qualifiers: Sepsis type: sepsis due to unspecified organism Sepsis acute organ dysfunction status: with acute organ dysfunction Severe sepsis acute organ dysfunction type: acute renal failure Acute renal failure type: with acute tubular necrosis Severe sepsis shock status: without septic shock Qualified Code(s): A41.9 - Sepsis, unspecified organism; R65.20 - Severe sepsis without septic shock; N17.0 - Acute kidney failure with tubular necrosis Code(s): A41.9 - Sepsis, unspecified organism Status: Acute Assessment and Plan: treated and resolved (3) Acute on chronic anemia: Code(s): D64.9 - Anemia, unspecified Status: Acute Assessment and Plan: no overt gib last colonoscopy per patient about 7 years ago, noted CT chest large hiatal hernia patient would like to have scopes, will set up as outpatient probably in 4-5 weeks after she is fully recovered from this acute episode (4) Acute UTI: Code(s): N39.0 - Urinary tract infection, site not specified Status: Acute Subjective Date/time seen: 11/10/24 11:13 Interval history: much better since admission, good spirits Review of Systems Review of Systems: All systems reviewed & are unremarkable except as noted in HPI and below Exam Const: General: comfortable HENMT: Face/Nose/Sinus: Normal nares present Eyes: Sclera: sclerae normal Neck: Neck: supple Resp: Effort & Inspection: normal respiratory effort Auscultation: clear to auscultation bilaterally Cardio: Rate: regular rate Rhythm: regular rhythm GI: GI Palp: Yes Soft to palpation and No Tenderness to palpation present (GI) Auscultation: normal bowel sounds Skin: General skin exam: normal color Neuro: Speech: normal speech Sensory Exam: normal sensation Extrem: General: normal to inspection Psych: Affect: normal affect Objective Data Vital Signs Vital Signs: Vital Signs - 24 hr 11/09/24 11:36 11/09/24 12:00 11/09/24 15:12 Temperature 98.8 F Pulse Rate 96 76 82 Respiratory Rate 18 Blood Pressure 147/75 H Pulse Oximetry 97 Oxygen Delivery Fraction of Inspired Oxygen 11/09/24 16:00 11/09/24 20:00 11/09/24 20:00 Temperature 98.3 F Pulse Rate 86 80 Respiratory Rate 18 Blood Pressure 144/73 H Pulse Oximetry 95 95 Oxygen Delivery Room Air Fraction of Inspired Oxygen 11/09/24 20:00 11/10/24 00:00 11/10/24 00:15 Temperature 99.3 F Pulse Rate 78 75 80 Respiratory Rate 18 Blood Pressure 129/66 Pulse Oximetry 94 Oxygen Delivery Fraction of Inspired Oxygen 11/10/24 04:00 11/10/24 04:30 11/10/24 08:00 Temperature 97.3 F L Pulse Rate 73 84 Respiratory Rate 18 Blood Pressure 151/72 H Pulse Oximetry 95 Oxygen Delivery Room Air Fraction of Inspired Oxygen 11/10/24 08:21 11/10/24 08:55 11/10/24 08:55 Temperature Pulse Rate 82 80 Respiratory Rate 20 Blood Pressure Pulse Oximetry 91 Oxygen Delivery Room Air Fraction of Inspired Oxygen 11/10/24 10:48 Temperature 98.6 F Pulse Rate 69 Respiratory Rate 18 Blood Pressure 154/82 H Pulse Oximetry 95 Oxygen Delivery Fraction of Inspired Oxygen Intake/Output Intake/Output: Intake & Output 11/07/24 11/08/24 11/09/24 11/10/24 23:59 23:59 23:59 23:59 Intake Total 3720 2610 1710 490 Output Total 1550 1500 1200 Balance 2170 1110 510 490 Meds/Results Medications: Active Medications Generic Name Dose Route Start Last Admin Trade Name Freq PRN Reason Stop Dose Admin Acetaminophen 650 mg 11/06/24 03:06 11/08/24 21:12 Acetaminophen 325 Mg Tablet PO 650 mg Q4H PRN Administration Headache Amoxicillin/Clavulanate Potassium 1 tablet 11/11/24 14:00 Amoxicillin/Clavulanate K 875-125 Mg Tab PO 11/16/24 06:01 Q8HR NAVEED Ferrous Sulfate 325 mg 11/09/24 09:00 11/10/24 08:21 Ferrous Sulfate [address] PO 325 mg DAILY NAVEED Administration Fluticasone/Umeclidinium/Vilanterol 1 puff 11/06/24 08:00 11/10/24 08:55 Fluticasone/Umeclidin/Vilanter 100-62.5-25 Mcg Ellipta INHALATION 1 puff DAILYRT NAVEED Administration Ceftriaxone Sodium 2 gm in 100 mls @ 200 mls/hr 11/06/24 16:00 11/09/24 16:41 Rocephin 2 Gm/Ns 100 Ml IVPB 11/10/24 16:29 Infused Q24H NAVEED Infusion Losartan Potassium 25 mg 11/10/24 09:00 11/10/24 09:49 Losartan Potassium 25 Mg Tablet PO 25 mg DAILY NAVEED Administration Ondansetron HCl 4 mg 11/06/24 02:59 11/07/24 08:26 Ondansetron Inj 4 Mg/2 Ml Vial IV PUSH 4 mg Q4H PRN Administration Nausea And Vomiting Pantoprazole Sodium 40 mg 11/09/24 09:00 11/10/24 08:21 Pantoprazole 40 Mg Tablet PO 40 mg QAM NAVEED Administration Primidone 250 mg 11/06/24 09:00 11/10/24 08:21 Primidone 250 Mg Tablet PO 250 mg Q12HR NAVEED Administration Propranolol HCl 20 mg 11/09/24 11:05 11/10/24 08:21 Propranolol Hcl 20 Mg Tablet PO 20 mg DAILY NAVEED Administration Radiology Results: ITS Impressions Chest CT 11/05/24 20:27 IMPRESSION: Large hiatal hernia. The lungs are clear. Chest X-Ray 11/06/24 05:34 Impression: Clear lungs. Moderate hiatal hernia. Labs Labs: Laboratory Results - last 24 hr 11/10/24 06:15 WBC 8.8 RBC 3.58 L Hgb 8.7 L Hct 27.6 L MCV 77.1 L MCH 24.3 L MCHC 31.5 L RDW 18.3 H Plt Count 176 MPV 10.3 Procalcitonin 1.6
[2024-11-10] MEDS: cefTRIAXone 2 GM/NS 100 ML 2 GM/100 ML BAG IVPB (15:01)
[2024-11-11] VITALS (9 sets, daily range): BP systolic 131–154; BP diastolic 60–74; PULSE 69–82; RESP 16–18; TEMP 36.1–37.2; O2SAT 93–96
[2024-11-11 07:11] LABS: Hematocrit 29.9 % (37.0-47.0); Hemoglobin 9.1 g/dL (12.0-15.0); Mean Corpuscular HGB Conc 30.4 g/dl (32-36); Mean Corpuscular Hemoglobin 23.7 pg (26-34); Mean Corpuscular Volume 77.9 fl (80-100); Mean Platelet Volume 9.9 fl (7.4-10.4); Platelet Count Result 216 k/mm3 (150-375); Red Blood Count 3.84 M/mm3 (4.2-5.4); Red Cell Distribution Width 18.9 % (11.5-14.5)
[2024-11-11 07:40] LABS: Alanine Aminotransferase 20 U/L (6-35); Albumin Level 2.8 g/dL (3.5-5.1); Alkaline Phosphatase 84 U/L (38-126); Anion Gap 8 mmol/L (4-12); Aspartate Amino Transferase 30 U/L (14-36); Bilirubin,Total 0.3 mg/dL (0.2-1.3); Blood Urea Nitrogen 8 mg/dL (7-17); Calcium 8.2 mg/dL (8.4-10.2); Carbon Dioxide 25 mmol/L (22-30); Chloride 105 mmol/L (98-107); Estimated CRCL calculation 46 ml/min; Estimated Glomerular Filt Rate > 60; Glucose 100 mg/dL (65-110); Potassium 2.8 mmol/L (3.4-5.0); Sodium 138 mmol/L (137-145)
--- NOTE | 2024-11-11 07:41 | P.PNIM_ITS ---
Progress Note: A&P Assessment and Plan (1) Hypokalemia: Code(s): E87.6 - Hypokalemia Status: Resolved Assessment and Plan: K 2.8 on am labs, repleted. Patient is not on any medications at this time that would be causing hypokalemia. - Repleted. - Continue holding HCTZ - Repeat labs in the am (2) Sepsis: Qualifiers: Acute renal failure type: with acute tubular necrosis Sepsis acute organ dysfunction status: with acute organ dysfunction Sepsis type: sepsis due to unspecified organism Severe sepsis acute organ dysfunction type: acute renal failure Severe sepsis shock status: without septic shock Qualified Code(s): A41.9 - Sepsis, unspecified organism; R65.20 - Severe sepsis without septic shock; N17.0 - Acute kidney failure with tubular necrosis Code(s): A41.9 - Sepsis, unspecified organism Status: Acute Assessment and Plan: Meets SIRS criteria: fever, tachycardia, tachypnea and leukocytosis - lactic acid: 3.5 , peaked and downtrended - sepsis bolus received in the ED - suspected source: UTI - Antibiotics: started on rocephin on 11/06 - blood cultures drawn on 11/05: Ecoli with resistance to Bactrim and intermediate response to fluoroquinolones - repeat blood cultures drawn on 11/08: NGTD - Urine culture collected on 11/05: Ecoli with resistance to Bactrim and intermediate response to fluoroquinolones - CXR: No focal infiltrate or effusion. - Repeat CXR: clear lungs - Chest CT: large hiatal hernia, clear lungs Resolved. Patient Vitals stable, WBC WNL and remains afebrile. (3) Bacteremia: Code(s): R78.81 - Bacteremia Status: Acute Assessment and Plan: 11/09/24: E. coli on presenting blood cx 2/2 with surveillance cx drawn on 11/08/24 negative at this time. Temperature of 101.3 yesterday. - Plan for minimum 7 days therapy abx, continue with IV abx ceftriaxone continuing at 2gm q24 today. Indeterminate sensitivity to quinolones, not a perfect step down option with great bioavailablity present unfortunately. added augmentin yesterday, if defervesces ceftriaxone set to stop on 11/10/24. 11/11/2024: Repeat BCx still NGTD. (4) Acute UTI: Code(s): N39.0 - Urinary tract infection, site not specified Status: Acute Assessment and Plan: - Urine culture collected on 11/05: Ecoli with resistance to Bactrim and intermediate response to fluoroquinolones - started on Rocephin on 11/06, will transition to augmentin on 11/11 (5) Acute on chronic anemia: Code(s): D64.9 - Anemia, unspecified Status: Acute Assessment and Plan: No acute active signs of bleeding. Denies blood in stool. - Hgb stable at 9.1. - Iron panel: iron 16, TIBC 262, % sat 6, ferritin 24.3. Started on iron supplementation. - B12 and folate WNL - GI consulted and hemolysis workup undertaken. Plan to transfuse to keep >=8g/dl. The patient presents with urosepsis complicated by myocardial injury, further exacerbated by anemia. While the current gram-negative bacteremia likely contributes to anemia through inflammation-mediated suppression of bone marrow production and increased splenic sequestration, and possible hemolysis , a pre- existing, chronic iron deficiency anemia is also evident, as shown by an iron saturation of 6%. Although colonoscopy and endoscopy are indicated to address the underlying iron deficiency, these investigations should be deferred until the patient's sepsis and myocardial injury have completely resolved. In the interim, blood transfusions need to be administered to maintain a hemoglobin level above 8 g/dL to support hemodynamic stability. Will order hemolysis workup to address other mechanisms of acute anemia in this patient. Will continue to follow. - Hb staying stable at 8 transition to oral Protonix and add iron sulfate - Pt will benefit from GI scopes in 4-5 weeks, can [facility] GI follow up (6) Elevated troponin: Code(s): R79.89 - Other specified abnormal findings of blood chemistry Status: Acute Assessment and Plan: Troponin 0.093 on admission, peaked and downtrended EKG without sign of acute ischemia Patient continues to deny chest pain or palpitations. Cardiology consulted, notes reviewed: Patient has chronic SOB secondary to COPD which is worse over the past few days. This acute worsening could be related to ongoing infection vs severe anemia vs could be an anginal equivalent -Given that the troponin is downtrending, no active chest pain, SOB could be secondary to other etiologies, recommend medical management from cardiac standpoint -Holding off on starting asa due to acute anemia -Start statin -Continue propranolol, losartan, hydrochlorothiazide (home medications) -EKG p.r.n. for chest pain -When she recovers from acute illness, recommend cardiac catheterization to evaluate coronary anatomy (7) Acute kidney injury: Code(s): N17.9 - Acute kidney failure, unspecified Status: Acute Assessment and Plan: BUN/Cr elevated on admission. - Avoid nephrotoxic mediations - Renally dose medications - Monitor I/O Resolved. (8) Hypoalbuminemia: Code(s): E88.09 - Other disorders of plasma-protein metabolism, not elsewhere classified Status: Acute Assessment and Plan: noted significant drop in her he albumin compared to previous labs She does have 2+ protein in her urine. 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 Resume losartan. - Continue propranolol 20 mg daily and started on losartan 25 mg daily - Monitor (10) Acute dehydration: Code(s): E86.0 - Dehydration Status: Acute Assessment and Plan: Previously requiring IV hydration. Discontinued. REsolved. (11) Familial tremor: Code(s): G25.0 - Essential tremor Status: Acute Assessment and Plan: - Continue propranolol 20 mg daily. - Blood pressures remain stable Time Spent With Patient Time with patient: 25 - 35 minutes Subjective Date/time seen: 11/11/24 07:41 Interval history: 84-year-old female with past medical history of essential tremor, essential hypertension, COPD who presented to the ER with fever chills and headache. Patient is pleasant lying comfortably in bed. She has no other complaints denying chest pain, shortness of breath, palpitations, nausea/vomiting and abdominal pain. She remains inpatient given her hypokalemia. Will supplement and reassess tomorrow. Review of Systems Review of Systems: All systems reviewed & are unremarkable except as noted in HPI and below Exam Narrative: AF HR 69 RR 16 Spo2 96 BP 144/60 General: female in no acute respiratory distress who is nontoxic appearing, sitting up in bed. HEENT: Normocephalic. Atraumatic. Extraocular movement intact. Sclera clear and anicteric. No facial asymmetry. Chest: Lungs are clear to auscultation bilaterally. No wheezes or crackles. CV: Heart was regular rate and rhythm. S1-S2. No murmurs, gallops, or rubs. Abd: Abdomen was soft. Nontender. Nondistended. Positive bowel sounds. Ext: No clubbing, cyanosis, or edema. 2+ DP pulses bilaterally. Neuro: Patient is alert. Speech is clear. Objective Data Vital Signs Vital Signs: Vital Signs - 24 hr 11/10/24 08:00 11/10/24 08:00 11/10/24 08:21 Temperature Pulse Rate 93 82 Respiratory Rate Blood Pressure Pulse Oximetry Oxygen Delivery Room Air Fraction of Inspired Oxygen 11/10/24 08:55 11/10/24 08:55 11/10/24 10:48 Temperature 98.6 F Pulse Rate 80 69 Respiratory Rate 20 18 Blood Pressure 154/82 H Pulse Oximetry 91 95 Oxygen Delivery Room Air Fraction of Inspired Oxygen 21 11/10/24 12:00 11/10/24 15:39 11/10/24 16:00 Temperature 99.0 F Pulse Rate 66 74 72 Respiratory Rate 18 Blood Pressure 144/67 H Pulse Oximetry 96 Oxygen Delivery Fraction of Inspired Oxygen 11/10/24 20:00 11/10/24 20:00 11/10/24 20:00 Temperature 98.8 F Pulse Rate 80 79 Respiratory Rate 18 Blood Pressure 140/60 Pulse Oximetry 96 Oxygen Delivery Room Air Fraction of Inspired Oxygen 11/11/24 00:00 11/11/24 00:00 11/11/24 04:00 Temperature 98.1 F Pulse Rate 80 74 72 Respiratory Rate 16 Blood Pressure 131/66 Pulse Oximetry 94 Oxygen Delivery Fraction of Inspired Oxygen 11/11/24 04:10 Temperature 98.1 F Pulse Rate 75 Respiratory Rate 18 Blood Pressure 134/60 Pulse Oximetry 93 Oxygen Delivery Fraction of Inspired Oxygen Intake/Output Intake/Output: Intake & Output 11/08/24 11/09/24 11/10/24 11/11/24 23:59 23:59 23:59 23:59 Intake Total 2610 1710 1520 100 Output Total 1500 1200 Balance 4183 966 4134 100 Meds/Results Medications: Active Medications Generic Name Dose Route Start Last Admin Trade Name Freq PRN Reason Stop Dose Admin Acetaminophen 650 mg 11/06/24 03:06 11/08/24 21:12 Acetaminophen 325 Mg Tablet PO 650 mg Q4H PRN Administration Headache Amoxicillin/Clavulanate Potassium 1 tablet 11/11/24 14:00 Amoxicillin/Clavulanate K 875-125 Mg Tab PO 11/16/24 06:01 Q8HR NAVEED Ferrous Sulfate 325 mg 11/09/24 09:00 11/10/24 08:21 Ferrous Sulfate [address] PO 325 mg DAILY NAVEED Administration Fluticasone/Umeclidinium/Vilanterol 1 puff 11/06/24 08:00 11/10/24 08:55 Fluticasone/Umeclidin/Vilanter 100-62.5-25 Mcg Ellipta INHALATION 1 puff DAILYRT NAVEED Administration Potassium Chloride 40 meq/ 520 mls @ 130 mls/hr 11/11/24 07:40 Sodium Chloride IVPB 11/11/24 11:39 ONCE ONE Losartan Potassium 50 mg 11/11/24 09:00 Losartan Potassium 25 Mg Tablet PO DAILY NAVEED Ondansetron HCl 4 mg 11/06/24 02:59 11/07/24 08:26 Ondansetron Inj 4 Mg/2 Ml Vial IV PUSH 4 mg Q4H PRN Administration Nausea And Vomiting Pantoprazole Sodium 40 mg 11/09/24 09:00 11/10/24 08:21 Pantoprazole 40 Mg Tablet PO 40 mg QAM NAVEED Administration Potassium Chloride 40 meq 11/11/24 07:40 Potassium Chloride 20 Meq Er Tablet PO 11/11/24 07:41 ONCE ONE Primidone 250 mg 11/06/24 09:00 11/10/24 20:22 Primidone 250 Mg Tablet PO 250 mg Q12HR NAVEED Administration Propranolol HCl 20 mg 11/09/24 11:05 11/10/24 08:21 Propranolol Hcl 20 Mg Tablet PO 20 mg DAILY NAVEED Administration Radiology Results: ITS Impressions Chest CT 11/05/24 20:27 IMPRESSION: Large hiatal hernia. The lungs are clear. Chest X-Ray 11/06/24 05:34 Impression: Clear lungs. Moderate hiatal hernia. Labs Labs: Laboratory Results - last 24 hr 11/10/24 11/11/24 06:15 06:33 WBC 9.0 RBC 3.84 L Hgb 9.1 L Hct 29.9 L MCV 77.9 L MCH 23.7 L MCHC 30.4 L RDW 18.9 H Plt Count 216 MPV 9.9 Sodium 138 Potassium 2.8 L* Chloride 105 Carbon Dioxide 25 Anion Gap 8 BUN 8 Creatinine 0.63 L Estim Creat Clear Calc 46 Estimated GFR > 60 Glucose 100 Calcium 8.2 L Total Bilirubin 0.3 AST 30 ALT 20 Alkaline Phosphatase 84 Total Protein 6.0 L Albumin 2.8 L Procalcitonin 1.6 Quality VTE Prophylaxis VTE prophylaxis: mechanical ordered
[2024-11-11] MEDS: POTASSIUM CHLORIDE INJ 40 MEQ in SODIUM CHLORIDE 0.9% IV 500 ML 130 MEQ IVPB (08:10)
[2024-11-11] MEDS: PRIMIDONE 250 MG TABLET PO ×2 (08:11→21:12)
[2024-11-11] MEDS: PROPRANOLOL HCL 20 MG TABLET PO (08:11)
[2024-11-11] MEDS: PANTOPRAZOLE 40 MG TABLET PO (08:12)
[2024-11-11] MEDS: LOSARTAN POTASSIUM 25 MG TABLET 50 MG PO (08:12)
[2024-11-11] MEDS: POTASSIUM CHLORIDE 20 MEQ ER TABLET 40 MEQ PO (08:13)
[2024-11-11] MEDS: FERROUS SULFATE 325 MG TABLET DR PO (08:13)
[2024-11-11] MEDS: FLUTICASONE/UMECLIDIN/VILANTER 100-62.5-25 MCG ELLIPTA 1 PUFF INHALATION (09:56)
[2024-11-11] MEDS: AMOXICILLIN/CLAVULANATE K 875-125 MG TAB 1 TABLET PO ×2 (13:02→21:12)
--- NOTE | 2024-11-11 14:03 | PCPTNOTE ---
On 11/11/24, the student, CORDELL Luis, provided care and completed [facility] documentation on this patient. I have reviewed the student's documentation and agree with the findings.
[2024-11-11] MEDS: ONDANSETRON INJ 4 MG/2 ML VIAL IV PUSH (23:29)
[2024-11-11] MEDS: ACETAMINOPHEN 325 MG TABLET 650 MG PO (23:31)
[2024-11-12] VITALS (8 sets, daily range): BP systolic 121–151; BP diastolic 60–76; PULSE 68–81; RESP 16–18; TEMP 36.1–36.9; O2SAT 92–94
[2024-11-12] MEDS: AMOXICILLIN/CLAVULANATE K 875-125 MG TAB 1 TABLET PO ×2 (05:36→13:02)
[2024-11-12 06:37] LABS: Hematocrit 30.4 % (37.0-47.0); Hemoglobin 8.7 g/dL (12.0-15.0); Mean Corpuscular HGB Conc 28.6 g/dl (32-36); Mean Corpuscular Hemoglobin 23.7 pg (26-34); Mean Corpuscular Volume 82.8 fl (80-100); Mean Platelet Volume 9.9 fl (7.4-10.4); Platelet Count Result 227 k/mm3 (150-375); Red Blood Count 3.67 M/mm3 (4.2-5.4); Red Cell Distribution Width 19.7 % (11.5-14.5); White Blood Count 7.2 K/mm3 (4.5-10.0)
[2024-11-12 06:57] LABS: Alanine Aminotransferase 16 U/L (6-35); Albumin Level 2.6 g/dL (3.5-5.1); Alkaline Phosphatase 77 U/L (38-126); Anion Gap 7 mmol/L (4-12); Aspartate Amino Transferase 30 U/L (14-36); Bilirubin,Total 0.4 mg/dL (0.2-1.3); Blood Urea Nitrogen 8 mg/dL (7-17); Calcium 7.8 mg/dL (8.4-10.2); Carbon Dioxide 25 mmol/L (22-30); Chloride 106 mmol/L (98-107); Estimated CRCL calculation 46 ml/min; Estimated Glomerular Filt Rate > 60; Glucose 90 mg/dL (65-110); Potassium 3.6 mmol/L (3.4-5.0); Sodium 138 mmol/L (137-145)
[2024-11-12] MEDS: PROPRANOLOL HCL 20 MG TABLET PO (08:23)
[2024-11-12] MEDS: PRIMIDONE 250 MG TABLET PO (08:24)
[2024-11-12] MEDS: FERROUS SULFATE 325 MG TABLET DR PO (08:24)
[2024-11-12] MEDS: PANTOPRAZOLE 40 MG TABLET PO (08:24)
[2024-11-12] MEDS: LOSARTAN POTASSIUM 100 MG TABLET PO (08:24)
[2024-11-12] MEDS: FLUTICASONE/UMECLIDIN/VILANTER 100-62.5-25 MCG ELLIPTA 1 PUFF INHALATION (11:24)
--- NOTE | 2024-11-12 12:10 | PCPTNOTE ---
On 11/12/24, the student, CORDELL Luis, provided care and completed [facility] documentation on this patient. I have reviewed the student's documentation and agree with the findings.
--- NOTE | 2024-11-12 13:25 | P.DS_ITS ---
DS: Admitting Diagnosis Discharge Date 11/12/2024 Admitting Diagnosis Hypokalemia Sepsis Bacteremia acute UTI acute on chronic anemia elevated troponin acute kidney injury hypoalbuminemia essential hypertension acute dehydration familial tremor DS: Discharge Diagnosis Discharge Diagnosis (1) Hypokalemia: Code(s): E87.6 - Hypokalemia Status: Resolved (2) Sepsis: Qualifiers: Acute renal failure type: with acute tubular necrosis Sepsis acute organ dysfunction status: with acute organ dysfunction Sepsis type: sepsis due to unspecified organism Severe sepsis acute organ dysfunction type: acute renal failure Severe sepsis shock status: without septic shock Qualified Code(s): A41.9 - Sepsis, unspecified organism; R65.20 - Severe sepsis without septic shock; N17.0 - Acute kidney failure with tubular necrosis Code(s): A41.9 - Sepsis, unspecified organism Status: Acute (3) Bacteremia: Code(s): R78.81 - Bacteremia Status: Acute (4) Acute UTI: Code(s): N39.0 - Urinary tract infection, site not specified Status: Acute (5) Acute on chronic anemia: Code(s): D64.9 - Anemia, unspecified Status: Acute (6) Elevated troponin: Code(s): R79.89 - Other specified abnormal findings of blood chemistry Status: Acute (7) Acute kidney injury: Code(s): N17.9 - Acute kidney failure, unspecified Status: Acute (8) Hypoalbuminemia: Code(s): E88.09 - Other disorders of plasma-protein metabolism, not elsewhere classified Status: Acute (9) Essential hypertension: Code(s): I10 - Essential (primary) hypertension Status: Acute (10) Acute dehydration: Code(s): E86.0 - Dehydration Status: Acute (11) Familial tremor: Code(s): G25.0 - Essential tremor Status: Acute DS: Summary Hospital Course Reason for hospitalization: Hypokalemia Sepsis Bacteremia acute UTI acute on chronic anemia elevated troponin acute kidney injury hypoalbuminemia essential hypertension acute dehydration familial tremor Hospital Course: 84-year-old female with past medical history of essential tremor, essential hypertension, COPD who presented to the hospital with fever chills and headache. Patient meeting sepsis criteria on admission with fever, tachycardia, tachypnea, and leukocytosis. Urine concerning for infection and DAMIEN on labs. Patient started on IV fluids and antibiotics. Urine culture and blood cultures grew ecoli. Patient transitioned to oral antibiotics to complete the course. DAMIEN resolved prior to discharge. During admission patient became anemic require a blood transfusion. GI consulted and no intervention was required at that time. GI plans to follow outpatient for scopes. Patient started on iron supplementation and levels remain stable. Patient had an elevated troponin level. EKG without signs of acute ischemia. Evaluated by cardiology and no acute intervention required. Patient started on a statin and is to follow up with cardiology in the outpatient setting for a cardiac cath. Patient developed hypokalemia requiring supplementation. Repeat potassium remained stable. At time of discharge patient had no complaints denies chest pain, shortness a breath, palpitations, nausea / vomiting, abdominal pain, and dizziness/ lightheadedness. Patient discharged home in a stable condition. she is to complete her antibiotics as prescribed and follow-up with her primary care provider in 1 week. Patient is also to follow up with GI and Cardiology as scheduled. Status at Discharge Functional status at discharge: independent ambulation Time Spent with Patient Time attestation: Total time spent providing and/or coordinating discharge services: Time spent: Greater than 30 minutes Exam Narrative: AF HR 71 RR 18 SpO2 94 BP 143/76 General: female in no acute respiratory distress who is nontoxic appearing, sitting up in bed. HEENT: Normocephalic. Atraumatic. Extraocular movement intact. Sclera clear and anicteric. No facial asymmetry. Chest: Lungs are clear to auscultation bilaterally. No wheezes or crackles. CV: Heart was regular rate and rhythm. S1-S2. No murmurs, gallops, or rubs. Abd: Abdomen was soft. Nontender. Nondistended. Positive bowel sounds. Ext: No clubbing, cyanosis, or edema. 2+ DP pulses bilaterally. Neuro: Patient is alert. Speech is clear. DS: Data Data Completed and Pending Completed studies during hospitalization: Chest x-ray chest CT chest x-ray Labs on day of discharge: Labs from last 24 hours 11/12/24 05:18 WBC 7.2 RBC 3.67 L Hgb 8.7 L Hct 30.4 L MCV 82.8 D MCH 23.7 L MCHC 28.6 L RDW 19.7 H Plt Count 227 MPV 9.9 Sodium 138 Potassium 3.6 Chloride 106 Carbon Dioxide 25 Anion Gap 7 BUN 8 Creatinine 0.63 L Estim Creat Clear Calc 46 Estimated GFR > 60 Glucose 90 Calcium 7.8 L Total Bilirubin 0.4 AST 30 ALT 16 Alkaline Phosphatase 77 Total Protein 5.0 L Albumin 2.6 L Preliminary micro results at discharge 11/08/24 06:28 Blood Culture - Preliminary Blood 11/08/24 06:38 Blood Culture - Preliminary Blood Discharge Plan Discharge Attending physician on discharge: Amador Galvez Consulting providers: Nava Lopez; Eugenio Oliva; Berhane Garcia Discharging Clinician: Colleen Cruz Anticipated Discharge Date/Time: 11/12/24 13:21 Patient Disposition: Home, Self-Care Activity: as tolerated Diet: as tolerated and heart healthy Discharge Instructions: Discharge disposition: Patient admitted to the hospital for a urinary tract infection causing sepsis and bacteremia Take all medications as prescribed even if feeling better Augmentin twice a day, course to be completed on Attached is information on this medication Eat well balanced meals and stay hydrated Keep active to remain strong Avoid use of diapers or pads Good victor manuel Care every 2 hours Trend urine output Patient was anemic throughout admission and required a blood transfusion Noted to have low iron levels, started on supplementation. Attached is inform ation on this medication. GI evaluated patient, follow up in 4-5 weeks for scopes to further evaluate Monitor for signs of blood in stool Patient had elevated troponin levels EKG unremarkable Evaluated by cardiology Continue home medications as prescribed Started on atorvastatin, attached is information on this medication Follow up with cardiology, recommend cardiac catheterization to evaluate coronary anatomy Monitor blood pressures Take caution while standing, rising, or moving Change positions slowly taking a break between each position change If you standing feel dizzy sit back down and take a break Encouraged to continue with yearly vaccinations Return to the emergency department if he developed sudden shortness of breath, chest pain, nausea, vomiting, upset stomach or intractable diarrhea Return to the emergency department if you develop fever greater than 101.5 Follow-up with the primary care physician within 1-2 weeks Thank you for choosing [facility] for your healthcare needs Patient Instructions: Antibiotic Form, Iron Supplements (By mouth), Amoxicillin/Clavulanate Potassium (By mouth), Atorvastatin (By mouth), Urinary Tract Infection in Older Adults (DC) Patient Language: Sami Stand Alone Forms: General Discharge Information Follow-up/Referrals: Sameer,Magnus Bear MD [Primary Care Provider] - 1 Week Eugenio Oliva MD [Physician] - 4 Weeks Nava Lopez MD [Physician] - Call for Appointment Discharge Medications: New pantoprazole 40 mg Tablet,Delayed Release (Dr/Ec) 40 mg PO QAM Qty: 30 0RF ferrous sulfate 325 mg (65 mg iron) Tablet,Delayed Release (Dr/Ec) 325 mg PO DAILY Qty: 30 0RF amoxicillin-pot clavulanate 875-125 mg tablet 1 tablet PO TID 4 Days Qty: 13 0RF atorvastatin [Lipitor] 20 mg tablet 20 mg PO DAILY Qty: 30 0RF Continued albuterol sulfate 90 mcg/actuation HFA aerosol inhaler 1 puff inhalation Q4H PRN (Reason: shortness of breath or wheezing) primidone 250 mg tablet 250 mg PO BID Qty: 60 11RF losartan-hydrochlorothiazide 100-25 mg tablet 1 tablet PO DAILY ezetimibe 10 mg tablet 10 mg PO DAILY Trelegy Ellipta 100-62.5-25 mcg blister with device 1 inh INHALATION Q24H propranolol 20 mg tablet 20 mg PO DAILY Date of admission: 11/06/24 09:51 Primary Care Provider: ChanoMagnus Admitting Provider: Felicia Lopez Attending physician on admission: Colleen Cruz Condition: Stable Hospitalist MIPS Heart Failure (Exclusion) Patient has history of Heart Transplant or Left Ventricular Assistive Device?: No IF YES, STOP HERE Heart Failure (Qualifier) Patient has current or prior documentation of LVEF less than or equal to 40%, or mod/servere depressed LVSF?: No IF NO, STOP HERE
== END 2024-11-12 13:50 | disposition home or self-care (01) | DRG 871 ==
LOC: ANHED 17:33 → ANH3MEDSUR 23:40
PROVIDERS: Emergency Medicine; Internal Medicine Gastroenterology; Nurse Practitioner Family; Admitting Provider Internal Medicine; Emergency Provider Physician Assistant; PCP Internal Medicine; Visit Provider Student in an Organized Health Care Education/Training Program
DX: A41.51 Sepsis due to Escherichia coli [E. coli] (principal); N17.0 Acute kidney failure with tubular necrosis; N39.0 Urinary tract infection, site not specified; R65.20 Severe sepsis without septic shock; D50.9 Iron deficiency anemia, unspecified; E86.0 Dehydration; E87.6 Hypokalemia; E88.09 Other disorders of plasma-protein metabolism, not elsewhere classified; G25.0 Essential tremor; I10 Essential (primary) hypertension; J44.9 Chronic obstructive pulmonary disease, unspecified; N81.10 Cystocele, unspecified; R79.89 Other specified abnormal findings of blood chemistry; Z90.49 Acquired absence of other specified parts of digestive tract; Z66 Do not resuscitate; Z20.822 Contact with and (suspected) exposure to COVID-19
CPT/HCPCS: 36415; 36430; 71045; 71046; 71250; 80053; 81001; 82274; 82728; 82948; 83010; 83540; 83550; 83605; 83615; 83880; 84145; 84484; 85014; 85018; 85025; 85027; 85046; 85610; 85730; 86850; 86900; 86901; 86923; 87040; 87086; 87186; 87493; 87637; 93005; 93306; 94640; 96361; 96365; 96367; 97110; 97116; 97161; 97165; 97530; 97535; 99285; A9270; G0378; J0696; J1940; J1956; J2405; J2470; J3480; J7030; J7040; J7050; P9016

== ENCOUNTER 2024-12-19 00:19 | Day surgery (SDC) | payer MEDICARE, BC, SELFPAY ==
[2024-12-04 13:45] VITALS: BMI 23.7
--- OUTSIDE RECORDS SUMMARY | 2024-12-19 00:22 | XMS_ITS | Encounter Summary ---
Author Organization [facility] Healthcare Address [address] [place] [address] Care Team Providers Care Show Host Or Hostess Name Role Phone Magnus Madden MD Primary Care Provider [phone] Reason for Visit * Reason Onset Date Comments NM stress test instructions 12/02/2024 Encounter Details Date Type Department Care Team (Late st Contact Info) Description 12/02/2024 Telephone [facility] Cardiology [address] [facility] [address] [facility] [address] [place] [address] Debo Oliveros, BHARATI [address] [facility] [address] [place] [address] NM stress test instructions Social History Tobacco Use Types Packs/Day Years [...] on file Legal Sex Female 11:32 PM GLASS SCULLION Gender Identity Not on file Sexual Orientation Not on file documented as of this encounter Miscellaneous Notes * Telephone Encounter - Niya Groves RN - 12/02/2024 9:16 AM GLASS SCULLION Spoke with pt, reviewed instructions for upcoming NM stress test. Pt verbalizes understanding. S SCULLION * Telephone Encounter - Teri Christian - 12/02/2024 9:09 AM CST Pt requesting a call back to go over the instructions for her NM stress test scheduled for 12/16 [facility]. Please advise. Thank you. Contact [phone] S SCULLION documented in this encounter Plan of Treatment Not on file documented as of this encounter Visit Diagnoses Not on filedocumented in this encounter Care Teams Show Host Or Hostess Relationship Specialty Start Date End Date Magnus Madden MD [address] [address] PCP - General 05/30/12 documented as of this encounter
--- OUTSIDE RECORDS SUMMARY | 2024-12-19 00:22 | XMS_ITS | Referral Summary ---
Author Organization [facility] al Address [address] [place] [address] Care Team Providers Care Stock Lifter Name Role Phone Magnus Madden MD Primary Care Provider [phone] Encounters Date Type Department Care Team Description 12/02/2024 Telephone [facility] Cardiology [address] [facility] [address] [place] [phone] Debo Oliveros NP NM stress test instructions 11/20/[address] [place] [address] [place] [address] Magnus Madden MD Symptom Based Call 11/20/2024 Telephone [facility] Obstetrics and Gynecology [address] [place] [address] 7th Floor [address] [place] [phone] Ingris Mulligan RN UACX result 11/18/2024 5:37 PM SUPERVISOR DIALS - 11/18/2024 11:59 PM SUPERVISOR DIALS Hospital Encounter [facility] [address] [place] [address] Urge urinary incontinence Discharge Disposition: Discharge to home or self care 11/18/[address] [place] [phone] Magnus Madden MD 11/18/2024 3:40 PM SUPERVISOR DIALS Office Visit [facility] Obstetrics and Gynecology [address] [place] [address] 7th Floor [address] [place] [phone] Zandra Anguiano NP Urge urinary incontinence (Primary Dx); Vaginal atrophy 11/15/2024 2:00 PM SUPERVISOR DIALS Lab [facility] ([facility]) [address] [place], [place] [phone] Iron deficiency anemia, unspecified iron deficiency anemia type; Primary hypertension 11/15/2024 1:30 PM SUPERVISOR DIALS Office Visit [facility] [address] [place] [phone] Magnus Madden MD Urinary tract infection without hematuria, site unspecified (Primary Dx); Iron deficiency anemia, unspecified iron deficiency anemia type; Primary hypertension; Chronic bronchitis, unspecified chronic bronchitis type (HCC) 11/13/[address] [place] [phone] Magnus Madden MD RAMANDEEP Questions 11/11/2024 Orders Only [facility] Medical [facility] Cardiology [address] [place] [phone] Nava Lopez MD 11/08/2024 Orders Only [facility] Cardiology [address] [place] [phone] Debo Oliveros NP Chest pain due to myocardial ischemia, unspecified ischemic chest pain type (Primary Dx) 11/07/2024 Orders Only [facility] [address] [place] [address] [place] [phone] Magnus Madden MD Chronic obstructive pulmonary disease, unspecified COPD type (HCC) (Primary Dx); Abnormal chest CT 11/05/2024 Telephone [facility] [address] [place] [address] [place] [phone] Magnus Madden MD Symptom Based Call 10/28/2024 Orders Only [address] [place] [phone] Magnus Madden MD Iron deficiency anemia, unspecified iron deficiency anemia type (Primary Dx) 10/28/2024 9:51 AM SUPERVISOR DIALS - 10/28/2024 11:59 PM SUPERVISOR DIALS Hospital Encounter [facility] Medical Office Building [address] [place] [address] Chronic bronchitis, unspecified chronic bronchitis type (HCC); Shortness of breath Discharge Disposition: Discharge to home or self care 10/04/2024 2:00 PM SUPERVISOR DIALS Lab [facility] [address] [place] [phone] Iron deficiency anemia, unspecified iron deficiency anemia type; Therapeutic drug monitoring; Hyperlipidemia, unspecified hyperlipidemia type 10/04/2024 1:30 PM SUPERVISOR DIALS Office Visit [facility] [address] [facility] [address] [place] [address] Magnus Madden MD Primary hypertension (Primary Dx); Tremor; Hyperlipidemia, unspecified hyperlipidemia type; Chronic bronchitis, unspecified chronic bronchitis type (HCC); Iron deficiency anemia, unspecified iron deficiency anemia type; Shortness of breath; Encounter for screening; Therapeutic drug monitoring from Last 3 Months Allergies Active Allergy Reactions Criticality Noted Date Comments Atorvastatin Muscle pain Medium Reaction: myalgia, Sulfa (Sulfonamide Antibiotics) Rash,Nausea only Medium Reaction: Rash, , Reaction: Nausea, Rash, Medications albuterol HFA (ProAir HFA) 90 mcg/actuation inhaler [...] DAY 90 tablet 2 10/17/[address] (PROTONIX) 40 mg EC tablet Take 1 tablet (40 mg total) by mouth daily 90 tablet 1 11/15/19 25 026 Active ferrous sulfate 325 mg (65 mg of elemental iron) tablet Take 1 tablet (325 mg total) by mouth daily 11/12/19 25 Active predniSONE (DELTASONE) 20 mg tablet Take 1 tablet (20 mg) by mouth daily 08/19/20 24 Active estradioL (ESTRACE) 0.01 % (0.1 mg/gram) vaginal creamIndications: Vaginal atrophy Insert one gram vaginally twice per week such as Monday / . 42.5 g 1 11/18/19 25 025 Active propranoloL (INDERAL) 20 mg tablet TAKE 2 TABLETS BY MOUTH 3 TIMES DAILY 600 tablet 12/08/19 25 Active propranoloL (INDERAL) 20 mg tablet TAKE 2 TABLETS BY MOUTH 3 TIMES DAILY 540 tablet 3 01/24/20 24 025 Discontinued Active Problems Problem Noted Date Diagnosed Date Urinary tract infection without hematuria 2024 Assessment & Plan (11/15/2024 6:42 AM SUPERVISOR DIALS): Symptoms resolved with antibiotics. Shortness of breath 10/04/2024 Assessment & Plan (10/04/2024 1:34 PM SUPERVISOR DIALS): Optimize COPD. Await labs. Order echocardiogram. Recent normal CXR. Order Chest CT. Anemia 03/22/2024 Assessment & Plan (11/15/2024 1:34 PM SUPERVISOR DIALS): Continue iron. Repeat CBC. Follow with GI. Plan for EGD/Colonoscopy with GI. Agree with pantoprazole. Avoid NSAIDS. Assessment & Plan (10/04/2024 8:21 AM SUPERVISOR DIALS): Her last hemoglobin was improved. Order labs. Assessment & Plan (03/22/2024 1:29 PM CDT): Order CBC. Chronic obstructive pulmonary disease 02/06/2024 Assessment & Plan (11/15/2024 6:41 AM SUPERVISOR DIALS): Continue Trelegy. She was referred to Pulmonary at her last visit. Assessment & Plan (10/04/2024 1:28 PM SUPERVISOR DIALS): Symptoms are not controlled. Change Wixela to Trelegy. Advised annual Flu vaccine. Advised RSV vaccine in the fall. Refer to Pulmonary. Assessment & Plan (03/22/2024 6:42 AM CDT): Controlled.Continue bronchodilators. Advised annual Flu vaccine. Advised RSV vaccine in the fall. Urge urinary incontinence 11/27/2023 Assessment & Plan (11/27/2023 11:45 AM SUPERVISOR DIALS): Counseled patient on etiologies of urinary incontinence [...] check Assessment & Plan (11/27/2023 11:43 AM SUPERVISOR DIALS): - managed with #2 Ring pessary; patient is happy with support and desires to continue with conservative management - she will return in 3 months for pessary check Assessment & Plan (08/28/2023 12:03 PM SUPERVISOR DIALS): - managed with #2 Ring pessary; patient [...] check Assessment & Plan (12/15/2021 10:30 AM SUPERVISOR DIALS): - managed with #2 Ring pessary; patient [...] renewed Assessment & Plan (11/27/2023 11:44 AM SUPERVISOR DIALS): - continue twice weekly low dose vaginal estrogen Assessment & Plan (08/28/2023 12:02 PM SUPERVISOR DIALS): - continue twice weekly low dose vaginal [...] estrogen Assessment & Plan (12/15/2021 10:36 AM SUPERVISOR DIALS): - continue twice weekly low dose vaginal estrogen Assessment & Plan (08/11/2021 12:23 PM CDT): - continue twice weekly low dose vaginal estrogen History of tobacco use 05/02/2018 Assessment & Plan (02/15/2021 6:58 AM CDT): Confirmed tobacco abstinence. Assessment & Plan (05/02/2018 6:58 AM CDT): Continue tobacco cessation. Hypertension 07/10/2015 Assessment & Plan (11/15/2024 6:41 AM SUPERVISOR DIALS): Hypertension is controlled. Continue current regimen. Assessment & Plan (10/04/2024 8:20 AM SUPERVISOR DIALS): Hypertension is controlled. Continue current regimen. Assessment [...] regimen. Assessment & Plan (12/02/2019 12:22 PM SUPERVISOR DIALS): Hypertension is controlled. Continue current regimen. Assessment & Plan (05/27/2019 8:25 AM CDT): Hypertension is controlled. Continue current regimen. Assessment & Plan (05/02/2018 11:02 AM CDT): Hypertension is controlled. Change to losartan/HCTZ due to safety concerns. Assessment & Plan (11/01/2017 12:51 PM SUPERVISOR DIALS): Hypertension is controlled. Continue current regimen. Assessment [...] hyperlipidemia. Assessment & Plan (12/02/2019 12:22 PM SUPERVISOR DIALS): Continue zetia. Reviewed LDL 142 on 05/27/19. Assessment & Plan (05/27/2019 8:26 AM CDT): Continue zetia and proper diet. Gastroesophageal reflux disease 03/01/2014 Overview (01/19/2017): ESOPHAGEAL REFLUX Hyperlipidemia 03/01/2014 Overview (01/19/2017): HYPERLIPIDEMIA NEC/NOS Assessment & Plan (10/04/2024 8:20 AM SUPERVISOR DIALS): She has a statin allergy. Reviewed dietary [...] diet. Assessment & Plan (11/01/2017 12:52 PM SUPERVISOR DIALS): She is intolerant of statins. Reviewed proper diet. Assessment & Plan (03/31/2017 1:02 PM CDT): She is intolerant of statins. Reviewed dietary goals. 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 Continue [...] inderal. Assessment & Plan (12/02/2019 12:23 PM SUPERVISOR DIALS): Continue primidone. Assessment & Plan (05/27/2019 8:26 AM CDT): Continue propranolol. Assessment & Plan (11/01/2017 1:18 PM SUPERVISOR DIALS): Continue inderal. Refer to neurology for worsening tremor and change in gait. Assessment & Plan (03/31/2017 1:02 PM CDT): Continue Inderal. Advised tobacco cessation. Resolved Problems Problem Noted Date Diagnosed Date Resolved Date Cough in adult 03/31/2017 11/01/2017 Assessment & Plan (03/31/2017 3:50 PM CDT): Start prednisone and doxycycline. Immunizations Immunization Administration Dates Next Due Influenza, Quad, Adjuvantate [...] Pfizer Sars-Cov-2 Bivalent V accination (12+ YRS) 08/06/2024,08/06/2024 Pneumococcal Conjugate PCV 13 10/16/2016, 015 Pneumococcal [...] on file Legal Sex Female 11:32 PM SUPERVISOR DIALS Gender Identity Not on file Sexual Orientation Not on file Last Filed Vital Signs Vital Sign Reading Time Taken Comments Blood Pressure 165/84 11/18/2024 3:30 PM SUPERVISOR DIALS Pulse 83 11/15/2024 1:09 PM SUPERVISOR DIALS Temperature 36.7 C (98 F) 11/18/2024 3:30 PM SUPERVISOR DIALS Respiratory Rate 18 11/15/2024 1:09 PM SUPERVISOR DIALS Oxygen Saturation 91% 11/15/2024 1:09 PM SUPERVISOR DIALS Inhaled Oxygen Concentration - - Weight 60.8 kg (134 lb) 11/18/2024 3:30 PM SUPERVISOR DIALS Height 160 cm (5' 3 ) 11/18/2024 3:30 PM SUPERVISOR DIALS Body Mass Index 23.74 11/18/2024 3:30 PM SUPERVISOR DIALS Plan of Treatment Not on file Procedures Procedure Name Priority Date/Time Associated Diagnosis Comments URINALYSIS AND REFLEX TO MICROSCOPIC Routine 11/18/2024 5:37 PM SUPERVISOR DIALS Urge urinary incontinence URINE CULTURE Routine 11/18/2024 5:37 PM SUPERVISOR DIALS Urge urinary incontinence EGFR Routine 11/15/2024 1:37 PM SUPERVISOR DIALS Primary hypertension DIFFERENTIAL AUTO Routine 11/15/2024 1:3 7 PM SUPERVISOR DIALS Iron deficiency anemia, unspecified iron deficiency anemia type IRON PROFILE W/ IBC Routine 11/15/2024 1 :37 PM SUPERVISOR DIALS Iron deficiency anemia, unspecified iron deficiency anemia type BASIC METABOLIC PANEL Routine 11/15/2024 1:37 PM SUPERVISOR DIALS Primary hypertension CBC WITH AUTO DIFFERENTIAL Routine 11/15/2024 1:37 PM SUPERVISOR DIALS Iron deficiency anemia, unspecified iron deficiency anemia type CARDIOLOGY DOCUMENT SCAN Routine 11/06/2024 4:53 PM SUPERVISOR DIALS CARDIOLOGY DOCUMENT SCAN Routine 11/06/2024 4:[address] CHEST WO CONTRAST Schedule Routine, Read Routine (OP Routine) 10/28/2024 10:20 AM SUPERVISOR DIALS Chronic bronchitis, unspecified chronic bronchitis type (HCC) Shortness of breath EGFR Routine 10/04/2024 1:55 PM SUPERVISOR DIALS Therapeutic drug monitoring LIPID PANEL Routine 10/04/2024 1:55 PM SUPERVISOR DIALS Hyperlipidemia, unspecified hyperlipidemia type COMPREHENSIVE METABOLIC PANEL Routine 10/04/2024 1:55 PM SUPERVISOR DIALS Therapeutic drug monitoring CBC WITHOUT DIFFERENTIAL Routine 10/04/2024 1:55 PM SUPERVISOR DIALS Therapeutic drug monitoring IRON PROFILE W/ IBC Routine 10/04/2024 1 :55 PM SUPERVISOR DIALS Iron deficiency anemia, unspecified iron deficiency anemia type from Last 3 Months Results * Urinalysis reflex to microscopic (11/18/2024 5:37 PM SUPERVISOR DIALS) Color, ur Straw Yellow Clarity, ur Clear Clear [facility] Specific gravity, ur 1.019 1.003 - 1.030 [facility] pH, urine 5.5 [facility] Comment: Interpretive Data U rine pH is affected by diet, medications, systemic acid-base disturbances, and renal tubular function. pH may affect urinary stone formation. For example, urine pH below 6.0 may help reduce the tendency for calcium phosphate stones and pH greater than 6.0 may reduce the tendency for uric acid stone formation. Source: [facility] [employer] Current Interpretive Data was last revised on 2017 Protein, ur ql Trace Negative [facility] Glucose, ur ql Negative Negative [facility] Ketones, ur Negative Negative [facility] Bilirubin, ur Negative Negative [facility] Blood, ur Negative Negative [facility] Urobilinogen, ur <2.0 <2.0 mg/dL [facility] Nitrite, ur Negative Negative [facility] Leukocyte esterase, ur Negative Negative [facility] UA reflex comment Reflex conditions for microscopic UA not met. [facility] Urine 11/18/2024 5:37 PM SUPERVISOR DIALS 11/18/2024 7:36 PM SUPERVISOR DIALS Zandra Anguiano NP LAB URINE ORDERABLES Final [facility] [place] [address] * Urine culture Urine, in and out catheter (11/18/2024 5:37 PM SUPERVISOR DIALS) Report Final Report: No growth Urine, in and out catheter 11/18/2024 5:37 PM SUPERVISOR DIALS 11/18/2024 8:37 PM SUPERVISOR DIALS Narrative [facility] - 11/20/2024 8:02 AM SUPERVISOR DIALS Testing performed by [facility] Microbiology Laboratory ([phone]) Zandra Anguiano NP LAB MICROBIOLOGY - GENERAL ORD ERABLES Final Result Performing Organization Address City/[facility] Co de Phone Number [facility] Department [place] [address] * eGFR (11/15/2024 1:37 PM SUPERVISOR DIALS) eGFR 64 >=60 mL/min/1. 73 m2 Comment: Interpretive Data Reference Interval Normal >/= 90 mL/min/1.73m2 Mildly decreased* 60 - 89 mL/min/1.73m2 Mildly to moderately decreased 45 - 59 mL/min/1.73m2 Moderately to severely decreased 30 - 44 mL/min/1.73m2 Severely decreased 15 - 29 mL/min/1.73m2 Kidney Failure < 15 mL/min/1.73m2 *Relative to young adult level Estimated glomerular [...] interpretive data was last reviewed 2021. Blood 11/15/2024 1:37 PM SUPERVISOR DIALS 11/15/2024 2:16 PM SUPERVISOR DIALS us Magnus Madden MD LAB BLOOD ORDERABLES Final Re sult [facility] [place] [address] * (ABNORMAL) Differential, auto (11/15/2024 1:37 PM SUPERVISOR DIALS) Neutrophil abs 8.4(H) 1.5 - 6.5 K/cumm Imm gran abs 0.1 0.0 - 0.1 K/cumm [facility] Lymphocyte abs 1.2 0.8 - 3.3 K/cumm [facility] Monocyte abs 0.7 0.2 - 0.8 K/cumm [facility] Eosinophil abs 0.2 0.0 - 0.5 K/cumm [facility] Basophil abs 0.1 0.0 - 0.1 K/cumm [facility] Neutrophil pct 79.1 % [facility] Comment: Interpretive Data Percent cell count reference ranges are not reported, since discordance with absolute values may lead to misinterpretation of CBC data. Current Interpretive Data was last revised on 2018. Imm gran pct 1.0 % [facility] Comment: Interpretive Data Percent cell count reference ranges are not reported, since discordance with absolute values may lead to misinterpretation of CBC data. Current Interpretive Data was last revised on 2018. Lymphocyte pct 11.0 % [facility] Comment: Interpretive Data Percent cell count reference ranges are not reported, since discordance with absolute values may lead to misinterpretation of CBC data. Current Interpretive Data was last revised on 2018. Monocyte pct 6.8 % [facility] Comment: Interpretive Data Percent cell count reference ranges are not reported, since discordance with absolute values may lead to misinterpretation of CBC data. Current Interpretive Data was last revised on 2018. Eosinophil pct 1.6 % [facility] Comment: Interpretive Data Percent cell count reference ranges are not reported, since discordance with absolute values may lead to misinterpretation of CBC data. Current Interpretive Data was last revised on 2018. Basophil pct 0.5 % [facility] Comment: Interpretive Data Percent cell count reference ranges are not reported, since discordance with absolute values may lead to misinterpretation of CBC data. Current Interpretive Data was last revised on 2018. Blood 11/15/2024 1:37 PM SUPERVISOR DIALS 11/15/2024 2:13 PM SUPERVISOR DIALS Magnus Madden MD LAB BLOOD ORDERABLES Final Re sult Performing Organization Address [facility] Co de Phone Number [facility] [place] [address] * (ABNORMAL) Iron profile w/ IBC (11/15/2024 1:37 PM SUPERVISOR DIALS) [facility] Iron 45 35 - 145 mcg/dL TIBC 200(L) 250 - 400 mcg/dL [facility] Transferrin saturation 23 20 - 50 % [facility] Blood 11/15/2024 1:37 PM SUPERVISOR DIALS 11/15/2024 2:13 PM SUPERVISOR DIALS Magnus Madden MD LAB BLOOD ORDERABLES Final Re sult Performing Organization Address [facility] de Phone Number [facility] [place] [address] * (ABNORMAL) CBC with auto differential (11/15/2024 1:37 PM SUPERVISOR DIALS) [facility] WBC 10.7(H) 3.8 - 9.9 K/cumm Hgb 10.8(L) 11.9 - 15.5 g/dL [facility] Hct 35.3(L) 35.6 - 45.5 % [facility] Plt 378 150 - 400 K/cumm [facility] MPV 9.5 9.1 - 12.3 fL [facility] RBC 4.48 3.90 - 5.20 M/cumm [facility] MCV 78.8(L) 81.3 - 96.4 fL [facility] MCH 24.1(L) 27.1 - 33.3 pg [facility] MCHC 30.6(L) 32.3 - 35.7 g/dL [facility] RDW CV 21.6(H) 11.1 - 14.9 % [facility] RDW SD 55.3(H) 35.7 - 48.1 fL [facility] NRBC abs 0.00 0.00 - 0.01 K/cumm [facility] Blood 11/15/2024 1:37 PM SUPERVISOR DIALS 11/15/2024 2:13 PM SUPERVISOR DIALS us Magnus Madden MD LAB BLOOD ORDERABLES Final Re sult [facility] [place] [address] * Basic metabolic panel (11/15/2024 1:37 PM SUPERVISOR DIALS) Pathologist [facility] Sodium 142 135 - 145 mmol/L Potassium, pl 3.9 3.3 - 4.9 mmol/L [facility] Chloride 102 97 - 110 mmol/L [facility] CO2 31 22 - 32 mmol/L [facility] Anion gap 9 2 - 15 mmol/L [facility] BUN 14 6 - 25 mg/dL [facility] Creatinine 0.88 0.60 - 1.10 mg/dL [facility] Glucose 114 70 - 199 mg/dL [facility] Comment: Interpretive Data Fasting glucose >/= 126 mg/dl is diagnostic for diabetes. Fasting is defined as no caloric intake [...] interpretive data was last revised 2022. Calcium 9.9 8.5 - 10.3 mg/dL [facility] Blood 11/15/2024 1:37 PM SUPERVISOR DIALS 11/15/2024 2:13 PM SUPERVISOR DIALS Magnus Madden MD LAB BLOOD ORDERABLES Final Re sult [facility] [place] [address] * Cardiology Document Scan (11/06/2024 4:53 PM SUPERVISOR DIALS) Anatomical Region Laterality Modality Other Nava Lopez MD [facility] CARDIAC SERVICES PROCEDU RES Final Result * Cardiology Document Scan (11/06/2024 4:46 PM SUPERVISOR DIALS) Anatomical Region Laterality Modality Other Nava Lopez MD CV CARDIAC SERVICES PROCEDU RES Final Result * CT Chest WO Contrast (10/28/2024 10:20 AM SUPERVISOR DIALS) Anatomical Region Laterality Modality Body N/A Computed Tomogra phy 10/30/2024 9:10 AM SUPERVISOR DIALS Narrative 10/30/2024 9:24 AM SUPERVISOR DIALS EXAM DESCRIPTION: CT CHEST WO CONTRAST REASON FOR STUDY: Cough, Dyspnea, chronic, unclear etiology Sob for 2 months. TECHNIQUE: CT scan of the chest performed without intravenous contrast using helical scanning technique. Reconstructed coronal and sagittal MPR images reviewed. All images stored on PACS. Automated exposure control was used as a dose optimization technique for this examination. COMPARISON: 09/16/2019 FINDINGS: The sensitivity for detection of solid visceral lesions is diminished without the use of intravenous contrast. LUNGS: Emphysema is seen. Several small areas of tree-in-bud opacity, almost all in the right lung, are perhaps slightly worse than on the previous study. Bronchial wall thickening is again identified. PLEURA: [...] signed by Wood MCDUFFIE: RETA Report ID: [id number] Reading Location: [place] [address] Procedure Note Berhane Chaudhari MD - 10/30/2024 [...] signed by Wood MCDUFFIE: RETA Report ID: [id number] Reading Location: [id number] Magnus Madden MD IMG CT PROCEDURES Final Resul t * eGFR (10/04/2024 1:55 PM SUPERVISOR DIALS) eGFR 71 >=60 mL/min/1. 73 m2 Comment: Interpretive Data Reference Interval Normal >/= 90 mL/min/1.73m2 Mildly decreased* 60 - 89 mL/min/1.73m2 Mildly to moderately decreased 45 - 59 mL/min/1.73m2 Moderately to severely decreased 30 - 44 mL/min/1.73m2 Severely decreased 15 - 29 mL/min/1.73m2 Kidney Failure < 15 mL/min/1.73m2 *Relative to young adult level Estimated glomerular [...] last reviewed 2021. Blood 10/04/2024 1:55 PM SUPERVISOR DIALS 10/04/2024 2:10 PM SUPERVISOR DIALS Magnus Madden MD LAB BLOOD ORDERABLES Final Re sult [facility] [place] [address] * (ABNORMAL) Iron profile w/ IBC (10/04/2024 1:55 PM SUPERVISOR DIALS) Iron 21(L) 35 - 145 mcg/dL TIBC 242(L) 250 - 400 mcg/dL [facility] Transferrin saturation 9(L) 20 - 50 % [facility] Blood 10/04/2024 1:55 PM SUPERVISOR DIALS 10/04/2024 2:05 PM SUPERVISOR DIALS Magnus Madden MD LAB BLOOD ORDERABLES Final Re sult Performing Organization Address [facility] Co de Phone Number [facility] [place] [address] * (ABNORMAL) CBC without differential (10/04/2024 1:55 PM SUPERVISOR DIALS) WBC 9.9 3.8 - 9.9 K/cumm Hgb 8.5(L) 11.9 - 15.5 g/dL [facility] Hct 28.5(L) 35.6 - 45.5 % [facility] Plt 340 150 - 400 K/cumm [facility] MPV 9.6 9.1 - 12.3 fL [facility] RBC 3.60(L) 3.90 - 5.20 M/cumm [facility] MCV 79.2(L) 81.3 - 96.4 fL [facility] MCH 23.6(L) 27.1 - 33.3 pg [facility] MCHC 29.8(L) 32.3 - 35.7 g/dL [facility] RDW CV 16.3(H) 11.1 - 14.9 % [facility] RDW SD 46.6 35.7 - 48.1 fL [facility] NRBC abs 0.00 0.00 - 0.01 K/cumm [facility] Blood 10/04/2024 1:55 PM SUPERVISOR DIALS 10/04/2024 2:05 PM SUPERVISOR DIALS Magnus Madden MD LAB BLOOD ORDERABLES Final Re sult [facility] [place] [address] * (ABNORMAL) Lipid panel (10/04/2024 1:55 PM [employer]) Cholesterol 283(H) 30 - 199 mg/dL Comment: Interpretive Data Ages < or = 19 years Acceptable: <170 mg/dL Borderline high: 170-199 mg/dL High: >or= 200 mg/dL Ages > or = 20 years Desirable: <200 mg/dL Borderline high: 200-239 mg/dL High: >or= 240 mg/dL Literature References: 1. Expert Panel on Integrated Guidelines for Cardiovascular Health and Risk Reduction in Children and Adolescents. Pediatrics 2011;128:S213 2. NCEP Expert Panel. Circulation 2004;110:227 Current Interpretive Data was last revised on 2018. Triglycerides 212(H) <=149 mg/dL [facility] Comment: Interpretive Data Ages < or = 9 years Acceptable: <75 mg/dL Borderline high: 75-99 mg/dL High: >or= 100 mg/dL Ages 10 to 20 years Acceptable: <90 mg/dL Borderline high: 90-129 mg/dL High: >or= 130 mg/dL Ages > or = 20 years Desirable: <150 mg/dL Borderline high: 150-199 mg/dL High: 200-499 mg/dL Very high: >or= 499 mg/dL Literature References: 1. Expert Panel on Integrated Guidelines for Cardiovascular Health and Risk Reduction in Children and Adolescents. Pediatrics 2011;128:S213 2. NCEP Expert Panel. Circulation 2004;110:227 Current Interpretive Data was last revised on 2018. HDL 67 >=40 mg/dL [facility] Comment: Interpretive Data Ages < or = 19 years Acceptable: >45 mg/dL Borderline low: 40-45 mg/dL Low: <40 mg/dL Ages > or = 20 years Desirable: >or= 60 mg/dL Low: <40 mg/dL Literature References: 1. Expert Panel on Integrated Guidelines for Cardiovascular Health and Risk Reduction in Children and Adolescents. Pediatrics 2011;128:S213 2. NCEP Expert Panel. Circulation 2004;110:227 Current Interpretive Data was last revised on 2018. LDL, calculated 177(H) <=129 mg/dL [facility] Comment: Interpretive Data Ages < or = 19 years Acceptable: <110 mg/dL Borderline high: 110-129 mg/dL High: >or= 130 mg/dL Ages > or = 20 years Optimal: <100 mg/dL Near optimal: 100-129 mg/dL Borderline high: 130-159 mg/dL High: >160 mg/dL Calculated using the Merc[employer] LDL-C estimating equation. This equation was implemented [...] revised on 2024. Non-HDL Cholesterol 216 mg/dL [facility] Comment: Interpretive Data Ages < or = 19 years Acceptable: <120 mg/dL Borderline high: 120-144 mg/dL High: >145 mg/dL Ages > or = 20 years When triglycerides are >200 mg/dL, Non-HDL cholesterol is a secondary target of therapy with treatment goals that are 30 mg/dL greater than the LDL cholesterol target. Literature References: 1. Expert Panel on Integrated Guidelines for Cardiovascular Health and Risk Reduction in Children and Adolescents. Pediatrics 2011;128:S213 2. NCEP Expert Panel. Circulation 2004;110:227 Current Interpretive Data was last revised on 2018. Chol/HDL ratio 4 [facility] Blood 10/04/2024 1:55 PM [facility] [employer] 10/04/2024 2:05 PM [employer] us Magnus Madden MD LAB BLOOD ORDERABLES Final Re sult [facility] Department [place] [address] * (ABNORMAL) Comprehensive metabolic panel (10/04/2024 1:55 PM [employer]) Sodium 142 135 - 145 mmol/L Potassium, pl 3.9 3.3 - 4.9 mmol/L [facility] Chloride 102 97 - 110 mmol/L [facility] CO2 30 22 - 32 mmol/L [facility] Anion gap 10 2 - 15 mmol/L [facility] BUN 14 6 - 25 mg/dL [facility] Creatinine 0.81 0.60 - 1.10 mg/dL [facility] Glucose 120 70 - 199 mg/dL [facility] Comment: Interpretive Data Fasting glucose >/= 126 mg/dl is diagnostic for diabetes. Fasting is defined as no caloric intake [...] 2022. Calcium 10.1 8.5 - 10.3 mg/dL [facility] Bilirubin, total 0.2 0.1 - 1.2 mg/dL [facility] Protein, pl 7.5 6.5 - 8.5 g/dL [facility] Albumin 4.3 3.5 - 5.0 g/dL [facility] Alk phos 148(H) 40 - 130 Units/L [facility] ALT 12 7 - 45 Units/L [facility] AST 19 10 - 45 Units/L [facility] Blood 10/04/2024 1:55 PM [employer] 10/04/2024 2:05 PM [employer] Magnus Madden MD LAB BLOOD ORDERABLES Final Re sult [facility] [place] [address] from Last 3 Months Insurance MEDICARE BLUE ACCESS OOS MEDICARE Care Teams Stock Lifter Relationship Specialty Start Date End Date Magnus Madden MD [facility] [id number] PCP - General 05/30/12
--- OUTSIDE RECORDS SUMMARY | 2024-12-19 00:22 | XMS_ITS | Clinical Summary ---
Author Organization [facility] al Address [address] [place] [address] Care Team Providers Care Supervisor [employer] Name Role Phone Magnus Madden MD Primary Care Provider [phone] Allergies Active Allergy Reactions Criticality Noted Date [...] COPD Inhale 1 puff daily 30 each 10/04/20 24 Active ezetimibe (ZETIA) 10 mg [...] 2024 Assessment & Plan (11/15/2024 6:42 AM NETWORK SUPPORT): Symptoms resolved with antibiotics. Shortness of breath 10/04/2024 Assessment & Plan (10/04/2024 1:34 PM NETWORK SUPPORT): Optimize COPD. Await labs. Order echocardiogram. Recent normal CXR. Order Chest CT. Anemia 03/22/2024 Assessment & Plan (11/15/2024 1:34 PM NETWORK SUPPORT): Continue iron. Repeat CBC. Follow with GI. Plan for EGD/Colonoscopy with GI. Agree with pantoprazole. Avoid NSAIDS. Assessment & Plan (10/04/2024 8:21 AM NETWORK SUPPORT): Her last hemoglobin was improved. Order labs. Assessment & Plan (03/22/2024 1:29 PM CDT): Order CBC. Chronic obstructive pulmonary disease 02/06/2024 Assessment & Plan (11/15/2024 6:41 AM NETWORK SUPPORT): Continue Trelegy. She was referred to Pulmonary at her last visit. Assessment & Plan (10/04/2024 1:28 PM NETWORK SUPPORT): Symptoms are not controlled. Change Wixela to Trelegy. Advised annual Flu vaccine. Advised RSV vaccine in the fall. Refer to Pulmonary. Assessment & Plan (03/22/2024 6:42 AM CDT): Controlled.Continue bronchodilators. Advised annual Flu vaccine. Advised RSV vaccine in the fall. Urge urinary incontinence 11/27/2023 Assessment & Plan (11/27/2023 11:45 AM NETWORK SUPPORT): Counseled patient on etiologies of urinary incontinence [...] check Assessment & Plan (11/27/2023 11:43 AM NETWORK SUPPORT): - managed with #2 Ring pessary; patient is happy with support and desires to continue with conservative management - she will return in 3 months for pessary check Assessment & Plan (08/28/2023 12:03 PM NETWORK SUPPORT): - managed with #2 Ring pessary; patient [...] check Assessment & Plan (12/15/2021 10:30 AM NETWORK SUPPORT): - managed with #2 Ring pessary; patient [...] renewed Assessment & Plan (11/27/2023 11:44 AM NETWORK SUPPORT): - continue twice weekly low dose vaginal estrogen Assessment & Plan (08/28/2023 12:02 PM NETWORK SUPPORT): - continue twice weekly low dose vaginal [...] estrogen Assessment & Plan (12/15/2021 10:36 AM NETWORK SUPPORT): - continue twice weekly low dose vaginal estrogen Assessment & Plan (08/11/2021 12:23 PM CDT): - continue twice weekly low dose vaginal estrogen History of tobacco use 05/02/2018 Assessment & Plan (02/15/2021 6:58 AM CDT): Confirmed tobacco abstinence. Assessment & Plan (05/02/2018 6:58 AM CDT): Continue tobacco cessation. Hypertension 07/10/2015 Assessment & Plan (11/15/2024 6:41 AM NETWORK SUPPORT): Hypertension is controlled. Continue current regimen. Assessment & Plan (10/04/2024 8:20 AM NETWORK SUPPORT): Hypertension is controlled. Continue current regimen. Assessment [...] regimen. Assessment & Plan (12/02/2019 12:22 PM NETWORK SUPPORT): Hypertension is controlled. Continue current regimen. Assessment & Plan (05/27/2019 8:25 AM CDT): Hypertension is controlled. Continue current regimen. Assessment & Plan (05/02/2018 11:02 AM CDT): Hypertension is controlled. Change to losartan/HCTZ due to safety concerns. Assessment & Plan (11/01/2017 12:51 PM NETWORK SUPPORT): Hypertension is controlled. Continue current regimen. Assessment [...] hyperlipidemia. Assessment & Plan (12/02/2019 12:22 PM NETWORK SUPPORT): Continue zetia. Reviewed LDL 142 on 05/27/19. Assessment & Plan (05/27/2019 8:26 AM CDT): Continue zetia and proper diet. Gastroesophageal reflux disease 03/01/2014 Overview (01/19/2017): ESOPHAGEAL REFLUX Hyperlipidemia 03/01/2014 Overview (01/19/2017): HYPERLIPIDEMIA NEC/NOS Assessment & Plan (10/04/2024 8:20 AM NETWORK SUPPORT): She has a statin allergy. Reviewed dietary [...] diet. Assessment & Plan (11/01/2017 12:52 PM NETWORK SUPPORT): She is intolerant of statins. Reviewed proper diet. Assessment & Plan (03/31/2017 1:02 PM CDT): She is intolerant of statins. Reviewed dietary goals. 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 Continue [...] inderal. Assessment & Plan (12/02/2019 12:23 PM NETWORK SUPPORT): Continue primidone. Assessment & Plan (05/27/2019 8:26 AM CDT): Continue propranolol. Assessment & Plan (11/01/2017 1:18 PM NETWORK SUPPORT): Continue inderal. Refer to neurology for worsening tremor and change in gait. Assessment & Plan (03/31/2017 1:02 PM CDT): Continue Inderal. Advised tobacco cessation. Resolved Problems Problem Noted Date Diagnosed Date Resolved Date Cough in adult 03/31/2017 11/01/2017 Assessment & Plan (03/31/2017 3:50 PM CDT): Start prednisone and doxycycline. Encounters Date Type Department Care Team Description 12/02/2024 Telephone [facility] Cardiology [address] [place] [address] Arlin, Debo Laura, HOUSEKEEPING ASSOCIATE NM stress test instructions 11/20/[address] [place] [phone] Magnus Madden MD Symptom Based Call 11/20/2024 Telephone [facility] Obstetrics and Gynecology [facility] 7th Floor [address] [place] [address] Ingris Mulligan RN UACX result 11/18/2024 5:37 PM NETWORK SUPPORT - 11/18/2024 11:59 PM NETWORK SUPPORT Hospital Encounter [facility] [address] [place] [address] Urge urinary incontinence Discharge Disposition: Discharge to home or self care 11/18/2024 3:40 PM NETWORK SUPPORT Office Visit [facility] Obstetrics and Gynecology [address] [place] [address] 7th Floor [address] [place] [address] Zandra Anguiano NP Urge urinary incontinence (Primary Dx); Vaginal atrophy 11/18/[address] [place] [phone] Magnus Madden MD 11/15/2024 2:00 PM NETWORK SUPPORT Lab [facility] ([facility]) [address] [place] [phone] Iron deficiency anemia, unspecified iron deficiency anemia type; Primary hypertension 11/15/2024 1:30 PM NETWORK SUPPORT Office Visit [address] [place] [phone] Magnus Madden MD Urinary tract infection without hematuria, site unspecified (Primary Dx); Iron deficiency anemia, unspecified iron deficiency anemia type; Primary hypertension; Chronic bronchitis, unspecified chronic bronchitis type (HCC) 11/13/[address] [place] [phone] Magnus Madden MD RAMANDEEP Questions 11/11/2024 Orders Only [facility] Cardiology [address] [place] [address] Nava Lopez MD 11/08/2024 Orders Only [facility] Cardiology [address] [place] [address] Debo Oliveros NP Chest pain due to myocardial ischemia, unspecified ischemic chest pain type (Primary Dx) 11/07/2024 Orders Only [facility] [address] [place] [address] Magnus Madden MD Chronic obstructive pulmonary disease, unspecified COPD type (HCC) (Primary Dx); Abnormal chest CT 11/05/[address] [address] Magnus Madden MD Symptom Based Call 10/28/2024 9:51 AM NETWORK SUPPORT - 10/28/2024 11:59 PM NETWORK SUPPORT Hospital Encounter [facility] Medical Office Building [address] [address] Chronic bronchitis, unspecified chronic bronchitis type (HCC); Shortness of breath Discharge Disposition: Discharge to home or self care 10/28/2024 Orders Only [facility] [address] [place] [phone] Magnus Madden MD Iron deficiency anemia, unspecified iron deficiency anemia type (Primary Dx) 10/04/2024 2:00 PM NETWORK SUPPORT Lab [facility] [address] [place] [phone] Iron deficiency anemia, unspecified iron deficiency anemia type; Therapeutic drug monitoring; Hyperlipidemia, unspecified hyperlipidemia type 10/04/2024 1:30 PM NETWORK SUPPORT Office Visit [facility] [address] [address] Magnus Madden MD Primary hypertension (Primary Dx); Tremor; Hyperlipidemia, unspecified hyperlipidemia type; Chronic bronchitis, unspecified chronic bronchitis type (HCC); Iron deficiency anemia, unspecified iron deficiency anemia type; Shortness of breath; Encounter for screening; Therapeutic drug monitoring from Last 3 Months Immunizations Immunization Administration Dates Next Due Influenza, [...] conditions History of dysuria - (Added by Conv) COPD (chronic obstructive pu lmonary disease) (HCC) Hypertension HL (hearing loss) Dizziness Family History Medical History Relation Name Comments Stroke Brother 1 Family history of cerebrovascular accident (CVA) - (Added by Conv) Lung cancer Brother 2 Family history [...] on file Legal Sex Female 11:32 PM NETWORK SUPPORT Gender Identity Not on file Sexual Orientation [...] Comments Blood Pressure 165/84 11/18/2024 3:30 PM NETWORK SUPPORT Pulse 83 11/15/2024 1:09 PM NETWORK SUPPORT Temperature 36.7 C (98 F) 11/18/2024 3:30 PM NETWORK SUPPORT Respiratory Rate 18 11/15/2024 1:09 PM NETWORK SUPPORT Oxygen Saturation 91% 11/15/2024 1:09 PM NETWORK SUPPORT Inhaled Oxygen Concentration - - Weight 60.8 kg (134 lb) 11/18/2024 3:30 PM NETWORK SUPPORT Height 160 cm (5' 3 ) 11/18/2024 3:30 PM NETWORK SUPPORT Body Mass Index 23.74 11/18/2024 3:30 PM NETWORK SUPPORT Plan of Treatment Health Maintenance Due Date Last Done Comments Osteoporosis Screening-Bone Density Scan 1940 Hepatitis B Screening 1957 Lung Cancer Screening 1989 Zoster Vaccine (1 of 2) 1989 Well Visit 65+ 07/26/2020 07/26/2019 DTaP/Tdap/Td Vaccine (3 - Td or Tdap) 08/24/2023 08/24/2013, 08/09/2013 Covid-19 Vaccine (2023-11 5 season) 2024 08/06/2024, 08/06/2024, 08/06/2022, Additional history exists Depression Screening 10/04/2025 10/04/2024, 03/22/2024, 06/26/2023, Additional history exists Fall Risk Assessment 10/04/2025 10/04/2024, 03/22/2024, 02/14/2022, Additional history exists Pneumococcal vaccine 65+ Completed 018, 10/16/2016, 05/12/2015, Additional history exists Influenza Vaccine Completed 07/03/2024, , 08/04/2022, Additional history exists Procedures Procedure Name Priority Date/Time Associated Diagnosis Comments URINALYSIS AND REFLEX TO MICROSCOPIC Routine 11/18/2024 5:37 PM NETWORK SUPPORT Urge urinary incontinence URINE CULTURE Routine 11/18/2024 5:37 PM NETWORK SUPPORT Urge urinary incontinence EGFR Routine 11/15/2024 1:37 PM NETWORK SUPPORT Primary hypertension DIFFERENTIAL AUTO Routine 11/15/2024 1:3 7 PM NETWORK SUPPORT Iron deficiency anemia, unspecified iron deficiency anemia type IRON PROFILE W/ IBC Routine 11/15/2024 1 :37 PM NETWORK SUPPORT Iron deficiency anemia, unspecified iron deficiency anemia type BASIC METABOLIC PANEL Routine 11/15/2024 1:37 PM NETWORK SUPPORT Primary hypertension CBC WITH AUTO DIFFERENTIAL Routine 11/15/2024 1:37 PM NETWORK SUPPORT Iron deficiency anemia, unspecified iron deficiency anemia type CARDIOLOGY DOCUMENT SCAN Routine 11/06/2024 4:53 PM NETWORK SUPPORT CARDIOLOGY DOCUMENT SCAN Routine 11/06/2024 4:[address] CHEST WO CONTRAST Schedule Routine, Read Routine (OP Routine) 10/28/2024 10:20 AM NETWORK SUPPORT Chronic bronchitis, unspecified chronic bronchitis type (HCC) Shortness of breath EGFR Routine 10/04/2024 1:55 PM NETWORK SUPPORT Therapeutic drug monitoring LIPID PANEL Routine 10/04/2024 1:55 PM NETWORK SUPPORT Hyperlipidemia, unspecified hyperlipidemia type COMPREHENSIVE METABOLIC PANEL Routine 10/04/2024 1:55 PM NETWORK SUPPORT Therapeutic drug monitoring CBC WITHOUT DIFFERENTIAL Routine 10/04/2024 1:55 PM NETWORK SUPPORT Therapeutic drug monitoring IRON PROFILE W/ IBC Routine 10/04/2024 1 :55 PM NETWORK SUPPORT Iron deficiency anemia, unspecified iron deficiency anemia type from Last 3 Months Results * Urinalysis reflex to microscopic (11/18/2024 5:37 PM NETWORK SUPPORT) Color, ur Straw Yellow Clarity, ur Clear Clear [facility] Specific gravity, ur 1.019 1.003 - 1.030 [facility] pH, urine 5.5 [facility] Comment: Interpretive Data U rine pH is affected by diet, medications, systemic acid-base disturbances, and renal tubular function. pH may affect urinary stone formation. For example, urine pH below 6.0 may help reduce the tendency for calcium phosphate stones and pH greater than 6.0 may reduce the tendency for uric acid stone formation. Source: [facility] Current Interpretive Data was last revised on 2017 Protein, ur ql Trace Negative [facility] Glucose, ur ql Negative Negative [facility] Ketones, ur Negative Negative [facility] Bilirubin, ur Negative Negative [facility] Blood, ur Negative Negative [facility] Urobilinogen, ur <2.0 <2.0 mg/dL [facility] Nitrite, ur Negative Negative [facility] Leukocyte esterase, ur Negative Negative [facility] UA reflex comment Reflex conditions for microscopic UA not met. [facility] Urine 11/18/2024 5:37 PM NETWORK SUPPORT 11/18/2024 7:36 PM NETWORK SUPPORT us Zandra Anguiano NP LAB URINE ORDERABLES Final Res ult [facility] [place] [address] * Urine culture Urine, in and out catheter (11/18/2024 5:37 PM NETWORK SUPPORT) Report Final Report: No growth Urine, in and out catheter 11/18/2024 5:37 PM NETWORK SUPPORT 11/18/2024 8:37 PM NETWORK SUPPORT Narrative [facility] - 11/20/2024 8:02 AM NETWORK SUPPORT Testing performed by [facility] ([phone]) us Zandra Anguiano NP LAB MICROBIOLOGY - GENERAL ORD ERABLES Final Result Performing Organization Address [facility] Co de Phone Number [facility] [place] [address] * eGFR (11/15/2024 1:37 PM NETWORK SUPPORT) eGFR 64 >=60 mL/min/1. 73 m2 Comment: [...] last reviewed 2021. Blood 11/15/2024 1:37 PM NETWORK SUPPORT 11/15/2024 2:16 PM NETWORK SUPPORT us Magnus Madden MD LAB BLOOD ORDERABLES Final Re sult [facility] [place] [address] * (ABNORMAL) Differential, auto (11/15/2024 1:37 PM NETWORK SUPPORT) Neutrophil abs 8.4(H) 1.5 - 6.5 K/cumm Imm gran abs 0.1 0.0 - 0.1 K/cumm [facility] Lymphocyte abs 1.2 0.8 - 3.3 K/cumm [facility] Monocyte abs 0.7 0.2 - 0.8 K/cumm [facility] Eosinophil abs 0.2 0.0 - 0.5 K/cumm [facility] Basophil abs 0.1 0.0 - 0.1 K/cumm [facility] Neutrophil pct 79.1 % [facility] Comment: Interpretive Data Percent cell count reference ranges are not reported, since discordance with absolute values may lead to misinterpretation of CBC data. Current Interpretive Data was last revised on 2018. Imm gran pct 1.0 % [facility] Comment: Interpretive Data Percent cell count reference ranges are not reported, since discordance with absolute values may lead to misinterpretation of CBC data. Current Interpretive Data was last revised on 2018. Lymphocyte pct 11.0 % [facility] Comment: Interpretive Data Percent cell count reference ranges are not reported, since discordance with absolute values may lead to misinterpretation of CBC data. Current Interpretive Data was last revised on 2018. Monocyte pct 6.8 % [facility] Comment: Interpretive Data Percent cell count reference ranges are not reported, since discordance with absolute values may lead to misinterpretation of CBC data. Current Interpretive Data was last revised on 2018. Eosinophil pct 1.6 % [facility] Comment: Interpretive Data Percent cell count reference ranges are not reported, since discordance with absolute values may lead to misinterpretation of CBC data. Current Interpretive Data was last revised on 2018. Basophil pct 0.5 % [facility] Comment: Interpretive Data Percent cell count reference ranges are not reported, since discordance with absolute values may lead to misinterpretation of CBC data. Current Interpretive Data was last revised on 2018. Blood 11/15/2024 1:37 PM NETWORK SUPPORT 11/15/2024 2:13 PM NETWORK SUPPORT Magnus Madden MD LAB BLOOD ORDERABLES Final Re sult Performing Organization Address [facility]/ZIP Co de Phone Number [facility] [place] [address] * (ABNORMAL) Iron profile w/ IBC (11/15/2024 1:37 PM NETWORK SUPPORT) Pathologist [facility] Iron 45 35 - 145 mcg/dL TIBC 200(L) 250 - 400 mcg/dL [facility] Transferrin saturation 23 20 - 50 % [facility] Blood 11/15/2024 1:37 PM NETWORK SUPPORT 11/15/2024 2:13 PM NETWORK SUPPORT Magnus Madden MD LAB BLOOD ORDERABLES Final Re sult Performing Organization Address [facility] [place] [address] * (ABNORMAL) CBC with auto differential (11/15/2024 1:37 PM NETWORK SUPPORT) Pathologist [facility] WBC 10.7(H) 3.8 - 9.9 K/cumm Hgb 10.8(L) 11.9 - 15.5 g/dL [facility] Hct 35.3(L) 35.6 - 45.5 % [facility] Plt 378 150 - 400 K/cumm [facility] MPV 9.5 9.1 - 12.3 fL [facility] RBC 4.48 3.90 - 5.20 M/cumm [facility] MCV 78.8(L) 81.3 - 96.4 fL [facility] MCH 24.1(L) 27.1 - 33.3 pg [facility] MCHC 30.6(L) 32.3 - 35.7 g/dL [facility] RDW CV 21.6(H) 11.1 - 14.9 % [facility] RDW SD 55.3(H) 35.7 - 48.1 fL [facility] NRBC abs 0.00 0.00 - 0.01 K/cumm [facility] Blood 11/15/2024 1:37 PM NETWORK SUPPORT 11/15/2024 2:13 PM NETWORK SUPPORT Magnus Madden MD LAB BLOOD ORDERABLES Final Re sult [facility] [place] [address] * Basic metabolic panel (11/15/2024 1:37 PM NETWORK SUPPORT) Sodium 142 135 - 145 mmol/L Potassium, pl 3.9 3.3 - 4.9 mmol/L [facility] Chloride 102 97 - 110 mmol/L [facility] CO2 31 22 - 32 mmol/L [facility] Anion gap 9 2 - 15 mmol/L [facility] BUN 14 6 - 25 mg/dL [facility] Creatinine 0.88 0.60 - 1.10 mg/dL [facility] Glucose 114 70 - 199 mg/dL [facility] Comment: Interpretive Data Fasting glucose >/= [...] 2022. Calcium 9.9 8.5 - 10.3 mg/dL [facility] Blood 11/15/2024 1:37 PM NETWORK SUPPORT 11/15/2024 2:13 PM NETWORK SUPPORT Magnus Madden MD LAB BLOOD ORDERABLES Final Re sult [facility] Department [place] [address] * Cardiology Document Scan (11/06/2024 4:53 PM NETWORK SUPPORT) Anatomical Region Laterality Modality Other Nava Lopez MD CV CARDIAC SERVICES PROCEDU RES Final Result * Cardiology Document Scan (11/06/2024 4:46 PM NETWORK SUPPORT) Anatomical Region Laterality Modality Other Nava Lopez MD CV CARDIAC SERVICES PROCEDU RES Final Result * CT Chest WO Contrast (10/28/2024 10:20 AM NETWORK SUPPORT) Anatomical Region Laterality Modality Body N/A Computed Tomogra phy 10/30/2024 9:10 AM NETWORK SUPPORT Narrative 10/30/2024 9:24 AM NETWORK SUPPORT EXAM DESCRIPTION: CT CHEST WO CONTRAST REASON [...] signed by Wood MCDUFFIE: RETA Report ID: [id number] Reading Location: [id number] Procedure Note Berhane Chaudhari MD - 10/30/2024 [...] signed by Wood MCDUFFIE: RETA Report ID: [id number] Reading Location: [id number] Magnus Madden MD IMG CT PROCEDURES Final Resul t * eGFR (10/04/2024 1:55 PM NETWORK SUPPORT) eGFR 71 >=60 mL/min/1. 73 m2 Comment: [...] last reviewed 2021. Blood 10/04/2024 1:55 PM NETWORK SUPPORT 10/04/2024 2:10 PM NETWORK SUPPORT Magnus Madden MD LAB BLOOD ORDERABLES Final Re sult Performing Organization Address City/[facility]/ZIP Co de Phone Number [facility] Department [place] [address] * (ABNORMAL) Iron profile w/ IBC (10/04/2024 1:55 PM NETWORK SUPPORT) Iron 21(L) 35 - 145 mcg/dL TIBC 242(L) 250 - 400 mcg/dL [facility] Transferrin saturation 9(L) 20 - 50 % [facility] Blood 10/04/2024 1:55 PM NETWORK SUPPORT 10/04/2024 2:05 PM NETWORK SUPPORT Magnus Madden MD LAB BLOOD ORDERABLES Final Re sult [facility] [place] [address] * (ABNORMAL) CBC without differential (10/04/2024 1:55 PM NETWORK SUPPORT) Pathologist [facility] WBC 9.9 3.8 - 9.9 K/cumm Hgb 8.5(L) 11.9 - 15.5 g/dL [facility] Hct 28.5(L) 35.6 - 45.5 % [facility] Plt 340 150 - 400 K/cumm [facility] MPV 9.6 9.1 - 12.3 fL [facility] RBC 3.60(L) 3.90 - 5.20 M/cumm [facility] MCV 79.2(L) 81.3 - 96.4 fL [facility] MCH 23.6(L) 27.1 - 33.3 pg [facility] MCHC 29.8(L) 32.3 - 35.7 g/dL [facility] RDW CV 16.3(H) 11.1 - 14.9 % [facility] RDW SD 46.6 35.7 - 48.1 fL [facility] NRBC abs 0.00 0.00 - 0.01 K/cumm [facility] Blood 10/04/2024 1:55 PM NETWORK SUPPORT 10/04/2024 2:05 PM NETWORK SUPPORT Magnus Madden MD LAB BLOOD ORDERABLES Final Re sult [facility] Department [place] [address] * (ABNORMAL) Lipid panel (10/04/2024 1:55 PM NETWORK SUPPORT) Pathologist [facility] Cholesterol 283(H) 30 - 199 mg/dL Comment: [...] revised on 2018. Triglycerides 212(H) <=149 mg/dL [facility] Comment: Interpretive Data Ages < or = [...] revised on 2018. HDL 67 >=40 mg/dL [facility] Comment: Interpretive Data Ages < or = [...] on 2018. LDL, calculated 177(H) <=129 mg/dL [facility] Comment: Interpretive Data Ages < or = [...] NCEP Expert Panel. Circulation 2004;110:227 3. Rogelio M et al. CAMELIA Cardiol. 2020 February 13;5(5):540-548. doi: 10.1001/jamacardio.2020.0013 Current Interpretive Data was last revised on 2024. Non-HDL Cholesterol 216 mg/dL [facility] Comment: Interpretive Data Ages < or = [...] last revised on 2018. Chol/HDL ratio 4 [facility] Blood 10/04/2024 1:55 PM NETWORK SUPPORT 10/04/2024 2:05 PM NETWORK SUPPORT us Magnus Madden MD LAB BLOOD ORDERABLES Final Re sult [facility] [place] [address] * (ABNORMAL) Comprehensive metabolic panel (10/04/2024 1:55 PM NETWORK SUPPORT) Sodium 142 135 - 145 mmol/L Potassium, pl 3.9 3.3 - 4.9 mmol/L [facility] Chloride 102 97 - 110 mmol/L [facility] CO2 30 22 - 32 mmol/L [facility] Anion gap 10 2 - 15 mmol/L [facility] BUN 14 6 - 25 mg/dL [facility] Creatinine 0.81 0.60 - 1.10 mg/dL [facility] Glucose 120 70 - 199 mg/dL [facility] Comment: Interpretive Data Fasting glucose >/= [...] Calcium 10.1 8.5 - 10.3 mg/dL [facility] Bilirubin, total 0.2 0.1 - 1.2 mg/dL [facility] Protein, pl 7.5 6.5 - 8.5 g/dL [facility] Albumin 4.3 3.5 - 5.0 g/dL [facility] Alk phos 148(H) 40 - 130 Units/L [facility] ALT 12 7 - 45 Units/L [facility] AST 19 10 - 45 Units/L [facility] Blood 10/04/2024 1:55 PM NETWORK SUPPORT 10/04/2024 2:05 PM NETWORK SUPPORT us Magnus Madden MD LAB BLOOD ORDERABLES Final Re sult [facility] [place] [address] from Last 3 Months Insurance MEDICARE BLUE ACCESS OOS [employer] OOS MEDICARE Care Teams Supervisor [employer] Relationship Specialty Start Date End Date Magnus Madden MD [address] [facility] [address] [place] [address] [facility] - General 05/30/12
--- OUTSIDE RECORDS SUMMARY | 2024-12-19 00:22 | XMS_ITS | Clinical Summary ---
Author Organization [facility] Address [address] [place] [address] Care Team Providers Care Aircrewman Name Role Phone Unavailable Primary Care Provider Unavailabl e Source Comments [facility],non-owned Affiliates and Associated Physician Practices is amultiple site organization consisting of ambulatory clinics and hospital sitesin [place], [place], [place] and [place]. This disclosure is being madepursuant to the Care Everywhere program and may not contain all information available regarding this patient. Last updated 18.[facility] [place] Allergies No known active allergies Immunizations Name [...] Comments BONE DENSITY TESTING 1940 MEDICARE AWV 12 MONTHS 1940 DTAP/TDAP/TD VACCINES (1 - [...]
--- OUTSIDE RECORDS SUMMARY | 2024-12-19 00:22 | XMS_ITS | Clinical Summary ---
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 Not on file Not on file Not on file Last Filed Vital Signs Vital Sign Reading Time Taken Comments Blood Pressure 122/80 12/08/2016 1:03 PM [employer]MIX CONCRETE BATCHER Pulse 72 12/08/2016 1:03 PM [employer]MIX CONCRETE BATCHER Temperature 36.8 C (98.2 F) 12/08/2016 1:03 PM [employer] CONCRETE BATCHER Respiratory Rate 14 12/08/2016 1:03 PM PREMIX 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 BATCHER Oxygen Saturation 92% 12/08/2016 1:03 PM PREMIX CONCRETE BATCHER Inhaled Oxygen Concentration - - Weight 67.4 kg (148 lb 9.6 oz) 12/08/2016 1:03 P M [employer] CONCRETE BATCHER Height 160 cm (5' 3 ) 12/08/2016 1:03 PM PREMIX CONCRETE BATCHER Body Mass Index 26.32 12/08/2016 1:03 PM PREMIX CONCRETE BATCHER Plan of Treatment Health Maintenance Due Date [...] age to complete this topic Insurance MEDICARE [facility] Care Teams Client Director Relationship Specialty Start Date End Date Praveen De MD [address] [address] PCP - General Internal Medicine 09/12/16 Keyon Pappas MD [address] [place] [id number] Internal Medicine 09/12/16 Camron Carrasquillo DO [address] [place] [id number] Gastroenterology 09/12/16
--- OUTSIDE RECORDS SUMMARY | 2024-12-19 00:22 | XMS_ITS | Patient Health Summary ---
Author Organization [facility] Address [address] [place] [address] Care Team Providers Care Electric Shipyard Operator Name Role Phone Unavailable Primary Care Provider Unavailabl e Note from [facility],non-owned Affiliates and Associated Physician Practices is amultiple site organization consisting of ambulatory clinics and hospital sitesin [place], [place], [place]. This disclosure is being madepursuant to the Care Everywhere program and may not contain all information available regarding this patient. Last updated 18.[facility] Allergies No known active allergies [...]
--- OUTSIDE RECORDS SUMMARY | 2024-12-19 00:22 | XMS_ITS | Referral Summary ---
Author Organization [facility] Address [address] [place] [address] Care Team Providers Care Parts And Service Manager Name Role Phone Unavailable Primary Care Provider Unavailabl e Source Comments [facility],non-owned Affiliates and Associated Physician Practices is amultiple site organization consisting of ambulatory clinics and hospital sitesin [place], [place], [place] and [place]. This disclosure is being madepursuant to the Care Everywhere program and may not contain all information available regarding this patient. Last updated 18.[facility] [address] Allergies No known active allergies Immunizations Name [...]
[2024-12-19 08:10] VITALS: BP 133/84; PULSE 102; RESP 16; TEMP 36.3; O2SAT 98; BMI 24.0
[2024-12-19] MEDS: LACTATED RINGERS 1,000 ML 150 ML IV CONT (08:17)
--- NOTE | 2024-12-19 08:40 | WPDANESEPPF ---
Anes - Initial Pre Proc Eval Procedure: Operation Date: 12/19/24 09:30 Proposed Procedures p Esophagogastroduodenoscopy & Colonoscopy - Emmett Rae MD Date/Time: 12/19/24 08:40 Surgeon: Emmett Rae MD Pre Op Diagnosis: Iron deficiency anemia Patient Data Age: 84 Gender: F Height: 1.6 m Weight: 61.6 kg Last Vital Signs Temp 36.3 C L 12/19/24 08:10 Pulse 102 H 12/19/24 08:10 Resp 16 12/19/24 08:10 BP 133/84 12/19/24 08:10 Pulse Ox 98 12/19/24 08:10 O2 Del Method Room Air 12/19/24 08:10 Allergies Allergy/AdvReac Type Severity Reaction Status Date / Time [id number] Reductase Allergy Mild Muscle Pain Verified 12/19/24 08:07 Inhibitor Sulfa (Sulfonamide Allergy Unknown Rash Verified 12/19/24 08:07 Antibiotics) Home Medications ?Medication ?Instructions ?Recorded ?Confirmed ?Type ezetimibe 10 mg tablet 10 mg PO DAILY 12/05/20 12/19/24 History losartan 100 1 tablet PO DAILY 12/05/20 12/19/24 History mg-hydrochlorothiazide 25 mg tablet albuterol sulfate 90 mcg/actuation 1 puff inhalation Q4H PRN 09/30/24 12/04/24 History aerosol inhaler shortness of breath or wheezing primidone 250 mg tablet 250 mg PO BID #60 tabs 09/30/24 12/19/24 Rx fluticasone fur. 100 mcg-umeclid 1 inh inhalation Q24H 11/06/24 12/19/24 History 62.5 mcg-vilant 25 mcg inhalat.powder (Trelegy Ellipta) propranolol 20 mg tablet 20 mg PO DAILY 11/06/24 12/19/24 History atorvastatin 20 mg tablet (Lipitor) 20 mg PO DAILY #30 tabs 11/12/24 12/19/24 Rx ferrous sulfate 325 mg (65 mg 325 mg PO DAILY #30 tabs 11/12/24 12/19/24 Rx iron) tablet,delayed release pantoprazole 40 mg tablet,delayed 40 mg PO QAM #30 tabs 11/12/24 12/19/24 Rx release Patient hx anesthesia problems: none Family hx anesthesia problems: none Results Review: All pre-operative results and documents have been reviewed as part of the pre-operative evaluation. [facility] Past Medical History Medical History E coli bacteremia Iron deficiency anemia Chronic obstructive pulmonary disease COVID-19 (2020) Essential hypertension Benign familial tremor Hyperlipidemia Hypertension Surgical History Surgical History History of appendectomy Family History Family History Father Family history of malignant neoplasm Heart disease Sibling Patient's sister is in good health, Onset Age: 92 Mother Family history of malignant neoplasm Diabetes mellitus Sibling Hypertension Social History Social History Social History: Currently lives at home alone. . Surrogate decision maker: Delilah Arango, daughter ([phone]) or Echo Becker, granddaughter who is the executor of her living will ([phone]). Code status: DNR. Smoking packs per day: 0.5 Smoking cigarettes per day: 10.0 Years smoked: 50 Smoking pack-years: 25.00 Smoking status: Former smoker Tobacco type: cigarettes Second hand tobacco smoke exposure: Yes Additional smoking assessment comments: Continues to chew nicotine gum. Alcohol intake: never Substance use: never Substance use type: does not use Do You Feel Safe in your Home?: Yes Lack of Transportation: No Lack of Food: Never True Current Housing: I Have Housing Concerned About Future Housing: No Difficulty Paying Gas/Electric Bills: No Difficulty Paying for Meds: No Currently Unemployed: No Education: Master's Degree or Higher Difficulty w/ Childcare or Family Care: No Living arrangements: alone Additional living arrangements comments: . Lives in [place]. Multiple family members live nearby. 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 Spiritual care concerns: No Anes - Eval Final PreProcedure Day of Procedure 12/19/24 08:40 Patient weight: normal Heart: regular rate and rhythm Lungs: clear to auscultation Airway: Mallampati scale class II Neurological: alert and oriented Last oral intake: >/= 8 hours ASA classification: III Emergent: no Anesthetic plan: proceed Anesthesia type and monitoring: general GIVS and standard monitoring Results Review: All pre-operative results and documents have been reviewed as part of the pre-operative evaluation. Informed Consent: The patient's anesthetic plan and its attendant risks and benefits were discussed with the patient/family/POA. Questions were solicited and answers provided to the satisfaction of the patient/family/POA.
--- NOTE | 2024-12-19 08:47 | PM.HPGS ---
History of Present Illness History of Present Illness Consent: Risks, benefits, and alternatives have been discussed and questions answered. Patient agrees to proceed with procedure. Chief complaint: Iron deficiency anemia Narrative: Antonieta Hawkins is a 84 year old female with mary jo, denies overt gib, last colonoscopy probably 7 years ago Review of Systems Review of Systems: All systems reviewed & are unremarkable except as noted in HPI and below PMFSH Past Medical History Medical History E coli bacteremia Iron deficiency anemia Chronic obstructive pulmonary disease COVID-19 (2020) Essential hypertension Benign familial tremor Hyperlipidemia Hypertension Surgical History Surgical History History of appendectomy Family History Family History Father Family history of malignant neoplasm Heart disease Sibling Patient's sister is in good health, Onset Age: 92 Mother Family history of malignant neoplasm Diabetes mellitus Sibling Hypertension Social History Social History Social History: Currently lives at home alone. . Surrogate decision maker: Delilah Arango, daughter ([phone]) or Echo Becker, granddaughter who is the executor of her living will ([phone]). Code status: DNR. Smoking packs per day: 0.5 Smoking cigarettes per day: 10.0 Years smoked: 50 Smoking pack-years: 25.00 Smoking status: Former smoker Tobacco type: cigarettes Second hand tobacco smoke exposure: Yes Additional smoking assessment comments: Continues to chew nicotine gum. Alcohol intake: never Substance use: never Substance use type: does not use Do You Feel Safe in your Home?: Yes Lack of Transportation: No Lack of Food: Never True Current Housing: I Have Housing Concerned About Future Housing: No Difficulty Paying Gas/Electric Bills: No Difficulty Paying for Meds: No Currently Unemployed: No Education: Master's Degree or Higher Difficulty w/ Childcare or Family Care: No Living arrangements: alone Additional living arrangements comments: . Lives in [place]. Multiple family members live nearby. 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 Spiritual care concerns: No Meds Home Medications and Allergies Home Medications ?Medication ?Instructions ?Recorded ?Confirmed ?Type ezetimibe 10 mg tablet 10 mg PO DAILY 12/05/20 12/19/24 History losartan 100 1 tablet PO DAILY 12/05/20 12/19/24 History mg-hydrochlorothiazide 25 mg tablet albuterol sulfate 90 mcg/actuation 1 puff inhalation Q4H PRN 09/30/24 12/04/24 History aerosol inhaler shortness of breath or wheezing primidone 250 mg tablet 250 mg PO BID #60 tabs 09/30/24 12/19/24 Rx fluticasone fur. 100 mcg-umeclid 1 inh inhalation Q24H 11/06/24 12/19/24 History 62.5 mcg-vilant 25 mcg inhalat.powder (Trelegy Ellipta) propranolol 20 mg tablet 20 mg PO DAILY 11/06/24 12/19/24 History atorvastatin 20 mg tablet (Lipitor) 20 mg PO DAILY #30 tabs 11/12/24 12/19/24 Rx ferrous sulfate 325 mg (65 mg 325 mg PO DAILY #30 tabs 11/12/24 12/19/24 Rx iron) tablet,delayed release pantoprazole 40 mg tablet,delayed 40 mg PO QAM #30 tabs 11/12/24 12/19/24 Rx release Allergies Allergy/AdvReac Type Severity Reaction Status Date / Time [id number] Reductase Allergy Mild Muscle Pain Verified 12/19/24 08:07 Inhibitor Sulfa (Sulfonamide Allergy Unknown Rash Verified 12/19/24 08:07 Antibiotics) Vital Signs Vital Signs - 24 hr 12/19/24 08:10 Temperature 97.4 F L Pulse Rate 102 H Respiratory Rate 16 Blood Pressure 133/84 Pulse Oximetry 98 Oxygen Delivery Room Air Exam Const: General: comfortable and no acute distress HENMT: Face/Nose/Sinus: Normal nares present Eyes: General: appearance normal, both eyes and all related structures Neck: Neck: no JVD Resp: Auscultation: clear to auscultation bilaterally Cardio: Rate: regular rate Rhythm: regular rhythm GI: Inspection: non-distended GI Palp: Yes Soft to palpation Skin: General skin exam: normal color Neuro: Speech: normal speech Extrem: General: normal to inspection Psych: Mental Status: mental status grossly normal Assessment and Plan Assessment and plan (1) Iron deficiency anemia: Code(s): D50.9 - Iron deficiency anemia, unspecified Status: Acute Assessment and Plan: egd and colonoscopy
--- NOTE | 2024-12-19 09:00 | SUR.OPER ---
EGD end time: 856, Colonoscopy start time: 899
[2024-12-19 09:12] VITALS: BP 115/53; PULSE 70; RESP 25; O2SAT 100
[2024-12-19 09:22] VITALS: BP 119/74; PULSE 67; RESP 19; O2SAT 100
[2024-12-19 09:32] VITALS: BP 115/59; PULSE 65; RESP 19; O2SAT 99
== END 2024-12-19 09:43 | disposition home or self-care (01) ==
PROVIDERS: PCP Internal Medicine; Referring Provider Internal Medicine Gastroenterology; Visit Provider Internal Medicine Gastroenterology
PROC: 0DJ08ZZ Inspection of Upper Intestinal Tract, Via Natural or Artificial Opening Endoscopic (ICD-10-PCS; CPT 45378; principal; 2024-12-19 09:30)
DX: D50.9 Iron deficiency anemia, unspecified (principal); K63.5 Polyp of colon; K57.30 Diverticulosis of large intestine without perforation or abscess without bleeding; K64.8 Other hemorrhoids; K44.9 Diaphragmatic hernia without obstruction or gangrene; K29.50 Unspecified chronic gastritis without bleeding; F17.290 Nicotine dependence, other tobacco product, uncomplicated
CPT/HCPCS: 45385; 43239; 88305; J2704; J7120

== ENCOUNTER 2025-04-09 13:32 | Outpatient (CLI) | payer MEDICARE, BC, SELFPAY ==
[2025-04-09 15:15] LABS: Toxigenic C. Diff NEGATIVE (NEGATIVE)
[2025-04-15 17:33] LABS: Calprotectin, Stool. 602 mcg/g
== END 2025-04-09 13:33 | disposition home or self-care (01) ==
LOC: ANHLAB 13:33
PROVIDERS: PCP Internal Medicine; Visit Provider Nurse Practitioner
DX: R19.7 Diarrhea, unspecified (principal)
CPT/HCPCS: 83993; 87045; 87269; 87427; 87449; 87493